=== PATIENT | male | born 1960 | race Caucasian/White ===

== ENCOUNTER → 2025-04-06 | Outpatient (CLI) | payer MEDICARE, MEDICAID, SELFPAY ==
--- OUTSIDE RECORDS SUMMARY | 2025-04-06 05:54 | XMS RPT_ITS | CCD ---
Author Organization [facility] Care Team Providers Care Process Safety Specialist Name Role Phone Unavailable Primary Care Provider UnavailKg Daniel Attending Unavailable MAST AUTOMATIC FOLDER SEAMER-SAS PROGRAMMER ANALYST, MILI Primary Care Physician ANNIE FERNANDEZ Attending Unavailable ANNIE FERNANDEZ Attending Unavailable Amber Gant Unavailable Unavailable MAST AUTOMATIC FOLDER SEAMER-SAS PROGRAMMER ANALYST, MILI Primary Care UnavailTAVON Robert MD Consulting Unavailable KAR BADILLO, GLORIA Attending Unavailable LYNN ALVAREZ MD Admitting Unavail able PA EATON Consulting Unavailable MINOR DELGADO MD Consulting Unavailable DIANE BADILLO, DR OMARI Singh Consulting Unavailable MAST AUTOMATIC FOLDER SEAMER-SAS PROGRAMMER ANALYST, MILI Primary Care Unavailabl e MAST AUTOMATIC FOLDER SEAMER-SAS PROGRAMMER ANALYST, MILI Attending Unavailabl e MAST AUTOMATIC FOLDER SEAMER-SAS PROGRAMMER ANALYST, MILI Primary Care Unavailabl e STACY AUTOMATIC FOLDER SEAMER-SAS PROGRAMMER ANALYST, GLENDA Parham Attending Unavail able MAST AUTOMATIC FOLDER SEAMER-SAS PROGRAMMER ANALYST, MILI Attending Unavailabl e MAST AUTOMATIC FOLDER SEAMER-SAS PROGRAMMER ANALYST, MILI Primary Care Unavailabl e MAST AUTOMATIC FOLDER SEAMER-SAS PROGRAMMER ANALYST, MILI Attending Unavailabl e MAST AUTOMATIC FOLDER SEAMER-SAS PROGRAMMER ANALYST, MILI Primary Care Unavailabl e MAST AUTOMATIC FOLDER SEAMER-SAS PROGRAMMER ANALYST, MILI Attending Unavailabl e MAST AUTOMATIC FOLDER SEAMER-SAS PROGRAMMER ANALYST, MILI Primary Care Unavailabl e MAST AUTOMATIC FOLDER SEAMER-SAS PROGRAMMER ANALYST, MILI Primary Care Unavailabl angi ALVAREZ MD, LYNN Parham Consulting Unavail able FRIDA CARDENAS DO Attending Unavailable MAST AUTOMATIC FOLDER SEAMER-SAS PROGRAMMER ANALYST, MILI Primary Care Unavailabl e FISH AUTOMATIC FOLDER SEAMER-SAS PROGRAMMER ANALYST, CALEB Attending Unavailab le MAST AUTOMATIC FOLDER SEAMER-SAS PROGRAMMER ANALYST, MILI Primary Care Unavailabl e FISH AUTOMATIC FOLDER SEAMER-SAS PROGRAMMER ANALYSTCALEB Attending Unavailab le MAST, MILI Primary Care Unavailable Fish PRODUCTION COOKCaleb Referring Unavailable Fish PRODUCTION COOKCaleb Attending Unavailable Allergies Allergy Classification Reported Allergen(s) Allergy Type Date of Onset Reaction(s) Facility (9 sources) Lisinopril; Translations: [lisinopril] Drug Allergy 4 Coughing - function (qualifier value) [facility] (1 source) atorvastatin; Translations: [ATORVASTATIN] Drug Allergy 3 [facility] Repository Medications Current Medications Medication Drug Class(es) Dates Sig (Normalized) Sig (Original) amoxicillin 875 mg / clavulanate 125 mg oral tablet (3 sources) Penicillin-class Antibacterial Start: 12-20-2024 End: 12-30-2024 take 1 tablet by mouth every twelve hours amoxicillin-clav ulanate 875 mg-125 mg oral tablet 1 tab(s), Oral, q12h, X 10 day(s), # 20 tab(s), 0 Refill(s), 12/30/24 2:12:00 PM EDT, Pharmacy: [facility] #[id number], 179, cm, 12/20/24 13:46:00 EDT, Height, 113.6, kg, 12/20/24 13:46:00 EDT, Dosing Weight Start Date: 12/20/24 Stop Date: 12/30/24 Status: Ordered Quantity: 20.0 Unit: tab(s) Repeat number: 1 apixaban 5 mg oral tablet (5 sources) Factor Xa Inhibitor Start: 02-25-2025 Eliquis 5 mg oral tablet Dose : 5 mg = 1 tab(s), Oral, BID, in lieu of pcp, # 60 tab(s), 5 Refill(s), Pharmacy: [facility]/pharmacy #[id number], 183, cm, 01/04/25 13:33:00 EDT, Height, 102.2, kg, 01/04/25 13:33:00 EDT, Dosing Weight Start Date: 02/25/25 Status: Ordered Quantity: 60.0 Unit: tab(s) Repeat number: 6 Start: 01-02-2025 Eliquis 5 mg o ral tablet Dose : 5 mg = 1 tab(s), Oral, BID, # 60 tab(s), 0 Refill(s), Pharmacy: [facility] #[id number], 182.9, cm, 12/28/24 22:06:00 EDT, Height, 111.4, kg, 12/28/24 22:06:00 EDT, Dosing Weight Start Date: 01/02/25 Status: Ordered Quantity: 60.0 Unit: tab(s) Repeat number: 1 bumetanide 1 mg oral tablet (5 sources) Loop Diuretic Start: 02-25-2025 bumetanide 1 m g oral tablet Dose : 1 mg = 1 tab(s), Oral, BID, in lieu of pcp, # 60 tab(s), 5 Refill(s), Pharmacy: [facility]/pharmacy #[id number], 183, cm, 01/04/25 13:33:00 EDT, Height, kg, 01/04/25 13:33:00 EDT, Dosing Weight Start Date: 02/25/25 Status: Ordered Quantity: 60.0 Unit: tab(s) Repeat number: 6 Start: 01-02-2025 bumetanide 1 m g oral tablet Dose : 1 mg = 1 tab(s), Oral, BID, # 60 tab(s), 0 Refill(s), Pharmacy: [facility] #[id number], 182.9, cm, 12/28/24 22:06:00 EDT, Height, kg, 12/28/24 22:06:00 EDT, Dosing Weight Start Date: 01/02/25 Status: Ordered Quantity: 60.0 Unit: tab(s) Repeat number: 1 cefdinir 300 mg oral capsule (1 source) Cephalosporin Antibacterial Start: 01-02-2025 End: 01-07-2025 cefdinir 300 mg oral capsule Dose : 300 mg = 1 cap(s), Oral, q12h, X 5 day(s), # 10 cap(s), 0 Refill(s), 01/07/25 12:26:00 PM EDT, Pharmacy: [facility] #[id number], 182.9, cm, 12/28/24 22:06:00 EDT, Height, 111.4, kg, 12/28/24 22:06:00 EDT, Dosing Weight Start Date: 01/02/25 Stop Date: 01/07/25 Status: Ordered Quantity: 10.0 Unit: cap(s) Repeat number: 1 doxycycline hyclate 100 mg oral capsule (1 source) Tetracycline-class Drug Start: 01-02-2025 End: 01-07-2025 doxycycline hyclate 100 mg oral capsule Dose : 100 mg = 1 cap(s), Oral, BID, X 5 day(s), # 10 cap(s), 0 Refill(s), 01/07/25 12:26:00 PM EDT, Pharmacy: [facility] #[id number], 182.9, cm, 12/28/24 22:06:00 EDT, Height, 111.4, kg, 12/28/24 22:06:00 EDT, Dosing Weight Start Date: 01/02/25 Stop Date: 01/07/25 Status: Ordered Quantity: 10.0 Unit: cap(s) Repeat number: 1 furosemide 20 mg oral tablet (3 sources) Loop Diuretic Start: 12-24-2024 End: 01-07-2025 Lasix 20 mg oral tablet Dose : 20 mg = 1 tab(s), Oral, qDay, # 14 tab(s), 0 Refill(s), Pharmacy: [facility] #[id number], 179, cm, 12/20/24 13:46:00 EDT, Height, kg, 12/20/24 13:46:00 EDT, Dosing Weight Start Date: 12/24/24 Stop Date: 01/07/25 Status: Ordered Quantity: 14.0 Unit: tab(s) Repeat number: 1 indapamide 1.25 mg oral tablet (4 sources) Thiazide-like Diuretic Start: 03-09-2025 take 1 mg by mouth once daily in the morning indapamide 1.25 mg oral tablet mg = tab(s), Oral, qAM, 0 Refill(s) Start Date: 03/09/25 Status: Ordered Repeat number: 1 3 ml insulin glargine 100 unt/ml pen injector (8 sources) Insulin Analog Start: 03-16-2025 End: 09-12-2025 inject 1 dose by subcutaneous injection once daily at bedtime Lantus Solostar Pen 100 units/mL 3 mL Pen Dose : 35 unit(s) =, Subcutaneous, qHS, with evening meal, # 2 EA, 5 Refill(s), Pharmacy: [facility]/pharmacy #[id number], 183, cm, 03/09/25 8:40:00 EDT, Height, kg, 03/09/25 8:40:00 EDT, Dosing Weight Start Date: 03/16/25 Stop Date: 09/12/25 Status: Ordered Quantity: 2.0 Unit: EA Repeat number: 6 Start: 12-21-2024 inject 1 dose by sub cutaneous injection once daily at bedtime Lantus 100 units/mL10 ml vial solution Dose : 20 unit(s) =, Subcutaneous, qHS, # 10 mL, 2 Refill(s), Pharmacy: [facility] #[id number], 179, cm, 12/20/24 13:46:00 EDT, Height, kg, 12/20/24 13:46:00 EDT, Dosing Weight Start Date: 12/21/24 Status: Ordered Quantity: 10.0 Unit: mL Repeat number: 3 3 ml insulin lispro 100 unt/ml pen injector (4 sources) Insulin Analog Start: 03-16-2025 HumaLOG KwikPe n 100 units/mL injectable PEN See Instructions, 15 minutes before or immediately after a meal, # 3 mL, 2 Refill(s), 3 mL PEN, Pharmacy: [facility]/pharmacy #[id number], 183, cm, 03/09/25 8:40:00 EDT, Height, kg, 03/09/25 8:40:00 EDT, Dosing Weight Start Date: 03/16/25 Status: Ordered Quantity: 3.0 Unit: mL Repeat number: 3 Insulin Syringes (orange cap) (8 sources) Start: 12-21-2024 Insulin Syring es (orange cap) See Instructions, qs for 1 month supply, # 1 EA, 11 Refill(s), Pharmacy: [facility] #[id number], 179, cm, 12/20/24 13:46:00 EDT, Height, 113.6, kg, 12/20/24 13:46:00 EDT, Dosing Weight Start Date: 12/21/24 Status: Ordered Quantity: 1.0 Unit: EA Repeat number: 12 losartan potassium 25 mg oral tablet (4 sources) Angiotensin 2 Receptor Judd Start: 03-09-2025 take 1 mg by mouth once daily losartan 25 mg oral tablet mg = tab(s), Oral, qDay, 0 Refill(s) Start Date: 03/09/25 Status: Ordered Repeat number: 1 metFORMIN hydrochloride 500 mg oral tablet (8 sources) Biguanide Start: 12-24-2024 End: 12-19-2025 MetFORMIN (Eqv-Glucophage XR) 500 mg oral tablet, EXTENDED RELEASE Dose : 500 mg = 1 tab(s), Oral, BID, in lieu of pcp, # 60 tab(s), 5 Refill(s), Pharmacy: [facility]/pharmacy #[id number], 183, cm, 01/04/25 13:33:00 EDT, Height, kg, 01/04/25 13:33:00 EDT, Dosing Weight Start Date: 02/25/25 Status: Ordered Quantity: 60.0 Unit: tab(s) Repeat number: 6 24 hr metoprolol succinate 25 mg extended release oral tablet (11 sources) beta-Adrenergic Judd Start: 02-25-2025 metoprolol succinate 25 mg oral TABLET extended release Dose : 25 mg = 1 tab(s), Oral, qDayM, in lieu of pcp, # 30 tab(s), 5 Refill(s), Pharmacy: [facility]/pharmacy #[id number], 183, cm, 01/04/25 13:33:00 EDT, Height, kg, 01/04/25 13:33:00 EDT, Dosing Weight Start Date: 02/25/25 Status: Ordered Quantity: 30.0 Unit: tab(s) Repeat number: 6 Start: 12-31-2024 End: 01-02-2025 metoprolol succinate 25 mg o ral TABLET extended release Dose : 25 mg = 1 tab(s), Oral, qDayM, 0 Refill(s) Start Date: 01/02/25 Status: Ordered Repeat number: 1 Start: 12-20-2024 End: 06-18-2025 metoprolol tartrate 25 mg or al tablet Dose : 25 mg = 1 tab(s), Oral, BID, # 60 tab(s), 5 Refill(s), [facility][id number], 179, cm, 12/20/24 13:46:00 EDT, Height, kg, 12/20/24 13:46:00 EDT, Dosing Weight Start Date: 12/20/24 Stop Date: 06/18/25 Status: Ordered Quantity: 60.0 Unit: tab(s) Repeat number: 6 Pen needles (4 sources) Start: 02-24-2025 Pen needles Se e Instructions, qs for 1 month supply. in lieu of pcp, # 1 EA, 0 Refill(s), Pharmacy: [facility]/pharmacy #[id number], 183, cm, 01/04/25 13:33:00 EDT, Height, 102.2, kg, 01/04/25 13:33:00 EDT, Dosing Weight Start Date: 02/24/25 Status: Ordered Quantity: 1.0 Unit: EA Repeat number: 1 rosuvastatin calcium 10 mg oral tablet (5 sources) HMG-CoA Reductase Inhibitor Start: 02-25-2025 rosuvastatin 10 mg o ral tablet Dose : 10 mg = 1 tab(s), Oral, qHS, in lieu of pcp, # 30 tab(s), 5 Refill(s), Pharmacy: [facility]/pharmacy #[id number], 183, cm, 01/04/25 13:33:00 EDT, Height, kg, 01/04/25 13:33:00 EDT, Dosing Weight Start Date: 02/25/25 Status: Ordered Quantity: 30.0 Unit: tab(s) Repeat number: 6 Start: 01-02-2025 rosuvastatin 1 0 mg oral tablet Dose : 10 mg = 1 tab(s), Oral, qHS, # 30 tab(s), 0 Refill(s), Pharmacy: [facility] #[id number], 182.9, cm, 12/28/24 22:06:00 EDT, Height, kg, 12/28/24 22:06:00 EDT, Dosing Weight Start Date: 01/02/25 Status: Ordered Quantity: 30.0 Unit: tab(s) Repeat number: 1 sulfamethoxazole 800 mg / trimethoprim 160 mg oral tablet (3 sources) Dihydrofolate Reductase Inhibitor Antibacterial, Sulfonamide Antimicrobial Start: 12-24-2024 End: 01-03-2025 take 1 tablet by mouth twice daily sulfamethoxazole-trimethoprim 800 mg-160 mg oral tablet Dose = 1 tab(s), Oral, BID, X 10 day(s), # 20 tab(s), 0 Refill(s), Pharmacy: [facility] #[id number], 179, cm, 12/20/24 13:46:00 EDT, Height, 113.6, kg, 12/20/24 13:46:00 EDT, Dosing Weight Start Date: 12/24/24 Stop Date: 01/03/25 Status: Ordered Quantity: 20.0 Unit: tab(s) Repeat number: 1 Problems Active Problems Problem Classification Problem Date Documented Date Episodic/Chronic Cardiac dysrhythmias (11 sources) Atrial fibrillation; Translations: [Persistent atrial fibrillation] Onset: 12-28-2024 12-20-2024 Chronic Chronic ulcer of skin (8 sources) Pressure ulcer 12-20-2024 Chronic Congestive heart failure; nonhypertensive (6 sources) Acute systolic heart failure; Translations: [Acute systolic (congestive) heart failure] Onset: 12-28-2024 Chronic Coronary atherosclerosis and other heart disease (2 sources) Coronary atherosclerosis; Translations: [Atherosclerotic heart disease of [place] coronary artery without angina pectoris] Onset: 12-28-2024 Chronic Coronary atherosclerosis and other heart disease (1 source) Presence of coronary angioplasty implant and graft; Translations: [Presence of coronary angioplasty implant and graft] Onset: 12-28-2024 Episodic Diabetes mellitus with complications (17 sources) Type 2 diabetes mellitus with ulcer; Translations: [Type 2 diabetes mellitus with diabetic polyneuropathy] Onset: 01-08-2024 12-20-2024 Chronic Inflammatory conditions of male genital organs (2 sources) Inflammation of scrotum; Translations: [Inflammatory disorders of scrotum] Onset: 12-28-2024 Episodic Nonspecific chest pain (1 source) Other chest pain; Translations: [Other chest pain] Onset: 04-04-2025 Episodic Open wounds of extremities (2 sources) Complete traumatic amputation of unspecified lower leg, level unspecified, initial encounter; Translations: [Complete traumatic amputation of unspecified lower leg, level unspecified, initial encounter] Onset: 12-20-2024 Chronic Other bone disease and musculoskeletal deformities (2 sources) Acquired absence of left leg below knee; Translations: [Hx of BKA, left (HCC)] Onset: 01-08-2024 Chronic Other bone disease and musculoskeletal deformities (1 source) Amputated left lower limb below knee; Translations: [Acquired absence of left leg below knee] Chronic Other endocrine disorders (8 sources) Hormone level - finding 12-21-2024 Episodic Other lower respiratory disease (1 source) Shortness of breath; Translations: [Shortness of breath] Onset: 04-04-2025 Episodic Other male genital disorders (8 sources) Edema of scrotum 12-20-2024 Episodic Other male genital disorders (2 sources) Disorder of male genital organ; Translations: [Other specified disorders of the male genital organs] Onset: 12-29-2024 Episodic Other nervous system disorders (8 sources) Peripheral nerve disease 12-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 Chronic Other nervous system disorders (2 sources) Polyneuropathy, unspecified; Translations: [Polyneuropathy, unspecified] Onset: 12-20-2024 Chronic Other nutritional; endocrine; and metabolic disorders (1 source) Disorder of protein metabolism; 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, not elsewhere classified] Chronic Other nutritional; endocrine; and metabolic disorders (1 source) Other disorders of plasma-protein metabolism, not elsewhere classified; 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, not elsewhere classified] Onset: 12-28-2024 Chronic Residual codes; unclassified (8 sources) Bilateral lower limb edema 12-20-2024 Episodic Skin and subcutaneous tissue infections (6 sources) Cellulitis of lower limb; Translations: [Cellulitis of right lower limb] Onset: 12-28-2024 Episodic Substance-related disorders (10 sources) Marijuana user; Translations: [Cannabis misuse] Onset: 12-28-2024 12-20-2024 Episodic Unclassified (8 sources) Amputated lower limb 12-20-2024 Unclassified (4 sources) First encounter by subject 12-20-2024 Unclassified (8 sources) Hypercoagulable state due to atrial fibrillation 12-20-2024 Unclassified (1 source) Wound Check Onset: 07-14-2024 Unclassified (1 source) Other persistent atrial fibrillation; Translations: [Other persistent atrial fibrillation] Onset: 12-28-2024 Unclassified (4 sources) Patient encounter status 01-04-2025 Past or Other Problems Problem Classification Problem Date Documented Da te Episodic/Chronic Mycoses (1 source) Tinea unguium; Translations: [Onychomycosis] Onset: 01-08-2024 Episodic Other male genital disorders (4 sources) Other specified disorders of the male genital organs; Translations: [Other specified disorders of the male genital organs] Onset: 12-20-2024 Episodic Other screening for suspected conditions (not mental disorders or infectious disease) (2 sources) Blood chemistry abnormal; Translations: [Other specified abnormal findings of blood chemistry] Onset: 05-05-2025 Episodic Residual codes; unclassified (2 sources) Localized edema; Translations: [Localized edema] Onset: 12-20-2024 Episodic Results Test Name Value Interpretation Reference Range Facility PSAFon 03-22-2025 % Free PSA 10.9 % Normal [facility] Comment on above: Result Comment: The table below lists the probability of prostate cancer for men with non-suspicious MARISOL results and total PSA between 4 and 10 ng/mL, by patient age (Roderick et al, COMFORT 1998, 279:1542). % Free PSA 50-64 yr 65-75 yr 0.00-10.00% 56% 55% 10.01-15.00% 24% 35% 15.01-20.00% 17% 23% 20.01-25.00% 10% 20% >25.00% 5% 9% Please note: Roderick et al did not make specific recommendations regarding the use of percent free PSA for any other population of men. Performed At: [facility] [id number] Dudley Mott PhD Ph:[phone] Performed By: #### M DW, ANEU, CMP, GFR, CBC, ADIFF, LAC #### [address] [address] PSA Free 2.31 ng/mL Normal N/A [facility] Comment on above: Result Comment: Iron MCCLURE methodology. Performed By: #### M DW, ANEU, CMP, GFR, CBC, ADIFF, LAC #### [address] [address] .Auto Diffon 03-21-2025 Basophil, Absolute 0.0 10 3/mcL Normal 0.0-0.3 [facility] Comment on above: Performed By: #### M DW, ANEU, CMP, GFR, CBC, ADIFF, LAC #### [address] [address] Basophils/100 WBC (Bld) 0.6 % Normal 0.0-2.5 [facility] Comment on above: Performed By: #### M DW, ANEU, CMP, GFR, CBC, ADIFF, LAC #### [address] [place] [address] Eosinophil, Absolute 0.1 10 3/mcL Normal 0.0-0.7 [facility] Comment on above: Performed By: #### M DW, ANEU, CMP, GFR, CBC, ADIFF, LAC #### [address] [address] Eosinophils/100 WBC (Bld) 2.4 % Normal 0.0-6.0 [facility] Comment on above: Performed By: #### M DW, ANEU, CMP, GFR, CBC, ADIFF, LAC #### [address] [address] Lymphocyte, Absolute 1.4 10 3/mcL Normal 0.9-4.3 [facility] Comment on above: Performed By: #### M DW, ANEU, CMP, GFR, CBC, ADIFF, LAC #### [address] [address] Lymphocytes/100 WBC (Bld) 24.7 % Normal 20.0-40.0 [facility] Comment on above: Performed By: #### M DW, ANEU, CMP, GFR, CBC, ADIFF, LAC #### [address] [address] Monocyte, Absolute 0.4 10 3/mcL Normal 0.1-1.4 [facility] Comment on above: Performed By: #### M DW, ANEU, CMP, GFR, CBC, ADIFF, LAC #### [address] [address] Monocytes/100 WBC (Bld) 6.5 % Normal 2.0-13.0 [facility] Comment on above: Performed By: #### M DW, ANEU, CMP, GFR, CBC, ADIFF, LAC #### [address] [address] Neutrophils/100 WBC (Bld) 65.8 % Normal 50.0-75.0 [facility] Comment on above: Performed By: #### M DW, ANEU, CMP, GFR, CBC, ADIFF, LAC #### [address] [address] .GFRon 03-21-2025 Estimated Glomerular Filtration Rate 61 ml/min/1.73sqm Normal [facility] Comment on above: Result Comment: Stages of Chronic Kidney Disease (CKD) Stage Description eGFR(ml/min/1.73 sq.m.) CKD 1 Normal kidney function or >=90 normal kindney function with possible kidney damage (ex. Proteinuria) CKD 2 Kidney damage with mild loss 60-89 of kidney function CKD 3a Mild to moderate loss of kidney 45-59 function CKD 3b Moderate to severe loss of 30-44 of kindey function CKD 4 Severe loss of kidney function 15-29 CKD 5 Kidney failure <15 Note: (go live 2024) the eGFR calculation was updated to the 2020 CKD-EPI creatinine equation without a race factor to calculate the eGFR results. Performed By: #### M DW, ANEU, CMP, GFR, CBC, ADIFF, LAC #### [address] [address] .NEUABSon 03-21-2025 Neutrophil, Absolute 3.6 10 3/mcL Normal 2.3-8.1 [facility] Comment on above: Performed By: #### M DW, ANEU, CMP, GFR, CBC, ADIFF, LAC #### [id number] [place], [place] [address] BMPon 03-21-2025 BUN/Creatinine Ratio 29 ratio High 7-27 [facility] Comment on above: Performed By: #### M DW, ANEU, CMP, GFR, CBC, ADIFF, LAC #### [id number] [place], [place] [address] Calcium [Mass/Vol] 9.5 mg/dL Normal 8.4-10.2 [facility] Comment on above: Performed By: #### M DW, ANEU, CMP, GFR, CBC, ADIFF, LAC #### [id number] [place], [place] [address] Chloride [Moles/Vol] 102 mmol/L Normal 98-107 [facility] Comment on above: Performed By: #### M DW, ANEU, CMP, GFR, CBC, ADIFF, LAC #### [address] [address] CO2 [Moles/Vol] 24 mmol/L Normal 23-31 [facility] Comment on above: Performed By: #### M DW, ANEU, CMP, GFR, CBC, ADIFF, LAC #### [address] [address] Creatinine [Mass/Vol] 1.32 mg/dL High 0.67-1.17 [facility] Comment on above: Performed By: #### M DW, ANEU, CMP, GFR, CBC, ADIFF, LAC #### [place] [id number] Electrolyte Balance 12.0 mEq/L Normal 4.0-15.0 [facility] Comment on above: Performed By: #### M DW, ANEU, CMP, GFR, CBC, ADIFF, LAC #### [address] [address] Glucose [Mass/Vol] 339 mg/dL High 80-115 [facility] Comment on above: Performed By: #### M DW, ANEU, CMP, GFR, CBC, ADIFF, LAC #### [address] [address] Potassium [Moles/Vol] 4.6 mmol/L Normal 3.5-5.1 [facility] Comment on above: Performed By: #### M DW, ANEU, CMP, GFR, CBC, ADIFF, LAC #### [address] [address] Sodium [Moles/Vol] 138 mmol/L Normal 136-145 [facility] Comment on above: Performed By: #### M DW, ANEU, CMP, GFR, CBC, ADIFF, LAC #### [address] [address] Urea nitrogen [Mass/Vol] 38 mg/dL High 7-18 [facility] Comment on above: Performed By: #### M DW, ANEU, CMP, GFR, CBC, ADIFF, LAC #### [address] [address] CBCon 03-21-2025 Erythrocyte distribution width (RBC) [Ratio] 13.4 % Normal 11.5-15.5 [facility] Comment on above: Performed By: #### M DW, ANEU, CMP, GFR, CBC, ADIFF, LAC #### [place] [address] Hematocrit (Bld) [Volume fraction] 37.1 % Low 40.0-52.0 [facility] Comment on above: Performed By: #### M DW, ANEU, CMP, GFR, CBC, ADIFF, LAC #### [place] [address] Hgb 12.5 G/dL Low 13.0-17.5 [facility] Comment on above: Performed By: #### M DW, ANEU, CMP, GFR, CBC, ADIFF, LAC #### [place] [address] MCH (RBC) [Entitic mass] 29.6 pg Normal 27.0-33.0 [facility] Comment on above: Performed By: #### M DW, ANEU, CMP, GFR, CBC, ADIFF, LAC #### [address] [address] MCHC 33.7 G/dL Normal 32.0-36.0 [facility] Comment on above: Performed By: #### M DW, ANEU, CMP, GFR, CBC, ADIFF, LAC #### [address] [address] MCV (RBC) [Entitic vol] 87.6 fL Normal 81.0-100.0 [facility] Comment on above: Performed By: #### M DW, ANEU, CMP, GFR, CBC, ADIFF, LAC #### [address] [address] Platelet 152 10 3/mcL Normal 150-450 [facility] Comment on above: Performed By: #### M DW, ANEU, CMP, GFR, CBC, ADIFF, LAC #### [id number] [place], [place] [address] Platelet mean volume (Bld) [Entitic vol] 9.3 fL Normal 6.4-10.5 [facility] Comment on above: Performed By: #### M DW, ANEU, CMP, GFR, CBC, ADIFF, LAC #### [id number] [place] [id number] RBC 4.23 10 6/mcL Low 4.50-6.00 [facility] Comment on above: Performed By: #### M DW, ANEU, CMP, GFR, CBC, ADIFF, LAC #### [id number] [place] [id number] WBC 5.5 10 3/mcL Normal 4.5-10.8 [facility] Comment on above: Performed By: #### M DW, ANEU, CMP, GFR, CBC, ADIFF, LAC #### [id number] [place] [address] LABORATORYOrdered By: SYSTEM SYSTEM on 03-21-2025 Basophils (Bld) [#/Vol] 0.0 103/mcL Normal 0.0 - 0.3 10^3/mcL AO Workflow SS Basophils/100 WBC (Bld) 0.6 % Normal 0.0 - 2.5 % AO Workflow SS Calcium [Mass/Vol] 9.5 mg/dL Normal 8.4 - 10. 2 mg/dL AO ADM SS Chloride [Moles/Vol] 102 mmol/L Normal 98 - 10 7 mmol/L AO ADM SS CO2 [Moles/Vol] 24 mmol/L Normal 23 - 31 mmol/L AO ADM SS Creatinine [Mass/Vol] 1.32 mg/dL High 0.67 - 1.17 mg/dL AO ADM SS Electrolyte Balance 12.0 mEq/L Normal 4.0 - 15 .0 mEq/L AO ADM SS Eosinophil, Absolute 0.1 103/mcL Normal 0.0 - 0 .7 10^3/mcL AO Workflow SS Eosinophils/100 WBC (Bld) 2.4 % Normal 0.0 - 6.0 % AO Workflow SS Erythrocyte distribution width (RBC) [Ratio] 13.4 % Normal 11.5 - 15.5 % AO Workflow SS Estimated Glomerular Filtration Rate 61 ml/min/1.73sqm Invalid Interpretation Code AO Chemistry S Comment on above: Interpretive Data: Stages of Chronic Kidney Disease (CKD) Stage Description eGFR(ml/min/1.73 sq.m.) CKD 1 Normal kidney function or >=90 normal kindney function with possible kidney damage (ex. Proteinuria) CKD 2 Kidney damage with mild loss 60-89 of kidney function CKD 3a Mild to moderate loss of kidney 45-59 function CKD 3b Moderate to severe loss of 30-44 of kindey function CKD 4 Severe loss of kidney function 15-29 CKD 5 Kidney failure <15 Note: (go live 2024) the eGFR calculation was updated to the 2020 CKD-EPI creatinine equation without a race factor to calculate the eGFR results. Glucose [Mass/Vol] 339 mg/dL High 80 - 115 mg/dL AO ADM SS Hematocrit (Bld) [Volume fraction] 37.1 % Low 40.0 - 52.0 % AO Workflow SS Hemoglobin (Bld) [Mass/Vol] 12.5 G/dL Low 13.0 - 17.5 G/dL AO Workflow SS Lymphocytes (Bld) [#/Vol] 1.4 103/mcL Normal 0.9 - 4.3 10^3/mcL AO Workflow SS Lymphocytes/100 WBC (Bld) 24.7 % Normal 20.0 - 40.0 % AO Workflow SS MCH (RBC) [Entitic mass] 29.6 pg Normal 27.0 - 33.0 pg AO Workflow SS MCHC 33.7 G/dL Normal 32.0 - 36.0 G/dL AO Workflow SS MCV (RBC) [Entitic vol] 87.6 fL Normal 81.0 - 100.0 fL AO Workflow SS Monocytes (Bld) [#/Vol] 0.4 103/mcL Normal 0.1 - 1.4 10^3/mcL AO Workflow SS Monocytes/100 WBC (Bld) 6.5 % Normal 2.0 - 13.0 % AO Workflow SS Neutrophils (Bld) [#/Vol] 3.6 103/mcL Normal 2.3 - 8.1 10^3/mcL AO Workflow SS Neutrophils/100 WBC (Bld) 65.8 % Normal 50.0 - 75.0 % AO Workflow SS Platelet mean volume (Bld) [Entitic vol] 9.3 fL Normal 6.4 - 10.5 fL AO Workflow SS Platelets (Bld) [#/Vol] 152 103/mcL Normal 150 - 450 10^3/mcL AO Workflow SS Potassium [Moles/Vol] 4.6 mmol/L Normal 3.5 - 5.1 mmol/L AO ADM SS RBC (Bld) [#/Vol] 4.23 106/mcL Low 4.50 - 6.0 0 10^6/mcL AO Workflow SS Sodium [Moles/Vol] 138 mmol/L Normal 136 - 145 mmol/L AO ADM SS Urea nitrogen [Mass/Vol] 38 mg/dL High 7 - 18 mg/dL AO ADM SS Urea nitrogen/Creatinine [Mass ratio] 29 ratio High 7 - 27 ratio AO ADM SS WBC (Bld) [#/Vol] 5.5 103/mcL Normal 4.5 - 10.8 10^3/mcL AO Workflow SS .GFRon 03-17-2025 Estimated Glomerular Filtration Rate 63 ml/min/1.73sqm Normal [facility] Comment on above: Result Comment: Stages of Chronic Kidney Disease (CKD) Stage Description eGFR(ml/min/1.73 sq.m.) CKD 1 Normal kidney function or >=90 normal kindney function with possible kidney damage (ex. Proteinuria) CKD 2 Kidney damage with mild loss 60-89 of kidney function CKD 3a Mild to moderate loss of kidney 45-59 function CKD 3b Moderate to severe loss of 30-44 of kindey function CKD 4 Severe loss of kidney function 15-29 CKD 5 Kidney failure <15 Note: (go live 2024) the eGFR calculation was updated to the 2020 CKD-EPI creatinine equation without a race factor to calculate the eGFR results. Performed By: #### B MP, GFR #### [id number] [place], [place] [address] BMPon 03-17-2025 BUN/Creatinine Ratio 29 ratio High 7-27 [facility] Comment on above: Performed By: #### B MP, GFR #### [address] [place], [place] [address] Calcium [Mass/Vol] 9.2 mg/dL Normal 8.4-10.2 [facility] Comment on above: Performed By: #### B MP, GFR #### [address] [address] Chloride [Moles/Vol] 97 mmol/L Low 98-107 [facility] Comment on above: Performed By: #### B MP, GFR #### [address] [address] CO2 [Moles/Vol] 28 mmol/L Normal 23-31 [facility] Comment on above: Performed By: #### B MP, GFR #### [address] [address] Creatinine [Mass/Vol] 1.29 mg/dL High 0.67-1.17 [facility] Comment on above: Performed By: #### B MP, GFR #### [address] [address] Electrolyte Balance 9.0 mEq/L Normal 4.0-15.0 [facility] Comment on above: Performed By: #### B MP, GFR #### [address] [address] Glucose [Mass/Vol] 335 mg/dL High 80-115 [facility] Comment on above: Performed By: #### B MP, GFR #### [address] [address] Potassium [Moles/Vol] 4.1 mmol/L Normal 3.5-5.1 [facility] Comment on above: Performed By: #### B MP, GFR #### [address] [address] Sodium [Moles/Vol] 134 mmol/L Low 136-145 [facility] Comment on above: Performed By: #### B MP, GFR #### [address] [address] Urea nitrogen [Mass/Vol] 38 mg/dL High 7-18 [facility] Comment on above: Performed By: #### B MP, GFR #### [address] [address] LABORATORYOrdered By: SYSTEM SYSTEM on 03-17-2025 Calcium [Mass/Vol] 9.2 mg/dL Normal 8.4 - 10. 2 mg/dL AO ADM SS Chloride [Moles/Vol] 97 mmol/L Low 98 - 10 7 mmol/L AO ADM SS CO2 [Moles/Vol] 28 mmol/L Normal 23 - 31 mmol/L AO ADM SS Creatinine [Mass/Vol] 1.29 mg/dL High 0.67 - 1.17 mg/dL AO ADM SS Electrolyte Balance 9.0 mEq/L Normal 4.0 - 15 .0 mEq/L AO ADM SS Estimated Glomerular Filtration Rate 63 ml/min/1.73sqm Invalid Interpretation Code AO Chemistry S Comment on above: Interpretive Data: Stages of Chronic Kidney Disease (CKD) Stage Description eGFR(ml/min/1.73 sq.m.) CKD 1 Normal kidney function or >=90 normal kindney function with possible kidney damage (ex. Proteinuria) CKD 2 Kidney damage with mild loss 60-89 of kidney function CKD 3a Mild to moderate loss of kidney 45-59 function CKD 3b Moderate to severe loss of 30-44 of kindey function CKD 4 Severe loss of kidney function 15-29 CKD 5 Kidney failure <15 Note: (go live 2024) the eGFR calculation was updated to the 2020 CKD-EPI creatinine equation without a race factor to calculate the eGFR results. Glucose [Mass/Vol] 335 mg/dL High 80 - 115 mg/dL AO ADM SS Potassium [Moles/Vol] 4.1 mmol/L Normal 3.5 - 5.1 mmol/L AO ADM SS Sodium [Moles/Vol] 134 mmol/L Low 136 - 145 mmol/L AO ADM SS Urea nitrogen [Mass/Vol] 38 mg/dL High 7 - 18 mg/dL AO ADM SS Urea nitrogen/Creatinine [Mass ratio] 29 ratio High 7 - 27 ratio AO ADM SS .GFRon 03-16-2025 Estimated Glomerular Filtration Rate 55 ml/min/1.73sqm Normal [facility] Comment on above: Result Comment: Stages of Chronic Kidney Disease (CKD) Stage Description eGFR(ml/min/1.73 sq.m.) CKD 1 Normal kidney function or >=90 normal kindney function with possible kidney damage (ex. Proteinuria) CKD 2 Kidney damage with mild loss 60-89 of kidney function CKD 3a Mild to moderate loss of kidney 45-59 function CKD 3b Moderate to severe loss of 30-44 of kindey function CKD 4 Severe loss of kidney function 15-29 CKD 5 Kidney failure <15 Note: (go live 2024) the eGFR calculation was updated to the 2020 CKD-EPI creatinine equation without a race factor to calculate the eGFR results. Performed By: #### M DW, ANEU, CMP, GFR, CBC, ADIFF, LAC #### [address] [address] BMPon 03-16-2025 BUN/Creatinine Ratio 34 ratio High 7-27 [facility] Comment on above: Performed By: #### M DW, ANEU, CMP, GFR, CBC, ADIFF, LAC #### [address] [address] Calcium [Mass/Vol] 9.2 mg/dL Normal 8.4-10.2 [facility] Comment on above: Performed By: #### M DW, ANEU, CMP, GFR, CBC, ADIFF, LAC #### [address] [address] Chloride [Moles/Vol] 95 mmol/L Low 98-107 [facility] Comment on above: Performed By: #### M DW, ANEU, CMP, GFR, CBC, ADIFF, LAC #### [address] [address] CO2 [Moles/Vol] 28 mmol/L Normal 23-31 [facility] Comment on above: Performed By: #### M DW, ANEU, CMP, GFR, CBC, ADIFF, LAC #### [address] [address] Creatinine [Mass/Vol] 1.43 mg/dL High 0.67-1.17 [facility] Comment on above: Performed By: #### M DW, ANEU, CMP, GFR, CBC, ADIFF, LAC #### [address] [address] Electrolyte Balance 8.0 mEq/L Normal 4.0-15.0 [facility] Comment on above: Performed By: #### M DW, ANEU, CMP, GFR, CBC, ADIFF, LAC #### [id number] [place], [place] [address] Glucose [Mass/Vol] 608 mg/dL Critically abnormal 80-115 [facility] Comment on above: Performed By: #### M DW, ANEU, CMP, GFR, CBC, ADIFF, LAC #### [address] [place], [place] [address] Potassium [Moles/Vol] 5.0 mmol/L Normal 3.5-5.1 [facility] Comment on above: Performed By: #### M DW, ANEU, CMP, GFR, CBC, ADIFF, LAC #### [address] [place], [place] [address] Sodium [Moles/Vol] 131 mmol/L Low 136-145 [facility] Comment on above: Performed By: #### M DW, ANEU, CMP, GFR, CBC, ADIFF, LAC #### [address] [place], [place] [address] Urea nitrogen [Mass/Vol] 48 mg/dL High 7-18 [facility] Comment on above: Performed By: #### M DW, ANEU, CMP, GFR, CBC, ADIFF, LAC #### [address] [place], [place] [address] LABORATORYOrdered By: SYSTEM SYSTEM on 03-16-2025 Calcium [Mass/Vol] 9.2 mg/dL Normal 8.4 - 10. 2 mg/dL AO ADM SS Chloride [Moles/Vol] 95 mmol/L Low 98 - 10 7 mmol/L AO ADM SS CO2 [Moles/Vol] 28 mmol/L Normal 23 - 31 mmol/L AO ADM SS Creatinine [Mass/Vol] 1.43 mg/dL High 0.67 - 1.17 mg/dL AO ADM SS Electrolyte Balance 8.0 mEq/L Normal 4.0 - 15 .0 mEq/L AO ADM SS Estimated Glomerular Filtration Rate 55 ml/min/1.73sqm Invalid Interpretation Code AO Chemistry S Comment on above: Interpretive Data: Stages of Chronic Kidney Disease (CKD) Stage Description eGFR(ml/min/1.73 sq.m.) CKD 1 Normal kidney function or >=90 normal kindney function with possible kidney damage (ex. Proteinuria) CKD 2 Kidney damage with mild loss 60-89 of kidney function CKD 3a Mild to moderate loss of kidney 45-59 function CKD 3b Moderate to severe loss of 30-44 of kindey function CKD 4 Severe loss of kidney function 15-29 CKD 5 Kidney failure <15 Note: (go live 2024) the eGFR calculation was updated to the 2020 CKD-EPI creatinine equation without a race factor to calculate the eGFR results. Glucose [Mass/Vol] 608 mg/dL Invalid Interpretation Code 80 - 115 mg/dL AO ADM SS Natriuretic peptide.B prohormone N-Terminal [Mass/Vol] 591 pg/mL High 0 - 125 pg/mL AO ADM SS Comment on above: Interpretive Data: N T-proBNP results of less than 300 pg/mL effectively rules out acute congestive heart failure with 99% negative predictive value. Potassium [Moles/Vol] 5.0 mmol/L Normal 3.5 - 5.1 mmol/L AO ADM SS Sodium [Moles/Vol] 131 mmol/L Low 136 - 145 mmol/L AO ADM SS Urea nitrogen [Mass/Vol] 48 mg/dL High 7 - 18 mg/dL AO ADM SS Urea nitrogen/Creatinine [Mass ratio] 34 ratio High 7 - 27 ratio AO ADM SS PBNPon 03-16-2025 Natriuretic peptide B (Bld) [Mass/Vol] 591 pg/mL High 0-125 [facility] Comment on above: Result Comment: NT-p roBNP results of less than 300 pg/mL effectively rules out acute congestive heart failure with 99% negative predictive value. Performed By: #### M DW, ANEU, CMP, GFR, CBC, ADIFF, LAC #### [facility] [address] [place], [place] [address] .Auto Diffon 01-02-2025 Basophil, Absolute 0.0 10 3/mcL Normal 0.0-0.3 [facility] Comment on above: Performed By: #### N GPCR1, CTPCR #### [facility] [address] [place] [address] Basophils/100 WBC (Bld) 0.7 % Normal 0.0-2.5 [facility] Comment on above: Performed By: #### N GPCR1, CTPCR #### [address] [address] Eosinophil, Absolute 0.2 10 3/mcL Normal 0.0-0.7 [facility] Comment on above: Performed By: #### N GPCR1, CTPCR #### [address] [address] Eosinophils/100 WBC (Bld) 3.7 % Normal 0.0-6.0 [facility] Comment on above: Performed By: #### N GPCR1, CTPCR #### [address] [address] Lymphocyte, Absolute 1.2 10 3/mcL Normal 0.9-4.3 [facility] Comment on above: Performed By: #### N GPCR1, CTPCR #### [address] [address] Lymphocytes/100 WBC (Bld) 21.3 % Normal 20.0-40.0 [facility] Comment on above: Performed By: #### N GPCR1, CTPCR #### [address] [address] Monocyte, Absolute 0.5 10 3/mcL Normal 0.1-1.4 [facility] Comment on above: Performed By: #### N GPCR1, CTPCR #### [address] [address] Monocytes/100 WBC (Bld) 9.2 % Normal 2.0-13.0 [facility] Comment on above: Performed By: #### N GPCR1, CTPCR #### [address] [address] Neutrophils/100 WBC (Bld) 65.1 % Normal 50.0-75.0 [facility] Comment on above: Performed By: #### N GPCR1, CTPCR #### [address] [address] .GFRon 01-02-2025 Estimated Glomerular Filtration Rate 54 ml/min/1.73sqm Normal [facility] Comment on above: Result Comment: Stages of Chronic Kidney Disease (CKD) Stage Description eGFR(ml/min/1.73 sq.m.) CKD 1 Normal kidney function or >=90 normal kindney function with possible kidney damage (ex. Proteinuria) CKD 2 Kidney damage with mild loss 60-89 of kidney function CKD 3a Mild to moderate loss of kidney 45-59 function CKD 3b Moderate to severe loss of 30-44 of kindey function CKD 4 Severe loss of kidney function 15-29 CKD 5 Kidney failure <15 Note: (go live 2024) the eGFR calculation was updated to the 2020 CKD-EPI creatinine equation without a race factor to calculate the eGFR results. Performed By: #### N GPCR1, CTPCR #### [address] [address] .NEUABSon 01-02-2025 Neutrophil, Absolute 3.7 10 3/mcL Normal 2.3-8.1 [facility] Comment on above: Performed By: #### N GPCR1, CTPCR #### [id number] BMPon 01-02-2025 BUN/Creatinine Ratio 16.4 ratio Normal 10.0-22.0 [facility] Comment on above: Performed By: #### N GPCR1, CTPCR #### [id number] Calcium [Mass/Vol] 9.3 mg/dL Normal 8.7-10.4 [facility] Comment on above: Performed By: #### N GPCR1, CTPCR #### [id number] Chloride [Moles/Vol] 101 mmol/L Normal 98-110 [facility] Comment on above: Performed By: #### N GPCR1, CTPCR #### [address] [address] CO2 [Moles/Vol] 32 mmol/L Normal 22-32 [facility] Comment on above: Performed By: #### N GPCR1, CTPCR #### [id number] Creatinine [Mass/Vol] 1.46 mg/dL High 0.60-1.40 [facility] Comment on above: Result Comment: Test ing performed on [employer] analyzer using enzymatic creatinine methodology. Performed By: #### N GPCR1, CTPCR #### [address] [address] Electrolyte Balance 5.0 mEq/L Normal 4.0-15.0 [facility] Comment on above: Performed By: #### N GPCR1, CTPCR #### [address] [address] Glucose [Mass/Vol] 110 mg/dL Normal 82-115 [facility] Comment on above: Performed By: #### N GPCR1, CTPCR #### [address] [address] Potassium [Moles/Vol] 4.4 mmol/L Normal 3.5-5.0 [facility] Comment on above: Performed By: #### N GPCR1, CTPCR #### [id number] Sodium [Moles/Vol] 138 mmol/L Normal 136-145 [facility] Comment on above: Performed By: #### N GPCR1, CTPCR #### [id number] Urea nitrogen [Mass/Vol] 24.0 mg/dL High 8.0-22.0 [facility] Comment on above: Performed By: #### N GPCR1, CTPCR #### [address] [address] CBCon 01-02-2025 Erythrocyte distribution width (RBC) [Ratio] 14.1 % Normal 11.5-15.5 [facility] Comment on above: Performed By: #### N GPCR1, CTPCR #### [address] [address] Hematocrit (Bld) [Volume fraction] 40.8 % Normal 40.0-52.0 [facility] Comment on above: Performed By: #### N GPCR1, CTPCR #### [address] [address] Hgb 13.6 G/dL Normal 13.0-17.5 [facility] Comment on above: Performed By: #### N GPCR1, CTPCR #### [address] [address] MCH (RBC) [Entitic mass] 29.1 pg Normal 27.0-33.0 [facility] Comment on above: Performed By: #### N GPCR1, CTPCR #### [address] [address] MCHC 33.3 G/dL Normal 32.0-36.0 [facility] Comment on above: Performed By: #### N GPCR1, CTPCR #### [address] [address] MCV (RBC) [Entitic vol] 87.5 fL Normal 81.0-100.0 [facility] Comment on above: Performed By: #### N GPCR1, CTPCR #### [address] [address] Platelet 184 10 3/mcL Normal 150-450 [facility] Comment on above: Performed By: #### N GPCR1, CTPCR #### [address] [address] Platelet mean volume (Bld) [Entitic vol] 8.9 fL Normal 6.4-10.5 [facility] Comment on above: Performed By: #### N GPCR1, CTPCR #### [address] [address] RBC 4.66 10 6/mcL Normal 4.50-6.00 [facility] Comment on above: Performed By: #### N GPCR1, CTPCR #### [address] [address] WBC 5.7 10 3/mcL Normal 4.5-10.8 [facility] Comment on above: Performed By: #### N GPCR1, CTPCR #### [address] [address] LABORATORYOrdered By: Christie Arambula on 01-02-2025 Blood Glucose Testing Reason Routine (01/02/25 12:03 PM) [facility] Glucose [Mass/Vol] 175 mg/dL High 82 - 115 mg/dL [facility] LABORATORYOrdered By: Marisabel Núñez on 01-02-2025 Blood Glucose Testing Reason Routine (01/02/25 8:14 AM) [facility] Glucose [Mass/Vol] 100 mg/dL Normal 82 - 115 mg/dL [facility] LABORATORYOrdered By: SYSTEM SYSTEM on 01-02-2025 Basophils (Bld) [#/Vol] 0.0 103/mcL Normal 0.0 - 0.3 10^3/mcL Workflow SS Basophils/100 WBC (Bld) 0.7 % Normal 0.0 - 2.5 % Workflow SS Calcium [Mass/Vol] 9.3 mg/dL Normal 8.7 - 10. 4 mg/dL ADM SS Chloride [Moles/Vol] 101 mmol/L Normal 98 - 11 0 mEq/L ADM SS CO2 [Moles/Vol] 32 mmol/L Normal 22 - 32 mEq/L ADM SS Creatinine [Mass/Vol] 1.46 mg/dL High 0.60 - 1.40 mg/dL ADM SS Comment on above: Interpretive Data: T esting performed on [employer] analyzer using enzymatic creatinine methodology. Electrolyte Balance 5.0 mEq/L Normal 4.0 - 15 .0 mEq/L ADM SS Eosinophils (Bld) [#/Vol] 0.2 103/mcL Normal 0.0 - 0.7 10^3/mcL Workflow SS Eosinophils/100 WBC (Bld) 3.7 % Normal 0.0 - 6.0 % Workflow SS Erythrocyte distribution width (RBC) [Ratio] 14.1 % Normal 11.5 - 15.5 % Workflow SS Estimated Glomerular Filtration Rate 54 ml/min/1.73sqm Invalid Interpretation Code Chemistry S Comment on above: Interpretive Data: Stages of Chronic Kidney Disease (CKD) Stage Description eGFR(ml/min/1.73 sq.m.) CKD 1 Normal kidney function or >=90 normal kindney function with possible kidney damage (ex. Proteinuria) CKD 2 Kidney damage with mild loss 60-89 of kidney function CKD 3a Mild to moderate loss of kidney 45-59 function CKD 3b Moderate to severe loss of 30-44 of kindey function CKD 4 Severe loss of kidney function 15-29 CKD 5 Kidney failure <15 Note: (go live 2024) the eGFR calculation was updated to the 2020 CKD-EPI creatinine equation without a race factor to calculate the eGFR results. Glucose [Mass/Vol] 110 mg/dL Normal 82 - 115 mg/dL ADM SS Hematocrit (Bld) [Volume fraction] 40.8 % Normal 40.0 - 52.0 % AH Workflow SS Hemoglobin (Bld) [Mass/Vol] 13.6 G/dL Normal 13.0 - 17.5 G/dL AH Workflow SS Lymphocytes (Bld) [#/Vol] 1.2 103/mcL Normal 0.9 - 4.3 10^3/mcL AH Workflow SS Lymphocytes/100 WBC (Bld) 21.3 % Normal 20.0 - 40.0 % AH Workflow SS Magnesium [Mass/Vol] 1.8 mg/dL Normal 1.6 - 2 .4 mg/dL ADM SS MCH (RBC) [Entitic mass] 29.1 pg Normal 27.0 - 33.0 pg AH Workflow SS MCHC 33.3 G/dL Normal 32.0 - 36.0 G/dL AH Workflow SS MCV (RBC) [Entitic vol] 87.5 fL Normal 81.0 - 100.0 fL AH Workflow SS Monocytes (Bld) [#/Vol] 0.5 103/mcL Normal 0.1 - 1.4 10^3/mcL AH Workflow SS Monocytes/100 WBC (Bld) 9.2 % Normal 2.0 - 13.0 % AH Workflow SS Neutrophils (Bld) [#/Vol] 3.7 103/mcL Normal 2.3 - 8.1 10^3/mcL AH Workflow SS Neutrophils/100 WBC (Bld) 65.1 % Normal 50.0 - 75.0 % AH Workflow SS Platelet mean volume (Bld) [Entitic vol] 8.9 fL Normal 6.4 - 10.5 fL AH Workflow SS Platelets (Bld) [#/Vol] 184 103/mcL Normal 150 - 450 10^3/mcL AH Workflow SS Potassium [Moles/Vol] 4.4 mmol/L Normal 3.5 - 5.0 mEq/L AH ADM SS RBC (Bld) [#/Vol] 4.66 106/mcL Normal 4.50 - 6.0 0 10^6/mcL AH Workflow SS Sodium [Moles/Vol] 138 mmol/L Normal 136 - 145 mEq/L AH ADM SS Urea nitrogen [Mass/Vol] 24.0 mg/dL High 8.0 - 22.0 mg/dL AH ADM SS Urea nitrogen/Creatinine [Mass ratio] 16.4 ratio Normal 10.0 - 22.0 ratio AH ADM SS WBC (Bld) [#/Vol] 5.7 103/mcL Normal 4.5 - 10.8 10^3/mcL AH Workflow SS MGon 01-02-2025 Magnesium [Mass/Vol] 1.8 mg/dL Normal 1.6-2.4 [facility] Comment on above: Performed By: #### N GPCR1, CTPCR #### [address] [address] .Auto Diffon 01-01-2025 Basophil, Absolute 0.0 10 3/mcL Normal 0.0-0.3 [facility] Comment on above: Performed By: #### B MP, GFR, CBC, ANEU, ADIFF, MG #### [address] [address] Basophils/100 WBC (Bld) 0.7 % Normal 0.0-2.5 [facility] Comment on above: Performed By: #### B MP, GFR, CBC, ANEU, ADIFF, MG #### [address] [address] Eosinophil, Absolute 0.2 10 3/mcL Normal 0.0-0.7 [facility] Comment on above: Performed By: #### B MP, GFR, CBC, ANEU, ADIFF, MG #### [address] [address] Eosinophils/100 WBC (Bld) 3.3 % Normal 0.0-6.0 [facility] Comment on above: Performed By: #### B MP, GFR, CBC, ANEU, ADIFF, MG #### [address] [address] Lymphocyte, Absolute 1.3 10 3/mcL Normal 0.9-4.3 [facility] Comment on above: Performed By: #### B MP, GFR, CBC, ANEU, ADIFF, MG #### [address] [address] Lymphocytes/100 WBC (Bld) 26.2 % Normal 20.0-40.0 [facility] Comment on above: Performed By: #### B MP, GFR, CBC, ANEU, ADIFF, MG #### [address] [address] Monocyte, Absolute 0.5 10 3/mcL Normal 0.1-1.4 [facility] Comment on above: Performed By: #### B MP, GFR, CBC, ANEU, ADIFF, MG #### [address] [address] Monocytes/100 WBC (Bld) 9.6 % Normal 2.0-13.0 [facility] Comment on above: Performed By: #### B MP, GFR, CBC, ANEU, ADIFF, MG #### [address] [address] Neutrophils/100 WBC (Bld) 60.2 % Normal 50.0-75.0 [facility] Comment on above: Performed By: #### B MP, GFR, CBC, ANEU, ADIFF, MG #### [address] [address] .GFRon 01-01-2025 Estimated Glomerular Filtration Rate 56 ml/min/1.73sqm Normal [facility] Comment on above: Result Comment: Stages of Chronic Kidney Disease (CKD) Stage Description eGFR(ml/min/1.73 sq.m.) CKD 1 Normal kidney function or >=90 normal kindney function with possible kidney damage (ex. Proteinuria) CKD 2 Kidney damage with mild loss 60-89 of kidney function CKD 3a Mild to moderate loss of kidney 45-59 function CKD 3b Moderate to severe loss of 30-44 of kindey function CKD 4 Severe loss of kidney function 15-29 CKD 5 Kidney failure <15 Note: (go live 2024) the eGFR calculation was updated to the 2020 CKD-EPI creatinine equation without a race factor to calculate the eGFR results. Performed By: #### B MP, GFR, CBC, ANEU, ADIFF, MG #### [address] [address] .NEUABSon 01-01-2025 Neutrophil, Absolute 3.1 10 3/mcL Normal 2.3-8.1 [facility] Comment on above: Performed By: #### B MP, GFR, CBC, ANEU, ADIFF, MG #### [address] [address] BMPon 01-01-2025 BUN/Creatinine Ratio 18.4 ratio Normal 10.0-22.0 [facility] Comment on above: Performed By: #### B MP, GFR, CBC, ANEU, ADIFF, MG #### [place] [address] Calcium [Mass/Vol] 9.0 mg/dL Normal 8.7-10.4 [facility] Comment on above: Performed By: #### B MP, GFR, CBC, ANEU, ADIFF, MG #### [place] [address] Chloride [Moles/Vol] 100 mmol/L Normal 98-110 [facility] Comment on above: Performed By: #### B MP, GFR, CBC, ANEU, ADIFF, MG #### [place] [address] CO2 [Moles/Vol] 30 mmol/L Normal 22-32 [facility] Comment on above: Performed By: #### B MP, GFR, CBC, ANEU, ADIFF, MG #### [place] [address] Creatinine [Mass/Vol] 1.41 mg/dL High 0.60-1.40 [facility] Comment on above: Result Comment: Test ing performed on [employer] analyzer using enzymatic creatinine methodology. Performed By: #### B MP, GFR, CBC, ANEU, ADIFF, MG #### [place] [address] Electrolyte Balance 7.0 mEq/L Normal 4.0-15.0 [facility] Comment on above: Performed By: #### B MP, GFR, CBC, ANEU, ADIFF, MG #### [place] [address] Glucose [Mass/Vol] 139 mg/dL High 82-115 [facility] Comment on above: Performed By: #### B MP, GFR, CBC, ANEU, ADIFF, MG #### [address] [address] Potassium [Moles/Vol] 4.0 mmol/L Normal 3.5-5.0 [facility] Comment on above: Performed By: #### B MP, GFR, CBC, ANEU, ADIFF, MG #### [address] [address] Sodium [Moles/Vol] 137 mmol/L Normal 136-145 [facility] Comment on above: Performed By: #### B MP, GFR, CBC, ANEU, ADIFF, MG #### [address] [address] Urea nitrogen [Mass/Vol] 26.0 mg/dL High 8.0-22.0 [facility] Comment on above: Performed By: #### B MP, GFR, CBC, ANEU, ADIFF, MG #### [address] [address] CBCon 01-01-2025 Erythrocyte distribution width (RBC) [Ratio] 14.1 % Normal 11.5-15.5 [facility] Comment on above: Performed By: #### B MP, GFR, CBC, ANEU, ADIFF, MG #### [place] [id number] Hematocrit (Bld) [Volume fraction] 38.4 % Low 40.0-52.0 [facility] Comment on above: Performed By: #### B MP, GFR, CBC, ANEU, ADIFF, MG #### [address] [address] Hgb 12.9 G/dL Low 13.0-17.5 [facility] Comment on above: Performed By: #### B MP, GFR, CBC, ANEU, ADIFF, MG #### [address] [address] MCH (RBC) [Entitic mass] 29.4 pg Normal 27.0-33.0 [facility] Comment on above: Performed By: #### B MP, GFR, CBC, ANEU, ADIFF, MG #### [place] [address] MCHC 33.5 G/dL Normal 32.0-36.0 [facility] Comment on above: Performed By: #### B MP, GFR, CBC, ANEU, ADIFF, MG #### [place] [address] MCV (RBC) [Entitic vol] 87.6 fL Normal 81.0-100.0 [facility] Comment on above: Performed By: #### B MP, GFR, CBC, ANEU, ADIFF, MG #### [place] [address] Platelet 182 10 3/mcL Normal 150-450 [facility] Comment on above: Performed By: #### B MP, GFR, CBC, ANEU, ADIFF, MG #### [place] [address] Platelet mean volume (Bld) [Entitic vol] 9.5 fL Normal 6.4-10.5 [facility] Comment on above: Performed By: #### B MP, GFR, CBC, ANEU, ADIFF, MG #### [place] [address] RBC 4.38 10 6/mcL Low 4.50-6.00 [facility] Comment on above: Performed By: #### B MP, GFR, CBC, ANEU, ADIFF, MG #### [place] [address] WBC 5.1 10 3/mcL Normal 4.5-10.8 [facility] Comment on above: Performed By: #### B MP, GFR, CBC, ANEU, ADIFF, MG #### [place] [address] LABORATORYOrdered By: Neto Pratt on 01-01-2025 Glucose [Mass/Vol] 193 mg/dL High 82 - 115 mg/dL [facility] LABORATORYOrdered By: Christie Arambula on 01-01-2025 Blood Glucose Testing Reason Routine (01/01/25 12:21 PM) [facility] LABORATORYOrdered By: SYSTEM SYSTEM on 01-01-2025 Basophils (Bld) [#/Vol] 0.0 103/mcL Normal 0.0 - 0.3 10^3/mcL Workflow SS Basophils/100 WBC (Bld) 0.7 % Normal 0.0 - 2.5 % Workflow SS Calcium [Mass/Vol] 9.0 mg/dL Normal 8.7 - 10. 4 mg/dL AH ADM SS Chloride [Moles/Vol] 100 mmol/L Normal 98 - 11 0 mEq/L AH ADM SS CO2 [Moles/Vol] 30 mmol/L Normal 22 - 32 mEq/L ADM SS Creatinine [Mass/Vol] 1.41 mg/dL High 0.60 - 1.40 mg/dL ADM SS Comment on above: Interpretive Data: T esting performed on [employer] analyzer using enzymatic creatinine methodology. Electrolyte Balance 7.0 mEq/L Normal 4.0 - 15 .0 mEq/L ADM SS Eosinophils (Bld) [#/Vol] 0.2 103/mcL Normal 0.0 - 0.7 10^3/mcL Workflow SS Eosinophils/100 WBC (Bld) 3.3 % Normal 0.0 - 6.0 % Workflow SS Erythrocyte distribution width (RBC) [Ratio] 14.1 % Normal 11.5 - 15.5 % AH Workflow SS Estimated Glomerular Filtration Rate 56 ml/min/1.73sqm Invalid Interpretation Code Chemistry S Comment on above: Interpretive Data: Stages of Chronic Kidney Disease (CKD) Stage Description eGFR(ml/min/1.73 sq.m.) CKD 1 Normal kidney function or >=90 normal kindney function with possible kidney damage (ex. Proteinuria) CKD 2 Kidney damage with mild loss 60-89 of kidney function CKD 3a Mild to moderate loss of kidney 45-59 function CKD 3b Moderate to severe loss of 30-44 of kindey function CKD 4 Severe loss of kidney function 15-29 CKD 5 Kidney failure <15 Note: (go live 2024) the eGFR calculation was updated to the 2020 CKD-EPI creatinine equation without a race factor to calculate the eGFR results. Glucose [Mass/Vol] 139 mg/dL High 82 - 115 mg/dL ADM SS Hematocrit (Bld) [Volume fraction] 38.4 % Low 40.0 - 52.0 % AH Workflow SS Hemoglobin (Bld) [Mass/Vol] 12.9 G/dL Low 13.0 - 17.5 G/dL AH Workflow SS Lymphocytes (Bld) [#/Vol] 1.3 103/mcL Normal 0.9 - 4.3 10^3/mcL AH Workflow SS Lymphocytes/100 WBC (Bld) 26.2 % Normal 20.0 - 40.0 % AH Workflow SS Magnesium [Mass/Vol] 1.8 mg/dL Normal 1.6 - 2 .4 mg/dL AH ADM SS MCH (RBC) [Entitic mass] 29.4 pg Normal 27.0 - 33.0 pg AH Workflow SS MCHC 33.5 G/dL Normal 32.0 - 36.0 G/dL Workflow SS MCV (RBC) [Entitic vol] 87.6 fL Normal 81.0 - 100.0 fL AH Workflow SS Monocytes (Bld) [#/Vol] 0.5 103/mcL Normal 0.1 - 1.4 10^3/mcL AH Workflow SS Monocytes/100 WBC (Bld) 9.6 % Normal 2.0 - 13.0 % AH Workflow SS Neutrophils (Bld) [#/Vol] 3.1 103/mcL Normal 2.3 - 8.1 10^3/mcL AH Workflow SS Neutrophils/100 WBC (Bld) 60.2 % Normal 50.0 - 75.0 % AH Workflow SS Platelet mean volume (Bld) [Entitic vol] 9.5 fL Normal 6.4 - 10.5 fL AH Workflow SS Platelets (Bld) [#/Vol] 182 103/mcL Normal 150 - 450 10^3/mcL AH Workflow SS Potassium [Moles/Vol] 4.0 mmol/L Normal 3.5 - 5.0 mEq/L AH ADM SS RBC (Bld) [#/Vol] 4.38 106/mcL Low 4.50 - 6.0 0 10^6/mcL AH Workflow SS Sodium [Moles/Vol] 137 mmol/L Normal 136 - 145 mEq/L ADM SS Urea nitrogen [Mass/Vol] 26.0 mg/dL High 8.0 - 22.0 mg/dL AH ADM SS Urea nitrogen/Creatinine [Mass ratio] 18.4 ratio Normal 10.0 - 22.0 ratio AH ADM SS WBC (Bld) [#/Vol] 5.1 103/mcL Normal 4.5 - 10.8 10^3/mcL AH Workflow SS MGon 01-01-2025 Magnesium [Mass/Vol] 1.8 mg/dL Normal 1.6-2.4 [facility] Comment on above: Performed By: #### B MP, GFR, CBC, ANEU, ADIFF, MG #### [address] [address] .Auto Diffon 12-31-2024 Basophil, Absolute 0.0 10 3/mcL Normal 0.0-0.3 [facility] Comment on above: Performed By: #### B MP, GFR, CBC, ANEU, ADIFF, MG #### [address] [address] Basophils/100 WBC (Bld) 0.6 % Normal 0.0-2.5 [facility] Comment on above: Performed By: #### B MP, GFR, CBC, ANEU, ADIFF, MG #### [address] [address] Eosinophil, Absolute 0.2 10 3/mcL Normal 0.0-0.7 [facility] Comment on above: Performed By: #### B MP, GFR, CBC, ANEU, ADIFF, MG #### [address] [address] Eosinophils/100 WBC (Bld) 3.3 % Normal 0.0-6.0 [facility] Comment on above: Performed By: #### B MP, GFR, CBC, ANEU, ADIFF, MG #### [address] [address] Lymphocyte, Absolute 1.5 10 3/mcL Normal 0.9-4.3 [facility] Comment on above: Performed By: #### B MP, GFR, CBC, ANEU, ADIFF, MG #### [address] [address] Lymphocytes/100 WBC (Bld) 29.5 % Normal 20.0-40.0 [facility] Comment on above: Performed By: #### B MP, GFR, CBC, ANEU, ADIFF, MG #### [address] [address] Monocyte, Absolute 0.5 10 3/mcL Normal 0.1-1.4 [facility] Comment on above: Performed By: #### B MP, GFR, CBC, ANEU, ADIFF, MG #### [address] [address] Monocytes/100 WBC (Bld) 9.0 % Normal 2.0-13.0 [facility] Comment on above: Performed By: #### B MP, GFR, CBC, ANEU, ADIFF, MG #### [address] [address] Neutrophils/100 WBC (Bld) 57.6 % Normal 50.0-75.0 [facility] Comment on above: Performed By: #### B MP, GFR, CBC, ANEU, ADIFF, MG #### [address] [address] .GFRon 12-31-2024 Estimated Glomerular Filtration Rate 52 ml/min/1.73sqm Normal [facility] Comment on above: Result Comment: Stages of Chronic Kidney Disease (CKD) Stage Description eGFR(ml/min/1.73 sq.m.) CKD 1 Normal kidney function or >=90 normal kindney function with possible kidney damage (ex. Proteinuria) CKD 2 Kidney damage with mild loss 60-89 of kidney function CKD 3a Mild to moderate loss of kidney 45-59 function CKD 3b Moderate to severe loss of 30-44 of kindey function CKD 4 Severe loss of kidney function 15-29 CKD 5 Kidney failure <15 Note: (go live 2024) the eGFR calculation was updated to the 2020 CKD-EPI creatinine equation without a race factor to calculate the eGFR results. Performed By: #### B MP, GFR, CBC, ANEU, ADIFF, MG #### [address] [address] .NEUABSon 12-31-2024 Neutrophil, Absolute 2.9 10 3/mcL Normal 2.3-8.1 [facility] Comment on above: Performed By: #### B MP, GFR, CBC, ANEU, ADIFF, MG #### [address] [address] BMPon 12-31-2024 BUN/Creatinine Ratio 15.2 ratio Normal 10.0-22.0 [facility] Comment on above: Performed By: #### B MP, GFR, CBC, ANEU, ADIFF, MG #### [address] [address] Calcium [Mass/Vol] 8.9 mg/dL Normal 8.7-10.4 [facility] Comment on above: Performed By: #### B MP, GFR, CBC, ANEU, ADIFF, MG #### [place] [id number] Chloride [Moles/Vol] 100 mmol/L Normal 98-110 [facility] Comment on above: Performed By: #### B MP, GFR, CBC, ANEU, ADIFF, MG #### [place] [id number] CO2 [Moles/Vol] 30 mmol/L Normal 22-32 [facility] Comment on above: Performed By: #### B MP, GFR, CBC, ANEU, ADIFF, MG #### [place] [id number] Creatinine [Mass/Vol] 1.51 mg/dL High 0.60-1.40 [facility] Comment on above: Result Comment: Test ing performed on [employer] analyzer using enzymatic creatinine methodology. Performed By: #### B MP, GFR, CBC, ANEU, ADIFF, MG #### [address] [address] Electrolyte Balance 4.0 mEq/L Normal 4.0-15.0 [facility] Comment on above: Performed By: #### B MP, GFR, CBC, ANEU, ADIFF, MG #### [place] [id number] Glucose [Mass/Vol] 145 mg/dL High 82-115 [facility] Comment on above: Performed By: #### B MP, GFR, CBC, ANEU, ADIFF, MG #### [address] [address] Potassium [Moles/Vol] 3.8 mmol/L Normal 3.5-5.0 [facility] Comment on above: Performed By: #### B MP, GFR, CBC, ANEU, ADIFF, MG #### [address] [address] Sodium [Moles/Vol] 134 mmol/L Low 136-145 [facility] Comment on above: Performed By: #### B MP, GFR, CBC, ANEU, ADIFF, MG #### [address] [address] Urea nitrogen [Mass/Vol] 23.0 mg/dL High 8.0-22.0 [facility] Comment on above: Performed By: #### B MP, GFR, CBC, ANEU, ADIFF, MG #### [address] [address] CBCon 12-31-2024 Erythrocyte distribution width (RBC) [Ratio] 14.3 % Normal 11.5-15.5 [facility] Comment on above: Performed By: #### N GPCR1, CTPCR #### [place] [address] Hematocrit (Bld) [Volume fraction] 39.0 % Low 40.0-52.0 [facility] Comment on above: Performed By: #### N GPCR1, CTPCR #### [place] [id number] Hgb 13.1 G/dL Normal 13.0-17.5 [facility] Comment on above: Performed By: #### N GPCR1, CTPCR #### [place] [address] MCH (RBC) [Entitic mass] 29.4 pg Normal 27.0-33.0 [facility] Comment on above: Performed By: #### N GPCR1, CTPCR #### [place] [address] MCHC 33.6 G/dL Normal 32.0-36.0 [facility] Comment on above: Performed By: #### N GPCR1, CTPCR #### [place] [address] MCV (RBC) [Entitic vol] 87.6 fL Normal 81.0-100.0 [facility] Comment on above: Performed By: #### N GPCR1, CTPCR #### [place] [address] Platelet 173 10 3/mcL Normal 150-450 [facility] Comment on above: Performed By: #### N GPCR1, CTPCR #### [place] [address] Platelet mean volume (Bld) [Entitic vol] 9.4 fL Normal 6.4-10.5 [facility] Comment on above: Performed By: #### N GPCR1, CTPCR #### [place] [address] RBC 4.45 10 6/mcL Low 4.50-6.00 [facility] Comment on above: Performed By: #### N GPCR1, CTPCR #### [place] [address] WBC 5.1 10 3/mcL Normal 4.5-10.8 [facility] Comment on above: Performed By: #### N GPCR1, CTPCR #### [place] [address] CTPCRon 12-31-2024 C. trachomatis Interp Normal See CT Interp N [facility] Comment on above: Result Comment: C. t rachomatis DNA not detected. Specimen is presumptive negative for C. trachomatis. A negative result does not preclude C. trachomatis infection because results depend on adequate specimen collection, absence of inhibitors, and sufficient DNA to be detected. See CT Interp N Performed By: #### N GPCR1, CTPCR #### [place] [address] C.trachomatis PCR Negative Normal Negative [facility] Comment on above: Result Comment: Mole cular (PCR) assay performed on the [employer] 4800 system. Performed By: #### N GPCR1, CTPCR #### [place] [address] Chlam Source Urine Normal [facility] Comment on above: Performed By: #### N GPCR1, CTPCR #### [facility] [address] [place] [address] LABORATORYOrdered By: SYSTEM SYSTEM on 12-31-2024 Basophils (Bld) [#/Vol] 0.0 103/mcL Normal 0.0 - 0.3 10^3/mcL Workflow SS Basophils/100 WBC (Bld) 0.6 % Normal 0.0 - 2.5 % Workflow SS Calcium [Mass/Vol] 8.9 mg/dL Normal 8.7 - 10. 4 mg/dL ADM SS Chloride [Moles/Vol] 100 mmol/L Normal 98 - 11 0 mEq/L ADM SS CO2 [Moles/Vol] 30 mmol/L Normal 22 - 32 mEq/L ADM SS Creatinine [Mass/Vol] 1.51 mg/dL High 0.60 - 1.40 mg/dL AH ADM SS Comment on above: Interpretive Data: T esting performed on [employer] analyzer using enzymatic creatinine methodology. Electrolyte Balance 4.0 mEq/L Normal 4.0 - 15 .0 mEq/L ADM SS Eosinophils (Bld) [#/Vol] 0.2 103/mcL Normal 0.0 - 0.7 10^3/mcL AH Workflow SS Eosinophils/100 WBC (Bld) 3.3 % Normal 0.0 - 6.0 % AH Workflow SS Erythrocyte distribution width (RBC) [Ratio] 14.3 % Normal 11.5 - 15.5 % AH Workflow SS Estimated Glomerular Filtration Rate 52 ml/min/1.73sqm Invalid Interpretation Code Chemistry S Comment on above: Interpretive Data: Stages of Chronic Kidney Disease (CKD) Stage Description eGFR(ml/min/1.73 sq.m.) CKD 1 Normal kidney function or >=90 normal kindney function with possible kidney damage (ex. Proteinuria) CKD 2 Kidney damage with mild loss 60-89 of kidney function CKD 3a Mild to moderate loss of kidney 45-59 function CKD 3b Moderate to severe loss of 30-44 of kindey function CKD 4 Severe loss of kidney function 15-29 CKD 5 Kidney failure <15 Note: (go live 2024) the eGFR calculation was updated to the 2020 CKD-EPI creatinine equation without a race factor to calculate the eGFR results. Glucose [Mass/Vol] 145 mg/dL High 82 - 115 mg/dL ADM SS Hematocrit (Bld) [Volume fraction] 39.0 % Low 40.0 - 52.0 % AH Workflow SS Hemoglobin (Bld) [Mass/Vol] 13.1 G/dL Normal 13.0 - 17.5 G/dL AH Workflow SS Lymphocytes (Bld) [#/Vol] 1.5 103/mcL Normal 0.9 - 4.3 10^3/mcL AH Workflow SS Lymphocytes/100 WBC (Bld) 29.5 % Normal 20.0 - 40.0 % AH Workflow SS Magnesium [Mass/Vol] 1.7 mg/dL Normal 1.6 - 2 .4 mg/dL ADM SS MCH (RBC) [Entitic mass] 29.4 pg Normal 27.0 - 33.0 pg Workflow SS MCHC 33.6 G/dL Normal 32.0 - 36.0 G/dL Workflow SS MCV (RBC) [Entitic vol] 87.6 fL Normal 81.0 - 100.0 fL Workflow SS Monocytes (Bld) [#/Vol] 0.5 103/mcL Normal 0.1 - 1.4 10^3/mcL Workflow SS Monocytes/100 WBC (Bld) 9.0 % Normal 2.0 - 13.0 % AH Workflow SS Neutrophils (Bld) [#/Vol] 2.9 103/mcL Normal 2.3 - 8.1 10^3/mcL AH Workflow SS Neutrophils/100 WBC (Bld) 57.6 % Normal 50.0 - 75.0 % Workflow SS Platelet mean volume (Bld) [Entitic vol] 9.4 fL Normal 6.4 - 10.5 fL Workflow SS Platelets (Bld) [#/Vol] 173 103/mcL Normal 150 - 450 10^3/mcL AH Workflow SS Potassium [Moles/Vol] 3.8 mmol/L Normal 3.5 - 5.0 mEq/L AH ADM SS RBC (Bld) [#/Vol] 4.45 106/mcL Low 4.50 - 6.0 0 10^6/mcL AH Workflow SS Sodium [Moles/Vol] 134 mmol/L Low 136 - 145 mEq/L ADM SS Urea nitrogen [Mass/Vol] 23.0 mg/dL High 8.0 - 22.0 mg/dL AH ADM SS Urea nitrogen/Creatinine [Mass ratio] 15.2 ratio Normal 10.0 - 22.0 ratio AH ADM SS WBC (Bld) [#/Vol] 5.1 103/mcL Normal 4.5 - 10.8 10^3/mcL AH Workflow SS MGon 12-31-2024 Magnesium [Mass/Vol] 1.7 mg/dL Normal 1.6-2.4 [facility] Comment on above: Performed By: #### B MP, GFR, CBC, ANEU, ADIFF, MG #### [address] [address] [id number] 12-31-2024 GC PCR Source Urine Normal [facility] Comment on above: Performed By: #### N GPCR1, CTPCR #### [place] [address] N. gonorrhoeae (PCR) Negative Normal Negative [facility] Comment on above: Result Comment: Mole cular (PCR) assay performed on the [employer] 4800 System. Performed By: #### N GPCR1, CTPCR #### [place] [address] N. gonorrhoeae Interp Normal See NG Interp N [facility] Comment on above: Result Comment: N. g onorrhoeae DNA not detected. Specimen is presumptive negative for N. gonorrhoeae. A negative result does not preclude Neisseria gonorrhoeae infection because results depend on adequate specimen collection, absence of inhibitors, and sufficient DNA to be detected. See NG Interp N Performed By: #### N GPCR1, CTPCR #### [place] [address] .Auto Diffon 12-30-2024 Basophil, Absolute 0.0 10 3/mcL Normal 0.0-0.3 [facility] Comment on above: Performed By: #### N GPCR1, CTPCR #### [place] [id number] Basophils/100 WBC (Bld) 0.7 % Normal 0.0-2.5 [facility] Comment on above: Performed By: #### N GPCR1, CTPCR #### [address] [address] Eosinophil, Absolute 0.2 10 3/mcL Normal 0.0-0.7 [facility] Comment on above: Performed By: #### N GPCR1, CTPCR #### [address] [address] Eosinophils/100 WBC (Bld) 3.6 % Normal 0.0-6.0 [facility] Comment on above: Performed By: #### N GPCR1, CTPCR #### [address] [address] Lymphocyte, Absolute 1.0 10 3/mcL Normal 0.9-4.3 [facility] Comment on above: Performed By: #### N GPCR1, CTPCR #### [address] [address] Lymphocytes/100 WBC (Bld) 24.4 % Normal 20.0-40.0 [facility] Comment on above: Performed By: #### N GPCR1, CTPCR #### [address] [address] Monocyte, Absolute 0.4 10 3/mcL Normal 0.1-1.4 [facility] Comment on above: Performed By: #### N GPCR1, CTPCR #### [address] [address] Monocytes/100 WBC (Bld) 10.3 % Normal 2.0-13.0 [facility] Comment on above: Performed By: #### N GPCR1, CTPCR #### [address] [address] Neutrophils/100 WBC (Bld) 61.0 % Normal 50.0-75.0 [facility] Comment on above: Performed By: #### N GPCR1, CTPCR #### [address] [address] .GFRon 12-30-2024 Estimated Glomerular Filtration Rate 54 ml/min/1.73sqm Normal [facility] Comment on above: Result Comment: Stages of Chronic Kidney Disease (CKD) Stage Description eGFR(ml/min/1.73 sq.m.) CKD 1 Normal kidney function or >=90 normal kindney function with possible kidney damage (ex. Proteinuria) CKD 2 Kidney damage with mild loss 60-89 of kidney function CKD 3a Mild to moderate loss of kidney 45-59 function CKD 3b Moderate to severe loss of 30-44 of kindey function CKD 4 Severe loss of kidney function 15-29 CKD 5 Kidney failure <15 Note: (go live 2024) the eGFR calculation was updated to the 2020 CKD-EPI creatinine equation without a race factor to calculate the eGFR results. Performed By: #### N GPCR1, CTPCR #### [address] [address] .NEUABSon 12-30-2024 Neutrophil, Absolute 2.6 10 3/mcL Normal 2.3-8.1 [facility] Comment on above: Performed By: #### N GPCR1, CTPCR #### [address] [address] BMPon 12-30-2024 BUN/Creatinine Ratio 12.9 ratio Normal 10.0-22.0 [facility] Comment on above: Performed By: #### N GPCR1, CTPCR #### [address] [address] Calcium [Mass/Vol] 8.6 mg/dL Low 8.7-10.4 [facility] Comment on above: Performed By: #### N GPCR1, CTPCR #### [address] [address] Chloride [Moles/Vol] 103 mmol/L Normal 98-110 [facility] Comment on above: Performed By: #### N GPCR1, CTPCR #### [address] [address] CO2 [Moles/Vol] 28 mmol/L Normal 22-32 [facility] Comment on above: Performed By: #### N GPCR1, CTPCR #### [address] [address] Creatinine [Mass/Vol] 1.47 mg/dL High 0.60-1.40 [facility] Comment on above: Result Comment: Test ing performed on [employer] analyzer using enzymatic creatinine methodology. Performed By: #### N GPCR1, CTPCR #### [address] [address] Electrolyte Balance 5.0 mEq/L Normal 4.0-15.0 [facility] Comment on above: Performed By: #### N GPCR1, CTPCR #### [address] [address] Glucose [Mass/Vol] 194 mg/dL High 82-115 [facility] Comment on above: Performed By: #### N GPCR1, CTPCR #### [address] [address] Potassium [Moles/Vol] 4.3 mmol/L Normal 3.5-5.0 [facility] Comment on above: Performed By: #### N GPCR1, CTPCR #### [address] [address] Sodium [Moles/Vol] 136 mmol/L Normal 136-145 [facility] Comment on above: Performed By: #### N GPCR1, CTPCR #### [address] [address] Urea nitrogen [Mass/Vol] 19.0 mg/dL Normal 8.0-22.0 [facility] Comment on above: Performed By: #### N GPCR1, CTPCR #### [address] [address] CBCon 12-30-2024 Erythrocyte distribution width (RBC) [Ratio] 14.2 % Normal 11.5-15.5 [facility] Comment on above: Performed By: #### N GPCR1, CTPCR #### [address] [address] Hematocrit (Bld) [Volume fraction] 36.0 % Low 40.0-52.0 [facility] Comment on above: Performed By: #### N GPCR1, CTPCR #### [address] [address] Hgb 12.1 G/dL Low 13.0-17.5 [facility] Comment on above: Performed By: #### N GPCR1, CTPCR #### [place] [address] MCH (RBC) [Entitic mass] 29.5 pg Normal 27.0-33.0 [facility] Comment on above: Performed By: #### N GPCR1, CTPCR #### [place] [address] MCHC 33.8 G/dL Normal 32.0-36.0 [facility] Comment on above: Performed By: #### N GPCR1, CTPCR #### [place] [address] MCV (RBC) [Entitic vol] 87.3 fL Normal 81.0-100.0 [facility] Comment on above: Performed By: #### N GPCR1, CTPCR #### [place] [address] Platelet 158 10 3/mcL Normal 150-450 [facility] Comment on above: Performed By: #### N GPCR1, CTPCR #### [place] [address] Platelet mean volume (Bld) [Entitic vol] 9.2 fL Normal 6.4-10.5 [facility] Comment on above: Performed By: #### N GPCR1, CTPCR #### [place] [address] RBC 4.12 10 6/mcL Low 4.50-6.00 [facility] Comment on above: Performed By: #### N GPCR1, CTPCR #### [place] [address] WBC 4.2 10 3/mcL Low 4.5-10.8 [facility] Comment on above: Performed By: #### N GPCR1, CTPCR #### [place] [address] LABORATORYOrdered By: Dulce Gleason on 12-30-2024 C. trachomatis DNA CAROLA+probe Ql (Unsp spec) Negative 13 (12/30/24 12:04 PM) Normal Negative AH Auto Viro/Sero SS Comment on above: Interpretive Data: Dione cameron (PCR) assay performed on the [employer] [id number] system. C. trachomatis DNA CAROLA+probe Ql (Unsp spec) C. trachomatis DNA not detected. Specimen is presumptive negative for C. trachomatis. A negative result does not preclude C. trachomatis infection because results depend on adequate specimen collection, absence of inhibitors, and sufficient DNA to be detected. Normal See CT Interp N Auto Viro/Sero SS N. gonorrhoeae DNA CAROLA+probe Ql (Unsp spec) Negative 12 (12/30/24 12:04 PM) Normal Negative Auto Viro/Sero SS Comment on above: Interpretive Data: M olecular (PCR) assay performed on the Victoria Benji 4800 System. N. gonorrhoeae DNA CAROLA+probe Ql (Unsp spec) N. gonorrhoeae DNA not detected. Specimen is presumptive negative for N. gonorrhoeae. A negative result does not preclude Neisseria gonorrhoeae infection because results depend on adequate specimen collection, absence of inhibitors, and sufficient DNA to be detected. Normal See NG Interp N Auto Viro/Sero SS Laboratory - Specimen inform ationOrdered By: Dulce Gleason on 12-30-2024 Specimen source Nom (Unsp spec) Urine (12/30/24 12:04 PM) Normal Auto Viro/Sero SS .Auto Diffon 12-29-2024 Basophil, Absolute 0.0 10 3/mcL Normal 0.0-0.3 [facility] Comment on above: Performed By: #### N GPCR1, CTPCR #### [address] [address] Basophils/100 WBC (Bld) 0.7 % Normal 0.0-2.5 [facility] Comment on above: Performed By: #### N GPCR1, CTPCR #### [address] [address] Eosinophil, Absolute 0.2 10 3/mcL Normal 0.0-0.7 [facility] Comment on above: Performed By: #### N GPCR1, CTPCR #### [address] [address] Eosinophils/100 WBC (Bld) 3.0 % Normal 0.0-6.0 [facility] Comment on above: Performed By: #### N GPCR1, CTPCR #### [facility] [address] [place] [address] Lymphocyte, Absolute 1.2 10 3/mcL Normal 0.9-4.3 [facility] Comment on above: Performed By: #### N GPCR1, CTPCR #### [facility] [address] [place] [address] Lymphocytes/100 WBC (Bld) 21.3 % Normal 20.0-40.0 [facility] Comment on above: Performed By: #### N GPCR1, CTPCR #### [facility] [address] [place] [address] Monocyte, Absolute 0.6 10 3/mcL Normal 0.1-1.4 [facility] Comment on above: Performed By: #### N GPCR1, CTPCR #### [facility] [address] [place] [address] Monocytes/100 WBC (Bld) 10.2 % Normal 2.0-13.0 [facility] Comment on above: Performed By: #### N GPCR1, CTPCR #### [facility] [address] [place] [address] Neutrophils/100 WBC (Bld) 64.8 % Normal 50.0-75.0 [facility] Comment on above: Performed By: #### N GPCR1, CTPCR #### [facility] [address] [place] [address] .GFRon 12-29-2024 Estimated Glomerular Filtration Rate 58 ml/min/1.73sqm Normal [facility] Comment on above: Result Comment: Stages of Chronic Kidney Disease (CKD) Stage Description eGFR(ml/min/1.73 sq.m.) CKD 1 Normal kidney function or >=90 normal kindney function with possible kidney damage (ex. Proteinuria) CKD 2 Kidney damage with mild loss 60-89 of kidney function CKD 3a Mild to moderate loss of kidney 45-59 function CKD 3b Moderate to severe loss of 30-44 of kindey function CKD 4 Severe loss of kidney function 15-29 CKD 5 Kidney failure <15 Note: (go live 2024) the eGFR calculation was updated to the 2020 CKD-EPI creatinine equation without a race factor to calculate the eGFR results. Performed By: #### N GPCR1, CTPCR #### [address] [address] .NEUABSon 12-29-2024 Neutrophil, Absolute 3.6 10 3/mcL Normal 2.3-8.1 [facility] Comment on above: Performed By: #### N GPCR1, CTPCR #### [address] [address] A1Con 12-29-2024 Glucose [Mass/Vol] 392 mg/dL Normal [facility] Comment on above: Order Comment: add o n lab Result Comment: Jany mated Average Glucose calculated by equation ((28.7xA1C)-46.7) Estimated average glucose (eAG) is a calculated value from Hemoglobin A1C and is communications representative of the average blood glucose level in the last 2-3 month period. Normal range: less than 114 mg/dL Performed By: #### N GPCR1, CTPCR #### [place] [id number] HbA1c (Bld) [Mass fraction] 15.3 % High 4.0-6.0 [facility] Comment on above: Order Comment: add o n lab Performed By: #### N GPCR1, CTPCR #### [address] [address] BMPon 12-29-2024 BUN/Creatinine Ratio 11.6 ratio Normal 10.0-22.0 [facility] Comment on above: Performed By: #### N GPCR1, CTPCR #### [address] [address] Calcium [Mass/Vol] 9.0 mg/dL Normal 8.7-10.4 [facility] Comment on above: Performed By: #### N GPCR1, CTPCR #### [address] [address] Chloride [Moles/Vol] 103 mmol/L Normal 98-110 [facility] Comment on above: Performed By: #### N GPCR1, CTPCR #### [address] [address] CO2 [Moles/Vol] 29 mmol/L Normal 22-32 [facility] Comment on above: Performed By: #### N GPCR1, CTPCR #### [place] [id number] Creatinine [Mass/Vol] 1.38 mg/dL Normal 0.60-1.40 [facility] Comment on above: Result Comment: Test ing performed on [employer] analyzer using enzymatic creatinine methodology. Performed By: #### N GPCR1, CTPCR #### [place] [id number] Electrolyte Balance 6.0 mEq/L Normal 4.0-15.0 [facility] Comment on above: Performed By: #### N GPCR1, CTPCR #### [place] [address] Glucose [Mass/Vol] 141 mg/dL High 82-115 [facility] Comment on above: Performed By: #### N GPCR1, CTPCR #### [place] [address] Potassium [Moles/Vol] 3.5 mmol/L Normal 3.5-5.0 [facility] Comment on above: Performed By: #### N GPCR1, CTPCR #### [place] [address] Sodium [Moles/Vol] 138 mmol/L Normal 136-145 [facility] Comment on above: Performed By: #### N GPCR1, CTPCR #### [place] [address] Urea nitrogen [Mass/Vol] 16.0 mg/dL Normal 8.0-22.0 [facility] Comment on above: Performed By: #### N GPCR1, CTPCR #### [place] [id number] CBCon 12-29-2024 Erythrocyte distribution width (RBC) [Ratio] 14.6 % Normal 11.5-15.5 [facility] Comment on above: Performed By: #### B MP, HFP, ADIFF, LIPID, CBC, GFR, ANEU, MG #### [place] [id number] Hematocrit (Bld) [Volume fraction] 37.7 % Low 40.0-52.0 [facility] Comment on above: Performed By: #### B MP, HFP, ADIFF, LIPID, CBC, GFR, ANEU, MG #### [place] [address] Hgb 12.7 G/dL Low 13.0-17.5 [facility] Comment on above: Performed By: #### B MP, HFP, ADIFF, LIPID, CBC, GFR, ANEU, MG #### [place] [address] MCH (RBC) [Entitic mass] 29.2 pg Normal 27.0-33.0 [facility] Comment on above: Performed By: #### B MP, HFP, ADIFF, LIPID, CBC, GFR, ANEU, MG #### [place] [address] MCHC 33.7 G/dL Normal 32.0-36.0 [facility] Comment on above: Performed By: #### B MP, HFP, ADIFF, LIPID, CBC, GFR, ANEU, MG #### [place] [address] MCV (RBC) [Entitic vol] 86.6 fL Normal 81.0-100.0 [facility] Comment on above: Performed By: #### B MP, HFP, ADIFF, LIPID, CBC, GFR, ANEU, MG #### [place] [address] Platelet 189 10 3/mcL Normal 150-450 [facility] Comment on above: Performed By: #### B MP, HFP, ADIFF, LIPID, CBC, GFR, ANEU, MG #### [place] [address] Platelet mean volume (Bld) [Entitic vol] 9.3 fL Normal 6.4-10.5 [facility] Comment on above: Performed By: #### B MP, HFP, ADIFF, LIPID, CBC, GFR, ANEU, MG #### [place] [address] RBC 4.36 10 6/mcL Low 4.50-6.00 [facility] Comment on above: Performed By: #### B MP, HFP, ADIFF, LIPID, CBC, GFR, ANEU, MG #### [facility] [address] [place] [address] WBC 5.6 10 3/mcL Normal 4.5-10.8 [facility] Comment on above: Performed By: #### B MP, HFP, ADIFF, LIPID, CBC, GFR, ANEU, MG #### [facility] [address] [place] [address] [address] PELVIS W/O CONTRASTon CT PELVIS W/O CONTRAST ORIGINAL EXAMINATION: CT OF THE PELVIS WITHOUT CONTRAST 12/29/2024 10:45 am TECHNIQUE: CT of the pelvis was performed without the administration of intravenous contrast. Multiplanar reformatted images are provided for review. Adjustment of mA and/or kV according to patient size was utilized. Automated exposure control, iterative reconstruction, and/or weight based adjustment of the mA/kV was utilized to reduce the radiation dose to as low as reasonably achievable. COMPARISON: None. 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 surgical hx; vasectomy , scrotal swelling FINDINGS: Minor degenerative changes are present at the lumbosacral junction, the hips and at the SI joints. Mild diffuse anasarca is visible. Very prominent scrotal edema is identified, and this extends to the perineum as well. Assessment is difficult without IV contrast, but there is no gross focal or peripherally enhancing collection to suggest a drainable abscess. I do not identify soft tissue air or gas on this exam. Multiple normal and borderline lymph nodes are identified within the inguinal regions, presumably reactive or hyperplastic. The largest of these is on the right, 11 mm in short axis. More inferiorly, there is a right inguinal lymph node measuring 1.6 cm. Additionally, there is right external iliac adenopathy measuring 1.8 cm. No definite focal urinary bladder abnormality is visible. The prostate is grossly normal. No GI tract abnormality is evident. No additional contributory finding. IMPRESSION: 1. Anasarca. 2. Prominent scrotal and perineal edema suggesting cellulitis. A definite drainable fluid collection is not evident within the constraints of a noncontrast exam. 3. Adenopathy in multiple areas. The findings are likely reactive or hyperplastic. Post treatment follow-up recommended to show resolution, helping to exclude other etiologies. Interpreted by: Kacy Ling MD Preliminary Report By: Kacy Ling MD Electronically signed By Kacy Ling MD Dictated Date: 12/29/2024 10:48:24 AM Prelim Date: 12/29/2024 10:53:37 AM Sign Date: 12/29/2024 10:53:37 AM Ordering Provider: IMELDA BEAVER Normal [facility] HFPon 12-29-2024 Bili Indirect 0.5 mg/dL Normal 0.1-10.0 [facility] Comment on above: Performed By: #### N GPCR1, CTPCR #### [place] [address] Albumin Level 2.1 G/dL Low 3.2-4.8 [facility] Comment on above: Performed By: #### N GPCR1, CTPCR #### [place] [address] Albumin/Globulin [Mass ratio] 0.6 {ratio} Low 0.9-1.6 [facility] Comment on above: Performed By: #### N GPCR1, CTPCR #### [address] [address] ALP [Catalytic activity/Vol] 171 U/L High 38-126 [facility] Comment on above: Performed By: #### N GPCR1, CTPCR #### [address] [address] ALT [Catalytic activity/Vol] 22 U/L Normal 12-55 [facility] Comment on above: Performed By: #### N GPCR1, CTPCR #### [address] [address] AST [Catalytic activity/Vol] 23 U/L Normal 8-34 [facility] Comment on above: Performed By: #### N GPCR1, CTPCR #### [place] [address] Bili Direct 0.3 mg/dL Normal 0.0-0.4 [facility] Comment on above: Result Comment: Use of this assay is not recommended for patients undergoing treatment with eltrombopag due to the potential for falsely elevated results. Performed By: #### N GPCR1, CTPCR #### [place] [address] Bili Total 0.80 mg/dL Normal 0.20-1.20 [facility] Comment on above: Result Comment: Use of this assay is not recommended for patients undergoing treatment with eltrombopag due to the potential for falsely elevated results. Performed By: #### N GPCR1, CTPCR #### [place] [address] Globulin 3.7 G/dL Normal 2.5-4.2 [facility] Comment on above: Performed By: #### N GPCR1, CTPCR #### [place] [address] Total Protein 5.8 G/dL Normal 5.7-8.2 [facility] Comment on above: Performed By: #### N GPCR1, CTPCR #### [place] [address] LABORATORYOrdered By: Delores Chisholm on 12-29-2024 Blood Glucose Interventions Administered agent to decrease blood sugar (12/29/24 6:01 PM) [facility] LABORATORYOrdered By: SYSTEM SYSTEM on 12-29-2024 Albumin BCP dye [Mass/Vol] 2.1 G/dL Low 3.2 - 4.8 G/dL ADM SS Albumin/Globulin [Mass ratio] 0.6 {ratio} Low 0.9 - 1.6 ratio ADM SS ALP [Catalytic activity/Vol] 171 U/L High 38 - 126 U/L ADM SS ALT No additional P-5'-P [Catalytic activity/Vol] 22 U/L Normal 12 - 55 U/L ADM SS AST [Catalytic activity/Vol] 23 U/L Normal 8 - 34 U/L ADM SS Bili Indirect 0.5 mg/dL Normal 0.1 - 10.0 mg/dL Chemistry S Bilirubin [Mass/Vol] 0.80 mg/dL Normal 0.20 - 1.20 mg/dL [facility] Comment on above: Interpretive Data: U se of this assay is not recommended for patients undergoing treatment with eltrombopag due to the potential for falsely elevated results. Bilirubin.conjugated [Mass/Vol] 0.3 mg/dL Normal 0.0 - 0.4 mg/dL [facility] Comment on above: Interpretive Data: U se of this assay is not recommended for patients undergoing treatment with eltrombopag due to the potential for falsely elevated results. Globulin 3.7 G/dL Normal 2.5 - 4.2 G/dL [facility] Glucose [Mass/Vol] 392 mg/dL Invalid Interpretation Code Auto Chem Comment on above: Interpretive Data: E stimated average glucose (eAG) is a calculated value from Hemoglobin A1C and is communications representative of the average blood glucose level in the last 2-3 month period. Normal range: less than 114 mg/dL HbA1c (Bld) [Mass fraction] 15.3 % High 4.0 - 6.0 % Auto Chem Protein [Mass/Vol] 5.8 G/dL Normal 5.7 - 8.2 G/dL [facility] LABORATORYOrdered By: Moni poole on 12-29-2024 Cholesterol [Mass/Vol] 182 mg/dL Normal 50 - 199 mg/dL [facility] Comment on above: Interpretive Data: C holesterol Reference Interval: Less than 200 Desirable 200-239 Borderline high risk 240 and above High risk Cholesterol in HDL [Mass/Vol] 48 mg/dL Normal 40 - 59 mg/dL [facility] Cholesterol in LDL [Mass/Vol] 116 mg/dL Normal 0 - 129 mg/dL [facility] Triglyceride [Mass/Vol] 89 mg/dL Normal 3 - 149 mg/dL [facility] LIPIDon 12-29-2024 Cholesterol [Mass/Vol] 182 mg/dL Normal 50-199 [facility] Comment on above: Result Comment: Chol esterol Reference Interval: Less than 200 Desirable 200-239 Borderline high risk 240 and above High risk Performed By: #### N GPCR1, CTPCR #### [facility] [address] [place] [address] Cholesterol in HDL [Mass/Vol] 48 mg/dL Normal 40-59 [facility] Comment on above: Performed By: #### N GPCR1, CTPCR #### [address] [address] Cholesterol in LDL [Mass/Vol] 116 mg/dL Normal 0-129 [facility] Comment on above: Performed By: #### N GPCR1, CTPCR #### [address] [address] Triglyceride [Mass/Vol] 89 mg/dL Normal 3-149 [facility] Comment on above: Performed By: #### N GPCR1, CTPCR #### [address] [address] MGon 12-29-2024 Magnesium [Mass/Vol] 1.6 mg/dL Normal 1.6-2.4 [facility] Comment on above: Performed By: #### N GPCR1, CTPCR #### [address] [address] .Auto Diffon 12-28-2024 Basophil, Absolute 0.0 10 3/mcL Normal 0.0-0.3 [facility] Comment on above: Performed By: #### M DW, ANEU, CMP, GFR, CBC, ADIFF, LAC #### [address] [address] Basophils/100 WBC (Bld) 0.4 % Normal 0.0-2.5 [facility] Comment on above: Performed By: #### M DW, ANEU, CMP, GFR, CBC, ADIFF, LAC #### [address] [address] Eosinophil, Absolute 0.1 10 3/mcL Normal 0.0-0.7 [facility] Comment on above: Performed By: #### M DW, ANEU, CMP, GFR, CBC, ADIFF, LAC #### [address] [address] Eosinophils/100 WBC (Bld) 1.6 % Normal 0.0-6.0 [facility] Comment on above: Performed By: #### M DW, ANEU, CMP, GFR, CBC, ADIFF, LAC #### [address] [address] Lymphocyte, Absolute 0.8 10 3/mcL Low 0.9-4.3 [facility] Comment on above: Performed By: #### M DW, ANEU, CMP, GFR, CBC, ADIFF, LAC #### [address] [address] Lymphocytes/100 WBC (Bld) 17.1 % Low 20.0-40.0 [facility] Comment on above: Performed By: #### M DW, ANEU, CMP, GFR, CBC, ADIFF, LAC #### [address] [address] Monocyte, Absolute 0.3 10 3/mcL Normal 0.1-1.4 [facility] Comment on above: Performed By: #### M DW, ANEU, CMP, GFR, CBC, ADIFF, LAC #### [address] [address] Monocytes/100 WBC (Bld) 7.6 % Normal 2.0-13.0 [facility] Comment on above: Performed By: #### M DW, ANEU, CMP, GFR, CBC, ADIFF, LAC #### [address] [address] Neutrophils/100 WBC (Bld) 73.3 % Normal 50.0-75.0 [facility] Comment on above: Performed By: #### M DW, ANEU, CMP, GFR, CBC, ADIFF, LAC #### [address] [address] .GFRon 12-28-2024 Estimated Glomerular Filtration Rate 59 ml/min/1.73sqm Normal [facility] Comment on above: Result Comment: Stages of Chronic Kidney Disease (CKD) Stage Description eGFR(ml/min/1.73 sq.m.) CKD 1 Normal kidney function or >=90 normal kindney function with possible kidney damage (ex. Proteinuria) CKD 2 Kidney damage with mild loss 60-89 of kidney function CKD 3a Mild to moderate loss of kidney 45-59 function CKD 3b Moderate to severe loss of 30-44 of kindey function CKD 4 Severe loss of kidney function 15-29 CKD 5 Kidney failure <15 Note: (go live 2024) the eGFR calculation was updated to the 2020 CKD-EPI creatinine equation without a race factor to calculate the eGFR results. Performed By: #### M DW, ANEU, CMP, GFR, CBC, ADIFF, LAC #### [place] [id number] .MDWon 12-28-2024 Monocyte Distribution Width 18.33 Normal 0.00-20.00 [facility] Comment on above: Result Comment: For ED adult patients suspected of sepsis, MDW<=20.0 does not rule out sepsis or risk of sepsis Performed By: #### M DW, ANEU, CMP, GFR, CBC, ADIFF, LAC #### [place] [address] .NEUABSon 12-28-2024 Neutrophil, Absolute 3.4 10 3/mcL Normal 2.3-8.1 [facility] Comment on above: Performed By: #### M DW, ANEU, CMP, GFR, CBC, ADIFF, LAC #### [place] [address] CBCon 12-28-2024 Erythrocyte distribution width (RBC) [Ratio] 14.8 % Normal 11.5-15.5 [facility] Comment on above: Performed By: #### M DW, ANEU, CMP, GFR, CBC, ADIFF, LAC #### [place] [address] Hematocrit (Bld) [Volume fraction] 38.4 % Low 40.0-52.0 [facility] Comment on above: Performed By: #### M DW, ANEU, CMP, GFR, CBC, ADIFF, LAC #### [place] [address] Hgb 12.7 G/dL Low 13.0-17.5 [facility] Comment on above: Performed By: #### M DW, ANEU, CMP, GFR, CBC, ADIFF, LAC #### [place] [address] MCH (RBC) [Entitic mass] 28.8 pg Normal 27.0-33.0 [facility] Comment on above: Performed By: #### M DW, ANEU, CMP, GFR, CBC, ADIFF, LAC #### [address] [address] MCHC 33.1 G/dL Normal 32.0-36.0 [facility] Comment on above: Performed By: #### M DW, ANEU, CMP, GFR, CBC, ADIFF, LAC #### [address] [address] MCV (RBC) [Entitic vol] 87.1 fL Normal 81.0-100.0 [facility] Comment on above: Performed By: #### M DW, ANEU, CMP, GFR, CBC, ADIFF, LAC #### [address] [address] Platelet 176 10 3/mcL Normal 150-450 [facility] Comment on above: Performed By: #### M DW, ANEU, CMP, GFR, CBC, ADIFF, LAC #### [address] [address] Platelet mean volume (Bld) [Entitic vol] 8.9 fL Normal 6.4-10.5 [facility] Comment on above: Performed By: #### M DW, ANEU, CMP, GFR, CBC, ADIFF, LAC #### [address] [address] RBC 4.41 10 6/mcL Low 4.50-6.00 [facility] Comment on above: Performed By: #### M DW, ANEU, CMP, GFR, CBC, ADIFF, LAC #### [address] [address] WBC 4.6 10 3/mcL Normal 4.5-10.8 [facility] Comment on above: Performed By: #### M DW, ANEU, CMP, GFR, CBC, ADIFF, LAC #### [address] [address] CMPon 12-28-2024 Albumin Level 1.9 G/dL Low 3.4-4.8 [facility] Comment on above: Performed By: #### M DW, ANEU, CMP, GFR, CBC, ADIFF, LAC #### [address] [address] Albumin/Globulin [Mass ratio] 0.5 {ratio} Low 1.1-2.5 [facility] Comment on above: Performed By: #### M DW, ANEU, CMP, GFR, CBC, ADIFF, LAC #### [place] [id number] ALP [Catalytic activity/Vol] 190 U/L High 40-135 [facility] Comment on above: Performed By: #### M DW, ANEU, CMP, GFR, CBC, ADIFF, LAC #### [place] [address] ALT [Catalytic activity/Vol] 24 U/L Normal 16-63 [facility] Comment on above: Performed By: #### M DW, ANEU, CMP, GFR, CBC, ADIFF, LAC #### [place] [address] AST [Catalytic activity/Vol] 25 U/L Normal 10-40 [facility] Comment on above: Performed By: #### M DW, ANEU, CMP, GFR, CBC, ADIFF, LAC #### [address] [address] Bili Total 0.7 mg/dL Normal 0.2-1.0 [facility] Comment on above: Result Comment: Use of this assay is not recommended for patients undergoing treatment with eltrombopag due to the potential for falsely elevated results. Performed By: #### M DW, ANEU, CMP, GFR, CBC, ADIFF, LAC #### [place] [id number] BUN/Creatinine Ratio 14 ratio Normal 7-27 [facility] Comment on above: Performed By: #### M DW, ANEU, CMP, GFR, CBC, ADIFF, LAC #### [place] [id number] Calcium [Mass/Vol] 8.9 mg/dL Normal 8.4-10.2 [facility] Comment on above: Performed By: #### M DW, ANEU, CMP, GFR, CBC, ADIFF, LAC #### [address] [address] Chloride [Moles/Vol] 100 mmol/L Normal 98-107 [facility] Comment on above: Performed By: #### M DW, ANEU, CMP, GFR, CBC, ADIFF, LAC #### [place] [address] CO2 [Moles/Vol] 24 mmol/L Normal 23-31 [facility] Comment on above: Performed By: #### M DW, ANEU, CMP, GFR, CBC, ADIFF, LAC #### [address] [address] Creatinine [Mass/Vol] 1.36 mg/dL High 0.67-1.17 [facility] Comment on above: Performed By: #### M DW, ANEU, CMP, GFR, CBC, ADIFF, LAC #### [address] [address] Electrolyte Balance 8.0 mEq/L Normal 4.0-15.0 [facility] Comment on above: Performed By: #### M DW, ANEU, CMP, GFR, CBC, ADIFF, LAC #### [address] [address] Globulin 4.2 G/dL Normal 2.7-4.4 [facility] Comment on above: Performed By: #### M DW, ANEU, CMP, GFR, CBC, ADIFF, LAC #### [address] [address] Glucose [Mass/Vol] 355 mg/dL High 80-115 [facility] Comment on above: Performed By: #### M DW, ANEU, CMP, GFR, CBC, ADIFF, LAC #### [place] [address] Potassium [Moles/Vol] 4.3 mmol/L Normal 3.5-5.1 [facility] Comment on above: Performed By: #### M DW, ANEU, CMP, GFR, CBC, ADIFF, LAC #### [place] [id number] [place], [place] [address] Sodium [Moles/Vol] 132 mmol/L Low 136-145 [facility] Comment on above: Performed By: #### M DW, ANEU, CMP, GFR, CBC, ADIFF, LAC #### [place] [phone] [place], [place] [address] Total Protein 6.1 G/dL Low 6.4-8.2 [facility] Comment on above: Performed By: #### M DW, ANEU, CMP, GFR, CBC, ADIFF, LAC #### [place] [phone] [place], [place] [address] Urea nitrogen [Mass/Vol] 19 mg/dL High 7-18 [facility] Comment on above: Performed By: #### M DW, ANEU, CMP, GFR, CBC, ADIFF, LAC #### [address] [address] LABORATORYOrdered By: SYSTEM SYSTEM on 12-28-2024 Lactate [Moles/Vol] 1.5 mmol/L Normal 0.4 - 2. 0 mmol/L AO [facility] Troponin I.cardiac DL <= 0.01 ng/mL [Mass/Vol] 17 ng/L Normal 0 - 76 ng/L AO [facility] Comment on above: Interpretive Data: H igh Sensitive Troponin I Reference Ranges: Female: 0-51 ng/L Male: 0-76 ng/L Testing performed on G-mode using a homogeneous sandwich chemiluminescent immunoassay based on [employer] technology. Natriuretic peptide.B prohormone N-Terminal [Mass/Vol] 996 pg/mL High 0 - 125 pg/mL AO ADM Comment on above: Interpretive Data: N T-proBNP results of less than 300 pg/mL effectively rules out acute congestive heart failure with 99% negative predictive value. Albumin BCP dye [Mass/Vol] 1.9 G/dL Low 3.4 - 4.8 G/dL AO ADM SS Albumin/Globulin [Mass ratio] 0.5 {ratio} Low 1.1 - 2.5 ratio AO ADM SS ALP [Catalytic activity/Vol] 190 U/L High 40 - 135 U/L AO ADM SS ALT With P-5'-P [Catalytic activity/Vol] 24 U/L Normal 16 - 63 U/L AO ADM SS AST With P-5'-P [Catalytic activity/Vol] 25 U/L Normal 10 - 40 U/L AO ADM SS Basophils (Bld) [#/Vol] 0.0 103/mcL Normal 0.0 - 0.3 10^3/mcL AO Workflow SS Basophils/100 WBC (Bld) 0.4 % Normal 0.0 - 2.5 % AO Workflow SS Bilirubin [Mass/Vol] 0.7 mg/dL Normal 0.2 - 1 .0 mg/dL AO ADM SS Comment on above: Interpretive Data: U se of this assay is not recommended for patients undergoing treatment with eltrombopag due to the potential for falsely elevated results. Calcium [Mass/Vol] 8.9 mg/dL Normal 8.4 - 10. 2 mg/dL AO ADM SS Chloride [Moles/Vol] 100 mmol/L Normal 98 - 10 7 mmol/L AO ADM SS CO2 [Moles/Vol] 24 mmol/L Normal 23 - 31 mmol/L AO ADM SS Creatinine [Mass/Vol] 1.36 mg/dL High 0.67 - 1.17 mg/dL AO ADM SS Electrolyte Balance 8.0 mEq/L Normal 4.0 - 15 .0 mEq/L AO ADM SS Eosinophil, Absolute 0.1 103/mcL Normal 0.0 - 0 .7 10^3/mcL AO Workflow SS Eosinophils/100 WBC (Bld) 1.6 % Normal 0.0 - 6.0 % AO Workflow SS Erythrocyte distribution width (RBC) [Ratio] 14.8 % Normal 11.5 - 15.5 % AO Workflow SS Estimated Glomerular Filtration Rate 59 ml/min/1.73sqm Invalid Interpretation Code AO Chemistry S Comment on above: Interpretive Data: Stages of Chronic Kidney Disease (CKD) Stage Description eGFR(ml/min/1.73 sq.m.) CKD 1 Normal kidney function or >=90 normal kindney function with possible kidney damage (ex. Proteinuria) CKD 2 Kidney damage with mild loss 60-89 of kidney function CKD 3a Mild to moderate loss of kidney 45-59 function CKD 3b Moderate to severe loss of 30-44 of kindey function CKD 4 Severe loss of kidney function 15-29 CKD 5 Kidney failure <15 Note: (go live 2024) the eGFR calculation was updated to the 2020 CKD-EPI creatinine equation without a race factor to calculate the eGFR results. Globulin 4.2 G/dL Normal 2.7 - 4.4 G/dL AO ADM SS Glucose [Mass/Vol] 355 mg/dL High 80 - 115 mg/dL AO ADM SS Hematocrit (Bld) [Volume fraction] 38.4 % Low 40.0 - 52.0 % AO Workflow SS Hemoglobin (Bld) [Mass/Vol] 12.7 G/dL Low 13.0 - 17.5 G/dL AO Workflow SS Lactate [Moles/Vol] 2.0 mmol/L Normal 0.4 - 2. 0 mmol/L AO ADM SS Lymphocytes (Bld) [#/Vol] 0.8 103/mcL Low 0.9 - 4.3 10^3/mcL AO Workflow SS Lymphocytes/100 WBC (Bld) 17.1 % Low 20.0 - 40.0 % AO Workflow SS MCH (RBC) [Entitic mass] 28.8 pg Normal 27.0 - 33.0 pg AO Workflow SS MCHC 33.1 G/dL Normal 32.0 - 36.0 G/dL AO Workflow SS MCV (RBC) [Entitic vol] 87.1 fL Normal 81.0 - 100.0 fL AO Workflow SS Monocyte distribution width Auto (Bld) [Entitic vol] 18.33 1 Normal 0.00 - 20.00 AO Workflow SS Comment on above: Result Comment: For ED adult patients suspected of sepsis, MDW<=20.0 does not rule out sepsis or risk of sepsis Monocytes (Bld) [#/Vol] 0.3 103/mcL Normal 0.1 - 1.4 10^3/mcL AO Workflow SS Monocytes/100 WBC (Bld) 7.6 % Normal 2.0 - 13.0 % AO Workflow SS Neutrophils (Bld) [#/Vol] 3.4 103/mcL Normal 2.3 - 8.1 10^3/mcL AO Workflow SS Neutrophils/100 WBC (Bld) 73.3 % Normal 50.0 - 75.0 % AO Workflow SS Platelet mean volume (Bld) [Entitic vol] 8.9 fL Normal 6.4 - 10.5 fL AO Workflow SS Platelets (Bld) [#/Vol] 176 103/mcL Normal 150 - 450 10^3/mcL AO Workflow SS Potassium [Moles/Vol] 4.3 mmol/L Normal 3.5 - 5.1 mmol/L AO ADM SS Protein [Mass/Vol] 6.1 G/dL Low 6.4 - 8.2 G/dL AO ADM SS RBC (Bld) [#/Vol] 4.41 106/mcL Low 4.50 - 6.0 0 10^6/mcL AO Workflow SS Sodium [Moles/Vol] 132 mmol/L Low 136 - 145 mmol/L AO ADM SS Urea nitrogen [Mass/Vol] 19 mg/dL High 7 - 18 mg/dL AO ADM SS Urea nitrogen/Creatinine [Mass ratio] 14 ratio Normal 7 - 27 ratio AO ADM SS WBC (Bld) [#/Vol] 4.6 103/mcL Normal 4.5 - 10.8 10^3/mcL AO Workflow SS LABORATORYOrdered By: Bc Laird on 12-28-2024 Appearance (U) Clear (12/28/24 2:58 PM) Normal Clear AO Auto Urine SS Bilirubin Ql (U) Negative (12/28/24 2:58 PM) Normal Negative AO Auto Urine SS Color (U) Yellow (12/28/24 2:58 PM) Normal AO Auto Urine SS Glucose Test strip (U) [Mass/Vol] >=1000 mg/dL Invalid Interpretation Code Negative AO Auto Urine SS Hemoglobin Auto test strip (U) [Mass/Vol] Small *ABN* (12/28/24 2:58 PM) Invalid Interpretation Code Negative AO Auto Urine SS Ketones Ql (U) Negative Normal Negative AO Auto Ur ine SS UA Leuk Est Negative (12/28/24 2:58 PM) Normal Negative AO Auto Urine SS UA Nitrite Negative (12/28/24 2:58 PM) Normal Negative AO Auto Urine SS UA pH 6.5 (12/28/24 2:58 PM) Normal 5.0 - 8.0 AO Auto Urine SS UA Protein >=300 mg/dL Invalid Interpretation Code Negative AO Auto Urine SS UA Spec Grav 1.020 (12/28/24 2:58 PM) Normal 1.015-1.025 AO Auto Urine SS UA Specimen Type Clean Catch (12/28/24 2:58 PM) Normal AO Auto Urine SS UA Urobilinogen 0.2 E.U./dL Normal 0.2-1.0 AO Auto Urine SS LABORATORYOrdered By: Marielos Isaac on 12-28-2024 UA RBC 5-10 /HPF Invalid Interpretation Code 0-2 AO Auto Urine SS UA Squam Epithelial 0-2 /HPF Normal 0-20 AO Au to Urine SS WBC LM.HPF (Urine sed) [#/Area] 3-5 /HPF Normal 0-5 AO Auto Urine SS LACon 12-28-2024 Lactic Acid Lvl 1.5 mmol/L Normal 0.4-2.0 [facility] Comment on above: Performed By: #### M DW, ANEU, CMP, GFR, CBC, ADIFF, LAC #### [id number] [place], [place] [address] Lactic Acid Lvl 2.0 mmol/L Normal 0.4-2.0 [facility] Comment on above: Performed By: #### M DW, ANEU, CMP, GFR, CBC, ADIFF, LAC #### [id number] [place], [place] [address] No Panel Informationon 12-28 Microscopic examination of blood, culture Culture has been received in lab and is no growth to date. Routine cultures are held for 5 days. [facility] Microscopic examination of blood, culture Culture has been received in lab and is no growth to date. Routine cultures are held for 5 days. [facility] PBNPon 12-28-2024 Natriuretic peptide B (Bld) [Mass/Vol] 996 pg/mL High 0-125 [facility] Comment on above: Result Comment: NT-p roBNP results of less than 300 pg/mL effectively rules out acute congestive heart failure with 99% negative predictive value. Performed By: #### M DW, ANEU, CMP, GFR, CBC, ADIFF, LAC #### [id number] [place], [place] [address] TROPHSon 12-28-2024 High Sensitivity Troponin I 17 ng/L Normal 0-76 [facility] Comment on above: Result Comment: High Sensitive Troponin I Reference Ranges: Female: 0-51 ng/L Male: 0-76 ng/L Testing performed on G-mode using a homogeneous sandwich chemiluminescent immunoassay based on [employer] technology. Performed By: #### M DW, ANEU, CMP, GFR, CBC, ADIFF, LAC #### [address] [address] UAon 12-28-2024 Color (U) Yellow Normal [facility] Comment on above: Performed By: #### M DW, ANEU, CMP, GFR, CBC, ADIFF, LAC #### [address] [address] Glucose (U) [Mass/Vol] mg/dL Abnormal Negative [facility] Comment on above: Performed By: #### M DW, ANEU, CMP, GFR, CBC, ADIFF, LAC #### [address] [address] Ketones Ql (U) Negative Normal Negative [facility] Comment on above: Performed By: #### M DW, ANEU, CMP, GFR, CBC, ADIFF, LAC #### [address] [place] [address] UA Appear Clear Normal Clear [facility] Comment on above: Performed By: #### M DW, ANEU, CMP, GFR, CBC, ADIFF, LAC #### [address] [address] UA Blood Small Abnormal Negative [facility] Comment on above: Performed By: #### M DW, ANEU, CMP, GFR, CBC, ADIFF, LAC #### [address] [address] UA Leuk Est Negative Normal Negative [facility] Comment on above: Performed By: #### M DW, ANEU, CMP, GFR, CBC, ADIFF, LAC #### [address] [address] UA Nitrite Negative Normal Negative [facility] Comment on above: Performed By: #### M DW, ANEU, CMP, GFR, CBC, ADIFF, LAC #### [address] [address] UA pH 6.5 Normal 5.0 - 8.0 [facility] Comment on above: Performed By: #### M DW, ANEU, CMP, GFR, CBC, ADIFF, LAC #### [address] [address] UA Protein >=300 Abnormal Negative [facility] Comment on above: Performed By: #### M DW, ANEU, CMP, GFR, CBC, ADIFF, LAC #### [address] [address] UA Spec Grav 1.020 Normal 1.015-1.025 [facility] Comment on above: Performed By: #### M DW, ANEU, CMP, GFR, CBC, ADIFF, LAC #### [address] [address] UA Specimen Type Clean Catch Normal [facility] Comment on above: Performed By: #### M DW, ANEU, CMP, GFR, CBC, ADIFF, LAC #### [address] [address] UA Urobilinogen 0.2 E.U./dL Normal 0.2-1.0 [facility] Comment on above: Performed By: #### M DW, ANEU, CMP, GFR, CBC, ADIFF, LAC #### [address] [place] [address] Urobilinogen (U) [Mass/Vol] Negative Normal Negative [facility] Comment on above: Performed By: #### M DW, ANEU, CMP, GFR, CBC, ADIFF, LAC #### [address] [address] UAMICon 12-28-2024 UA RBC 5-10 Abnormal 0-2 [facility] Comment on above: Performed By: #### M DW, ANEU, CMP, GFR, CBC, ADIFF, LAC #### [address] UA Squam Epithelial 0-2 Normal 0-20 [facility] Comment on above: Performed By: #### M DW, ANEU, CMP, GFR, CBC, ADIFF, LAC #### [address] [place], [place] [address] UA WBC 3-5 Normal 0-5 [facility] Comment on above: Performed By: #### M DW, ANEU, CMP, GFR, CBC, ADIFF, LAC #### [id number] [place], [place] [address] US SCROTUM CONTENTSon 2024 US SCROTUM CONTENTS ORIGINAL EXAMINATION: ULTRASOUND OF THE SCROTUM/TESTICLES WITH COLOR DOPPLER FLOW EVALUATION12/28/2024 12:56 pm Scrotal Ultrasound with Duplex Doppler evaluation TECHNIQUE: Duplex ultrasound using B-mode/weaver scaled imaging, Doppler spectral analysis and color flow Doppler was obtained of the testicles. Grayscale, color Doppler and spectral waveform evaluation This report is based on interpretation of permanently recorded ultrasound images. COMPARISON: None HISTORY: ORDERING SYSTEM PROVIDED HISTORY: Reason for Exam: testicular pain, swelling or torsion, FINDINGS: Right testicle: 4.2 x 3.7 x 2.9 cm. There is scrotal wall thickening surrounding the right testicle measuring up to 1.8 cm. The right epididymis measures 4.2 x 2.5 x 4.3 cm. There may be a small fluid collection inferior to the right testicle measuring 2.2 x 2.5 x 4.0 cm. Left testicle: 4.0 x 2.8 x 2.9 cm. There is scrotal wall thickening surrounding the left testicle measuring up to 1.9 cm. The left epididymis measures 2.5 x 1.8 x 3.4 cm. A tiny fluid collection is seen surrounding left testicle. No suspicious focal nor diffuse abnormalities are seen. Color Doppler flow is seen in both testicles in a symmetric fashion. Spectral waveform analysis of the testicles shows arterial and venous waveforms in both testicles. IMPRESSION: Bilateral scrotal wall thickening, measuring up to 1.9 cm on the left. Possible small fluid collection also seen inferior to the right testicle. No evidence for testicular mass or torsion. I have personally reviewed the images of this examination and agree with the resident's findings and interpretation. Interpreted by: Duc Sahni DO Preliminary Report By: Nu Perez Electronically signed By Duc Sahni DO Dictated Date: 12/28/2024 1:14:11 PM Prelim Date: 12/28/2024 1:34:39 PM Sign Date: 12/28/2024 1:34:39 PM Ordering Provider: MARNI MELCHOR [facility] XR CHEST 1 VIEWon 12-28-2024 XR CHEST 1 VIEW ORIGINAL EXAMINATION: ONE XRAY VIEW OF THE CHEST 12/28/2024 1:36 pm COMPARISON: None. HISTORY: ORDERING SYSTEM PROVIDED HISTORY: Reason for Exam: CHF FINDINGS: Cardiomediastinal silhouette is within normal limits. Mild interstitial pattern reflecting mild edema. No pleural effusion or pneumothorax. No focal consolidation. Left AC joint degenerative change. IMPRESSION: Mild pulmonary edema. Interpreted by: Faviola Chaudhari Preliminary Report By: Faviola Chaudhari Electronically signed By Faviola Chaudhari Dictated Date: 12/28/2024 1:39:20 PM Prelim Date: 12/28/2024 1:40:05 PM Sign Date: 12/28/2024 1:40:05 PM Ordering Provider: FRIDA CARDENAS [facility] .GFRon 12-27-2024 Estimated Glomerular Filtration Rate 55 ml/min/1.73sqm [facility] Comment on above: Result Comment: Stages of Chronic Kidney Disease (CKD) Stage Description eGFR(ml/min/1.73 sq.m.) CKD 1 Normal kidney function or >=90 normal kindney function with possible kidney damage (ex. Proteinuria) CKD 2 Kidney damage with mild loss 60-89 of kidney function CKD 3a Mild to moderate loss of kidney 45-59 function CKD 3b Moderate to severe loss of 30-44 of kindey function CKD 4 Severe loss of kidney function 15-29 CKD 5 Kidney failure <15 Note: (go live 2024) the eGFR calculation was updated to the 2020 CKD-EPI creatinine equation without a race factor to calculate the eGFR results. Performed By: #### M DW, ANEU, CMP, GFR, CBC, ADIFF, LAC #### [facility] [address] [place], [place] [address] BMPon 12-27-2024 BUN/Creatinine Ratio 13 ratio Normal 7-27 [facility] Comment on above: Performed By: #### G FR, BMP #### [address] [address] Calcium [Mass/Vol] 9.2 mg/dL Normal 8.4-10.2 [facility] Comment on above: Performed By: #### G FR, BMP #### [address] [address] Chloride [Moles/Vol] 102 mmol/L Normal 98-107 [facility] Comment on above: Performed By: #### G , BMP #### [address] [address] CO2 [Moles/Vol] 26 mmol/L Normal 23-31 [facility] Comment on above: Performed By: #### G , BMP #### [address] [address] Creatinine [Mass/Vol] 1.43 mg/dL High 0.67-1.17 [facility] Comment on above: Performed By: #### Connor HE, BMP #### [address] [address] Electrolyte Balance 9.0 mEq/L Normal 4.0-15.0 [facility] Comment on above: Performed By: #### Connor HE, BMP #### [address] [address] Glucose [Mass/Vol] 127 mg/dL High 80-115 [facility] Comment on above: Performed By: #### G , BMP #### [address] [address] Potassium [Moles/Vol] 4.1 mmol/L Normal 3.5-5.1 [facility] Comment on above: Performed By: #### G FR, BMP #### [address] [address] Sodium [Moles/Vol] 137 mmol/L Normal 136-145 [facility] Comment on above: Performed By: #### G FR, BMP #### [address] [address] Urea nitrogen [Mass/Vol] 19 mg/dL High 7-18 [facility] Comment on above: Performed By: #### G KHLOE HE #### [address] [address] LABORATORYOrdered By: SYSTEM SYSTEM on 12-27-2024 Calcium [Mass/Vol] 9.2 mg/dL Normal 8.4 - 10. 2 mg/dL AO ADM SS Chloride [Moles/Vol] 102 mmol/L Normal 98 - 10 7 mmol/L AO ADM SS CO2 [Moles/Vol] 26 mmol/L Normal 23 - 31 mmol/L AO ADM SS Creatinine [Mass/Vol] 1.43 mg/dL High 0.67 - 1.17 mg/dL AO ADM SS Electrolyte Balance 9.0 mEq/L Normal 4.0 - 15 .0 mEq/L AO ADM SS Estimated Glomerular Filtration Rate 55 ml/min/1.73sqm Invalid Interpretation Code AO Chemistry S Comment on above: Interpretive Data: Stages of Chronic Kidney Disease (CKD) Stage Description eGFR(ml/min/1.73 sq.m.) CKD 1 Normal kidney function or >=90 normal kindney function with possible kidney damage (ex. Proteinuria) CKD 2 Kidney damage with mild loss 60-89 of kidney function CKD 3a Mild to moderate loss of kidney 45-59 function CKD 3b Moderate to severe loss of 30-44 of kindey function CKD 4 Severe loss of kidney function 15-29 CKD 5 Kidney failure <15 Note: (go live 2024) the eGFR calculation was updated to the 2020 CKD-EPI creatinine equation without a race factor to calculate the eGFR results. Glucose [Mass/Vol] 127 mg/dL High 80 - 115 mg/dL AO ADM SS Potassium [Moles/Vol] 4.1 mmol/L Normal 3.5 - 5.1 mmol/L AO ADM SS Sodium [Moles/Vol] 137 mmol/L Normal 136 - 145 mmol/L AO ADM SS Urea nitrogen [Mass/Vol] 19 mg/dL High 7 - 18 mg/dL AO ADM SS Urea nitrogen/Creatinine [Mass ratio] 13 ratio Normal 7 - 27 ratio AO ADM SS CNPNon 12-24-2024 CNPN Telephone (URCANT) Estrada PLUNKETT ([id number]) 1960 M Date Time Provider Department 12/24/24 UROLOGY (HISTORY) [facility] During your visit today, we recorded the following information about you: Imelda Trinh 12/24/2024 11:28 AM Signed Called pt to schedule a new pt appointment from [facility]. Pt was refusing to come to any facility that was not [facility] or [facility]. Gave the number for [facility], pt is going to call them for scheduling. Allergies As of Date: 12/24/2024 Noted Allergy Reaction LISINOPRIL 09/02/2023 3 - Cough ATORVASTATIN 09/05/2022 3 - Cough Date Reviewed: 07/14/2024 Reviewed by: Desean Contreras, RN - Fully Assessed Reason for Visit: FYI-No Action Needed [265] Prescriptions as of 12/24/2024 - furosemide (LASIX) 40 mg tablet Take 1 tablet by mouth once daily for 3 days. - DULCOLAX, BISACODYL, ORAL Take 1 tablet by mouth once daily. prn - apixaban (ELIQUIS) 5 mg tab(s) Take 5 mg by mouth two times a day. - cholecalciferol (VITAMIN D-3) 5,000 unit tab Take 5,000 Units by mouth once daily. - furosemide (LASIX) 20 mg tablet Take 20 mg by mouth once daily. - insulin glargine,hum.rec.anlog (LANTUS U-100 INSULIN SUBCUTANEOUS) Inject subcutaneously. - mag hydrox/aluminum hyd/simeth (MAALOX ORAL) Take by mouth. - Melatonin 5 mg cap Take by mouth. - oxyCODONE-acetaminophe n 5-325 mg (PERCOCET) 1 tablet two times a day. Prn - ZINC ACETATE ORAL Take by mouth. - acetaminophen (TYLENOL) 325 mg cap Take 2 capsules by mouth every 4 hours. prn - ammonium lactate (LAC-HYDRIN) 12 % cream Apply to affected area as needed. - aspirin 81 mg chewable tablet Take 1 tablet by mouth once daily. - losartan (COZAAR) 25 mg tablet Take by mouth once daily. - indapamide (LOZOL) 1.25 mg tablet Take 1.25 mg by mouth once daily. - insulin detemir U-100 (LEVEMIR FLEXPEN) 100 unit/mL (3 mL) injection pen Inject 51 Units subcutaneously daily at bedtime. Problem List As Of Date 12/24/2024 Noted Resolved Osteomyelitis (HCC) [M86.9] 09/11/2023 Gas gangrene (HCC) [A48.0] 09/11/2023 Nicotine use disorder, F17.2 [F17.200] 09/12/2023 Obesity, Class I, BMI 30-34.9 [E66.811] 09/12/2023 Obesity, Class II, BMI 35-39.9 [E66.812] 09/19/2023 Encounter Status:Closed by IMELDA TRINH on 12/24/24 [facility] 12-21-2024 U Creatinine 245.7 mg/dL Normal 40.0-278.0 [facility] Comment on above: Performed By: #### M DW, ANEU, CMP, GFR, CBC, ADIFF, LAC #### [address] [place], [place] [address] U Microalb 68.6 mg/L Normal [facility] Comment on above: Performed By: #### M DW, ANEU, CMP, GFR, CBC, ADIFF, LAC #### [address] [place], [place] [address] U Ratio Alb/Cre 28 mg/G Normal 0-30 [facility] Comment on above: Performed By: #### M DW, ANEU, CMP, GFR, CBC, ADIFF, LAC #### [address] [place], [place] [address] .Auto Diffon 12-20-2024 Basophil, Absolute 0.0 10 3/mcL Normal 0.0-0.3 [facility] Comment on above: Performed By: #### M DW, ANEU, CMP, GFR, CBC, ADIFF, LAC #### [address] [address] Basophils/100 WBC (Bld) 0.5 % Normal 0.0-2.5 [facility] Comment on above: Performed By: #### M DW, ANEU, CMP, GFR, CBC, ADIFF, LAC #### [address] [address] Eosinophil, Absolute 0.1 10 3/mcL Normal 0.0-0.7 [facility] Comment on above: Performed By: #### M DW, ANEU, CMP, GFR, CBC, ADIFF, LAC #### [address] [address] Eosinophils/100 WBC (Bld) 1.6 % Normal 0.0-6.0 [facility] Comment on above: Performed By: #### M DW, ANEU, CMP, GFR, CBC, ADIFF, LAC #### [address] [address] Lymphocyte, Absolute 1.1 10 3/mcL Normal 0.9-4.3 [facility] Comment on above: Performed By: #### M DW, ANEU, CMP, GFR, CBC, ADIFF, LAC #### [address] [address] Lymphocytes/100 WBC (Bld) 19.0 % Low 20.0-40.0 [facility] Comment on above: Performed By: #### M DW, ANEU, CMP, GFR, CBC, ADIFF, LAC #### [address] [address] Monocyte, Absolute 0.5 10 3/mcL Normal 0.1-1.4 [facility] Comment on above: Performed By: #### M DW, ANEU, CMP, GFR, CBC, ADIFF, LAC #### [address] [address] Monocytes/100 WBC (Bld) 8.4 % Normal 2.0-13.0 [facility] Comment on above: Performed By: #### M DW, ANEU, CMP, GFR, CBC, ADIFF, LAC #### [address] [place], [place] [address] Neutrophils/100 WBC (Bld) 70.5 % Normal 50.0-75.0 [facility] Comment on above: Performed By: #### M DW, ANEU, CMP, GFR, CBC, ADIFF, LAC #### [address] [place], [place] [address] .GFRon 12-20-2024 Estimated Glomerular Filtration Rate 60 ml/min/1.73sqm Normal [facility] Comment on above: Result Comment: Stages of Chronic Kidney Disease (CKD) Stage Description eGFR(ml/min/1.73 sq.m.) CKD 1 Normal kidney function or >=90 normal kindney function with possible kidney damage (ex. Proteinuria) CKD 2 Kidney damage with mild loss 60-89 of kidney function CKD 3a Mild to moderate loss of kidney 45-59 function CKD 3b Moderate to severe loss of 30-44 of kindey function CKD 4 Severe loss of kidney function 15-29 CKD 5 Kidney failure <15 Note: (go live 2024) the eGFR calculation was updated to the 2020 CKD-EPI creatinine equation without a race factor to calculate the eGFR results. Performed By: #### M DW, ANEU, CMP, GFR, CBC, ADIFF, LAC #### [address] [place], [place] [address] .NEUABSon 12-20-2024 Neutrophil, Absolute 4.2 10 3/mcL Normal 2.3-8.1 [facility] Comment on above: Performed By: #### M DW, ANEU, CMP, GFR, CBC, ADIFF, LAC #### [address] [place], [place] [address] A1Con 12-20-2024 Glucose [Mass/Vol] 346 mg/dL Normal [facility] Comment on above: Result Comment: Jany mated Average Glucose calculated by equation ((28.7xA1C)-46.7) Estimated average glucose (eAG) is a calculated value from Hemoglobin A1C and is communications representative of the average blood glucose level in the last 2-3 month period. Normal range: less than 114 mg/dL Performed By: #### M DW, ANEU, CMP, GFR, CBC, ADIFF, LAC #### [place] [address] HbA1c (Bld) [Mass fraction] 13.7 % High 4.3-6.4 [facility] Comment on above: Performed By: #### M DW, ANEU, CMP, GFR, CBC, ADIFF, LAC #### [place] [address] CBCon 12-20-2024 Erythrocyte distribution width (RBC) [Ratio] 14.7 % Normal 11.5-15.5 [facility] Comment on above: Performed By: #### M DW, ANEU, CMP, GFR, CBC, ADIFF, LAC #### [place] [address] Hematocrit (Bld) [Volume fraction] 39.6 % Low 40.0-52.0 [facility] Comment on above: Performed By: #### M DW, ANEU, CMP, GFR, CBC, ADIFF, LAC #### [place] [address] Hgb 13.2 G/dL Normal 13.0-17.5 [facility] Comment on above: Performed By: #### M DW, ANEU, CMP, GFR, CBC, ADIFF, LAC #### [place] [address] MCH (RBC) [Entitic mass] 29.1 pg Normal 27.0-33.0 [facility] Comment on above: Performed By: #### M DW, ANEU, CMP, GFR, CBC, ADIFF, LAC #### [place] [address] MCHC 33.3 G/dL Normal 32.0-36.0 [facility] Comment on above: Performed By: #### M DW, ANEU, CMP, GFR, CBC, ADIFF, LAC #### [place] [address] MCV (RBC) [Entitic vol] 87.2 fL Normal 81.0-100.0 [facility] Comment on above: Performed By: #### M DW, ANEU, CMP, GFR, CBC, ADIFF, LAC #### [address] [address] Platelet 183 10 3/mcL Normal 150-450 [facility] Comment on above: Performed By: #### M DW, ANEU, CMP, GFR, CBC, ADIFF, LAC #### [address] [address] Platelet mean volume (Bld) [Entitic vol] 9.3 fL Normal 6.4-10.5 [facility] Comment on above: Performed By: #### M DW, ANEU, CMP, GFR, CBC, ADIFF, LAC #### [address] [address] RBC 4.55 10 6/mcL Normal 4.50-6.00 [facility] Comment on above: Performed By: #### M DW, ANEU, CMP, GFR, CBC, ADIFF, LAC #### [address] [address] WBC 6.0 10 3/mcL Normal 4.5-10.8 [facility] Comment on above: Performed By: #### M DW, ANEU, CMP, GFR, CBC, ADIFF, LAC #### [address] [address] CMPon 12-20-2024 Albumin Level 1.9 G/dL Low 3.4-4.8 [facility] Comment on above: Performed By: #### M DW, ANEU, CMP, GFR, CBC, ADIFF, LAC #### [address] [address] Albumin/Globulin [Mass ratio] 0.5 {ratio} Low 1.1-2.5 [facility] Comment on above: Performed By: #### M DW, ANEU, CMP, GFR, CBC, ADIFF, LAC #### [address] [address] ALP [Catalytic activity/Vol] 189 U/L High 40-135 [facility] Comment on above: Performed By: #### M DW, ANEU, CMP, GFR, CBC, ADIFF, LAC #### [place] [address] ALT [Catalytic activity/Vol] 20 U/L Normal 16-63 [facility] Comment on above: Performed By: #### M DW, ANEU, CMP, GFR, CBC, ADIFF, LAC #### [place] [id number] AST [Catalytic activity/Vol] 29 U/L Normal 10-40 [facility] Comment on above: Performed By: #### M DW, ANEU, CMP, GFR, CBC, ADIFF, LAC #### [place] [address]97 Bili Total 0.7 mg/dL Normal 0.2-1.0 [facility] Comment on above: Result Comment: Use of this assay is not recommended for patients undergoing treatment with eltrombopag due to the potential for falsely elevated results. Performed By: #### M DW, ANEU, CMP, GFR, CBC, ADIFF, LAC #### [place] [address] BUN/Creatinine Ratio 10 ratio Normal 7-27 [facility] Comment on above: Performed By: #### M DW, ANEU, CMP, GFR, CBC, ADIFF, LAC #### [address] [address] Calcium [Mass/Vol] 9.3 mg/dL Normal 8.4-10.2 [facility] Comment on above: Performed By: #### M DW, ANEU, CMP, GFR, CBC, ADIFF, LAC #### [address] [address] Chloride [Moles/Vol] 105 mmol/L Normal 98-107 [facility] Comment on above: Performed By: #### M DW, ANEU, CMP, GFR, CBC, ADIFF, LAC #### [place] [id number] CO2 [Moles/Vol] 31 mmol/L Normal 23-31 [facility] Comment on above: Performed By: #### M DW, ANEU, CMP, GFR, CBC, ADIFF, LAC #### [address] [address] Creatinine [Mass/Vol] 1.34 mg/dL High 0.67-1.17 [facility] Comment on above: Performed By: #### M DW, ANEU, CMP, GFR, CBC, ADIFF, LAC #### [address] [address] Electrolyte Balance 4.0 mEq/L Normal 4.0-15.0 [facility] Comment on above: Performed By: #### M DW, ANEU, CMP, GFR, CBC, ADIFF, LAC #### [address] [address] Globulin 4.0 G/dL Normal 2.7-4.4 [facility] Comment on above: Performed By: #### M DW, ANEU, CMP, GFR, CBC, ADIFF, LAC #### [address] [address] Glucose [Mass/Vol] 212 mg/dL High 80-115 [facility] Comment on above: Performed By: #### M DW, ANEU, CMP, GFR, CBC, ADIFF, LAC #### [address] [address] Potassium [Moles/Vol] 5.7 mmol/L High 3.5-5.1 [facility] Comment on above: Performed By: #### M DW, ANEU, CMP, GFR, CBC, ADIFF, LAC #### [address] [address] Sodium [Moles/Vol] 140 mmol/L Normal 136-145 [facility] Comment on above: Performed By: #### M DW, ANEU, CMP, GFR, CBC, ADIFF, LAC #### [address] [address] Total Protein 5.9 G/dL Low 6.4-8.2 [facility] Comment on above: Performed By: #### M DW, ANEU, CMP, GFR, CBC, ADIFF, LAC #### [place] [phone] [place], [place] [address] Urea nitrogen [Mass/Vol] 13 mg/dL Normal 7-18 [facility] Comment on above: Performed By: #### M DW, ANEU, CMP, GFR, CBC, ADIFF, LAC #### [place] [address] [place], [place] [address] CPEPon 12-20-2024 C-Peptide 1.62 ng/mL Normal 0.81-3.85 [facility] Comment on above: Performed By: #### M DW, ANEU, CMP, GFR, CBC, ADIFF, LAC #### [place] [phone] [place], [place] [address] LABORATORYOrdered By: Azael Fowler on 12-20-2024 Albumin DL <= 20 mg/L (U) [Mass/Vol] 68.6 mg/L Invalid Interpretation Code AO ADM SS Albumin/Creatinine DL <= 20 mg/L (U) [Mass ratio] 28 mg/G Normal 0 - 30 mg/G AO Chemistry S Creatinine (U) [Mass/Vol] 245.7 mg/dL Normal 40.0 - 278.0 mg/dL AO ADM SS LABORATORYOrdered By: [facility] [employer] [facility] on 12-20-2024 Natriuretic peptide.B prohormone N-Terminal [Mass/Vol] 1108 pg/mL High 0 - 125 pg/mL AO ADM SS Comment on above: Interpretive Data: N T-proBNP results of less than 300 pg/mL effectively rules out acute congestive heart failure with 99% negative predictive value. Albumin BCP dye [Mass/Vol] 1.9 G/dL Low 3.4 - 4.8 G/dL AO ADM SS Albumin/Globulin [Mass ratio] 0.5 {ratio} Low 1.1 - 2.5 ratio AO ADM SS ALP [Catalytic activity/Vol] 189 U/L High 40 - 135 U/L AO ADM SS ALT With P-5'-P [Catalytic activity/Vol] 20 U/L Normal 16 - 63 U/L AO ADM SS AST With P-5'-P [Catalytic activity/Vol] 29 U/L Normal 10 - 40 U/L AO ADM SS Basophils (Bld) [#/Vol] 0.0 103/mcL Normal 0.0 - 0.3 10^3/mcL AO Workflow SS Basophils/100 WBC (Bld) 0.5 % Normal 0.0 - 2.5 % AO Workflow SS Bilirubin [Mass/Vol] 0.7 mg/dL Normal 0.2 - 1 .0 mg/dL AO ADM SS Comment on above: Interpretive Data: U se of this assay is not recommended for patients undergoing treatment with eltrombopag due to the potential for falsely elevated results. C peptide [Mass/Vol] 1.62 ng/mL Normal 0.81 - 3.85 ng/mL AH ADM SS Calcium [Mass/Vol] 9.3 mg/dL Normal 8.4 - 10. 2 mg/dL AO ADM SS Chloride [Moles/Vol] 105 mmol/L Normal 98 - 10 7 mmol/L AO ADM SS CO2 [Moles/Vol] 31 mmol/L Normal 23 - 31 mmol/L AO ADM SS Creatinine [Mass/Vol] 1.34 mg/dL High 0.67 - 1.17 mg/dL AO ADM SS Electrolyte Balance 4.0 mEq/L Normal 4.0 - 15 .0 mEq/L AO ADM SS Eosinophil, Absolute 0.1 103/mcL Normal 0.0 - 0 .7 10^3/mcL AO Workflow SS Eosinophils/100 WBC (Bld) 1.6 % Normal 0.0 - 6.0 % AO Workflow SS Erythrocyte distribution width (RBC) [Ratio] 14.7 % Normal 11.5 - 15.5 % AO Workflow SS Estimated Glomerular Filtration Rate 60 ml/min/1.73sqm Invalid Interpretation Code AO Chemistry S Comment on above: Interpretive Data: Stages of Chronic Kidney Disease (CKD) Stage Description eGFR(ml/min/1.73 sq.m.) CKD 1 Normal kidney function or >=90 normal kindney function with possible kidney damage (ex. Proteinuria) CKD 2 Kidney damage with mild loss 60-89 of kidney function CKD 3a Mild to moderate loss of kidney 45-59 function CKD 3b Moderate to severe loss of 30-44 of kindey function CKD 4 Severe loss of kidney function 15-29 CKD 5 Kidney failure <15 Note: (go live 2024) the eGFR calculation was updated to the 2020 CKD-EPI creatinine equation without a race factor to calculate the eGFR results. Globulin 4.0 G/dL Normal 2.7 - 4.4 G/dL AO ADM SS Glucose [Mass/Vol] 212 mg/dL High 80 - 115 mg/dL AO ADM SS Glucose [Mass/Vol] 346 mg/dL Invalid Interpretation Code AO Chemistry S Comment on above: Interpretive Data: E stimated average glucose (eAG) is a calculated value from Hemoglobin A1C and is communications representative of the average blood glucose level in the last 2-3 month period. Normal range: less than 114 mg/dL HbA1c (Bld) [Mass fraction] 13.7 % High 4.3 - 6.4 % AO ADM SS Hematocrit (Bld) [Volume fraction] 39.6 % Low 40.0 - 52.0 % AO Workflow SS Hemoglobin (Bld) [Mass/Vol] 13.2 G/dL Normal 13.0 - 17.5 G/dL AO Workflow SS Lymphocytes (Bld) [#/Vol] 1.1 103/mcL Normal 0.9 - 4.3 10^3/mcL AO Workflow SS Lymphocytes/100 WBC (Bld) 19.0 % Low 20.0 - 40.0 % AO Workflow SS MCH (RBC) [Entitic mass] 29.1 pg Normal 27.0 - 33.0 pg AO Workflow SS MCHC 33.3 G/dL Normal 32.0 - 36.0 G/dL AO Workflow SS MCV (RBC) [Entitic vol] 87.2 fL Normal 81.0 - 100.0 fL AO Workflow SS Monocytes (Bld) [#/Vol] 0.5 103/mcL Normal 0.1 - 1.4 10^3/mcL AO Workflow SS Monocytes/100 WBC (Bld) 8.4 % Normal 2.0 - 13.0 % AO Workflow SS Neutrophils (Bld) [#/Vol] 4.2 103/mcL Normal 2.3 - 8.1 10^3/mcL AO Workflow SS Neutrophils/100 WBC (Bld) 70.5 % Normal 50.0 - 75.0 % AO Workflow SS Platelet mean volume (Bld) [Entitic vol] 9.3 fL Normal 6.4 - 10.5 fL AO Workflow SS Platelets (Bld) [#/Vol] 183 103/mcL Normal 150 - 450 10^3/mcL AO Workflow SS Potassium [Moles/Vol] 5.7 mmol/L High 3.5 - 5.1 mmol/L AO ADM SS Prostate specific Ag [Mass/Vol] 30.06 ng/mL High 0.00 - 4.00 ng/mL AO ADM SS Protein [Mass/Vol] 5.9 G/dL Low 6.4 - 8.2 G/dL AO ADM SS RBC (Bld) [#/Vol] 4.55 106/mcL Normal 4.50 - 6.0 0 10^6/mcL AO Workflow SS Sodium [Moles/Vol] 140 mmol/L Normal 136 - 145 mmol/L AO ADM SS Urea nitrogen [Mass/Vol] 13 mg/dL Normal 7 - 18 mg/dL AO ADM SS Urea nitrogen/Creatinine [Mass ratio] 10 ratio Normal 7 - 27 ratio AO ADM SS WBC (Bld) [#/Vol] 6.0 103/mcL Normal 4.5 - 10.8 10^3/mcL AO Workflow SS PBNPon 12-20-2024 Natriuretic peptide B (Bld) [Mass/Vol] 1108 pg/mL High 0-125 [facility] Comment on above: Result Comment: NT-p roBNP results of less than 300 pg/mL effectively rules out acute congestive heart failure with 99% negative predictive value. Performed By: #### M DW, ANEU, CMP, GFR, CBC, ADIFF, LAC #### [place] [address] [place], [place] [address] PSAon 12-20-2024 Prostate Specific Antigen 30.06 ng/mL High 0.00-4.00 [facility] Comment on above: Performed By: #### M DW, ANEU, CMP, GFR, CBC, ADIFF, LAC #### [place] [address] [place], [place] [address] ALLIED HEALTHon 07-14-2024 ALLIED [facility]ALTH HNO ID: [id number] Author: ROM GABRIEL RN Service: Wound/Ostomy Author Type: Registered Nurse Type: Allied Health Filed: 07/14/2024 11:47 Note Text: Summary: Wound Care Consult Wound Care Was Requested To See Patient Due To Leg Wounds. Patient stated that he just returned home from a correction facility a couple weeks ago. Patient stated that he still has all the ABDS and dressings from the facility. Patient has noted edema to bilateral legs. Patient stated that he is wearing his prosthetic only when transferring. Patient has venous wounds to both legs. Large amount clear drainage noted from left leg. Moderate amount clear drainage noted from right leg. Left Leg Right Leg Recommend: Cleanse With Foam Cleanser, Pat Dry. Apply Silver Alginate Over Wound Bed Cover With Bordered Foam OR Cover With ABD, Wrap With Kerlix, Secure With Tape Recommended To Elevate Legs And To Follow-Up At A Wound Care Center. Patient Stated That They Were Moving To [facility] And That They Would Look For Wound Center Up There. Extra Supplies Left At Bedside - Updated RN Normal [facility] Basic metabolic 2000 panelon 07-14-2024 Anion gap [Moles/Vol] 8 mmol/L Normal 5-16 [facility] Comment on above: Order Comment: Britney villegas Type: BLOOD SPECIMEN Ordering Facility: [facility] Address: [address] [place] [address] Performed By: #### 2 4321-2 #### [facility] CLIA [id number] [address] [place] [address] [place] Calcium [Mass/Vol] 9.8 mg/dL Normal 8.5-10.5 [facility] Comment on above: Order Comment: Britney villegas Type: BLOOD SPECIMEN Ordering Facility: [facility] Address: [address] [place] [address] Performed By: #### 2 4321-2 #### [facility] CLIA [id number] [address] [place] [address] [place] Chloride [Moles/Vol] 105 mmol/L Normal 98-107 [facility] Comment on above: Order Comment: Speci men Type: BLOOD SPECIMEN Ordering Facility: [facility] Address: [address] [place] [address] Performed By: #### 2 4321-2 #### [facility] CLIA [id number] [address] [place] [address] [place] CO2 [Moles/Vol] 24 mmol/L Normal 21-32 [facility] Comment on above: Order Comment: Speci men Type: BLOOD SPECIMEN Ordering Facility: [facility] Address: [address] [place] [address] Performed By: #### 2 4321-2 #### [facility] CLIA [id number] [address] [place] [address] [place] Creatinine [Mass/Vol] 1.18 mg/dL Normal 0.50-1.40 [facility] Comment on above: Order Comment: Speci men Type: BLOOD SPECIMEN Ordering Facility: [facility] Address: [address] [place] [address] Result Comment: Alyx ents receiving either N-Acetylcysteine (NAC) or Metamizole prior to venipuncture, may have falsely depressed results. Performed By: #### 2 4321-2 #### [facility] CLIA [id number] [address] [place] [address] [place] Creatinine and Glomerular filtration rate.predicted panel (S/P/Bld) 70 mL/min/1.73m??? Normal >=60 [facility] Comment on above: Order Comment: Speci men Type: BLOOD SPECIMEN Ordering Facility: [facility] Address: [address] [place] [address] Result Comment: Jany mated Glomerular Filtration Rate (eGFR) is calculated using the 2020 CKD-EPI creatinine equation. This equation utilizes serum creatinine, sex, and age as parameters. The creatinine assay has traceable calibration to isotope dilution-mass spectrometry. Refer to KDIGO guidelines for clinical interpretation. In patients with unstable renal function, e.g. those with acute kidney injury, the eGFR may not accurately reflect actual GFR. Performed By: #### 2 4321-2 #### [facility] CLIA [id number] [address] [place], [place] [id number] [place] Glucose [Mass/Vol] 219 mg/dL High 70-100 [facility] Comment on above: Order Comment: Britney villegas Type: BLOOD SPECIMEN Ordering Facility: [facility] Address: [address] [place] [id number] Result Comment: The [place] [employer] (ADA) provides guidance for cutoff values for fasting glucose and random glucose. The ADA defines fasting as no caloric intake for at least 8 hours. Fasting plasma glucose results between 100 to 125 mg/dL indicate increased risk for diabetes (prediabetes). Fasting plasma glucose results greater than or equal to 126 mg/dL meet the criteria for diagnosis of diabetes. In the absence of unequivocal hyperglycemia, results should be confirmed by repeat testing. In a patient with classic symptoms of hyperglycemia or hyperglycemic crisis, random plasma glucose results greater than or equal to 200 mg/dL meet the criteria for diagnosis of diabetes. Reference: Standards of Medical Care in Diabetes 2016, [place] [employer]. Diabetes Care. 2016.39(Suppl 1). Results may be falsely elevated after the administration of Sulfapyridine. Results may be falsely depressed after the administration of Sulfasalazine. Performed By: #### 2 4321-2 #### [facility] CLIA [id number] [address] [place] [address] [place] Potassium [Moles/Vol] 4.4 mmol/L Normal 3.5-5.1 [facility] Comment on above: Order Comment: Britney villegas Type: BLOOD SPECIMEN Ordering Facility: [facility] Address: [address] [place] [address] Performed By: #### 2 4321-2 #### [facility] CLIA [id number] [address] [place], [place] [id number] [place] Sodium [Moles/Vol] 137 mmol/L Normal 136-145 [facility] Comment on above: Order Comment: Britney villegas Type: BLOOD SPECIMEN Ordering Facility: [facility] Address: [address] [place] [address] Performed By: #### 2 4321-2 #### [facility] CLIA [id number] [address] [place] [address] [place] Urea nitrogen [Mass/Vol] 26 mg/dL Normal - [facility] Comment on above: Order Comment: Speci men Type: BLOOD SPECIMEN Ordering Facility: [facility] Address: [address] [place] [address] Performed By: #### 2 4321-2 #### [facility] CLIA [id number] [address] [place] [address] [place] CBC W Auto Differential pane l (Bld)on 07-14-2024 Basophils (Bld) [#/Vol] 0.03 10*3/uL Normal <0.11 [facility] Comment on above: Order Comment: Speci men Type: BLOOD SPECIMEN Ordering Facility: [facility] Address: [address] [place] [address] Performed By: #### 5 7021-8 #### [facility] CLIA [id number] [address] [place] [address] [place] Basophils/100 WBC (Bld) 0.5 % Normal [facility] Comment on above: Order Comment: Speci men Type: BLOOD SPECIMEN Ordering Facility: [facility] Address: [address] [place] [address] Performed By: #### 5 7021-8 #### [facility] CLIA [id number] [address] [place] [address] [place] Differential cell count method Nom (Bld) Auto Normal [facility] Comment on above: Order Comment: Speci men Type: BLOOD SPECIMEN Ordering Facility: [facility] Address: [address] [place] [address] Performed By: #### 5 7021-8 #### [facility] CLIA [id number] [address] [place] [address] [place] Eosinophils (Bld) [#/Vol] 0.24 10*3/uL Normal <0.46 [facility] Comment on above: Order Comment: Speci men Type: BLOOD SPECIMEN Ordering Facility: [facility] Address: [address] [place] [address] Performed By: #### 5 7021-8 #### [facility] CLIA [id number] [address] [place] [address] [place] Eosinophils/100 WBC (Bld) 3.9 % Normal [facility] Comment on above: Order Comment: Speci men Type: BLOOD SPECIMEN Ordering Facility: [facility] Address: [address] [place] [address] Performed By: #### 5 7021-8 #### [facility] CLIA [id number] [address] [place] [address] [place] Erythrocyte distribution width (RBC) [Ratio] 13.2 % Normal 11.5-15.0 [facility] Comment on above: Order Comment: Speci men Type: BLOOD SPECIMEN Ordering Facility: [facility] Address: [address] [place] [address] Performed By: #### 5 7021-8 #### [facility] CLIA [id number] [address] [place] [address] [place] Hematocrit (Bld) [Volume fraction] 38.0 % Low 39.0-51.0 [facility] Comment on above: Order Comment: Speci men Type: BLOOD SPECIMEN Ordering Facility: [facility] Address: [address] [place] [address] Performed By: #### 5 7021-8 #### [facility] CLIA [id number] [address] [place] [address] [place] Hemoglobin (Bld) [Mass/Vol] 12.2 g/dL Low 13.0-17.0 [facility] Comment on above: Order Comment: Speci men Type: BLOOD SPECIMEN Ordering Facility: [facility] Address: [address] [place] [address] Performed By: #### 5 7021-8 #### [facility] CLIA [id number] [address] [place] [address] [place] Immature granulocytes (Bld) [#/Vol] 10*3/uL Normal <0.10 [facility] Comment on above: Order Comment: Speci men Type: BLOOD SPECIMEN Ordering Facility: [facility] Address: [address] [place] [address] Performed By: #### 5 7021-8 #### [facility] CLIA [id number] [address] [place] [address] [place] Immature granulocytes/100 WBC (Bld) 0.3 % Normal [facility] Comment on above: Order Comment: Speci men Type: BLOOD SPECIMEN Ordering Facility: [facility] Address: [address] [place] [address] Performed By: #### 5 7021-8 #### [facility] CLIA [id number] [address] [place] [address] [place] Lymphocytes (Bld) [#/Vol] 0.78 10*3/uL Low 1.00-4.00 [facility] Comment on above: Order Comment: Speci men Type: BLOOD SPECIMEN Ordering Facility: [facility] Address: [address] [place] [address] Performed By: #### 5 7021-8 #### [facility] CLIA [id number] [address] [place] [address] [place] Lymphocytes/100 WBC (Bld) 12.7 % Normal [facility] Comment on above: Order Comment: Speci men Type: BLOOD SPECIMEN Ordering Facility: [facility] Address: [address] [place] [address] Performed By: #### 5 7021-8 #### [facility] CLIA [id number] [address] [place] [address] [place] MCH (RBC) [Entitic mass] 27.6 pg Normal 26.0-34.0 [facility] Comment on above: Order Comment: Speci men Type: BLOOD SPECIMEN Ordering Facility: [facility] Address: [address] [place] [address] Performed By: #### 5 7021-8 #### [facility] CLIA [id number] [address] [place] [address] [place] MCHC (RBC) [Mass/Vol] 32.1 g/dL Normal 30.5-36.0 [facility] Comment on above: Order Comment: Speci men Type: BLOOD SPECIMEN Ordering Facility: [facility] Address: [address] [place] [address] Performed By: #### 5 7021-8 #### [facility] CLIA [id number] [address] [place] [address] [place] MCV (RBC) [Entitic vol] 86.0 fL Normal 80.0-100.0 [facility] Comment on above: Order Comment: Speci men Type: BLOOD SPECIMEN Ordering Facility: [facility] Address: [address] [place] [address] Performed By: #### 5 7021-8 #### [facility] CLIA [id number] [address] [place] [address] [place] Monocytes (Bld) [#/Vol] 0.52 10*3/uL Normal <0.87 [facility] Comment on above: Order Comment: Speci men Type: BLOOD SPECIMEN Ordering Facility: [facility] Address: [address] [place] [address] Performed By: #### 5 7021-8 #### [facility] CLIA [id number] [address] [place] [address] [place] Monocytes/100 WBC (Bld) 8.5 % Normal [facility] Comment on above: Order Comment: Speci men Type: BLOOD SPECIMEN Ordering Facility: [facility] Address: [address] [place] [address] Performed By: #### 5 7021-8 #### [facility] CLIA [id number] [address] [place] [address] [place] Neutrophils (Bld) [#/Vol] 4.53 10*3/uL Normal 1.45-7.50 [facility] Comment on above: Order Comment: Speci men Type: BLOOD SPECIMEN Ordering Facility: [facility] Address: [address] [place] [address] Performed By: #### 5 7021-8 #### [facility] CLIA [id number] [address] [place], [place] [id number] [place] Neutrophils/100 WBC (Bld) 74.1 % Normal [facility] Comment on above: Order Comment: Speci men Type: BLOOD SPECIMEN Ordering Facility: [facility] Address: [address] [place] [address] Performed By: #### 5 7021-8 #### [facility] CLIA [id number] [address] [place] [address] [place] Nucleated RBC (Bld) [#/Vol] 10*3/uL Normal <0.01 [facility] Comment on above: Order Comment: Speci men Type: BLOOD SPECIMEN Ordering Facility: [facility] Address: [address] [place] [address] Performed By: #### 5 7021-8 #### [facility] CLIA [id number] [address] [place] [address] [place] Nucleated RBC/100 WBC (Bld) [Ratio] 0.0 /100 WBC Normal [facility] Comment on above: Order Comment: Speci men Type: BLOOD SPECIMEN Ordering Facility: [facility] Address: [address] [place] [address] Performed By: #### 5 7021-8 #### [facility] CLIA [id number] [address] [place] [address] [place] Platelet mean volume (Bld) [Entitic vol] 10.5 fL Normal 9.0-12.7 [facility] Comment on above: Order Comment: Speci men Type: BLOOD SPECIMEN Ordering Facility: [facility] Address: [address] [place] [address] Performed By: #### 5 7021-8 #### [facility] CLIA [id number] [address] [place] [address] [place] Platelets (Bld) [#/Vol] 202 10*3/uL Normal 150-400 [facility] Comment on above: Order Comment: Speci men Type: BLOOD SPECIMEN Ordering Facility: [facility] Address: [address] [place], [place] [address] Performed By: #### 5 7021-8 #### [facility] CLIA [id number] [address] [place], [place] [id number] [facility] [place] RBC (Bld) [#/Vol] 4.42 10*6/uL Normal 4.20-6.00 [facility] Comment on above: Order Comment: Speci men Type: BLOOD SPECIMEN Ordering Facility: [facility] Address: [address] [place], [place] [address] Performed By: #### 5 7021-8 #### [facility] CLIA [id number] [address] [place], [place] [id number] [facility] WBC (Bld) [#/Vol] 6.12 10*3/uL Normal 3.70-11.00 [facility] Comment on above: Order Comment: Speci men Type: BLOOD SPECIMEN Ordering Facility: [facility] Address: [address] [place], [place] [address] Performed By: #### 5 7021-8 #### [facility] CLIA [id number] [address] [place], [place] [address] [facility] ED PROV NOTEon 07-14-2024 ED PROV NOTE HNO ID: [id number] Author: VINAY FLANAGAN MD Service: ? Author Type: Physician Type: ED Provider Notes Filed: 07/14/2024 13:37 Note Text: ED Provider Note Patient Name: Estrada Plunkett : 1960 SERVICE DATE: 07/14/24 History Patient presents with: Wound Check: States blister on stump after new prosthetic placement. Redness around stump. Also has open wounds on R lower leg, seeping fluid Pain (Shoulder Pain): L shoulder pain, states feels that he popped his shoulder out of socket 2 weeks ago. L arm swollen. 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 The patient reports a blister on his left stump from a new prosthetic that he received 2 days ago. He states the prosthetic is not fitting properly. He says his legs are swollen and he has been forcing his leg into the prosthesis. He was discharged from a correction facility recently. He was on Lasix while in the facility. He has not been on Lasix since then. He denies any difficulty breathing. He has no chest pain. No abdominal pain. No vomiting or diarrhea. The patient is also complaining of left shoulder pain. He states he injured it a couple weeks ago. He is having difficulty raising his arm due to pain. He has no other complaints at this time. ROS Review of Systems All other systems reviewed and are negative. No pertinent positive findings other than noted in HPI, MDM or ED course. PAST MEDICAL HISTORY Diagnosis Date Amputation below knee (HCC) 2023 Angina pectoris (HCC) Atherosclerotic heart disease Atrial fibrillation (HCC) Bacteremia Diabetes mellitus (HCC) Essential hypertension Generalized edema Iron deficiency anemia [facility] (current) use of anticoagulants Mixed hyperlipidemia Osteomyelitis (HCC) Paroxysmal atrial fibrillation (HCC) Peripheral vascular disease (HCC) Vitamin D deficiency PAST SURGICAL HISTORY Procedure Laterality Date AMPUTATION TOE,MT-P JT Left 2023 LEFT HEART CATH,PERCUTANEOUS N/A PAST SURGICAL HISTORY OF N/A cardiac stent placement VASECTOMY N/A FAMILY HISTORY Problem Relation Age of Onset No Known Problems Mother Diabetes Father Heart Attack Father Cancer Sister Diabetes Brother Social History Tobacco Use Smoking status: Former Current packs/day: 0.00 Average packs/day: 1 pack/day for 31.0 years (31.0 ttl pk-yrs) Types: Cigarettes Start date: 1977 Quit date: 2008 Years since quittin.9 Smokeless tobacco: Former Types: Chew Quit date: 2008 Substance and Sexual Activity Alcohol use: Not Currently Drug use: Yes Types: Marijuana Comment: edibles, occassional smokes Sexual activity: Not on file ALLERGIES Allergen Reactions Lisinopril Cough Atorvastatin Cough Records on file/review of medical records: Nursing/triage notes and assessments as well as vitals were reviewed and incorporated Physical Exam Vitals [07/14/24 1018] BP Pulse Temp Temp src Resp SpO2 Weight Height 147/76 (!) 102 36.9 ?C (98.4 ?F) Oral 18 97 % 104.8 kg (231 lb) 1.829 m (6') Physical Exam Vitals and nursing note reviewed. Constitutional: Appearance: Normal appearance. HENT: Head: Normocephalic and atraumatic. Right Ear: External ear normal. Left Ear: External ear normal. Nose: Nose normal. Mouth/Throat: Mouth: Mucous membranes are moist. Pharynx: Oropharynx is clear. Eyes: Extraocular Movements: Extraocular movements intact. Conjunctiva/sclera: Conjunctivae normal. Pupils: Pupils are equal, round, and reactive to light. Cardiovascular: Rate and Rhythm: Normal rate and regular rhythm. Pulses: Normal pulses. Heart sounds: Normal heart sounds. Pulmonary: Effort: Pulmonary effort is normal. Breath sounds: Normal breath sounds. Abdominal: General: Abdomen is flat. Bowel sounds are normal. Palpations: Abdomen is soft. Musculoskeletal: General: Normal range of motion. Cervical back: Normal range of motion and neck supple. Comments: The patient has left below the knee amputation. There is edema to both lower extremities. The stump is erythematous with a blister that has broken open. There is some serous drainage. No purulent drainage noted. He has 3+ edema to the right lower extremity from the foot to proximal calf. There is an open wound on the medial calf on the right with serous drainage. No deformity noted at the left shoulder. The patient has full range of motion at the left elbow. Radial pulse is 2+. He is able to move all fingers. He has decreased range of motion at the left shoulder secondary to pain. Skin: General: Skin is warm and dry. Capillary Refill: Capillary refill takes less than 2 seconds. Neurological: General: No focal deficit (more content not included)... Normal [facility] ED Triage Noteon 07-14-2024 ED Triage Note HNO ID: [id number] Author: DAVID JONAS PA-C Service: Emergency Medicine Author Type: Physician Ice Hockey Coach Type: ED Triage Notes Filed: 07/14/2024 10:23 Note Text: ED TRIAGE PROVIDER NOTE Patient Name: Estrada Plunkett Service Date: 07/14/24 BRIEF HPI: This is a 64 year old male who presents to the ED with: Blister on his left stump from a below the knee amputation he got a new prosthetic 2 days ago noticed a large blister as it is not fitting appropriately he states when he got it fitted his stump was swollen he does admit to right leg swelling with some blistering due to increased salt intake no fevers BRIEF EXAM: Some edema blisters in the right lower extremity with swelling mild discomfort no obvious cellulitis the left stump is erythematous slightly warm he has a large blister on the bottom of it from a poorly fitted prosthetic INITIAL WORKUP AND DECISION MAKING: Orders Placed This Encounter XR KNEE 4V AP/LAT/OBLS LT - INJURY BMP CBC W/ DIFF SIGNATURE: David Jonas PA-C [facility] XR KNEE 4V AP/LAT/OBLS LTon 07-14-2024 XR KNEE 4V AP/LAT/OBLS LT * * *Final Report* * * DATE OF EXAM: Jul 14 2024 10:40AM [id number] [id number] - XR KNEE 4V AP/LAT/OBLS LT / PROCEDURE REASON: Trauma * * * * Physician Interpretation * * * * EXAMINATION: XR KNEE 4V AP/LAT/OBLS LT CLINICAL HISTORY: Pain, blister along the amputation stump. Technique: XR KNEE 4V AP/LAT/OBLS LT -- LEFT Comparison: None. RESULT/ IMPRESSION: Postsurgical changes associated with below-knee amputation. No acute fracture or dislocation. Medial, lateral and patellofemoral joint spaces are maintained. No knee joint effusion. Intact cortical margins without evidence of erosion or lysis. No lytic or blastic osseous lesions. Atherosclerosis. Mild soft tissue edema suggested involving the amputation stump. No evidence of subcutaneous gas or foreign bodies. Airfreight Loading Supervisor: PSCB Transcribe Date/Time: Jul 14 2024 10:40A Dictated by : DEWAYNE HAYWARD MD This examination was interpreted and the report reviewed and electronically signed by: DEWAYNE HAYWARD MD on Jul 14 2024 10:44AM EST [id number] [facility] XR SHLDR >/=3V AP/SERG AP/OTH R LTon 07-14-2024 XR SHLDR >/=3V AP/SERG AP/OTHR LT * * *Final Report* * * DATE OF EXAM: Jul 14 2024 12:17PM [id number] [id number] - XR SHLDR >/=3V AP/SERG AP/OTHR LT / PROCEDURE REASON: Trauma * * * * Physician Interpretation * * * * XR SHLDR >/=3V AP/SERG AP/OTHR LT Ordering Physician: VINAY FLANAGAN 07/14/2024 12:17 PM LEFT SHOULDER Clinical Statement: Left shoulder trauma FINDINGS: 4 images of the left shoulder were obtained. There were no prior studies available for comparison. The humeral head is in good position. There are no acute fractures. There are degenerative changes. IMPRESSION: Degenerative change. No acute fractures. Airfreight Loading Supervisor: PSCB Transcribe Date/Time: Jul 14 2024 12:20P Dictated by : CHARLES ISAAC MD This examination was interpreted and the report reviewed and electronically signed by: CHARLES ISAAC MD on Jul 14 2024 12:21PM EST [id number] [facility] CNOVon 04-08-20[facility] Estrada PLUNKETT ([id number]) 1960 M Date Time Provider Department 04/08/24 10:15 AM ANNIE FERNANDEZ [facility] During your visit today, we recorded the following information about you: Pulse Weight Height 88/minute 95.7 kg 1.829 m Lg Sharp MA 04/08/2024 10:18 AM Signed 63 year old male is here today for DFC for his left foot. Annie Fernandez DPM 04/08/2024 10:32 AM Signed PODIATRY OFFICE NOTE Chief Complaint: Diabetic foot evaluation HPI: This is a 63 year old male with PMH indicated below who presents for diabetic foot evaluation. He never followed up after his last appointment. 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 States his blood sugars have been more normal. States it can still get up into the 200s, but usually under 150. He did get his diabetic shoe. No other pedal complaints. 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 prn apixaban (ELIQUIS) 5 mg tab(s) Take 5 mg by mouth two times a day. cholecalciferol (VITAMIN D-3) 5,000 unit tab Take 5,000 Units by mouth once daily. furosemide (LASIX) 20 mg tablet Take 20 mg by mouth once daily. insulin glargine,hum.rec.anlog (LANTUS U-100 INSULIN SUBCUTANEOUS) Inject subcutaneously. mag hydrox/aluminum hyd/simeth (MAALOX ORAL) Take by mouth. Melatonin 5 mg cap Take by mouth. oxyCODONE-acetaminophe n 5-325 mg (PERCOCET) 1 tablet two times a day. Prn ZINC ACETATE ORAL Take by mouth. acetaminophen (TYLENOL) 325 mg cap Take 2 capsules by mouth every 4 hours. prn ammonium lactate (LAC-HYDRIN) 12 % cream Apply to affected area as needed. aspirin 81 mg chewable tablet Take 1 tablet by mouth once daily. losartan (COZAAR) 25 mg tablet Take by mouth once daily. indapamide (LOZOL) 1.25 mg tablet Take 1.25 mg by mouth once daily. insulin detemir U-100 (LEVEMIR FLEXPEN) 100 unit/mL (3 mL) injection pen Inject 51 Units subcutaneously daily at bedtime. No current facility-administered medications for this visit. : ALLERGIES Allergen Reactions Lisinopril Cough Atorvastatin Cough : PAST SURGICAL HISTORY 2023: AMPUTATION TOE,MT-P JT; Left No date: LEFT HEART CATH,PERCUTANEOUS; N/A No date: PAST SURGICAL HISTORY OF; N/A Comment: cardiac stent placement No date: VASECTOMY; N/A FAMILY HISTORY Problem Relation Age of Onset No Known Problems Mother Diabetes Father Heart Attack Father Cancer Sister Diabetes Brother : Social History Tobacco Use Smoking status: Former Current packs/day: 0.00 Average packs/day: 1 pack/day for 31.0 years (31.0 ttl pk-yrs) Types: Cigarettes Start date: 1977 Quit date: 2008 Years since quittin.6 Smokeless tobacco: Former Types: Chew Quit date: 2008 Substance Use Topics Alcohol use: Not Currently Drug use: Yes Types: Marijuana Comment: edibles, occassional smokes Physical Exam: On General Observation: Patient is a pleasant, cooperative, well developed 63 year old adult male. The patient is alert and oriented to time, place and person. Patient has normal affect and mood. Right Focused Exam Vascular: DP and PT pulses are non palpable. CFT less than 3 seconds to all digits. Skin temperature is warm to warm from proximal to distal bilateral. Hair growth is absent. Mild pitting edema noted. Neuro: Light touch intact. Protective sensation diminished to the level of the midfoot at all pedal sites via [place] Sergio 5.07 monofilament. Dermatological: Skin thin and shiny. Toenails 2,4,5 are discolored, elongated, thickened with subungual debris. Absent nails to the hallux and third toe. No open wounds noted. Musculoskeletal/Orthop aedic: Left BKA +5/5 muscle strength Dorsiflexion, Plantarflexion, Inversion, Eversion 1st MTPJ ROM is limited without pain or crepitus. Subtalar joint ROM is limited without pain or crepitus. Ankle joint ROM is limited without pain or crepitus. ASSESSMENT: This 63 year old male diabetic patient presents with onychomycosis. He has neuropathy and prior left BKA. Plan: A history and physical examination were preformed. The patient was educated on clinical findings, diagnosis and treatment plans. Patient state that he understands all that has been explained and all questio (more content not included)... [facility] CNOVon 01-08-2024 [facility] Estrada PLUNKETT ([id number]) 1960 M Date Time Provider Department 01/08/24 8:45 AM [facility] During your visit today, we recorded the following information about you: Pulse 83/minute Annie Fernandez DPM 01/12/2024 4:38 PM Signed PODIATRY OFFICE NOTE Chief Complaint: Diabetic foot evaluation HPI: This is a 63 year old male with PMH indicated below who presents for diabetic foot evaluation. He never followed up after his last appointment. 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 He never obtained PVRs nor x-rays ordered last visit. No other pedal complaints. 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 prn apixaban (ELIQUIS) 5 mg tab(s) Take 5 mg by mouth two times a day. cholecalciferol (VITAMIN D-3) 5,000 unit tab Take 5,000 Units by mouth once daily. furosemide (LASIX) 20 mg tablet Take 20 mg by mouth once daily. cephALEXin (KEFLEX) 250 mg capsule Take 500 mg by mouth four times daily. insulin glargine,hum.rec.anlog (LANTUS U-100 INSULIN SUBCUTANEOUS) Inject subcutaneously. mag hydrox/aluminum hyd/simeth (MAALOX ORAL) Take by mouth. Melatonin 5 mg cap Take by mouth. oxyCODONE-acetaminophe n 5-325 mg (PERCOCET) 1 tablet two times a day. Prn ZINC ACETATE ORAL Take by mouth. acetaminophen (TYLENOL) 325 mg cap Take 2 capsules by mouth every 4 hours. prn ammonium lactate (LAC-HYDRIN) 12 % cream Apply to affected area as needed. aspirin 81 mg chewable tablet Take 1 tablet by mouth once daily. gabapentin (NEURONTIN) 300 mg capsule Take 1 capsule by mouth every 12 hours for 7 days. losartan (COZAAR) 25 mg tablet Take by mouth once daily. indapamide (LOZOL) 1.25 mg tablet Take 1.25 mg by mouth once daily. insulin detemir U-100 (LEVEMIR FLEXPEN) 100 unit/mL (3 mL) injection pen Inject 51 Units subcutaneously daily at bedtime. No current facility-administered medications for this visit. : ALLERGIES Allergen Reactions Lisinopril Cough : PAST SURGICAL HISTORY Procedure Laterality Date AMPUTATION TOE,MT-P JT Left 2023 LEFT HEART CATH,PERCUTANEOUS N/A PAST SURGICAL HISTORY OF N/A cardiac stent placement VASECTOMY N/A FAMILY HISTORY Problem Relation Age of Onset No Known Problems Mother Diabetes Father Heart Attack Father Cancer Sister Diabetes Brother : Social History Tobacco Use Smoking status: Former Packs/day: 1 Types: Cigarettes Start date: 1977 Quit date: 2008 Years since quittin.4 Smokeless tobacco: Former Types: Chew Quit date: 2008 Substance Use Topics Alcohol use: Not Currently Drug use: Yes Types: Marijuana Comment: edibles, occassional smokes Physical Exam: On General Observation: Patient is a pleasant, cooperative, well developed 63 year old adult male. The patient is alert and oriented to time, place and person. Patient has normal affect and mood. Right Focused Exam Vascular: DP and PT pulses are non palpable. CFT less than 3 seconds to all digits. Skin temperature is warm to warm from proximal to distal bilateral. Hair growth is absent. Mild pitting edema noted. Neuro: Light touch intact. Protective sensation diminished to the level of the midfoot at all pedal sites via [place] Sergio 5.07 monofilament. Dermatological: Skin appears well diffusely xerotic in nature. Toenails 1,2,3,4,5 are discolored, elongated, thickened with subungual debris. No open wounds noted. Musculoskeletal/Orthop aedic: Left BKA +5/5 muscle strength Dorsiflexion, Plantarflexion, Inversion, Eversion 1st MTPJ ROM is limited without pain or crepitus. Subtalar joint ROM is limited without pain or crepitus. Ankle joint ROM is limited without pain or crepitus. ASSESSMENT: This 63 year old male diabetic patient presents with onychomycosis. He has neuropathy and prior left BKA. Plan: A history and physical examination were preformed. The patient was educated on clinical findings, diagnosis and treatment plans. Patient state that he understands all that has been explained and all questions were answered to his apparent satisfaction. - Patient was educated on the complications related to diabetes particularly ocular, renal and neurological and the effects of neuropathy on pedal health - Discussed guidelines for home preventative foot care and signs and symptoms to ally (more content not included)... [facility] ALLIED HEALTHon 12-04-2023 ALLIED HEALTH HNO ID: [id number] Author: HAYDE GOMEZ RN Service: Wound/Ostomy Author Type: Registered Nurse Type: Allied Health Filed: 12/04/2023 10:42 Note Text: Summary: Wound Care Nurse Consult Floor staff called Wound Center requesting assistance/trouble shooting for a wound vac on left leg. Nursing staff states the wound vac was changed last night due to beeping and an alarm of low pressure. Floor staff states same issue arose again his morning. At this time, this nurse removed the track pad and cut a larger opening on the black foam to allow for all sensors to be in contact with black foam. New track pad placed at this time. Wound vac running as ordered. Please re-consult Wound Care with further concerns. [facility] Basic metabolic 2000 panelon 12-04-2023 Anion gap [Moles/Vol] 8 mmol/L Normal 5-16 [facility] Comment on above: Order Comment: Speci men Type: BLOOD SPECIMENOrdering Facility: [facility] Address: [address] [place] [address] Performed By: #### 2 4321-2, 4091-5 ####[facility] [id number] [place] [address] [place] Calcium [Mass/Vol] 9.3 mg/dL Normal 8.5-10.5 [facility] Comment on above: Order Comment: Speci men Type: BLOOD SPECIMENOrdering Facility: [facility] Address: [address] [place] [address] Performed By: #### 2 4321-2, 4091-5 ####[facility] [id number] [place] [id number] [place] Chloride [Moles/Vol] 104 mmol/L Normal 98-107 [facility] Comment on above: Order Comment: Speci men Type: BLOOD SPECIMENOrdering Facility: [facility] Address: [address] [place] [address] Performed By: #### 2 4321-2, 4091-5 ####[facility]ORY[facility]IA [id number] [place] [id number] [place] CO2 [Moles/Vol] 26 mmol/L Normal 21-32 [facility] Comment on above: Order Comment: Speci men Type: BLOOD SPECIMENOrdering Facility: [facility] Address: [address] [place] [address] Performed By: #### 2 4321-2, 4091-5 ####[facility]ORY[facility] [id number] [place] [id number] [place] Creatinine [Mass/Vol] 1.08 mg/dL Normal 0.50-1.40 [facility] Comment on above: Order Comment: Speci men Type: BLOOD SPECIMENOrdering Facility: [facility] Address: [address] [place] [address] Result Comment: Alyx ents receiving either N-Acetylcysteine (NAC) or Metamizole prior to venipuncture, may have falsely depressed results. Performed By: #### 2 4321-2, 1-5 ####[facility]ORYCLIA [id number] [place] [address] [place] Creatinine and Glomerular filtration rate.predicted panel (S/P/Bld) 78 mL/min/1.73m??? Normal >=60 [facility] Comment on above: Order Comment: Britney villegas Type: BLOOD SPECIMENOrdering Facility: [facility] Address: [address] [place] [address] Result Comment: Jany mated Glomerular Filtration Rate (eGFR) is calculated using the 2020 CKD-EPI creatinine equation. This equation utilizes serum creatinine, sex, and age as parameters. The creatinine assay has traceable calibration to isotope dilution-mass spectrometry. Refer to KDIGO guidelines for clinical interpretation. In patients with unstable renal function, e.g. those with acute kidney injury, the eGFR may not accurately reflect actual GFR. Performed By: #### 2 4321-2, 1-5 ####[facility]ORYCLIA [id number] [place] [address] [place] Glucose [Mass/Vol] 81 mg/dL Normal 70-100 [facility] Comment on above: Order Comment: Britney villegas Type: BLOOD SPECIMENOrdering Facility: [facility] Address: [address] [place] [address] Result Comment: The [place] Diabetes [employer] (ADA) provides guidance for cutoff values for fasting glucose and random glucose. The ADA defines fasting as no caloric intake for at least 8 hours. Fasting plasma glucose results between 100 to 125 mg/dL indicate increased risk for diabetes (prediabetes). Fasting plasma glucose results greater than or equal to 126 mg/dL meet the criteria for diagnosis of diabetes. In the absence of unequivocal hyperglycemia, results should be confirmed by repeat testing. In a patient with classic symptoms of hyperglycemia or hyperglycemic crisis, random plasma glucose results greater than or equal to 200 mg/dL meet the criteria for diagnosis of diabetes. Reference: Standards of Medical Care in Diabetes 2016, [place] [employer]. Diabetes Care. 2016.39(Suppl 1). Results may be falsely elevated after the administration of Sulfapyridine. Results may be falsely depressed after the administration of Sulfasalazine. Performed By: #### 2 4321-2, 4091-5 ####[facility] LABORATORYCLIA [id number] [place] [id number] [place] Potassium [Moles/Vol] 3.8 mmol/L Normal 3.5-5.1 [facility] Comment on above: Order Comment: Speci men Type: BLOOD SPECIMENOrdering Facility: [facility] Address: [address] [place] [address] Performed By: #### 2 4321-2, 4091-5 ####[facility] LABORATORYCLIA [id number] [place] [id number] [place] Sodium [Moles/Vol] 138 mmol/L Normal 136-145 [facility] Comment on above: Order Comment: Speci men Type: BLOOD SPECIMENOrdering Facility: [facility] Address: [address] [place] [address] Performed By: #### 2 4321-2, 409-5 ####[facility] LABORATORYCLIA [id number] [place] [address] [place] Urea nitrogen [Mass/Vol] 37 mg/dL High 7-26 [facility] Comment on above: Order Comment: Speci men Type: BLOOD SPECIMENOrdering Facility: [facility] Address: [address] [place] [address] Performed By: #### 2 4321-2, 409-5 ####[facility] LABORATORYCLIA [id number] [place] [id number] [facility] OF [place] CBC panel Auto (Bld)on 12-03 Erythrocyte distribution width (RBC) [Ratio] 14.0 % Normal 11.5-15.0 [facility] Comment on above: Order Comment: Speci men Type: BLOOD SPECIMENOrdering Facility: [facility] Address: [address] [place] [address] Performed By: #### 5 8410-2 ####[facility] LABORATORYCLIA [id number] [address] OF [place] Hematocrit (Bld) [Volume fraction] 30.3 % Low 39.0-51.0 [facility] Comment on above: Order Comment: Speci men Type: BLOOD SPECIMENOrdering Facility: [facility] Address: [address] [place] [address] Performed By: #### 5 8410-2 ####[facility] LABORATORYCLIA [id number] [place] [address] [place] Hemoglobin (Bld) [Mass/Vol] 10.2 g/dL Low 13.0-17.0 [facility] Comment on above: Order Comment: Speci men Type: BLOOD SPECIMENOrdering Facility: [facility] Address: [address] [place] [address] Performed By: #### 5 8410-2 ####[facility] LABORATORYCLIA [id number] [address] [place] MCH (RBC) [Entitic mass] 27.9 pg Normal 26.0-34.0 [facility] Comment on above: Order Comment: Speci men Type: BLOOD SPECIMENOrdering Facility: [facility] Address: [address] [place] [address] Performed By: #### 5 8410-2 ####[facility] LABORATORYCLIA [id number] [address] [place] MCHC (RBC) [Mass/Vol] 33.7 g/dL Normal 30.5-36.0 [facility] Comment on above: Order Comment: Speci men Type: BLOOD SPECIMENOrdering Facility: [facility] Address: [address] [place] [address] Performed By: #### 5 8410-2 ####[facility] LABORATORYCLIA [id number] [address] OF [place] MCV (RBC) [Entitic vol] 82.8 fL Normal 80.0-100.0 [facility] Comment on above: Order Comment: Speci men Type: BLOOD SPECIMENOrdering Facility: [facility] Address: [address] [place] [address] Performed By: #### 5 8410-2 ####[facility] LABORATORYCLIA [id number] [place] [id number] [place] Nucleated RBC (Bld) [#/Vol] 10*3/uL Normal <0.01 [facility] Comment on above: Order Comment: Speci men Type: BLOOD SPECIMENOrdering Facility: [facility] Address: [address] [place] [address] Performed By: #### 5 8410-2 ####[facility] LABORATORYCLIA [id number] [place] [address] [place] Platelet mean volume (Bld) [Entitic vol] 10.1 fL Normal 9.0-12.7 [facility] Comment on above: Order Comment: Speci men Type: BLOOD SPECIMENOrdering Facility: [facility] Address: [address] [place] [address] Performed By: #### 5 8410-2 ####[facility] LABORATORYCLIA [id number] [place] [address] [place] Platelets (Bld) [#/Vol] 214 10*3/uL Normal 150-400 [facility] Comment on above: Order Comment: Speci men Type: BLOOD SPECIMENOrdering Facility: [facility] Address: [address] [place] [address] Performed By: #### 5 8410-2 ####[facility] LABORATORYCLIA [id number] [place] [address] [place] RBC (Bld) [#/Vol] 3.66 10*6/uL Low 4.20-6.00 [facility] Comment on above: Order Comment: Speci men Type: BLOOD SPECIMENOrdering Facility: [facility] Address: [address] [place] [address] Performed By: #### 5 8410-2 ####[facility] LABORATORYCLIA [id number] [place] [id number] [place] WBC (Bld) [#/Vol] 6.78 10*3/uL Normal 3.70-11.00 [facility] Comment on above: Order Comment: Speci men Type: BLOOD SPECIMENOrdering Facility: [facility] Address: [address] [place] [place] [id number] Performed By: #### 5 8410-2 ####[facility] LABORATORYCLIA [id number] [address] OF [facility] CNDSon 12-04-2023 CNDS HNO ID: [id number] Author: SUGAR WILHELM MD Service: Orthopaedic Surgery Author Type: Physician Type: Discharge Summary Filed: 12/16/2023 14:47 Note Text: DISCHARGE SUMMARY PATIENT NAME: Ismael Plunkett ADMISSION DATE: 12/01/2023 DISCHARGE DATE: 12/04/2023 ATTENDING PHYSICIAN: Sugar Wilhelm MD Code Status: Not on file Highest Readmission Risk Score: 20 The 30 day readmissions risk score is derived from an internally validated risk model which evaluates patient level characteristics, utilization history, medication orders and lab results up until the day of discharge. Patients with a score of 40 or above are considered highest risk for readmission. Specific patient level drivers will be listed at the bottom of the summary. CONSULTING TEAMS DURING HOSPITALIZATION: Internal medicine, internal medicine Treatment Team: Attending Provider: Sugar Wilhelm MD Consulting: Karel Hess APRN.SAS PROGRAMMER ANALYST Consulting: David Weinstein DO Consulting: Delfin Ng MD Consulting: MR SANDI CONNER REASON FOR HOSPITALIZATION: Wound breakdown left below-knee amputation OPERATIONS DURING HOSPITALIZATION: Irrigation debridement of left below-knee amputation stump with wound VAC placement HOSPITAL COURSE: Patient underwent the above surgery under general anesthesia without complication. He is followed by the medical service for surgery. Infectious disease was also consulted. He was placed on appropriate antibiotics upon discharge and while in the hospital. Wound VAC was changed every 48 hours. PATIENT CONDITION AT DISCHARGE: Stable DISCHARGE DISPOSITION: Jail Facility INFORMATION PROVIDED TO PATIENT: Wound VAC to be changed every Friday DIET: Resume pre-hospital diet ACTIVITY: Resume pre-hospital activity Nonweightbearing left lower extremity ALLERGIES Allergen Reactions Lisinopril Unknown DISCHARGE MEDICATION: Medication List START taking these medications amoxicillin-clavulanat e potassium 875-125 mg per tablet Commonly known as: AUGMENTIN Take 1 tablet by mouth every 12 hours for 36 doses. CONTINUE taking these medications aspirin 81 mg chewable tablet COZAAR 25 mg tablet Generic drug: losartan DEBROX 6.5 % otic solution Generic drug: carbamide peroxide ELIQUIS 5 mg tab(s) Generic drug: apixaban ergocalciferol (vitamin D2) 50,000 unit capsule Commonly known as: DRISDOL furosemide 20 mg tablet Commonly known as: LASIX indapamide 1.25 mg tablet Commonly known as: LOZOL LANTUS SOLOSTAR U-100 INSULIN 100 unit/mL (3 mL) Generic drug: insulin glargine PROBIOTIC 10 billion cell Cap Generic drug: Lactobacillus acidophilus TylenoL 325 mg Cap Generic drug: acetaminophen vitamin B complex with C-FA-CU-ZN renal vitamins 5-1.5-25 mg Tab Commonly known as: DIATX ZN STOP taking these medications doxycycline hyclate 100 mg capsule Commonly known as: VIBRAMYCIN DULCOLAX (BISACODYL) ORAL ASK your doctor about these medications oxyCODONE IR 5 mg immediate release tablet Commonly known as: ROXICODONE Take 1 tablet by mouth every 4 hours as needed for up to 7 days. Ask about: Should I take this medication? Where to Get Your Medications These medications were sent to [facility] [address] [place] [address] Hours: Friday-Friday 7am-7pm, Friday 9am-1pm amoxicillin-clavulanat e potassium 875-125 mg per tablet You can get these medications from any pharmacy Bring a paper prescription for each of these medications oxyCODONE IR 5 mg immediate release tablet FUTURE APPOINTMENTS: Dr. Wilhelm 2 weeks Discharge Information Row Name Admission (Discharged) from 12/01/2023 in [facility] Agency Peter aden Fabricio The patient's risk for 30-day readmission is determined using the following contributing factors: Pt variables contributing to increased readmission risk: 37 Most Recent BUN Result 10 First Resulted Calcium During Admission 1 Insurance - Medicare 1 Active Anticoagulant I have performed the exik-cb-trra and relevant services for a total of < 30 minutes. SIGNATURE: Sugar Wilhelm MD DATE: December 16, 2023 TIME: 2:45 PM [facility] CONSULT PROGon 12-04-2023 CONSULT PROG HNO ID: [id number] Author: ROSANGELA RIVERA RPh Service: Pharmacy Author Type: Pharmacist Type: Consult Progress Note Filed: 12/04/2023 11:33 Note Text: PHARMACY VANCOMYCIN DOSING NOTE Patient Name: Ismael Plunkett Admission Date: 12/01/2023 Date of Consult: 12/04/2023 Time of Consult: 11:32 AM RECOMMENDATIONS/PLAN: Pharmacy consulted for vancomycin dosing for Ismael Plunkett, a 63 year old male. 1. Vancomycin therapy has been discontinued. Vancomycin level(s) have been discontinued: Yes. Pharmacy vancomycin dosing service will sign off. Thank you for allowing us to participate in this patient's care. Please contact pharmacy if there are questions. Rosangela Rivera, Flavio [facility] CONSULT PROG HNO ID: [id number] Author: DELFIN NG MD Service: Infectious Disease Author Type: Physician Type: Consult Progress Note Filed: 12/04/2023 09:54 Note Text: Infectious Disease SERVICE CONSULT PROGRESS NOTE SERVICE DATE: 12/04/2023 SERVICE TIME: 9:19 AM Subjective INTERVAL HPI: Wound vac changed this morning. Pt has some mild soreness of the L leg stump. No f/c. Current Facility-Administered Medications Medication Dose Route Frequency NaCl 0.9% iv flush bag 20 mL INTRAVENOUS PRN lactated ringers iv infusion 75 mL/hr INTRAVENOUS CONTINUOUS traMADol 50 mg tab(s) (ULTRAM) 50 mg ORAL q 6 H PRN oxyCODONE IR 5-10 mg tab(s) (ROXICODONE) 5-10 mg ORAL q 4 H PRN morphine 2 mg injection 2 mg INTRAVENOUS q 2 H PRN ondansetron 4 mg tab(s) (ZOFRAN) 4 mg ORAL q 6 H PRN Or ondansetron (PF) 4 mg injection (ZOFRAN) 4 mg INTRAVENOUS q 6 H PRN dextrose 40 % 15 g 15 g ORAL PRN Or glucagon 1 mg injection 1 mg INTRAMUSCULAR PRN Or dextrose 10% iv bolus 12.5 g INTRAVENOUS PRN aspirin 81 mg chewable tab(s) 81 mg ORAL DAILY furosemide 20 mg tab(s) (LASIX) 20 mg ORAL DAILY indapamide 1.25 mg tab(s) (LOZOL) 1.25 mg ORAL DAILY insulin glargine 50 Units pen (long acting) 50 Units SUBCUTANEOUS DAILY (8 AM) losartan 25 mg tab(s) (COZAAR) 25 mg ORAL DAILY apixaban 5 mg tab(s) (ELIQUIS) 5 mg ORAL BID vancomycin dosing and monitoring per pharmacy OTHER As Directed vancomycin 1.5 g in NaCl 0.9% 250 mL (VANCOCIN) 1.5 g INTRAVENOUS q 12 HR insulin lispro injection (rapid acting) (ADMElog) SUBCUTANEOUS w MEALS insulin lispro injection (rapid acting) (ADMElog) SUBCUTANEOUS AT BEDTIME melatonin 9 mg tab(s) 9 mg ORAL DAILY (8 PM) Objective PHYSICAL EXAM: Physical Exam Performed: BP 97/58 Pulse 91 Temp (Src) 98.6 (Oral) Resp 16 Ht 6' 0 (1.83m) Wt 211 lb (95.7kg) SpO2 96% BMI 28.61 kg/(m2). O2 Therapy: Room Air Alert, oriented, no acute distress. Regular rate and rhythm. Breathing nonlabored. No wheezes. Abdomen soft, nontender. Left leg stump with no erythema. Wound VAC in place. DATA: Diagnostic tests reviewed for today's visit: CBC: Recent Labs 12/04/23 0439 WBC 6.78 RBC 3.66* HB 10.2* HCT 30.3* PLT 214 MCV 82.8 MCH 27.9 MPV 10.1 CMP: Recent Labs 12/04/23 0439 NA 138 K 3.8 CHLOR 104 CO2 26 BUN 37* CREAT 1.08 GLUC 81 CA 9.3 ANION 8 Impression/Recommendat ions Active Problems: Left lower extremity stump wound infection s/p IANDD with wound vac application. S/p LLE BKA 09/19/23. Diabetes PVD CKD Operative wound cultures from the LLE stump are growing many E.faecealis and few skin ellen. Anaerobe cultures pending. Based on culture results, will change to Augmentin 875 mg po BID to cover E.faecalis and for empiric anaerobic coverage. Few skin ellen probably not clinically significant at this point. Pt was on doxycycline as outpatient prior to surgery. Low suspicion of osteomyelitis at this time. Infection appears to be limited to skin and soft tissue. Per operative note, bone appeared to be of good quality. Recommend treatment with Augmentin through 12/21/23. OK to discharge from ID standpoint. SIGNATURE: Delfin Ng MD PATIENT NAME: Ismael Plunkett DATE: December 04, 2023 TIME: 9:19 AM [facility] THERAPY NTon 12-04-2023 THERAPY NT HNO ID: [id number] Author: SHELBIE KRAFT PT, DPT Service: Physical Therapy Author Type: Investment Fund Manager Type: Therapy (PT/OT/Speech/Resp) Filed: 12/04/2023 17:16 Note Text: Attestation signed by Shelbie Kraft PT, DPT at 12/04/2023 5:16 PM I reviewed and agree with the documentation corresponding to this therapy visit. SIGNATURE: Shelbie Kraft PT, DPT DATE: December 04, 2023 TIME: 5:16 PM Physical Therapy Treatment Summary SERVICE DATE: 12/04/2023 SERVICE TIME: 1309 to 1333 ROOM: [id number] PT 6 Clicks Score: 17 DISCHARGE RECOMMENDATIONS Acute Rehab Recommended Discharge Disposition Due to: Patient requires an active, intensive rehabilitation therapy program due to:, decline in functional status requiring daily skilled care, ongoing intervention of multiple therapy disciplines, poor trunk control ASSESSMENT Response to Therapy Interventions: Good Participation in Activities Tolerated well. pt w/ excellent rehab potential and motivation. PRECAUTIONS Fall Risk, Weight Bearing Restrictions L BKA, wound vac Left Lower Extremity Weight Bearing Status: NWB CURRENT HOSPITAL COURSE s/p IANDD of skin subcutaneous tissue and muscle left lower extremity Application wound VAC left leg by Dr. 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 Used a wheelchair for mobilty and was independent with transfers to/from. Denies hx of falls. SUBJECTIVE Pt eager to get moving. To SNF later htis date THERAPY DIAGNOSIS Unsteadiness on feet, Abnormalities of gait and mobility-other TREATMENT INTERVENTIONS Therapeutic Exercise (61541), Gait Training (35196) Timed Code Treatment (minutes): 24 Skilled Treatment Time (minutes): 24 TRAINING AND EDUCATION PROVIDED Anatomy and Impact on Deficits, Benefits of In-Hospital Mobility, Discharge Planning, Positioning, Role of Physical Therapy, Standing Balance, Transfers, Gait Pattern, Reduction of Deviations THERAPEUTIC SKILLS USED Cues for Sequencing/Proper Technique for Activity, Cuing Verbal, Movement Facilitation, Physical Assist FUNCTIONAL STATUS Bed Mobility Scooting: Stand By Assistance Transfers Sit To Stand: Minimal Assistance (gait belt on) Stand To Sit: Minimal Assistance (Min A for turning and backing to sit) Bed to Chair Gait Minimal Assistance Gait Device: Wheeled Walker General Deviations/Observation s: Lateral sway increased (vc for (L) LE positioning) Gait Distance (feet): 80' Stairs GOALS Patient will demonstrate understanding of importance of mobility during hospital stay and resolve all functional needs identified. Transfer Supine to/from Sit with: Supervision Transfer Sit to/from Stand with: Supervision Ambulate with: Supervision Distance: 80 Device: Wheeled Walker Ambulate Up and Down Steps with: Supervision Number of Steps: 5 Device: Rail Rehab Potential: Good Progress Toward Goals: Progressing as expected PLAN PT Frequency: 5 Times Per Week Treatment Interventions: Education, Functional Mobility Training, Balance Training, Neuromuscular Re-education Plan for Next Visit: Bed Mobility, Standing Tolerance, Standing Balance, Sit to Stand Transfers, Pre-gait Activities, Gait Training SIGNATURE: Sharona Salazar PTA PATIENT NAME: Ismael Plunkett DATE: December 04, 2023 TIME: 4:31 PM [facility] THERAPY NT HNO ID: [id number] Author: MARILU VÁSQUEZ COTA/L Service: ? Author Type: Geophysical Data Technician Type: Therapy (PT/OT/Speech/Resp) Filed: 12/04/2023 10:06 Note Text: Attestation signed by Lora Aaron OTR/L at 12/04/2023 4:07 PM I reviewed and agree with the documentation corresponding to this therapy visit. SIGNATURE: ROBER rTacey DATE: December 04, 2023 TIME: 4:07 PM Occupational Therapy Treatment Summary SERVICE DATE: 12/04/2023 SERVICE TIME: 817 to 844 ROOM: [id number] OT 6 Clicks Score: 18 DISCHARGE RECOMMENDATIONS Acute Rehab Recommended Discharge Disposition Comments: Pt would benefit from ADL retraining to optimize performance in daily life activities. Recommended Discharge Disposition Due to: Patient requires daily, facility-based rehabilitation from at least one discipline due to:, Patient requires an active, intensive rehabilitation therapy program due to:, ADL impairment resulting in caregiver dependence, decline in functional status requiring daily skilled care, high level balance deficits Anticipated Discharge Needs: Physical Assist at Home, Supervision at Home Physical Assist at Home for: Transfers, Ambulation, Safety, Self Care, Stairs Supervision at Home due to: Decreased safety awareness Recommended Discharge Equipment: Wheeled Walker, To Be Determined ASSESSMENT Response to Therapy Interventions: Good Participation in Activities, Needs Frequent Redirection or Reinstruction, Pain, Requires Additional Time to Complete Activities Fair response to session. Patient w/ decreased endurance, strength, and impaired balance w/ OOB activity. Se[place]our for all functional transfers and mobility as a result. Continued Mod-MaxA for LB ADLs and toileting. Consistent cues for safety as patient remains slightly impulsive w/ movement. PRECAUTIONS Fall Risk, Weight Bearing Restrictions L BKA, wound vac Left Lower Extremity Weight Bearing Status: NWB CURRENT HOSPITAL COURSE s/p IANDD of skin subcutaneous tissue and muscle left lower extremity Application wound VAC left leg by Dr. 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 Used a wheelchair for mobilty and was independent with transfers to/from. Denies hx of falls. Baseline Cognition: Oriented to self, Oriented to place, Oriented to time, Oriented to situation SUBJECTIVE Pleasant and agreeable to tx. COGNITION Responsiveness: Alert, Awake Follows Commands: 3-step Commands Executive Function Deficits: Judgement, Safety Awareness THERAPY DIAGNOSIS Reduced mobility-other, Decreased activities of daily living (ADL), Unsteadiness on feet TREATMENT INTERVENTIONS Self Shelter Management (83710) Timed Code Treatment (minutes): 27 Skilled Treatment Time (minutes): 27 TRAINING AND EDUCATION PROVIDED Activity Adaptation/Principal Quality Engineer y Strategies, Adaptive Equipment/DME, Bed Mobility, Energy Conservation, Functional Mobility Involving ADLs, Pain Management, Positioning, Precautions/Restrictio ns, Safety/Judgment, Standing Balance to Improve [place] with ADLs/Self-Care, Toileting , Transfer - Sit to Stand, Transfer - Toilet/Commode, Upper Extremity Dressing THERAPEUTIC SKILLS USED Activity Dosing, Bilateral UE Integration, Cuing Tactile, Cuing Verbal, Management of Critical Lines, Tubes and/or Drains, Physical Assist, Therapeutic Use of Self FUNCTIONAL STATUS Activities of Daily Living Assist Level Additional Information Feeding Independent Grooming Set Up Bathing Upper Body Set Up Bathing Lower Body Maximal Assistance Dressing Upper Body Set Up Dressing Lower Body Moderate Assistance, Additional Information Toileting Moderate Assistance, Additional Information Hygiene; clothing management Mobility Assist Level Additional Information Bed Mobility Supine To Sit: Minimal Assistance, Additional Information Impulsive. LLE management Sit to Stand Minimal Assistance, Additional Information x3 attempts at Seymour for initial rise. Cues for safety Stand to Sit Minimal Assistance, Additional Information Controlled descent w/ cues for safe body mechanics. Bed to Chair Moderate Assistance Bed To Chair Transfer Ty (more content not included)... Normal [facility] Vancomycin [place] SerPl-mCncon 12-04-2023 Vancomycin random [Mass/Vol] 29.3 ug/mL High 10.0-25.0 [facility] Comment on above: Order Comment: Speci men Type: BLOOD SPECIMENOrdering Facility: [facility] Address: [address] [place] [address] Result Comment: Refe rence ranges and high/low indicator flags are provided as general guidelines only. The treating physician must determine appropriate target levels/dosing based on the specific clinical situation. Performed By: #### 2 4321-2, 4091-5 ####[facility] LABORATORYCLIA [id number] [place] [id number] [place] Basic metabolic 2000 panelon 12-03-2023 Anion gap [Moles/Vol] 4 mmol/L Low 5-16 [facility] Comment on above: Order Comment: Speci men Type: BLOOD SPECIMENOrdering Facility: [facility] Address: [address] [place] [id number] Performed By: #### 2 4321-2 ####[facility] LABORATORYCLIA [id number] [place] [address] [place] Calcium [Mass/Vol] 9.7 mg/dL Normal 8.5-10.5 [facility] Comment on above: Order Comment: Speci men Type: BLOOD SPECIMENOrdering Facility: [facility] Address: [address] [place] [address] Performed By: #### 2 4321-2 ####[facility] LABORATORYCLIA [id number] [place] [id number] [place] Chloride [Moles/Vol] 106 mmol/L Normal 98-107 [facility] Comment on above: Order Comment: Speci men Type: BLOOD SPECIMENOrdering Facility: [facility] Address: [address] [place] [address] Performed By: #### 2 4321-2 ####[facility] LABORATORYCLIA [id number] [place] [id number] [place] JOHN CO2 [Moles/Vol] 29 mmol/L Normal 21-32 [facility] Comment on above: Order Comment: Speci men Type: BLOOD SPECIMENOrdering Facility: [facility] Address: [address] [place] [address] Performed By: #### 2 4321-2 ####[facility] LABORATORYCLIA [id number] [place] [id number] [place] Creatinine [Mass/Vol] 1.09 mg/dL Normal 0.50-1.40 [facility] Comment on above: Order Comment: Speci men Type: BLOOD SPECIMENOrdering Facility: [facility] Address: [address] [place] [address] Result Comment: Alyx ents receiving either N-Acetylcysteine (NAC) or Metamizole prior to venipuncture, may have falsely depressed results. Performed By: #### 2 4321-2 ####[facility] LABORATORYCLIA [id number] [place] [address] [place] Creatinine and Glomerular filtration rate.predicted panel (S/P/Bld) 77 mL/min/1.73m??? Normal >=60 [facility] Comment on above: Order Comment: Speci men Type: BLOOD SPECIMENOrdering Facility: [facility] Address: [address] [place] [address] Result Comment: Jany mated Glomerular Filtration Rate (eGFR) is calculated using the 2020 CKD-EPI creatinine equation. This equation utilizes serum creatinine, sex, and age as parameters. The creatinine assay has traceable calibration to isotope dilution-mass spectrometry. Refer to KDIGO guidelines for clinical interpretation. In patients with unstable renal function, e.g. those with acute kidney injury, the eGFR may not accurately reflect actual GFR. Performed By: #### 2 4321-2 ####[facility] LABORATORYCLIA [id number] [place] [id number] [place] Glucose [Mass/Vol] 73 mg/dL Normal 70-100 [facility] Comment on above: Order Comment: Britney villegas Type: BLOOD SPECIMENOrdering Facility: [facility] Address: [address] [place] [address] Result Comment: The [place] Diabetes Association (ADA) provides guidance for cutoff values for fasting glucose and random glucose. The ADA defines fasting as no caloric intake for at least 8 hours. Fasting plasma glucose results between 100 to 125 mg/dL indicate increased risk for diabetes (prediabetes). Fasting plasma glucose results greater than or equal to 126 mg/dL meet the criteria for diagnosis of diabetes. In the absence of unequivocal hyperglycemia, results should be confirmed by repeat testing. In a patient with classic symptoms of hyperglycemia or hyperglycemic crisis, random plasma glucose results greater than or equal to 200 mg/dL meet the criteria for diagnosis of diabetes. Reference: Standards of Medical Care in Diabetes 2016, [place] Diabetes Association. Diabetes Care. 2016.39(Suppl 1). Results may be falsely elevated after the administration of Sulfapyridine. Results may be falsely depressed after the administration of Sulfasalazine. Performed By: #### 2 4321-2 ####[facility] LABORATORYCLIA [id number] [place] [id number] [place] Potassium [Moles/Vol] 4.3 mmol/L Normal 3.5-5.1 [facility] Comment on above: Order Comment: Britney villegas Type: BLOOD SPECIMENOrdering Facility: [facility] Address: [address] [place] [address] Performed By: #### 2 4321-2 ####[facility] LABORATORYCLIA [id number] [place] [id number] [place] Sodium [Moles/Vol] 139 mmol/L Normal 136-145 [facility] Comment on above: Order Comment: Speci men Type: BLOOD SPECIMENOrdering Facility: [facility] Address: [address] [place] [address] Performed By: #### 2 4321-2 ####[facility] LABORATORYCLIA [id number] [place] [id number] [place] Urea nitrogen [Mass/Vol] 43 mg/dL High 7-26 [facility] Comment on above: Order Comment: Speci men Type: BLOOD SPECIMENOrdering Facility: [facility] Address: [address] [place] [address] Performed By: #### 2 4321-2 ####[facility] LABORATORYCLIA [id number] [place] [id number] [facility] OF [place] CBC panel Auto (Bld)on 12-02 Erythrocyte distribution width (RBC) [Ratio] 14.2 % Normal 11.5-15.0 [facility] Comment on above: Order Comment: Speci men Type: BLOOD SPECIMENOrdering Facility: [facility] Address: [address] [place] [address] Performed By: #### 5 8410-2 ####[facility] LABORATORYCLIA [id number] [place] [id number] [place] Hematocrit (Bld) [Volume fraction] 31.1 % Low 39.0-51.0 [facility] Comment on above: Order Comment: Speci men Type: BLOOD SPECIMENOrdering Facility: [facility] Address: [address] [place] [address] Performed By: #### 5 8410-2 ####[facility] LABORATORYCLIA [id number] [place] [id number] [place] Hemoglobin (Bld) [Mass/Vol] 10.2 g/dL Low 13.0-17.0 [facility] Comment on above: Order Comment: Speci men Type: BLOOD SPECIMENOrdering Facility: [facility] Address: [address] [place] [address] Performed By: #### 5 8410-2 ####[facility] LABORATORYCLIA [id number] [address] MCH (RBC) [Entitic mass] 27.5 pg Normal 26.0-34.0 [facility] Comment on above: Order Comment: Speci men Type: BLOOD SPECIMENOrdering Facility: [facility] Address: [address] [place] [address] Performed By: #### 5 8410-2 ####[facility] LABORATORYCLIA [id number] [address] OF [place] MCHC (RBC) [Mass/Vol] 32.8 g/dL Normal 30.5-36.0 [facility] Comment on above: Order Comment: Speci men Type: BLOOD SPECIMENOrdering Facility: [facility] Address: [address] [place] [address] Performed By: #### 5 8410-2 ####[facility] LABORATORYCLIA [id number] [address] MCV (RBC) [Entitic vol] 83.8 fL Normal 80.0-100.0 [facility] Comment on above: Order Comment: Speci men Type: BLOOD SPECIMENOrdering Facility: [facility] Address: [address] [place] [address] Performed By: #### 5 8410-2 ####[facility] LABORATORYCLIA [id number] [address] [place] Nucleated RBC (Bld) [#/Vol] 10*3/uL Normal <0.01 [facility] Comment on above: Order Comment: Speci men Type: BLOOD SPECIMENOrdering Facility: [facility] Address: [address] [place] [address] Performed By: #### 5 8410-2 ####[facility] LABORATORYCLIA [id number] [address] OF [place] Platelet mean volume (Bld) [Entitic vol] 10.0 fL Normal 9.0-12.7 [facility] Comment on above: Order Comment: Speci men Type: BLOOD SPECIMENOrdering Facility: [facility] Address: [address] [place] [address] Performed By: #### 5 8410-2 ####[facility] LABORATORYCLIA [id number] [place] [id number] [facility] OF [place] Platelets (Bld) [#/Vol] 203 10*3/uL Normal 150-400 [facility] Comment on above: Order Comment: Speci men Type: BLOOD SPECIMENOrdering Facility: [facility] Address: [address] [place] [address] Performed By: #### 5 8410-2 ####[facility] LABORATORYCLIA [id number] [place] [id number] [place] RBC (Bld) [#/Vol] 3.71 10*6/uL Low 4.20-6.00 [facility] Comment on above: Order Comment: Speci men Type: BLOOD SPECIMENOrdering Facility: [facility] Address: [address] [place] [address] Performed By: #### 5 8410-2 ####[facility] LABORATORYCLIA [id number] [place] [id number] [facility] OF [place] WBC (Bld) [#/Vol] 6.12 10*3/uL Normal 3.70-11.00 [facility] Comment on above: Order Comment: Speci men Type: BLOOD SPECIMENOrdering Facility: [facility] Address: [address] [place] [address] Performed By: #### 5 8410-2 ####[facility] LABORATORYCLIA [id number] [place] [id number] [facility] OF [place] HbA1c (Bld)on 12-03-2023 Average glucose Estimated from glycated hemoglobin (Bld) [Mass/Vol] 220 mg/dL Normal [facility] Comment on above: Order Comment: Speci men Type: BLOOD SPECIMENOrdering Facility: [facility] Address: [address] [place] [address] Result Comment: eAG: (Estimated average glucose) is a calculated value from HgbA1c and is communications representative of the average blood glucose level in the last 2-3 month period. Performed By: #### 5 5454-3 ####[facility] LABIA [id number] [address] [place] HbA1c (Bld) [Mass fraction] 9.3 % High 4.3-5.6 [facility] Comment on above: Order Comment: Speci men Type: BLOOD SPECIMENOrdering Facility: [facility] Address: [address] [place] [address] Result Comment: [place] Diabetes Association guidelines indicate that patients with HgbA1c in the range 5.7-6.4% are at increased risk for development of diabetes, and intervention by lifestyle modification may be beneficial. HgbA1c greater or equal to 6.5% is considered diagnostic of diabetes. Performed By: #### 5 5454-3 ####[facility] LABIA [id number] [place] [id number] [facility] THERAPY NTon 12-03-2023 THERAPY NT HNO ID: [id number] Author: MACEY CANTU PT, DPT Service: Physical Therapy Author Type: Investment Fund Manager Type: Therapy (PT/OT/Speech/Resp) Filed: 12/03/2023 15:13 Note Text: Attestation signed by Macey Cantu PT, DPT at 12/03/2023 3:13 PM I reviewed and agree with the documentation corresponding to this therapy visit. SIGNATURE: Macey Cantu PT, DPT DATE: December 03, 2023 TIME: 3:13 PM Physical Therapy Treatment Summary SERVICE DATE: 12/03/2023 SERVICE TIME: 1114 to 1155 ROOM: [id number] PT 6 Clicks Score: 17 DISCHARGE RECOMMENDATIONS Acute Rehab Recommended Discharge Disposition Due to: Patient requires an active, intensive rehabilitation therapy program due to:, decline in functional status requiring daily skilled care, ongoing intervention of multiple therapy disciplines, poor trunk control ASSESSMENT Response to Therapy Interventions: Good Participation in Activities, Improved Tolerance for Activity, Requires Additional Time to Complete Activities Good, pt highly motivated, requires hands on assist for mobility. Recommending return to rehab at discharge for continued therapies. PRECAUTIONS Fall Risk, Weight Bearing Restrictions L BKA, wound vac Left Lower Extremity Weight Bearing Status: NWB CURRENT HOSPITAL COURSE s/p IANDD of skin subcutaneous tissue and muscle left lower extremity Application wound VAC left leg by Dr. 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 Used a wheelchair for mobilty and was independent with transfers to/from. Denies hx of falls. SUBJECTIVE Pt agreeable, motivated. THERAPY DIAGNOSIS Unsteadiness on feet, Abnormalities of gait and mobility-other TREATMENT INTERVENTIONS Therapeutic Exercise (95053), Therapeutic Activity (00076), Gait Training (93785) Timed Code Treatment (minutes): 40 Skilled Treatment Time (minutes): 40 TRAINING AND EDUCATION PROVIDED Advanced Balance Activities, Anatomy and Impact on Deficits, Assistive Device Use, Benefits of In-Hospital Mobility, Discharge Planning, Energy Conservation, Equipment, Exercise Program, Expected Functional Level, Falls Prevention, Gait Pattern, Reduction of Deviations, Handout Issued, Patient Exercise/Therapy Program Support Needs, Positioning, Precautions/Restrictio ns, Role of Physical Therapy, Standing Balance, Transfers THERAPEUTIC SKILLS USED Activity Dosing, Assessment of Tolerance Including Vitals Response to Activity, Cues for Sequencing/Proper Technique for Activity, Cuing Tactile, Cuing Verbal, Cuing Visual, Management of Critical Lines, Tubes and/or Drains, Physical Assist FUNCTIONAL STATUS Bed Mobility Scooting: Stand By Assistance Transfers Sit To Stand: Minimal Assistance Stand To Sit: Minimal Assistance Bed to Chair Gait Minimal Assistance Gait Device: Wheeled Walker General Deviations/Observation s: Lateral sway increased, Step length decreased Gait Distance (feet): 100 feet Stairs Exercise Exercise: Reviewed seated BLE HEP, given printout. Standing LLE hip extesion w/ quad isometrics. Standing balance at WW, Min A x1, single UE support, 1-3 sec unsupported balance, very unsteady. Vital Signs Pulse: 87 SpO2: 97 % O2 Therapy: Room Air GOALS Patient will demonstrate understanding of importance of mobility during hospital stay and resolve all functional needs identified. Transfer Supine to/from Sit with: Supervision Transfer Sit to/from Stand with: Supervision Ambulate with: Supervision Distance: 80 Device: Wheeled Walker Ambulate Up and Down Steps with: Supervision Number of Steps: 5 Device: Rail Rehab Potential: Good Progress Toward Goals: Progressing as expected PLAN PT Frequency: 5 Times Per Week Treatment Interventions: Education, Functional Mobility Training, Balance Training, Neuromuscular Re-education Plan for Next Visit: Bed Mobility, Standing Tolerance, Standing Balance, Sit to Stand Transfers, Pre-gait Activities, Gait Training SIGNATURE: Junior Barber PTA PATIENT NAME: Ismael Plunkett DATE: December 03, 2023 TIME: 12:51 PM [facility] THERAPY NT HNO ID: [id number] Author: MARILU VÁSQUEZ COTA/L Service: Occupational Therapy Author Type: Geophysical Data Technician Type: Therapy (PT/OT/Speech/Resp) Filed: 12/03/2023 10:00 Note Text: Attestation signed by Macie Fleming OTR/Solo at 12/03/2023 2:45 PM I reviewed and agree with the documentation corresponding to this therapy visit. SIGNATURE: ROBER Hooks DATE: December 03, 2023 TIME: 2:45 PM Occupational Therapy Treatment Summary SERVICE DATE: 12/03/2023 SERVICE TIME: 804 to 827 ROOM: [place] [address] OT 6 Clicks Score: 17 DISCHARGE RECOMMENDATIONS Acute Rehab Recommended Discharge Disposition Comments: Pt would benefit from ADL retraining to optimize performance in daily life activities. Recommended Discharge Disposition Due to: Patient requires daily, facility-based rehabilitation from at least one discipline due to:, Patient requires an active, intensive rehabilitation therapy program due to:, ADL impairment resulting in caregiver dependence, decline in functional status requiring daily skilled care, high level balance deficits Anticipated Discharge Needs: Physical Assist at Home, Supervision at Home Physical Assist at Home for: Transfers, Ambulation, Safety, Self Care, Stairs Supervision at Home due to: Decreased safety awareness Recommended Discharge Equipment: Wheeled Walker, To Be Determined ASSESSMENT Response to Therapy Interventions: Needs Frequent Redirection or Reinstruction, Good Participation in Activities, Requires Additional Time to Complete Activities Fair response to session. Fair demonstration of safety awareness, however, requires occasional cueing for hand transfers and body alignment w/ surfaces. Presents decreased strength resulting in impaired balance. Requires Seymour for stability w/ OOB activity. Currently ModA for LB ADLs. PRECAUTIONS Fall Risk, Weight Bearing Restrictions L BKA, wound vac Left Lower Extremity Weight Bearing Status: NWB CURRENT HOSPITAL COURSE s/p IANDD of skin subcutaneous tissue and muscle left lower extremity Application wound VAC left leg by Dr. 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 Used a wheelchair for mobilty and was independent with transfers to/from. Denies hx of falls. Baseline Cognition: Oriented to self, Oriented to place, Oriented to time, Oriented to situation SUBJECTIVE Pleasant and agreeable to tx. COGNITION Responsiveness: Alert, Awake Follows Commands: 3-step Commands Executive Function Deficits: Judgement, Safety Awareness THERAPY DIAGNOSIS Reduced mobility-other, Decreased activities of daily living (ADL), Unsteadiness on feet TREATMENT INTERVENTIONS Therapeutic Activity (03413) Timed Code Treatment (minutes): 23 Skilled Treatment Time (minutes): 23 TRAINING AND EDUCATION PROVIDED Activity Adaptation/Principal Quality Engineer y Strategies, Adaptive Equipment/DME, Assistive Device Use, Discharge Planning, Exercise Program, Lower Extremity Dressing, Patient Exercise/Therapy Program Support Needs, Precautions/Restrictio ns, Positioning, Role of Occupational Therapy, Safety/Judgment, Standing Balance to Improve [place] with ADLs/Self-Care, Transfer - Sit to Stand, Upper Extremity Dressing THERAPEUTIC SKILLS USED Bilateral UE Integration, Activity Dosing, Cues for Sequencing/Proper Technique for Activity, Cuing Tactile, Cuing Verbal, Management of Critical Lines, Tubes and/or Drains, Physical Assist, Therapeutic Use of Self FUNCTIONAL STATUS Activities of Daily Living Assist Level Additional Information Feeding Independent Grooming Set Up Bathing Upper Body Set Up Bathing Lower Body Maximal Assistance Dressing Upper Body Set Up Dressing Lower Body Moderate Assistance, Additional Information Intro to sock aid to don. Toileting Total Assistance Mobility Assist Level Additional Information Bed Mobility Supine To Sit: Minimal Assistance, Additional Information Sit to Stand Minimal Assistance, Additional Information x3 attempts at Seymour for initial rise Stand to Sit Minimal Assistance, Additional Information Cues for safe hand transfers from FWW. Bed to Chair Moderate Assistance Bed To Chair Transfer Type: Stand (more content not included)... [facility] Basic metabolic 2000 panelon 12-02-2023 Anion gap [Moles/Vol] 5 mmol/L Normal 5-16 [facility] Comment on above: Order Comment: Speci men Type: BLOOD SPECIMENOrdering Facility: [facility] Address: [address] [place] [address] Performed By: #### 2 4321-2 ####[facility] LABORATORYCLIA [id number] [place] [id number] [place] Calcium [Mass/Vol] 9.6 mg/dL Normal 8.5-10.5 [facility] Comment on above: Order Comment: Speci men Type: BLOOD SPECIMENOrdering Facility: [facility] Address: [address] [place] [address] Performed By: #### 2 4321-2 ####[facility] LABORATORYCLIA [id number] [place] [address] [place] Chloride [Moles/Vol] 104 mmol/L Normal 98-107 [facility] Comment on above: Order Comment: Speci men Type: BLOOD SPECIMENOrdering Facility: [facility] Address: [address] [place] [address] Performed By: #### 2 4321-2 ####[facility] LABORATORYCLIA [id number] [place] [id number] [place] CO2 [Moles/Vol] 26 mmol/L Normal 21-32 [facility] Comment on above: Order Comment: Speci men Type: BLOOD SPECIMENOrdering Facility: [facility] Address: [address] [place] [address] Performed By: #### 2 4321-2 ####[facility] LABORATORYCLIA [id number] [place] [id number] [place] Creatinine [Mass/Vol] 1.39 mg/dL Normal 0.50-1.40 [facility] Comment on above: Order Comment: Speci men Type: BLOOD SPECIMENOrdering Facility: [facility] Address: [address] [place] [address] Result Comment: Alyx ents receiving either N-Acetylcysteine (NAC) or Metamizole prior to venipuncture, may have falsely depressed results. Performed By: #### 2 4321-2 ####[facility] LABORATORYCLIA [id number] [place] [id number] [place] Creatinine and Glomerular filtration rate.predicted panel (S/P/Bld) 58 mL/min/1.73m??? Low >=60 [facility] Comment on above: Order Comment: Britney villegas Type: BLOOD SPECIMENOrdering Facility: [facility] Address: [address] [place] [address] Result Comment: Jany mated Glomerular Filtration Rate (eGFR) is calculated using the 2020 CKD-EPI creatinine equation. This equation utilizes serum creatinine, sex, and age as parameters. The creatinine assay has traceable calibration to isotope dilution-mass spectrometry. Refer to KDIGO guidelines for clinical interpretation. In patients with unstable renal function, e.g. those with acute kidney injury, the eGFR may not accurately reflect actual GFR. Performed By: #### 2 4321-2 ####[facility] LABORATORYCLIA [id number] [place] [address] [place] Glucose [Mass/Vol] 181 mg/dL High 70-100 [facility] Comment on above: Order Comment: Britney villegas Type: BLOOD SPECIMENOrdering Facility: [facility] Address: [address] [place] [address] Result Comment: The [place] Diabetes Association (ADA) provides guidance for cutoff values for fasting glucose and random glucose. The ADA defines fasting as no caloric intake for at least 8 hours. Fasting plasma glucose results between 100 to 125 mg/dL indicate increased risk for diabetes (prediabetes). Fasting plasma glucose results greater than or equal to 126 mg/dL meet the criteria for diagnosis of diabetes. In the absence of unequivocal hyperglycemia, results should be confirmed by repeat testing. In a patient with classic symptoms of hyperglycemia or hyperglycemic crisis, random plasma glucose results greater than or equal to 200 mg/dL meet the criteria for diagnosis of diabetes. Reference: Standards of Medical Care in Diabetes 2016, [place] Diabetes Association. Diabetes Care. 2016.39(Suppl 1). Results may be falsely elevated after the administration of Sulfapyridine. Results may be falsely depressed after the administration of Sulfasalazine. Performed By: #### 2 4321-2 ####[facility] LABORATORYCLIA [id number] [place] [id number] [place] Potassium [Moles/Vol] 4.4 mmol/L Normal 3.5-5.1 [facility] Comment on above: Order Comment: Speci men Type: BLOOD SPECIMENOrdering Facility: [facility] Address: [address] [place] [address] Performed By: #### 2 4321-2 ####[facility] LABORATORYCLIA [id number] [place] [id number] [place] Sodium [Moles/Vol] 135 mmol/L Low 136-145 [facility] Comment on above: Order Comment: Speci men Type: BLOOD SPECIMENOrdering Facility: [facility] Address: [address] [place] [address] Performed By: #### 2 4321-2 ####[facility] LABORATORYCLIA [id number] [address] [place] Urea nitrogen [Mass/Vol] 50 mg/dL High 7-26 [facility] Comment on above: Order Comment: Speci men Type: BLOOD SPECIMENOrdering Facility: [facility] Address: [address] [place] [address] Performed By: #### 2 4321-2 ####[facility] LABORATORYCLIA [id number] [address] [place] CBC panel Auto (Bld)on 12-01 Erythrocyte distribution width (RBC) [Ratio] 14.1 % Normal 11.5-15.0 [facility] Comment on above: Order Comment: Speci men Type: BLOOD SPECIMENOrdering Facility: [facility] Address: [address] [place] [address] Performed By: #### 5 8410-2 ####[facility] LABORATORYCLIA [id number] [place] [id number] [place] Hematocrit (Bld) [Volume fraction] 31.3 % Low 39.0-51.0 [facility] Comment on above: Order Comment: Speci men Type: BLOOD SPECIMENOrdering Facility: [facility] Address: [address] [place] [address] Performed By: #### 5 8410-2 ####[facility] LABORATORYCLIA [id number] [place] [address] [place] Hemoglobin (Bld) [Mass/Vol] 10.6 g/dL Low 13.0-17.0 [facility] Comment on above: Order Comment: Speci men Type: BLOOD SPECIMENOrdering Facility: [facility] Address: [address] [place] [address] Performed By: #### 5 8410-2 ####[facility] LABORATORYCLIA [id number] [place] [address] [place] MCH (RBC) [Entitic mass] 28.0 pg Normal 26.0-34.0 [facility] Comment on above: Order Comment: Speci men Type: BLOOD SPECIMENOrdering Facility: [facility] Address: [address] [place] [address] Performed By: #### 5 8410-2 ####[facility] LABORATORYCLIA [id number] [address] [place] MCHC (RBC) [Mass/Vol] 33.9 g/dL Normal 30.5-36.0 [facility] Comment on above: Order Comment: Speci men Type: BLOOD SPECIMENOrdering Facility: [facility] Address: [address] [place] [address] Performed By: #### 5 8410-2 ####[facility] LABORATORYCLIA [id number] [place] [address] [place] MCV (RBC) [Entitic vol] 82.6 fL Normal 80.0-100.0 [facility] Comment on above: Order Comment: Speci men Type: BLOOD SPECIMENOrdering Facility: [facility] Address: [address] [place] [address] Performed By: #### 5 8410-2 ####[facility] LABORATORYCLIA [id number] [place] [address] [place] Nucleated RBC (Bld) [#/Vol] 10*3/uL Normal <0.01 [facility] Comment on above: Order Comment: Speci men Type: BLOOD SPECIMENOrdering Facility: [facility] Address: [address] [place] [address] Performed By: #### 5 8410-2 ####[facility] LABORATORYCLIA [id number] [place] [id number] [place] Platelet mean volume (Bld) [Entitic vol] 10.1 fL Normal 9.0-12.7 [facility] Comment on above: Order Comment: Speci men Type: BLOOD SPECIMENOrdering Facility: [facility] Address: [address] [place] [address] Performed By: #### 5 8410-2 ####[facility] LABORATORYCLIA [id number] [place] [id number] [place] Platelets (Bld) [#/Vol] 229 10*3/uL Normal 150-400 [facility] Comment on above: Order Comment: Speci men Type: BLOOD SPECIMENOrdering Facility: [facility] Address: [address] [place] [address] Performed By: #### 5 8410-2 ####[facility] LABORATORYCLIA [id number] [place] [id number] [place] RBC (Bld) [#/Vol] 3.79 10*6/uL Low 4.20-6.00 [facility] Comment on above: Order Comment: Speci men Type: BLOOD SPECIMENOrdering Facility: [facility] Address: [address] [place] [address] Performed By: #### 5 8410-2 ####[facility] LABORATORYCLIA [id number] [place] [id number] [place] WBC (Bld) [#/Vol] 8.46 10*3/uL Normal 3.70-11.00 [facility] Comment on above: Order Comment: Speci men Type: BLOOD SPECIMENOrdering Facility: [facility] Address: [address] [place] [id number] Performed By: #### 5 8410-2 ####[facility] LABORATORYCLIA [id number] [place] [address] [place] CONSULTon 12-02-2023 CONSULT HNO ID: [id number] Author: DELFIN NG MD Service: Infectious Disease Author Type: Physician Type: Consults Filed: 12/02/2023 10:12 Note Text: Infectious Disease INITIAL CONSULT NOTE SERVICE DATE: 12/02/2023 SERVICE TIME: 10:02 AM REASON FOR CONSULT: left stump infection REQUESTING PHYSICIAN: Sugar Wilhelm MD PRIMARY CARE PHYSICIAN: No primary care provider on file. Subjective Mr. 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 Pt says he had a left hip cyst that was lanced last . He saw orthopedic surgery on 11/24 and was noted to have a foul smelling wound of the lateral LLE stump. Arrangements were made for surgical debridement and wound vac placement which was undertaken yesterday (12/01/23). Pt denies having f/c. No N/V/D. He is not feeling systemically ill. Does not complain of pain in the stump. Per ortho notes, pt had exposed fascia within the stump wound. Operative cultures are pending with gram stain showing moderate GPCs and few GP rods. PAST MEDICAL HISTORY Diagnosis Date Abcess of LEFT HIP ADMIT TO [facility] ON 11/27/23 FOR DRAINAGE OF LEFT HIP ABCESS, RETURNED TO [facility] WITH ATB ORDER AFTER DRAINAGE, CALL OUT TO [facility] WILL CALL ME BACK AFTER SHE TALKS WITH DR WILHELM 11/27/23 Atrial fibrillation (HCC) Consent PT IS ALERT AND ORIENTED AND SIGNS HIS OWN CONSENTS PER CAROLINE NURSE AT [facility] Coronary artery disease Diabetes (HCC) Gangrene (HCC) LEFT BKA DR WILHELM FOLLOWING Hx of BKA, left ([facility]) Hypercholesterolemia Hypertension Non-healing wound of amputation stump ([facility]) LBKA DR WILHELM shelter resident [facility] Osteomyelitis ([facility]) LLE Peripheral vascular disease (HCC) Vitamin D deficiency PRIMARY AT [facility] IS DR COSMO GERMAIN PAST SURGICAL HISTORY Procedure Laterality Date PAST SURGICAL HISTORY OF 09/19/[address] WILHELM History reviewed. No pertinent family history. Social History Tobacco Use Smoking status: Unknown Substance Use Topics Alcohol use: Not Currently Drug use: Not Currently aspirin 81 mg chewable tablet, Take 81 mg by mouth every morning. OKAY TO CONT PER DR WILHELM, Disp: , Rfl: , 11/30/2023 doxycycline hyclate (VIBRAMYCIN) 100 mg capsule, Take 100 mg by mouth two times a day. TO START AM OF 11/28/23 FOR LEFT HIP ABSCESS, ER ON 11/27/23 DRAINED, CALL OUT TO [facility]/DR WILHELM TO UPDATE, WAITING ON [facility] TO CALL BACK, Disp: , Rfl: , 11/30/2023 carbamide peroxide (DEBROX) 6.5 % otic solution, Use 5 Drops in both ears as needed., Disp: , Rfl: DULCOLAX, BISACODYL, ORAL, Take 1,200 mg by mouth as needed. 1200MG/15 ML NEEDED, Disp: , Rfl: apixaban (ELIQUIS) 5 mg tab(s), Take 5 mg by mouth two times a day. LAST DOSE PM ON 11/28/[address] WILHELM, Disp: , Rfl: , 11/27/2023 ergocalciferol 50,000 unit capsule (VITAMIN D2, DRISDOL), Take 50,000 Units by mouth every Friday., Disp: , Rfl: furosemide (LASIX) 20 mg tablet, Take 20 mg by mouth every morning., Disp: , Rfl: indapamide (LOZOL) 1.25 mg tablet, Take 1.25 mg by mouth every morning., Disp: , Rfl: insulin glargine (LANTUS SOLOSTAR U-100 INSULIN) 100 unit/mL (3 mL), Inject [address] Units subcutaneously every morning. DR COSMO GERMAIN AT [facility], Disp: , Rfl: losartan (COZAAR) 25 mg tablet, Take 25 mg by mouth every morning., Disp: , Rfl: acetaminophen (TYLENOL) 325 mg cap, Take 650 mg by mouth every 4 hours as needed., Disp: , Rfl: vitamin B complex with C-FA-CU-ZN renal vitamins (DIATX ZN) 5-1.5-25 mg tab, Take 1 tablet by mouth every morning., Disp: , Rfl: Lactobacillus acidophilus (PROBIOTIC) 10 billion cell cap, Take 1 capsule by mouth daily at bedtime., Disp: , Rfl: Current Facility-Administered Medications Medication Dose Route Frequency NaCl 0.9% iv flush bag 20 mL INTRAVENOUS PRN lactated ringers iv infusion 75 mL/hr INTRAVENOUS CONTINUOUS traMADol 50 mg tab(s) (ULTRAM) 50 mg ORAL q 6 H PRN oxyCODONE IR 5-10 mg tab(s) (ROXICODONE) 5-10 mg ORAL q 4 H PRN morphine 2 mg injection 2 mg INTRAVENOUS q 2 H PRN ondansetron 4 mg tab(s) (ZOFRAN) 4 mg ORAL q 6 H PRN Or ondansetron (PF) 4 mg injection (ZOFRAN) 4 mg INTRAVENOUS q 6 H PRN dextrose 40 % 15 g 15 g ORAL PRN Or glucagon 1 mg injection 1 mg INTRAMUSCULAR PRN Or dextrose 10% iv bolus 12.5 g INTRAVENOUS PRN insulin lispro injection (rapid acting) (ADMElog) SUBCUTANEOUS w MEALS insulin lispro injection (rapid acting) (ADMElog) SUBCUTANEOUS AT BEDTIME aspirin 81 mg chewable tab(s) 81 mg ORAL DAILY furosemide 20 mg tab(s) (LASIX) 20 mg ORAL DAILY indapamide 1.25 mg tab(s) (LOZOL) 1.25 mg ORAL DAILY insulin glargine 50 Units pen (long acting) 50 Units SUBCUTANEOUS DAILY (8 AM) losartan 25 mg tab(s) (COZAAR) 25 mg ORAL DAILY apixaban 5 mg tab(s) (ELIQUIS) 5 mg ORAL BID Allergies As of Date: 11/25/2023 (Not on File) COMPLETE REVIEW OF SYSTEMS: General: No fevers or (more content not included)... [facility] CONSULT HNO ID: [id number] Author: DELORES GARNER MD Service: Hospital Medicine Author Type: Physician Type: Consults Filed: 12/01/2023 22:12 Note Text: CONSULT NOTE PATIENT NAME: Ismael Plunkett Service Time AND Date: 12/01/2023 10:06 PM Primary Care Physican: No primary care provider on file. Admitting Provider: Sugar Wilhelm MD Reason for Consult: Medical management Hospital Day # 0 Procedures: DEBRIDEMENT MUSCLE/FASCIA FIRST 20 SQ CM OR LESS LOWER EXTREMITY (Left: Knee) APPLICATION WOUND VAC EXTREMITY LOWER TOTAL WOUND SURFACE LESS THAN 50 SQ CENTIMETERS (Left) HPI: The patient is a 63 year old male status postdebridement of left BKA. Sound physicians have been consulted to manage his medical problems while he is admitted to the hospital. PAST MEDICAL HISTORY Diagnosis Date Abcess of LEFT HIP ADMIT TO [facility] ER ON 11/27/23 FOR DRAINAGE OF LEFT HIP ABCESS, RETURNED TO [facility] WITH ATB ORDER AFTER DRAINAGE, CALL OUT TO DR WILHELM, [facility] WILL CALL ME BACK AFTER SHE TALKS WITH DR WILHELM 11/27/23 Atrial fibrillation (HCC) Consent PT IS ALERT AND ORIENTED AND SIGNS HIS OWN CONSENTS PER CAROLINE NURSE AT [facility] Coronary artery disease Diabetes (HCC) Gangrene (HCC) LEFT BKA DR WILHELM FOLLOWING Hx of BKA, left (HCC) Hypercholesterolemia Hypertension Non-healing wound of amputation stump ([facility]) LBKA DR WILHELM shelter resident [facility] Osteomyelitis (HCC) LLE Peripheral vascular disease ([facility]) Vitamin D deficiency PRIMARY AT [facility] IS DR COSMO GERMAIN PAST SURGICAL HISTORY Procedure Laterality Date PAST SURGICAL HISTORY OF 09/19/[address] WILHELM History reviewed. No pertinent family history. Social History Tobacco Use Smoking status: Unknown Substance Use Topics Alcohol use: Not Currently Drug use: Not Currently Home Medications: aspirin 81 mg chewable tablet, Take 81 mg by mouth every morning. OKAY TO CONT PER DR WILHELM, Disp: , Rfl: , 11/30/2023 doxycycline hyclate (VIBRAMYCIN) 100 mg capsule, Take 100 mg by mouth two times a day. TO START AM OF 11/28/23 FOR LEFT HIP ABSCESS, ER ON 11/27/23 DRAINED, CALL OUT TO [facility]/DR WILHELM TO UPDATE, WAITING ON [facility] TO CALL BACK, Disp: , Rfl: , 11/30/2023 carbamide peroxide (DEBROX) 6.5 % otic solution, Use 5 Drops in both ears as needed., Disp: , Rfl: DULCOLAX, BISACODYL, ORAL, Take 1,200 mg by mouth as needed. 1200MG/15 ML NEEDED, Disp: , Rfl: apixaban (ELIQUIS) 5 mg tab(s), Take 5 mg by mouth two times a day. LAST DOSE PM ON 11/28/[address] WILHELM, Disp: , Rfl: , 11/27/2023 ergocalciferol 50,000 unit capsule (VITAMIN D2, DRISDOL), Take 50,000 Units by mouth every Friday., Disp: , Rfl: furosemide (LASIX) 20 mg tablet, Take 20 mg by mouth every morning., Disp: , Rfl: indapamide (LOZOL) 1.25 mg tablet, Take 1.25 mg by mouth every morning., Disp: , Rfl: insulin glargine (LANTUS SOLOSTAR U-100 INSULIN) 100 unit/mL (3 mL), Inject [address] Units sub[address] every morning. DR COSMO GERMAIN AT [facility], Disp: , Rfl: losartan (COZAAR) 25 mg tablet, Take 25 mg by mouth every morning., Disp: , Rfl: acetaminophen (TYLENOL) 325 mg cap, Take 650 mg by mouth every 4 hours as needed., Disp: , Rfl: vitamin B complex with C-FA-CU-ZN renal vitamins (DIATX ZN) 5-1.5-25 mg tab, Take 1 tablet by mouth every morning., Disp: , Rfl: Lactobacillus acidophilus (PROBIOTIC) 10 billion cell cap, Take 1 capsule by mouth daily at bedtime., Disp: , Rfl: Current Facility-Administered Medications Medication Dose Route Frequency NaCl 0.9% iv flush bag 20 mL INTRAVENOUS PRN lactated ringers iv infusion 75 mL/hr INTRAVENOUS CONTINUOUS ceFAZolin iv piggyback 2 g in D5W (iso-osmotic) 100 mL (ANCEF) 2 g INTRAVENOUS q 8 HR traMADol 50 mg tab(s) (ULTRAM) 50 mg ORAL q 6 H PRN oxyCODONE IR 5-10 mg tab(s) (ROXICODONE) 5-10 mg ORAL q 4 H PRN morphine 2 mg injection 2 mg INTRAVENOUS q 2 H PRN ondansetron 4 mg tab(s) (ZOFRAN) 4 mg ORAL q 6 H PRN Or ondansetron (PF) 4 mg injection (ZOFRAN) 4 mg INTRAVENOUS q 6 H PRN dextrose 40 % 15 g 15 g ORAL PRN Or glucagon 1 mg injection 1 mg INTRAMUSCULAR PRN Or dextrose 10% iv bolus 12.5 g INTRAVENOUS PRN insulin lispro injection (rapid acting) (ADMElog) SUBCUTANEOUS w MEALS insulin lispro injection (rapid acting) (ADMElog) SUBCUTANEOUS AT BEDTIME [START ON 12/02/2023] aspirin 81 mg chewable tab(s) 81 mg ORAL DAILY apixaban 5 mg tab(s) (ELIQUIS) 5 mg ORAL BID [START ON 12/02/2023] furosemide 20 mg tab(s) (LASIX) 20 mg ORAL DAILY [START ON 12/02/2023] indapamide 1.25 mg tab(s) (LOZOL) 1.25 mg ORAL DAILY [START ON 12/02/2023] insulin glargine 50 Units pen (long acting) 50 Units SUBCUTANEOUS DAILY (8 AM) [START ON 12/02/2023] losartan 25 mg tab(s) (COZAAR) 25 mg ORAL DAILY Allergies As of Date: 11/25/2023 (Not on File) Review of Systems Constitutional: Negative for appetite change, chills, diaphoresis, fever and unexpec (more content not included)... [facility] CONSULT PROGon 12-02-2023 CONSULT PROG HNO ID: [id number] Author: UMU RAYMUNDO RPh Service: Pharmacy Author Type: Pharmacist Type: Consult Progress Note Filed: 12/02/2023 11:09 Note Text: PHARMACY VANCOMYCIN DOSING NOTE Patient Name: Ismael Plunkett Admission Date: 12/01/2023 Date of Consult: 12/02/2023 Time of Consult: 10:40 AM Indication: Skin/Soft tissue infection Goal Range: 10-20 mcg/mL RECOMMENDATIONS/PLAN: Pharmacy consulted for vancomycin dosing for Ismael Plunkett, a 63 year old male. 1. Patient is currently ordered Vancomycin 1.5 g IV q12h. Today is day 1 of therapy. 2. No vancomycin level has been drawn for this dosing regimen. 3. The present dose of vancomycin is the recommended dosage for this patient at this time. Continue therapy as prescribed. 4. The next vancomycin level has been ordered for 12/03@1000 (Completed) Trough with 5th dose due to severity of infection We will follow patient renal function, vancomycin levels and doses with you during the course of therapy. Additional recommendations will appear in follow up notes. If you have any questions, please contact pharmacy at [phone]. Age: [age] year old Allergies: ALLERGIES Allergen Reactions Lisinopril Unknown Last 3 Encounter Wt Readings: Date: Wt: 11/25/2023 95.7 kg (211 lb) Last 1 Encounter Ht Readings: Date: Ht: 11/25/2023 182.9 cm (6') CrCl: 66.9 mL/min Temp (24hrs), Av.8 ?C (98.2 ?F), Min:36.4 ?C (97.6 ?F), Max:37.2 ?C (98.9 ?F) - Current Temp: 36.8 ?C (98.2 ?F) Labs BUN (mg/dL) Date Value 12/02/2023 50 (H) 12/01/2023 68 (H) Creatinine (mg/dL) Date Value 12/02/2023 1.39 12/01/2023 1.39 WBC (k/uL) Date Value 12/02/2023 8.46 Vancomycin Levels: No results found for: WHITLEY Raymundo [facility] CONSULT PROG HNO ID: [id number] Author: KAREL HESS APRN.SAS PROGRAMMER ANALYST Service: Hospital Medicine Author Type: Nurse Practitioner Type: Consult Progress Note Filed: 12/02/2023 12:56 Note Text: [facility] MEDICINE CONSULT PROGRESS NOTE SERVICE DATE: 12/02/2023 SERVICE TIME: 7:15 AM Hospital Medicine/Primary Attending: Karel Hess APRN.SAS PROGRAMMER ANALYST Subjective INTERVAL HPI: Patient was seen and examined at the bedside. POD #1 s/p LLE BKA debridement of infected wound by Dr. Wilhelm. Wound VAC in place. Continue PT and OT evaluation and treatment. No acute events overnight. MEDICATIONS: Reviewed Objective PHYSICAL EXAM: BP 126/77 Pulse 80 Temp (Src) 98.2 (Oral) Resp 18 Ht 6' 0 (1.83m) Wt 211 lb (95.7kg) SpO2 97% BMI 28.61 kg/(m2). O2 Therapy: Room Air Physical Exam Performed General - AANDOx3, NAD CV - HS I +II, regular, no murmurs RESP -clinically clear to auscultation ABD - soft, +BS, nontender, no palpable organs EXT -no bilateral leg edema, LLE BKA with wound vac NEURO - CN II-XII grossly intact, no focal deficits DATA: Diagnostic tests reviewed for today's visit: Most recent labs and imaging results. CBC, Coags, BMP, Mg, Phos Recent Labs 12/02/23 0448 12/01/23 0807 WBC 8.46 -- HB 10.6* 11.1* HCT 31.3* 34.5* PLT 229 -- NA 135* 136 K 4.4 4.9 CHLOR 104 103 CO2 26 28 BUN 50* 68* CREAT 1.39 1.39 GLUC 181* 109* CA 9.6 10.0 Liver Function, Amylase, AND Lipase Cardiac Enzymes Assessment/Plan 63-year-old male with past medical history of CAD, type II DM insulin-dependent, atrial fibrillation, CHF, CKD, who is s/p debridement of left BKA, sound consulted for management of his medical problems while admitted at the hospital #) Coronary artery disease #) Hypertension - BP 94/56 - 126/77 - Continue home meds aspirin 81 mg p.o. daily, losartan 25 mg p.o. daily, Lozol 1.25 mg p.o. daily - Lipid panel in a.m. #) Type II DM insulin-dependent #) Hyperglycemia - Hemoglobin A1C to be check - Continue Accu-Cheks before meals and at bedtime - Continue carb controlled diet and cardiac diet - Blood sugar 155 - 359 - Continue Lantus 50 units with breakfast, and increase sliding scale to high dose before meals and increase sliding scale insulin at bedtime to medium dose. - Closely monitor for episodes of hypoglycemia #) Atrial fibrillation - Continue apixaban 5 mg p.o. days daily #) CHF - Continue home dose of Lasix 20 mg p.o. daily #) CKD - Continue to monitor renal function and urine output, avoid nephrotoxic agents - Scr 1.39 #) Left lower leg wound - S/p debridement of left BKA - Per orthopedic surgeon - Continue PT and OT evaluation and treatment DVT prophylaxis: Apixaban CODE STATUS: Full code Resolved Problems: * No resolved hospital problems. * Medication and Non-Pharmacologic VTE Prophylaxis/Anticoagul ants Anticoagulant AND Antiplatelet Medications (From admission, onward) Start Dose Route Frequency Last Action Ordered Stop 12/02/23 0900 aspirin 81 mg chewable tab(s) 81 mg ORAL DAILY Ordered 12/01/23 1142 -- 12/02/23 0900 apixaban 5 mg tab(s) (ELIQUIS) 5 mg ORAL 2 TIMES DAILY Ordered 12/01/23 2208 -- 12/01/23 1145 vte current anticoag therapy ([place], [place]) 12/01/23 1145 pneumatic compression stockings ([place]) VTE Prophylaxis: VTE prophylaxis appropriate Disposition: Plan is to discharge back to [facility] once medically stable Plan of care discussed with: Provider, RN, Patient SIGNATURE: Karel Hess APRN.CNP PATIENT NAME: Ismael Plunkett DATE: December 02, 2023 TIME: 7:15 AM PAGER/CONTACT #: [email or web address] Please Note: This office note has been created using [employer], a speech recognition software program, and may contain errors including punctuation, grammar, spelling, gender, and inappropriate words or phrases that pertain to the system. [facility] THERAPY NTon 12-02-2023 THERAPY NT HNO ID: [id number] Author: COSMO FORMAN, PT Service: Physical Therapy Author Type: Physical Therapist Type: Therapy (PT/OT/Speech/Resp) Filed: 12/02/2023 15:30 Note Text: Physical Therapy Evaluation Summary SERVICE DATE: 12/02/2023 SERVICE TIME: 1413 to 1437 ROOM: [id number] PT 6 Clicks Score: 17 DISCHARGE RECOMMENDATIONS Acute Rehab Recommended Discharge Disposition Due to: Patient requires an active, intensive rehabilitation therapy program due to:, decline in functional status requiring daily skilled care, ongoing intervention of multiple therapy disciplines, poor trunk control ASSESSMENT Response to Therapy Interventions: Good Participation in Activities Pt tolerated PT eval fairly. he was limited by quick fatigue and mild instability. he would benefit from continued therapy PRECAUTIONS Fall Risk, Weight Bearing Restrictions L BKA, wound vac Left Lower Extremity Weight Bearing Status: NWB CURRENT HOSPITAL COURSE s/p IANDD of skin subcutaneous tissue and muscle left lower extremity Application wound VAC left leg by Dr. 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 Used a wheelchair for mobilty and was independent with transfers to/from. Denies hx of falls. SUBJECTIVE THERAPY DIAGNOSIS Unsteadiness on feet, Abnormalities of gait and mobility-other TREATMENT INTERVENTIONS Evaluation, Therapeutic Activity (32290) Timed Code Treatment (minutes): 9 Skilled Treatment Time (minutes): 24 TRAINING AND EDUCATION PROVIDED Assistive Device Use, Anatomy and Impact on Deficits, Bed Mobility, Benefits of In-Hospital Mobility, Discharge Planning, Disease Specific Education, Expected Functional Level, Falls Prevention, Gait Pattern, Reduction of Deviations, Positioning, Precautions/Restrictio ns, Role of Physical Therapy, Transfers THERAPEUTIC SKILLS USED Cues for Sequencing/Proper Technique for Activity, Cuing Verbal, Movement Facilitation FUNCTIONAL STATUS Bed Mobility Transfers Sit To Stand: Minimal Assistance Stand To Sit: Minimal Assistance Bed to Chair Gait Minimal Assistance Gait Device: Wheeled Walker General Deviations/Observation s: Lateral sway increased, Step length decreased Gait Distance (feet): 120 Stairs GOALS Patient will demonstrate understanding of importance of mobility during hospital stay and resolve all functional needs identified. Transfer Supine to/from Sit with: Supervision Transfer Sit to/from Stand with: Supervision Ambulate with: Supervision Distance: 80 Device: Wheeled Walker Ambulate Up and Down Steps with: Supervision Number of Steps: 5 Device: Rail Rehab Potential: Good PLAN PT Frequency: 5 Times Per Week Treatment Interventions: Education, Functional Mobility Training, Balance Training, Neuromuscular Re-education Plan for Next Visit: Bed Mobility, Fall Prevention, Gait Training, Sit to Stand Transfers, Sitting Balance, Stair Training, Standing Balance, Standing Tolerance SIGNATURE: Cosmo Forman PT PATIENT NAME: Ismael Plunkett DATE: December 02, 2023 TIME: 3:30 PM [facility] THERAPY NT HNO ID: [id number] Author: HEMA NOLAND OTR/L Service: ? Author Type: Occupational Therapist Type: Therapy (PT/OT/Speech/Resp) Filed: 12/02/2023 09:24 Note Text: Occupational Therapy Evaluation Summary SERVICE DATE: 12/02/2023 SERVICE TIME: 830 ROOM: [id number] OT 6 Clicks Score: 17 DISCHARGE RECOMMENDATIONS Acute Rehab Recommended Discharge Disposition Comments: Pt would benefit from ADL retraining to optimize performance in daily life activities. Recommended Discharge Disposition Due to: Patient requires daily, facility-based rehabilitation from at least one discipline due to:, Patient requires an active, intensive rehabilitation therapy program due to:, ADL impairment resulting in caregiver dependence, decline in functional status requiring daily skilled care, high level balance deficits Anticipated Discharge Needs: Physical Assist at Home, Supervision at Home Physical Assist at Home for: Laundry, Cleaning, Meals, Safety, Self Care, Shopping, Transportation Supervision at Home due to: Decreased safety awareness Recommended Discharge Equipment: Wheeled Walker, To Be Determined ASSESSMENT Response to Therapy Interventions: Good Participation in Activities, Needs Frequent Redirection or Reinstruction, Requires Additional Time to Complete Activities Pt requires assist for LB ADL tasks and functional transfers. Provided education on maintaining NWB restriction and using AE to assist with self-care. Benefited from AD/DME use. Slightly impulsive with activity, requiring cues for safety. Pt motivated to return home. Overall, tolerated session well. PRECAUTIONS Fall Risk, Weight Bearing Restrictions L BKA, wound vac Left Lower Extremity Weight Bearing Status: NWB CURRENT HOSPITAL COURSE s/p IANDD of skin subcutaneous tissue and muscle left lower extremity Application wound VAC left leg by Dr. 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 Used a wheelchair for mobilty and was independent with transfers to/from. Denies hx of falls. Baseline Cognition: Oriented to self, Oriented to place, Oriented to time, Oriented to situation SUBJECTIVE Pt pleasant and agreeable to session. COGNITION Responsiveness: Alert, Awake Follows Commands: 3-step Commands Executive Function Deficits: Judgement, Safety Awareness THERAPY DIAGNOSIS Reduced mobility-other, Decreased activities of daily living (ADL), Unsteadiness on feet TREATMENT INTERVENTIONS Evaluation, Self Shelter Management (35143) Timed Code Treatment (minutes): 24 Skilled Treatment Time (minutes): 38 TRAINING AND EDUCATION PROVIDED Activity Adaptation/Principal Quality Engineer y Strategies, Assistive Device Use, Adaptive Equipment/DME, Bed Mobility, Benefits of In-Hospital Mobility, Discharge Planning, Functional Mobility Involving ADLs, Home Set-up/Modifications, Lower Extremity Dressing, Positioning, Precautions/Restrictio ns, Role of Occupational Therapy, Sitting Balance to Improve [place] with ADLs/Self-Care, Standing Balance to Improve [place] with ADLs/Self-Care, Transfer - Bed to Chair, Transfer - Sit to Stand, Transfer - Toilet/Commode THERAPEUTIC SKILLS USED Activity Dosing, Assessment of Tolerance Including Vitals Response to Activity, Bilateral UE Integration, Cues for Sequencing/Proper Technique for Activity, Cuing Verbal, Facilitation of Joint Range of Motion, Management of Critical Lines, Tubes and/or Drains, Physical Assist, Therapeutic Use of Self FUNCTIONAL STATUS Activities of Daily Living Assist Level Additional Information Feeding Independent Grooming Set Up Bathing Upper Body Set Up Bathing Lower Body Maximal Assistance Dressing Upper Body Set Up Dressing Lower Body Maximal Assistance, Additional Information pt demonstrated ability to doff sock, required assist with donning on right foot Toileting Total Assistance Mobility Assist Level Additional Information Bed Mobility Supine To Sit: Minimal Assistance, Additional Information supported trunk into seated position Sit to Stand Minimal Assistance, Additional Information v/c for hand placement Stand to Sit Minimal Assistance Bed to Chair Moderate Assistance Bed To Chair Transfer Type: Stand Pivot Bed To Chair Transfer Equipment: Gait Belt Toilet/Commode Moderate Assistance, Additional Information utilized [facility] place (more content not included)... 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 Post Anesthesia Patient Status Patient Evaluation: PACU. PACU/ICU Patient Condition: stable. Anticipated Disposition: inpatient floor planned admission. Neurological Status: aware and responsive. Pulmonary Status: breathing comfortably on room air Airway Control: returned to baseline unsupported. Cardiovascular Status: stable. Pain Management: clinically adequate Postoperative Hydration: acceptable. Intraoperative Events: no significant anesthesia events Post Operative Nausea/Vomiting Status: no significant post operative nausea or vomiting Recommendation: continue current plan of care and further care per PACU/ICU/floor team. Anesthesia Observations No Documentation SIGNATURE: Duc Flores DO PATIENT NAME: Ismael Plunkett DATE: December 01, 2023 TIME: 10:40 AM CSN: [id number] [facility] ANES PRE-OPon 12-01-2023 ANES PRE-OP HNO ID: [id number] Author: DUC FLORES DO Service: Anesthesiology Author Type: Anesthesiologist Type: Anesthesia Preprocedure Evaluation Filed: 12/01/2023 08:51 Note Text: ANESTHESIOLOGY DAY OF SURGERY NOTE : 1960 Procedure Information Date/Time: 12/01/23 0915 Procedures: DEBRIDEMENT MUSCLE/FASCIA FIRST 20 SQ CM OR LESS LOWER EXTREMITY (Left: Knee) APPLICATION WOUND VAC EXTREMITY LOWER TOTAL WOUND SURFACE LESS THAN 50 SQ CENTIMETERS (Left) Location: MR OR 14 / MR OR Surgeons: Sugar Wilhelm MD Estimated body mass index is 28.62 kg/m? as calculated from the following: Height as of this encounter: 182.9 cm (6'). Weight as of this encounter: 95.7 kg (211 lb). Most recent hematocrit and potassium results: Hematocrit 34.5 12/01/2023 Relevant Problems No relevant active problems 63yo male, Resides in a NH. 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 PMH: HTN, HLD, AF on eliquis, CAD, PVD, IDDM, vit D def. LD eliquis 11/28/23 per surgeon. Ok to continue ASA per surgeon. On 2 diuretics, no antiarrhythmics/rate control drugs. Was in the ED on 11/26 for L hip abscess IANDD- Choco aware and ok to proceed with surgery- patient currently on doxy. There is no Care Everywhere to further investigate hx of CAD- no endorsement of previous cardiac interventions. I - PHYSICAL EVALUATION AIRWAY Patient intubated: No. Tracheostomy tube not present Mallampati: I. TM distance: >3 FB. Neck ROM: full ROM without neurological symptoms. Mouth opening: adequate. Short neck: no. Thick neck: no DENTAL Dental findings: edentulous. Additional exam findings: yes. CARDIOVASCULAR Rhythm: irregular Rate: normal PULMONARY Normal pulmonary observations. II - ANESTHESIA PLAN ASA Score: 3 Anesthetic Plan: general Airway type: LMA NPO Status: adequate Beta Judd Monitoring Plan Monitoring plan: standard ASA. Post Procedure Analgesic Plan Postoperative analgesic plan: parenteral or oral opioids and per surgical service. Informed Consent Anesthetic risks, benefits, alternatives, personnel and consent discussed: yes. Patient / Responsible Alliance Party agrees to proceed: yes Patient / Surrogate agrees to blood products: Yes Significant changes in the patient condition since the History and Physical, not otherwise documented in primary service progress note: no. Potential Anesthesia issues that may suggest increased risk of complications or contraindication to planned procedure: none. No vitals data found for the desired time range. Facility-Administered Medications as of 12/01/2023 Medication Dose Route Frequency - ceFAZolin iv piggyback 2 g in D5W (iso-osmotic) 100 mL (ANCEF) 2 g INTRAVENOUS ONCE - [COMPLETED] lidocaine (PF) 10 mg/mL (1 %) 2 mg injection (XYLOCAINE) 0.2 mL INTRADERMAL PRN - lactated ringers iv infusion 30 mL/hr INTRAVENOUS CONTINUOUS - NaCl 0.9% iv flush bag 20 mL INTRAVENOUS PRN - ceFAZolin iv piggyback 2 g in D5W (iso-osmotic) 100 mL (ANCEF) 2 g INTRAVENOUS ONCE Outpatient Medications as of 12/01/2023 Medication Sig - aspirin 81 mg chewable tablet Take 81 mg by mouth every morning. OKAY TO CONT PER DR WILHELM - doxycycline hyclate (VIBRAMYCIN) 100 mg capsule Take 100 mg by mouth two times a day. TO START AM OF 11/28/23 FOR LEFT HIP ABSCESS, ER ON 11/27/23 DRAINED, CALL OUT TO CARIDAD/DR WILHELM TO UPDATE, WAITING ON CARIDAD TO CALL BACK - carbamide peroxide (DEBROX) 6.5 % otic solution Use 5 Drops in both ears as needed. - DULCOLAX, BISACODYL, ORAL Take 1,200 mg by mouth as needed. 1200MG/15 ML NEEDED - apixaban (ELIQUIS) 5 mg tab(s) Take 5 mg by mouth two times a day. LAST DOSE PM ON 11/28/[address] WILHELM - ergocalciferol 50,000 unit capsule (VITAMIN D2, DRISDOL) Take 50,000 Units by mouth every Friday. - furosemide (LASIX) 20 mg tablet Take 20 mg by mouth every morning. - indapamide (LOZOL) 1.25 mg tablet Take 1.25 mg by mouth every morning. - insulin glargine (LANTUS SOLOSTAR U-100 INSULIN) 100 unit/mL (3 mL) Inject 50 Units subcutaneously every morning. [facility] - losartan (COZAAR) 25 mg tablet Take 25 mg by mouth every morning. - acetaminophen (TYLENOL) 325 mg cap Take 650 mg by mouth every 4 hours as needed. - vitamin B complex with C-FA-CU-ZN renal vitamins (DIATX ZN) 5-1.5-25 mg tab Take 1 tablet by mouth every morning. - Lactobacillus acidophilus (PROBIOTIC) 10 billion cell cap Take 1 capsule by mouth daily at bedtime. I have interviewed and examined the patient. I have reviewed the medical record and/or the pre-anesthesia evaluation, pertinent labs, and test results. This contains updated information obtained within 48 hours of Surgery/Procedure. SIGNATURE: Duc Flores DO PATIENT NAME: Ismael Plunkett DATE: December 01, 2023 TIME: 8:49 AM CSN: [id number] Normal [facility] Bacteria Spec Anaerobe Culto n 12-01-2023 Bacteria identified Anaer cx Nom (Unsp spec) Negative Abnormal [facility] Comment on above: Performed By: #### 6 462-6, 635-3 ####[facility]ORY[facility]IA [id number] [place] [address] [place] Bacteria Wnd Culton 12-01-19 24 Bacteria identified Cx Nom (Wound) ORGANISM ID: 1 Many Enterococcus faecalis Cephalosporins, clindamycin, and TMP-SMX are not effective for the treatment of enterococcal infections. ORGANISM ID: 2 Few skin ellen GRAM STAIN: Few Polymorphonuclear leukocytes Moderate Gram positive cocci Few Gram positive bacilli ORGANISM ID: 1 (ENTEROCOCCUS FAECALIS) -- ANTIBIOTIC INTERPRETATION IVA STATUS REFERENCE RANGE -- Ampicillin S 1 F Susceptible <=8 , Resistant >8 The results of ampicillin predict the susceptibility to amoxicillin, amoxicillin-clavulanat e, ampicillin-sulbactam and piperacillin-tazobacta m. Vancomycin S 2 F Susceptible <=4 , Intermediate >4 , Resistant >16 Abnormal [facility] Comment on above: Performed By: #### 6 462-6, 635-3 ####[facility]ORYCLIA [id number] [place] [address] [place] Basic metabolic 2000 panelon 12-01-2023 Anion gap [Moles/Vol] 5 mmol/L Normal 5-16 [facility] Comment on above: Order Comment: Speci men Type: BLOOD SPECIMEN Ordering Facility: [facility] Address: [address] [place] [address] Performed By: #### 2 4321-2 #### [facility] CLIA [id number] [address] [place] [address] [place] Calcium [Mass/Vol] 10.0 mg/dL Normal 8.5-10.5 [facility] Comment on above: Order Comment: Speci men Type: BLOOD SPECIMEN Ordering Facility: [facility] Address: [address] [place] [address] Performed By: #### 2 4321-2 #### [facility] CLIA [id number] [address] [place] [address] [place] Chloride [Moles/Vol] 103 mmol/L Normal 98-107 [facility] Comment on above: Order Comment: Speci men Type: BLOOD SPECIMEN Ordering Facility: [facility] Address: [address] [place] [address] Performed By: #### 2 4321-2 #### [facility] CLIA [id number] [address] [place] [address] [place] CO2 [Moles/Vol] 28 mmol/L Normal 21-32 [facility] Comment on above: Order Comment: Speci men Type: BLOOD SPECIMEN Ordering Facility: [facility] Address: [address] [place] [address] Performed By: #### 2 4321-2 #### [facility] CLIA [id number] [address] [place] [address] [place] Creatinine [Mass/Vol] 1.39 mg/dL Normal 0.50-1.40 [facility] Comment on above: Order Comment: Britney villegas Type: BLOOD SPECIMEN Ordering Facility: [facility] Address: [address] [place] [address] Result Comment: Alyx ents receiving either N-Acetylcysteine (NAC) or Metamizole prior to venipuncture, may have falsely depressed results. Performed By: #### 2 4321-2 #### [facility] CLIA [id number] [address] [place] [address] [facility] [place] Creatinine and Glomerular filtration rate.predicted panel (S/P/Bld) 58 mL/min/1.73m??? Low >=60 [facility] Comment on above: Order Comment: Britney villegas Type: BLOOD SPECIMEN Ordering Facility: [facility] Address: [address] [place] [address] Result Comment: Jany mated Glomerular Filtration Rate (eGFR) is calculated using the 2020 CKD-EPI creatinine equation. This equation utilizes serum creatinine, sex, and age as parameters. The creatinine assay has traceable calibration to isotope dilution-mass spectrometry. Refer to KDIGO guidelines for clinical interpretation. In patients with unstable renal function, e.g. those with acute kidney injury, the eGFR may not accurately reflect actual GFR. Performed By: #### 2 4321-2 #### [facility] CLIA [id number] [address] [place] [address] [place] Glucose [Mass/Vol] 109 mg/dL High 70-100 [facility] Comment on above: Order Comment: Britney villegas Type: BLOOD SPECIMEN Ordering Facility: [facility] Address: [address] [place] [address] Result Comment: The [place] Diabetes Association (ADA) provides guidance for cutoff values for fasting glucose and random glucose. The ADA defines fasting as no caloric intake for at least 8 hours. Fasting plasma glucose results between 100 to 125 mg/dL indicate increased risk for diabetes (prediabetes). Fasting plasma glucose results greater than or equal to 126 mg/dL meet the criteria for diagnosis of diabetes. In the absence of unequivocal hyperglycemia, results should be confirmed by repeat testing. In a patient with classic symptoms of hyperglycemia or hyperglycemic crisis, random plasma glucose results greater than or equal to 200 mg/dL meet the criteria for diagnosis of diabetes. Reference: Standards of Medical Care in Diabetes 2016, [place] [employer] Association. Diabetes Care. 2016.39(Suppl 1). Results may be falsely elevated after the administration of Sulfapyridine. Results may be falsely depressed after the administration of Sulfasalazine. Performed By: #### 2 4321-2 #### [facility] CLIA [id number] [address] [place] [address] [place] Potassium [Moles/Vol] 4.9 mmol/L Normal 3.5-5.1 [facility] Comment on above: Order Comment: Britney villegas Type: BLOOD SPECIMEN Ordering Facility: [facility] Address: [address] [place] [address] Performed By: #### 2 4321-2 #### [facility] CLIA [id number] [address] [place] [address] [place] Sodium [Moles/Vol] 136 mmol/L Normal 136-145 [facility] Comment on above: Order Comment: Britney villegas Type: BLOOD SPECIMEN Ordering Facility: [facility] Address: [address] [place] [address] Performed By: #### 2 4321-2 #### [facility] CLIA [id number] [address] [place] [address] [place] Urea nitrogen [Mass/Vol] 68 mg/dL High 7-26 [facility] Comment on above: Order Comment: Britney villegas Type: BLOOD SPECIMEN Ordering Facility: [facility] Address: [address] [place] [address] Performed By: #### 2 4321-2 #### [facility] CLIA [id number] [address] [place] [address] [place] ECG COMPLETEon 12-01-2023 ECG COMPLETE Ventricular Rate : 8 0 BPM Atrial Rate : 75 BPM QRS Duration : 106 ms Q-T Interval : 384 ms QTC Calculation(Bazett) : 442 ms Calculated R [place] : 1 degrees Calculated T [place] : 76 degrees Atrial fibrillation Leftward axis Incomplete right bundle branch block Abnormal ECG No previous ECGs available Confirmed by KACY SKELTON MD ([id number]) on 12/02/2023 9:01:44 AM NAME : ISMAEL PLUNKETT PID : [id number] : 1960 Gender : Male Race : ORD : [id number] Procedure Date : Dec 01 2023 07:51:50 Edit Date : Dec 02 2023 09:01:50 Diagnosis: Atrial fibrillation Leftward axis Incomplete right bundle branch block Abnormal ECG No previous ECGs available Confirmed by KACY SKELTON MD ([id number]) on 12/02/2023 9:01:44 AM Test Reason : VJ Location : 23 : SURG MRORP Overread By : KACY SKELTON MD Edited By : KACY SKELTON MD Referred By : , Acquired by : BEREKET VACA [facility] Hematocrit Auto (Bld) [Volum e fraction]on 12-01-2023 Hematocrit (Bld) [Volume fraction] 34.5 % Low 39.0-51.0 [facility] Comment on above: Order Comment: Speci nelly Type: BLOOD SPECIMEN Ordering Facility: [facility] Address: [address] [place] [address] Performed By: #### 4 544-3, 718-7 #### [facility] CLIA [id number] [address] [place] [address] Hgb Bld-mCncon 12-01-2023 Hemoglobin (Bld) [Mass/Vol] 11.1 g/dL Low 13.0-17.0 [facility] Comment on above: Order Comment: Britney villegas Type: BLOOD SPECIMEN Ordering Facility: [facility] Address: [address] [place] [address] Performed By: #### 4 544-3, 718-7 #### [facility] CLIA [id number] [address] [place] [address] OPERATIVE NOon 12-01-2023 OPERATIVE NO HNO ID: [id number] Author: SUGAR WILHELM MD Service: Orthopaedic Surgery Author Type: Physician Type: Operative Report Filed: 12/02/2023 16:09 Note Text: OPERATIVE/PROCEDURE REPORT LOG ID: [id number] SURGERY/PROCEDURE DATE: 12/01/2023 INCISION/PROCEDURE START TIME: 9:36 AM INCISION CLOSE/PROCEDURE END TIME: 9:50 AM SURGEON(S)/PROCEDURALI ST(S) AND EROSION CONTROL SPECIALIST(S): Surgeon(s) and Role: * Sugar Wilhelm MD - Primary Monogram Technician: Junior Turcios SA SURGERY/PROCEDURE(S): Irrigation debridement of skin subcutaneous tissue and muscle left lower extremity, 2 cm in length by 2 cm in width by 6 cm in depth Application wound VAC left leg ANESTHESIA: General PRE-OP/PRE-PROCEDURE DIAGNOSIS: Skin and wound breakdown left below-knee amputation stump POST-OP/POST-PROCEDURE DIAGNOSIS: Same as Preop SURGERY/PROCEDURE DETAILS: Patient is 63-year-old male with multiple medical problems including diabetes and on Eliquis who underwent a left below-knee amputation approximately 2 months ago. Patient had a little bit of wound breakdown initially with bleeding. He has gone on to heal the stump well other than the most lateral aspect. Patient presented to the office with draining wound and exposed fascia. The risks and benefits of surgery were explained extensively to the patient and/or family prior to the procedure. Patient and/or family understood the risks of infection, DVT, PE, nonunion, hardware failure, need for further surgery in the future, neurovascular injury with ongoing sequelae, blood loss with possible transfusion, respiratory, cardiac, urinary, GI complications, chronic ongoing pain, and all other risks of surgery and anesthesia up and to including . Informed consent was obtained. The left lower extremity was marked in the preoperative area as the proper operative site. The patient was brought the operating room and placed supine on the operating table. Head and neck were positioned by anesthesia staff and monitored by anesthesia throughout the procedure. General anesthesia was induced without complication. The left lower extremity was then prepped and draped normal sterile orthopedic fashion. Time was performed left leg was identifies proper operative leg. 2 g of Ancef was given prior to skin incision. Exposed fascia was sharply debrided with a scalpel. Curette and rongeur were used to debride the subcutaneous tissue and muscle. Skin was also debrided sharply with a knife. There was some purulence and necrotic tissue noted. Cultures were taken aerobic and anaerobic. Bone appeared good with no softening. And is happy with the cleanliness of the wound the wound was thoroughly irrigated with Irrisept as well as normal saline. Wound VAC was applied hooked up to suction and found to have a good seal. ESTIMATED BLOOD LOSS: 10 mls ANTIBIOTIC PROPHYLAXIS: 2g Ancef given preoperatively SPECIMENS: None IMPLANTABLE DEVICES: None DRAINS: None COMPLICATIONS: None CLOSURE TECHNIQUE: Primary PARTICIPATION IN SURGERY/PROCEDURE: I/primary surgeon/proceduralist performed the procedure with assistance. SIGNATURE: Sugar Wilhelm MD PATIENT NAME: Ismael Plunkett DATE: December 01, 2023 TIME: 11:03 AM [facility] ANES PREOPon 11-28-2023 ANES PREOP HNO ID: [id number] Author: BRANDON WATT APRN.NATHANIEL Service: Anesthesiology Author Type: Nurse Practitioner Type: Anesthesia PreOp Filed: 11/28/2023 11:05 Note Text: 63yo male, Resides in a [place]. 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 PMH: HTN, HLD, AF on eliquis, CAD, PVD, IDDM, vit D def. LD eliquis 11/28/23 per surgeon. Ok to continue ASA per surgeon. On 2 diuretics, no antiarrhythmics/rate control drugs. Was in the ED on 11/26 for L hip abscess IANDD- Choco aware and ok to proceed with surgery- patient currently on doxy. There is no Care Everywhere to further investigate hx of CAD- no endorsement of previous cardiac interventions. [facility] NURSING PROGon 11-28-2023 NURSING PROG HNO ID: [id number] Author: SABINE JAMES RN Service: ? Author Type: Registered Nurse Type: Nursing Progress Note Filed: 11/28/2023 10:27 Note Text: CARIDAD FROM DR WILHELM'S OFFICE CALLED BACK AND STATED THAT DR WILHELM IS OKAY TO CONT WITH THE PROCEDURE ON FRIDAY. SHE IS AWARE THAT HE CAME IN TO THE ER AT [facility] LAST NIGHT FOR A LEFT HIP ABSCESS AND DRAINAGE, AND IS ON ATB FROM ER. SHE STILL WANTS TO CONT WITH SURGERY ON FRIDAY. I ALSO CALLED SELMA AND UPDATED NURSE CAROLINE. [facility] C Reactive Proteinon 024 CRP [Mass/Vol] 179.00 mg/L High < 3.00 [facility] Comment on above: Result Comment: CRP is useful for the detection and evaluation of infection, tissue injury and inflammatory disorders. For cardiac risk assessment order HsCRP. Performed By: #### C RP #### [facility] [address] [address] CNPNon 09-05-2023 CNPN Telephone (UNPHARM) Estrada PLUNKETT ([id number]) 1960 M Date Time Provider Department 09/05/23 MINERVA CASTILLO UNPHONEYM During your visit today, we recorded the following information about you: Minerva Castillo RPh 09/05/2023 2:27 PM Signed PHARMACY EMERGENCY DEPARTMENT CULTURE CALLBACK Patient Name: Estrada Plunkett Date of Callback: 09/05/2023 Pharmacist contacted this patient per emergency department culture callback guidelines. Patient was confirmed with 2 ID's Patient reviewed with Dr. Mota ALLERGIES Allergen Reactions Lisinopril Cough Type of Culture(s): Wound Culture Results: Positive: Many Staphylcoccus aureus and rare Enterobacter cloacae Change in treatment needed:Yes: Change treatment medication Action Taken: Counseled patient one of the antibiotics provided at discharge will not cover the infection and the augmentin will be changed to ciprofloxacin. Continue the doxycycline. Counseled patient to complete entire course and follow-up with your outpatient provider. Lab Results: n/a Home Medication List: Prior to Admission medications as of Medication Sig Last Dose Taking ciprofloxacin HCl (CIPRO) 500 mg tablet Take 1 tablet by mouth two times a day for 10 days. amoxicillin-clavulanat e potassium (AUGMENTIN) 875-125 mg per tablet Take 1 tablet by mouth two times a day for 10 days. doxycycline monohydrate 100 mg tablet Take 1 tablet by mouth two times a day. Patient's [facility]: [facility] [address] [place] [address] [phone] Please page/call with any issues or questions. Electronic signature: Minerva Castillo cathy September 05, 2023 2:23 PM Pager/Extension: [phone] Allergies As of Date: 09/05/2023 Noted Allergy Reaction LISINOPRIL 09/02/2023 3 - Cough Date Reviewed: 09/02/2023 Reviewed by: Pennie Rich RN - Fully Assessed Reason for Visit: Results [95] Order(s):Order #: [id number] Prescriptions as of 09/05/2023 - ciprofloxacin HCl (CIPRO) 500 mg tablet Take 1 tablet by mouth two times a day for 10 days. - amoxicillin-clavulanat e potassium (AUGMENTIN) 875-125 mg per tablet Take 1 tablet by mouth two times a day for 10 days. - doxycycline monohydrate 100 mg tablet Take 1 tablet by mouth two times a day. Problem List As Of Date: 09/05/2023 (None) Prescriptions ordered this encounter Disp Refills Start End CIPROFLOXACIN 500 MG TABLET 20 t* 0 09/05/2023 09/15/2023 Route: ORAL Sig: Take 1 tablet by mouth two times a day for 10 days. Encounter Status:Closed by MINERVA CASTILLO on 09/05/23 [facility] Bacteria Bld Culton 09-02-19 24 Bacteria identified Cx Nom (Bld) CULTURE, BLOOD: No growth 5 days [facility] Comment on above: Performed By: #### 6 00-7 #### [facility] IA [id number] [address] [place], [place] [address] [place] [facility] Bacteria Wnd Culton 09-02-19 24 Bacteria identified Cx Nom (Wound) ORGANISM ID: 1 Many Staphylococcus aureus ORGANISM ID: 2 Rare Enterobacter cloacae complex ORGANISM ID: 3 Few skin ellen GRAM STAIN: Few Gram positive cocci Rare Gram negative bacilli No Polymorphonuclear Leukocytes ORGANISM ID: 1 (STAPHYLOCOCCUS AUREUS) -- ANTIBIOTIC INTERPRETATION IVA STATUS REFERENCE RANGE -- Oxacillin S <=0.25 F Susceptible <=2 , Resistant >2 Oxacillin-susceptible staphylococci are susceptible to other penicilllinase-stable penicillins, beta-lactam/beta-lacta sirena inhibitor combinations, anti-staphylococcal cephems, and carbapenems. Gentamicin S <=0.5 F Susceptible <=4 , Intermediate >4 , Resistant >8 Erythromycin S <=0.25 F Susceptible <=0.5 , Intermediate >.5 , Resistant >4 Clindamycin S 0.25 F Susceptible <=0.5 , Intermediate >.5 , Resistant >2 Trimeth sulfameth S <=10 F Susceptible <=40 , Resistant >40 Vancomycin S 1 F Susceptible <=2 , Intermediate >2 , Resistant >8 Rifampin S <=0.5 F Susceptible <=1 , Intermediate >1 , Resistant >2 Rifampin should not be used alone for antimicrobial therapy. Tetracycline S <=1 F Susceptible <=4 , Intermediate >4 , Resistant >8 Doxycycline S <=0.5 F Susceptible <=4 , Intermediate >4 , Resistant >8 ORGANISM ID: 2 (ENTEROBACTER CLOACAE COMPLEX) -- ANTIBIOTIC INTERPRETATION IVA STATUS REFERENCE RANGE -- Ampicillin R F Cefepime S <=1 F Susceptible <=2 , Susceptible-Dose Dependent >2 , Resistant >=16 Ertapenem S <=0.5 F Susceptible <=0.5 , Intermediate >.5 , Resistant >1 Meropenem S <=0.25 F Susceptible <=1 , Intermediate >1 , Resistant >2 Ampicillin/Sulbact R F Piperacillin/Tazobac S <=4 F Susceptible <=16 , Intermediate >16 , Resistant >64 Gentamicin S <=1 F Susceptible <=4 , Intermediate >4 , Resistant >8 Tobramycin S <=1 F Susceptible <=4 , Intermediate >4 , Resistant >8 Trimeth sulfameth S <=20 F Susceptible <=40 , Resistant >40 Ciprofloxacin S <=0.25 F Susceptible <0.5 , Intermediate >=.5 , Resistant >=1 Abnormal [facility] Comment on above: Performed By: #### 6 462-6 #### [facility] CLIA [id number] [facility] [id number] [place] [address] [place] CBC W Auto Differential pane l (Bld)on 09-02-2023 Basophils (Bld) [#/Vol] 0.04 10*3/uL Normal <0.11 [facility] Comment on above: Order Comment: Speci men Type: BLOOD SPECIMENOrdering Facility: [facility] Address: [address] [place] [address] Performed By: #### 5 7021-8 ####[facility] [id number] [address] [place] Basophils/100 WBC (Bld) 0.4 % Normal [facility] Comment on above: Order Comment: Speci men Type: BLOOD SPECIMENOrdering Facility: [facility] Address: [address] [place] [address] Performed By: #### 5 7021-8 ####[facility] [id number] [address] [place] Differential cell count method Nom (Bld) Auto Normal [facility] Comment on above: Order Comment: Speci men Type: BLOOD SPECIMENOrdering Facility: [facility] Address: [address] [place] [address] Performed By: #### 5 7021-8 ####[facility] [id number] [place] [address] [place] Eosinophils (Bld) [#/Vol] 0.06 10*3/uL Normal <0.46 [facility] Comment on above: Order Comment: Speci men Type: BLOOD SPECIMENOrdering Facility: [facility] Address: [address] [place] [address] Performed By: #### 5 7021-8 ####[facility] [id number] [place] [address] [place] Eosinophils/100 WBC (Bld) 0.5 % Normal [facility] Comment on above: Order Comment: Speci men Type: BLOOD SPECIMENOrdering Facility: [facility] Address: [address] [place] [address] Performed By: #### 5 7021-8 ####[facility] [id number] [place] [address] [place] Erythrocyte distribution width (RBC) [Ratio] 12.1 % Normal 11.5-15.0 [facility] Comment on above: Order Comment: Speci men Type: BLOOD SPECIMENOrdering Facility: [facility] Address: [address] [place] [address] Performed By: #### 5 7021-8 ####[facility] [id number] [place] [address] [place] Hematocrit (Bld) [Volume fraction] 40.8 % Normal 39.0-51.0 [facility] Comment on above: Order Comment: Speci men Type: BLOOD SPECIMENOrdering Facility: [facility] Address: [address] [place] [address] Performed By: #### 5 7021-8 ####[facility] [id number] [place] [address] [place] Hemoglobin (Bld) [Mass/Vol] 13.8 g/dL Normal 13.0-17.0 [facility] Comment on above: Order Comment: Speci men Type: BLOOD SPECIMENOrdering Facility: [facility] Address: [address] [place] [address] Performed By: #### 5 7021-8 ####[facility] [id number] [place] [address] [place] Immature granulocytes (Bld) [#/Vol] 0.03 10*3/uL Normal <0.10 [facility] Comment on above: Order Comment: Speci men Type: BLOOD SPECIMENOrdering Facility: [facility] Address: [address] [place] [address] Performed By: #### 5 7021-8 ####[facility] [id number] [place] [address] [place] Immature granulocytes/100 WBC (Bld) 0.3 % Normal [facility] Comment on above: Order Comment: Speci men Type: BLOOD SPECIMENOrdering Facility: [facility] Address: [address] [place] [address] Performed By: #### 5 7021-8 ####[facility] [id number] [place] [address] [place] Lymphocytes (Bld) [#/Vol] 1.22 10*3/uL Normal 1.00-4.00 [facility] Comment on above: Order Comment: Speci men Type: BLOOD SPECIMENOrdering Facility: [facility] Address: [address] [place] [address] Performed By: #### 5 7021-8 ####[facility] [id number] [place] [address] [place] Lymphocytes/100 WBC (Bld) 11.1 % Normal [facility] Comment on above: Order Comment: Speci men Type: BLOOD SPECIMENOrdering Facility: [facility] Address: [address] [place] [address] Performed By: #### 5 7021-8 ####[facility] [id number] [address] MCH (RBC) [Entitic mass] 28.7 pg Normal 26.0-34.0 [facility] Comment on above: Order Comment: Speci men Type: BLOOD SPECIMENOrdering Facility: [facility] Address: [address] [place] [address] Performed By: #### 5 7021-8 ####[facility] [id number] [address] MCHC (RBC) [Mass/Vol] 33.8 g/dL Normal 30.5-36.0 [facility] Comment on above: Order Comment: Speci men Type: BLOOD SPECIMENOrdering Facility: [facility] Address: [address] [place] [address] Performed By: #### 5 7021-8 ####[facility] [id number] [address] [place] [facility] MCV (RBC) [Entitic vol] 84.8 fL Normal 80.0-100.0 [facility] Comment on above: Order Comment: Speci men Type: BLOOD SPECIMENOrdering Facility: [facility] Address: [address] [place] [address] Performed By: #### 5 7021-8 ####[facility] [id number] [address] OF [place] Monocytes (Bld) [#/Vol] 0.94 10*3/uL High <0.87 [facility] Comment on above: Order Comment: Speci men Type: BLOOD SPECIMENOrdering Facility: [facility] Address: [address] [place] [address] Performed By: #### 5 7021-8 ####[facility] [id number] [address] Monocytes/100 WBC (Bld) 8.5 % Normal [facility] Comment on above: Order Comment: Speci men Type: BLOOD SPECIMENOrdering Facility: [facility] Address: [address] [place] [address] Performed By: #### 5 7021-8 ####[facility] [id number] [place] [address] [place] Neutrophils (Bld) [#/Vol] 8.73 10*3/uL High 1.45-7.50 [facility] Comment on above: Order Comment: Speci men Type: BLOOD SPECIMENOrdering Facility: [facility] Address: [address] [place] [address] Performed By: #### 5 7021-8 ####[facility] [id number] [place] [address] [place] Neutrophils/100 WBC (Bld) 79.2 % Normal [facility] Comment on above: Order Comment: Speci men Type: BLOOD SPECIMENOrdering Facility: [facility] Address: [address] [place] [address] Performed By: #### 5 7021-8 ####[facility] [id number] [place] [address] [place] Nucleated RBC (Bld) [#/Vol] 10*3/uL Normal <0.01 [facility] Comment on above: Order Comment: Speci men Type: BLOOD SPECIMENOrdering Facility: [facility] Address: [address] [place] [address] Performed By: #### 5 7021-8 ####[facility] [id number] [place] [address] [place] Nucleated RBC/100 WBC (Bld) [Ratio] 0.0 /100 WBC Normal [facility] Comment on above: Order Comment: Speci men Type: BLOOD SPECIMENOrdering Facility: [facility] Address: [address] [place] [address] Performed By: #### 5 7021-8 ####[facility] [id number] [address] [place] Platelet mean volume (Bld) [Entitic vol] 10.6 fL Normal 9.0-12.7 [facility] Comment on above: Order Comment: Speci men Type: BLOOD SPECIMENOrdering Facility: [facility] Address: [address] [place] [address] Performed By: #### 5 7021-8 ####[facility] [id number] [place] [address] [place] [facility] Platelets (Bld) [#/Vol] 199 10*3/uL Normal 150-400 [facility] Comment on above: Order Comment: Speci men Type: BLOOD SPECIMENOrdering Facility: [facility] Address: [address] [place] [address] Performed By: #### 5 7021-8 ####[facility] [id number] [place] [address] [place] RBC (Bld) [#/Vol] 4.81 10*6/uL Normal 4.20-6.00 [facility] Comment on above: Order Comment: Speci men Type: BLOOD SPECIMENOrdering Facility: [facility] Address: [address] [place] [address] Performed By: #### 5 7021-8 ####[facility] [id number] [place] [address] [place] [facility] OF [place] WBC (Bld) [#/Vol] 11.02 10*3/uL High 3.70-11.00 [facility] Comment on above: Order Comment: Speci men Type: BLOOD SPECIMENOrdering Facility: [facility] Address: [address] [place] [address] Performed By: #### 5 7021-8 ####[facility] [id number] [place] [address] [facility] OF [place] CRP SerPl-mCncon 09-02-2023 CRP [Mass/Vol] 5.6 mg/dL High <0.9 [facility] Comment on above: Order Comment: Speci men Type: BLOOD SPECIMENOrdering Facility: [facility] Address: [address] [place] [address] Performed By: #### 1 988-5, 99432-0 ####[facility] [id number] [address] [facility] OF [place] Comprehensive metabolic 2000 panelon 09-02-2023 Albumin [Mass/Vol] 3.5 g/dL Low 3.9-4.9 [facility] Comment on above: Order Comment: Speci men Type: BLOOD SPECIMEN [facility] Address: [address] [place] [address] Performed By: #### 1 988-5, 30431-1 #### [facility] CLIA [id number] [address] [place] [address] [place] ALP [Catalytic activity/Vol] 162 U/L High 38-113 [facility] Comment on above: Order Comment: Speci men Type: BLOOD SPECIMEN [facility] Address: [address] [place] [address] Performed By: #### 1 988-5, 82221-0 #### [facility] CLIA [id number] [address] [place] [address] [place] ALT [Catalytic activity/Vol] 13 U/L Normal 10-54 [facility] Comment on above: Order Comment: Speci men Type: BLOOD SPECIMEN [facility] Address: [address] [place] [address] Performed By: #### 1 988-5, #### [facility] CLIA [id number] [address] [place] [address] Anion gap [Moles/Vol] 13 mmol/L Normal 9-18 [facility] Comment on above: Order Comment: Speci men Type: BLOOD SPECIMEN [facility] Address: [address] [place] [address] Performed By: #### 1 988-5, 58190-7 #### [facility] CLIA [id number] [address] [place] [address] [place] AST [Catalytic activity/Vol] 16 U/L Normal 14-40 [facility] Comment on above: Order Comment: Speci men Type: BLOOD SPECIMEN [facility] Address: [address] [place] [address] Performed By: #### 1 988-5, #### [facility] CLIA [id number] [address] [place] [address] [place] Bilirubin [Mass/Vol] 0.9 mg/dL Normal 0.2-1.3 [facility] Comment on above: Order Comment: Speci men Type: BLOOD SPECIMEN [facility] Address: [address] [place] [address] Performed By: #### 1 988-5, #### [facility] CLIA [id number] [address] [place] [address] [place] Calcium [Mass/Vol] 9.2 mg/dL Normal 8.5-10.2 [facility] Comment on above: Order Comment: Speci men Type: BLOOD SPECIMEN [facility] Address: [address] [place] [address] Performed By: #### 1 988-5, #### [facility] CLIA [id number] [address] [place] [address] [place] Chloride [Moles/Vol] 94 mmol/L Low 97-105 [facility] Comment on above: Order Comment: Speci men Type: BLOOD SPECIMEN [facility] Address: [address] [place] [address] Performed By: #### 1 988-5, #### [facility] CLIA [id number] [address] [place] [address] [place] CO2 [Moles/Vol] 23 mmol/L Normal 22-30 [facility] Comment on above: Order Comment: Speci men Type: BLOOD SPECIMEN [facility] Address: [address] [place] [address] Performed By: #### 1 988-5, #### [facility] CLIA [id number] [address] [place] [address] [place] Creatinine [Mass/Vol] 1.10 mg/dL Normal 0.73-1.22 [facility] Comment on above: Order Comment: Speci men Type: BLOOD SPECIMEN [facility] Address: [address] [place] [address] Performed By: #### 1 988-5, 04740-3 #### [facility] CLIA [id number] [address] [place], [place] [address] [place] Creatinine and Glomerular filtration rate.predicted panel (S/P/Bld) 76 mL/min/1.73m??? Normal >=60 [facility] Comment on above: Order Comment: Britney villegas Type: BLOOD SPECIMEN [facility] Address: [address] [place] [address] Result Comment: Jany mated Glomerular Filtration Rate (eGFR) is calculated using the 2020 CKD-EPI creatinine equation. This equation utilizes serum creatinine, sex, and age as parameters. The creatinine assay has traceable calibration to isotope dilution-mass spectrometry. Refer to KDIGO guidelines for clinical interpretation. In patients with unstable renal function, e.g. those with acute kidney injury, the eGFR may not accurately reflect actual GFR. Performed By: #### 1 988-5, 14872-1 #### [facility] CLIA [id number] [address] [place] [address] [place] Glucose [Mass/Vol] 273 mg/dL High 74-99 [facility] Comment on above: Order Comment: Britney nelly Type: BLOOD SPECIMEN [facility] Address: [address] [place] [address] Result Comment: The [place] Diabetes Association (ADA) provides guidance for cutoff values for fasting glucose and random glucose. The ADA defines fasting as no caloric intake for at least 8 hours. Fasting plasma glucose results between 100 to 125 mg/dL indicate increased risk for diabetes (prediabetes). Fasting plasma glucose results greater than or equal to 126 mg/dL meet the criteria for diagnosis of diabetes. In the absence of unequivocal hyperglycemia, results should be confirmed by repeat testing. In a patient with classic symptoms of hyperglycemia or hyperglycemic crisis, random plasma glucose results greater than or equal to 200 mg/dL meet the criteria for diagnosis of diabetes. Reference: Standards of Medical Care in Diabetes 2016, [place] [employer] Association. Diabetes Care. 2016.39(Suppl 1). Performed By: #### 1 988-5, #### [facility] CLIA [id number] [address] [place] [address] [place] Potassium [Moles/Vol] 4.3 mmol/L Normal 3.7-5.1 [facility] Comment on above: Order Comment: Speci men Type: BLOOD SPECIMEN [facility] Address: [address] [place] [address] Performed By: #### 1 988-5, #### [facility] CLIA [id number] [address] [place] [address] [place] Protein [Mass/Vol] 7.3 g/dL Normal 6.3-8.0 [facility] Comment on above: Order Comment: Speci men Type: BLOOD SPECIMEN [facility] Address: [address] [place] [address] Performed By: #### 1 988-5, #### [facility] CLIA [id number] [address] [place] [address] [place] Sodium [Moles/Vol] 130 mmol/L Low 136-144 [facility] Comment on above: Order Comment: Speci men Type: BLOOD SPECIMEN [facility] Address: [address] [place] [address] Performed By: #### 1 988-5, #### [facility] CLIA [id number] [address] [place] [address] [place] Urea nitrogen [Mass/Vol] 18 mg/dL Normal 9-24 [facility] Comment on above: Order Comment: Speci men Type: BLOOD SPECIMEN [facility] Address: [address] [place] [address] Performed By: #### 1 988-5, #### [facility] CLIA [id number] [address] [place] [address] [place] ECG COMPLETEon 09-02-2023 ECG COMPLETE Ventricular Rate : 1 13 BPM QRS Duration : 100 ms Q-T Interval : 288 ms QTC Calculation(Bazett) : 395 ms Calculated R [place] : 15 degrees Calculated T [place] : 100 degrees Atrial fibrillation with rapid ventricular response Incomplete right bundle branch block Nonspecific ST and T wave abnormality Abnormal ECG No previous ECGs available Confirmed by PHILIP STONE MD ([id number]) on 09/09/2023 9:34:50 AM NAME : Estrada PLUNKETT PID : [id number] : 1960 Gender : Male Race : ORD : [id number] Procedure Date : Sep 02 2023 18:55:05 Edit Date : Sep 09 2023 09:34:50 Diagnosis: Atrial fibrillation with rapid ventricular response Incomplete right bundle branch block Nonspecific ST and T wave abnormality Abnormal ECG No previous ECGs available Confirmed by PHILIP STONE MD ([id number]) on 09/09/2023 9:34:50 AM Test Reason : HCS Location : 3 : ED ED Overread By : PHILIP STONE MD Edited By : PHILIP STONE MD Referred By : , Acquired by : , [facility] ED NOTEon 09-02-2023 ED NOTE HNO ID: [id number] Author: PENNIE RICH, ANGIE Service: Emergency Medicine Author Type: Registered Nurse Type: ED Notes Filed: 09/02/2023 20:34 Note Text: Patient provided discharge instructions along with education information. Patient verbalized understanding. Patient is to F/U with contact provided, medications as directed. [facility] ED NOTE HNO ID: [id number] Author: KIKE BUTTS, ANGIE Service: ? Author Type: Registered Nurse Type: ED Notes Filed: 09/02/2023 20:28 Note Text: Wound culture obtained and sent to lab. Dressing placed to left foot. Pt up in room getting dressed. [facility] ED NOTE HNO ID: [id number] Author: GLENDA CHOWDHURY CT Service: ? Author Type: Clinical Basket Operator Type: ED Notes Filed: 09/02/2023 20:04 Note Text: Called Dr.A [place] to speak with . answered and I transferred the call to . Glenda Chowdhury, [facility] ED NOTE HNO ID: [id number] Author: STEVEN MORRIS, ANGIE Service: ? Author Type: Registered Nurse Type: ED Notes Filed: 09/02/2023 17:07 Note Text: Pt to ED this afternoon, states Left plantar surface below Left pinky diabetic foot ulcer, I haven't been to the doctor for my diabetes since 2021. States he should be taking metformin, I haven't had that for about 6 months, I am taking my levemir though. States his foot has been bothering him for about 2 weeks. Drainage on sock, malodorous. Pt also states I took my right sock off today and one of my toenails fell off. Pt states his BGL have been over 350 since the beginning of the year. States he knows he should be taking better care of himself but has no excuse. [facility] ED PROV NOTEon 09-02-2023 ED PROV NOTE HNO ID: [id number] Author: KAPIL JENSEN DO Service: ? Author Type: Physician Type: ED Provider Notes Filed: 09/02/2023 20:12 Note Text: ED Provider Note Patient Name: Estrada Plunkett : 1960 SERVICE DATE: 09/02/23 History Patient presents with: Wound Check: Left plantar surface Patient is a 63-year-old male presents emergency pungently of wound on his left foot. Patient states that the start about 3 weeks ago. He states that is not getting better. He states a little painful. He is a diabetic. He states he has a history of A-fib and takes metoprolol and Eliquis also. She has not had any fevers but has had some chills. He denies any vomiting. He is noncompliant with some of his diabetic medications but still takes his insulin. Patient states that he has no other associated symptoms at this time. commercial loan underwriter used: No No past medical history on file. No past surgical history on file. No family history on file. Social History Tobacco Use - Smoking status: Not on file - Smokeless tobacco: Not on file Substance and Sexual Activity - Alcohol use: Not on file - Drug use: Not on file - Sexual activity: Not on file ALLERGIES Allergen Reactions - Lisinopril Cough Review of Systems All other systems reviewed and are negative. Physical Exam Vitals [09/02/23 1707] BP Pulse Temp Temp src Resp SpO2 Weight Height 150/81 (!) 120 37.2 ?C (98.9 ?F) Oral 20 97 % 115 kg (253 lb 8.5 oz) 1.88 m (6' 2) Physical Exam Vitals and nursing note reviewed. Constitutional: General: He is not in acute distress. Appearance: Normal appearance. He is not ill-appearing, toxic-appearing or diaphoretic. HENT: Head: Normocephalic and atraumatic. Mouth/Throat: Mouth: Mucous membranes are moist. Pharynx: Oropharynx is clear. Eyes: General: No scleral icterus. Conjunctiva/sclera: Conjunctivae normal. Cardiovascular: Rate and Rhythm: Tachycardia present. Rhythm irregular. Pulses: Normal pulses. Heart sounds: No murmur heard. No friction rub. No gallop. Pulmonary: Effort: Pulmonary effort is normal. Breath sounds: Normal breath sounds. No stridor. No wheezing or rhonchi. Abdominal: General: Abdomen is flat. There is no distension. Palpations: Abdomen is soft. Tenderness: There is no abdominal tenderness. There is no guarding or rebound. Musculoskeletal: General: No swelling. Cervical back: No rigidity. Right lower leg: No edema. Left lower leg: No edema. Comments: Patient has what appears to be poor care of his feet. He does have a left foot callused area with a centralized necrotic ulcer. Necrotic areas probably 1.5 cm in diameter. I was unable to express any purulent drainage. Patient is neurovascular intact. Patient appears to have poor care of his toenails also. Some slight swelling to the foot no significant erythema or increased warmth. No tunneling of the ulcer. This is on the left little lateral bottom of the foot just proximal to the fifth metatarsal phalangeal joint. Skin: General: Skin is warm and dry. Capillary Refill: Capillary refill takes less than 2 seconds. Findings: No rash. Neurological: General: No focal deficit present. Mental Status: He is alert. Mental status is at baseline. Psychiatric: Mood and Affect: Mood normal. Behavior: Behavior normal. Diagnostic Testing ED Labs Ordered and Reviewed COMP METABOLIC PANEL - Abnormal; Notable for the following components: Result Value Ref Range Albumin 3.5 (*) 3.9 - 4.9 g/dL Alkaline Phosphatase 162 (*) 38 - 113 U/L Glucose 273 (*) 74 - 99 mg/dL Sodium 130 (*) 136 - 144 mmol/L Chloride 94 (*) 97 - 105 mmol/L All other components within normal limits CBC + DIFF - Abnormal; Notable for the following components: WBC 11.02 (*) 3.70 - 11.00 k/uL Abs Neut 8.73 (*) 1.45 - 7.50 k/uL Abs [place] 0.94 (*) <0.87 k/uL All other components within normal limits SED RATE WESTERGREN - Abnormal; Notable for the following components: Sed Rate, Westergren 71 (*) 0 - 15 mm/hr All other components within normal limits C-REACTIVE PROTEIN (CRP) - Abnormal; Notable for the following components: CRP 5.6 (*) <0.9 mg/dL All other components within normal limits SEPSIS LACTATE - Normal BLOOD CULTURE BLOOD CULTURE Procedures ED Course / Clinical Impression Clinical Impressions as of 09/02/232000 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 His initial heart rate was 120. I did get an EKG which is showing A-fib with RVR. In the room his heart rate was anywhere between 101 and 120. It was mostly in the low 100s. Patient does have a history of A-fib and he states he is compliant with metoprolol as well as Eliquis. Here I did give him 1 dose of IV (more content not included)... Normal [facility] ESR Westergren method (Bld) [Velocity]on 09-02-2023 ESR (Bld) [Velocity] 71 mm/h High 0-15 [facility] Comment on above: Order Comment: Britney villegas Type: BLOOD SPECIMENOrdering Facility: [facility] Address: [address] [place] [address] Performed By: #### [id number] ####[facility] [id number] [place] [address] [facility] SEPSIS LACTATEon 09-02-2023 Lactate [Moles/Vol] 1.6 mmol/L Normal 0.5-2.0 [facility] Comment on above: Order Comment: Britney villegas Type: BLOOD SPECIMEN [facility]ing Facility[facility] Address: [address] [place] [address] Performed By: #### S LACT #### [facility] CLIA [id number] [address] [place], [place] [address] [place] XR FOOT 3V AP/LAT/OBL LTon 0 09-02-2023 XR FOOT 3V AP/LAT/OBL LT * * *Final Report* * * DATE OF EXAM: Sep 02 2023 6:58PM UDX [id number] - XR FOOT 3V AP/LAT/OBL LT / PROCEDURE REASON: Foot swelling, diabetic, osteomyelitis suspected * * * * Physician Interpretation * * * * EXAMINATION: THREE XRAY VIEWS OF THE LEFT FOOT09/02/2023 4:58 pm FOOT 3 VIEWS LEFT COMPARISON: None available. HISTORY: ORDERING SYSTEM PROVIDED HISTORY: TECHNOLOGIST PROVIDED HISTORY: STATED HISTORY: pt states ulcer on plantar surface of left foot, near base of 5th phalanx. Reason for Exam: Foot swelling, diabetic, osteomyelitis suspected FINDINGS: Mineralization and bony alignment are normal. There is no fracture or dislocation. No periosteal reaction. Mild degenerative changes of the 1st MTP and 1st digit interphalangeal joint. There is no joint effusion. Soft tissue defect near the 5th digit metatarsophalangeal joint. IMPRESSION: Lateral soft tissue defect without gross osseous erosion Electronically signed By Jeanette Hough MD 09/02/2023 7:05:31 PM EST Workstation ID : [id number] [employer] Supervisor: UDRAC Transcribe Date/Time: Sep 02 2023 7:05P Dictated by : JEANETTE HOUGH MD This examination was interpreted and the report reviewed and electronically signed by: JEANETTE HOUGH MD on Sep 02 2023 7:05PM EST [id number] Normal [facility] Basic metabolic 2000 panelon 09-05-2022 Anion gap [Moles/Vol] 15.3 mmol/L 15 - 2 2 mmol/L [facility] Calcium [Mass/Vol] 10.4 mg/dL High 8.8 - 10. 2 mg/dL [facility] Chloride [Moles/Vol] 98 mmol/L 98 - 10 7 mmol/L [facility] CO2 [Moles/Vol] 24 mmol/L 22 - 29 mmol/L [facility] Creatinine [Mass/Vol] 0.90 mg/dL 0.70 - 1.20 mg/dL [facility] eGFR-All Other Races > 60 ml/Min/1.73m2 [facility] GFR/1.73 sq M.predicted among blacks MDRD (S/P/Bld) [Vol rate/Area] mL/min/{1.73_m2} [facility] Glucose [Mass/Vol] 230 mg/dL High 82 - 115 mg/dL [facility] Potassium [Moles/Vol] 4.3 mmol/L 3.5 - 5.0 mmol/L [facility] Sodium [Moles/Vol] 133 mmol/L Low 135 - 145 mmol/L [facility] Urea nitrogen [Mass/Vol] 30 mg/dL High 8 - 23 mg/dL [facility] CBC W Auto Differential pane l (Bld)on 09-05-2022 BASO ABS 0.00 x10(3) 0.00 - 0.10 x10(3) [facility] Basophils/100 WBC (Bld) 0.5 % 0.0 - 1.0 % [facility] EOS ABS 0.10 x10(3) 0.00 - 0.54 x10(3) [facility] Eosinophils/100 WBC (Bld) 2.0 % 0.5 - 4.9 % [facility] Erythrocyte distribution width (RBC) [Ratio] 13.8 % 12.7 - 15.3 % [facility] Hematocrit (Bld) [Volume fraction] 45.5 % 42.0 - 51.0 % [facility] Hemoglobin (Bld) [Mass/Vol] 15.1 g/dL 14.0 - 17.2 g/dL [facility] LYMPH ABS 1.00 x10(3) 1.00 - 3.50 x10(3) [facility] Lymphocytes/100 WBC (Bld) 13.9 % Low 16.0 - 48.0 % [facility] MCH (RBC) [Entitic mass] 29.2 pg 28.8 - 32.2 pg [facility] MCHC (RBC) [Mass/Vol] 33.2 g/dL 33.0 - 36.0 g/dL [facility] MCV (RBC) [Entitic vol] 88.0 fL 80.0 - 94.0 fl [facility] MONO ABS 0.50 x10(3) 0.30 - 0.80 x10(3) [facility] Monocytes/100 WBC (Bld) 7.1 % 4.3 - 11.2 % [facility] Neutrophil Ab 5.30 x10(3) 1.40 - 6.50 x10(3) [facility] Neutrophils/100 WBC (Bld) 76.5 % High 45.0 - 73.0 % [facility] Platelet Count 139 X10(3) Low 150 - 450 X10(3) [facility] Platelet mean volume (Bld) [Entitic vol] 8.9 fL 7.4 - 9.2 fl [facility] RBC 5.17 x10(6) 4.80 - 5.50 x10(6) [facility] WBC 6.9 x10(3) 4.5 - 10.0 x10(3) [facility] CT ABD/PEL WO IVCONon 2022 [facility] Urinalysis complete panel (U )on 09-05-2022 Appearance (U) CLEAR CLEAR [facility] Bacteria, Urine 1+ NEGATIVE [facility] Bilirubin, Urine Negative NEGATIVE [facility] Blood, Urine MODERATE NEGATIVE [facility] Color (U) YELLOW YELLOW [facility] Glucose Ql (U) 250 MG/DL NEGATIVE MG/DL [facility] Hyaline casts LM Ql (Urine sed) 0-1 NEGATIVE [facility] Ketones Ql (U) Negative NEGATIVE MG/DL [facility] Leukocytes Negative NEGATIVE [facility] Nitrites Urine Negative NEGATIVE [facility] pH (U) 6.0 [pH] 5.0 - 8.0 [facility] Protein.monoclonal (U) [Mass/Vol] >=300 NEGATIVE MG/DL [facility] RBC, Urine 10-20 0 - 2 [facility] Specific [place], Ur 1.025 1.001 - 1.035 [facility] Urobilinogen, Urine 1.0 EU/DL 0.2 - 1. 0 EU/DL [facility] WBC, Urine 1-3 0 - 5 [facility] Yeast Urine RARE NEGATIVE [facility] BMP (POC)on 10-23-2021 Perf Loc - POCT Tested at AM Normal [facility] ([place]) Comment on above: Result Comment: [facility] [address], [place] [address] BUN/Creatinine Ratio (POC) 15.5 ratio Normal 10.0-22.0 [facility] ([place]) Calcium Level Ionized (POC) 1.18 mmol/L Normal 1.12-1.32 [facility] ([place]) Chloride [Moles/Vol] 102 mmol/L Normal 98-110 [facility] ([place]) CO2 [Moles/Vol] 25 mmol/L Normal 22-32 [facility] ([place]) Creatinine [Mass/Vol] 1.00 mg/dL Normal 0.60-1.40 [facility] ([place]) Electrolyte Balance (POC) 10.0 mEq/L Normal 4.0-15.0 [facility] ([place] Est GFR (POC) >60 Normal [facility] ([place] Comment on above: Result Comment: Chronic Kidney Disease: Less than 60 mL/min/1.73 square meters End Stage Renal Disease: Less than 15 mL/min/1.73 square meters Est GFR Non- (POC) >60 Normal [facility] ([place] Comment on above: Result Comment: Chronic Kidney Disease: Less than 60 mL/min/1.73 square meters End Stage Renal Disease: Less than 15 mL/min/1.73 square meters Glucose [Mass/Vol] 381 mg/dL High 70-110 [facility] ([place]) Performing Instrument - POCT EPOC 2 Normal [facility] ([place] Potassium [Moles/Vol] 4.9 mmol/L Normal 3.5-5.0 [facility] ([place] Sodium [Moles/Vol] 136 mmol/L Normal 136-145 [facility] ([place]) Urea nitrogen [Mass/Vol] 16.0 mg/dL Normal 8.0-22.0 [facility], [facility]–1983) Perf Loc - POCT Tested at AM Normal [facility] ([place] Comment on above: Result Comment: [facility] [address], [place] [address] BUN/Creatinine Ratio (POC) 14.6 ratio Normal 10.0-22.0 [facility] ([place] Calcium Level Ionized (POC) 1.22 mmol/L Normal 1.12-1.32 [facility] ([place] Chloride [Moles/Vol] 101 mmol/L Normal 98-110 [facility] ([place] CO2 [Moles/Vol] 26 mmol/L Normal 22-32 [facility] ([place] Creatinine [Mass/Vol] 1.14 mg/dL Normal 0.60-1.40 [facility] ([place] Electrolyte Balance (POC) 8.0 mEq/L Normal 4.0-15.0 [facility] ([place] Est GFR (POC) >60 Normal [facility] ([place] Comment on above: Result Comment: Chronic Kidney Disease: Less than 60 mL/min/1.73 square meters End Stage Renal Disease: Less than 15 mL/min/1.73 square meters Est GFR Non- (POC) >60 Normal [facility] ([place] Comment on above: Result Comment: Chronic Kidney Disease: Less than 60 mL/min/1.73 square meters End Stage Renal Disease: Less than 15 mL/min/1.73 square meters Glucose [Mass/Vol] 461 mg/dL Critically abnormal 70-110 [facility]) Performing Instrument - POCT EPOC1 Normal [facility]) Potassium [Moles/Vol] 5.2 mmol/L High 3.5-5.0 [facility] ([place] Sodium [Moles/Vol] 134 mmol/L Low 136-145 [facility] ([place] Urea nitrogen [Mass/Vol] 17.0 mg/dL Normal 8.0-22.0 [facility]) CBC (POC)on 10-23-2021 Perf Loc - POCT Tested at AM Normal [facility]) Comment on above: Result Comment: [facility] [address], [place] [address] Basophil, Absolute (POC) 0.02 10 3/mcL Normal 0.00-0.27 [facility] ([place] Basophils/100 WBC (Bld) 0.4 % Normal 0.0-2.5 [facility] ([place] Eosinophil, Absolute (POC) 0.13 10 3/mcL Normal 0.00-0.65 [facility] ([place] Eosinophils/100 WBC (Bld) 2.7 % Normal 0.0-6.0 [facility] ([place] Erythrocyte distribution width (RBC) [Ratio] 11.7 % Normal 11.5-15.5 [facility]) Hematocrit (Bld) [Volume fraction] 43.0 % Normal 40.0-52.0 [facility]) Hemoglobin (POC) 14.4 G/dL Normal 13.0-17.5 [facility]) Imm Granulocyte, Absolute (POC) 0.01 10 3/mcL Normal [facility]) Immature granulocytes/100 WBC (Bld) 0.2 % Normal [facility]) Lymphocyte, Absolute (POC) 0.84 10 3/mcL Low 0.90-4.32 [facility]) Lymphocytes/100 WBC (Bld) 17.5 % Low 20.0-40.0 [facility]) MCH (RBC) [Entitic mass] 29.8 pg Normal 27.0-33.0 [facility]) MCHC (POC) 33.5 G/dL Normal 32.0-36.0 [facility]) MCV (RBC) [Entitic vol] 88.8 fL Normal 81.0-100.0 [facility]) Monocyte, Absolute (POC) 0.37 10 3/mcL Normal 0.09-1.40 [facility]) Monocytes/100 WBC (Bld) 7.7 % Normal 2.0-13.0 [facility]) Neutrophil, Absolute (POC) 3.44 10 3/mcL Normal 2.25-8.10 [facility]) Neutrophils/100 WBC (Bld) 71.5 % Normal 50.0-75.0 [facility]) Performing Instrument - POCT SYSMEX Normal [facility]) Platelet (POC) 159 10 3/mcL Normal 150-450 [facility]) Platelet mean volume (Bld) [Entitic vol] 10.7 fL High 6.4-10.5 [facility]) RBC (POC) 4.84 10 6/mcL Normal 4.50-6.00 [facility]) WBC (POC) 4.81 10 3/mcL Normal 4.50-10.80 [facility] ([place]) XR FOOT MINIMUM 3 VIEWS RIGH Ton 10-23-2021 XR FOOT MINIMUM 3 VIEWS RIGHT ORIGINAL EXAMINATION: THREE XRAY VIEWS OF THE RIGHT FOOT 10/23/2021 12:05 pm COMPARISON: None. HISTORY: ORDERING SYSTEM PROVIDED HISTORY: Reason for Exam: pain Provided additional history of wound of the big toe for 1 year. FINDINGS: A soft tissue defect is seen in the plantar soft tissues of the 1st toe in the region of the 1st interphalangeal joint. No evidence of fracture, or dislocation. Small os peroneum is present. Plantar and Achilles calcaneal enthesophytes present. Vascular calcifications noted. Mild degenerative change of the mid fluid in mild degenerative change of the 1st metatarsophalangeal joint. Degenerative change of the interphalangeal joints is present, mild. No definite erosive change of the 1st toe proximal or distal phalanx. There is some osseous remodeling in the region of the proximal aspect of the distal 1st phalanx. IMPRESSION: Soft tissue defect at the 1st toe without definite underlying destructive osseous change. Some osseous remodeling of the proximal aspect distal 1st phalanx may represent a component of chronic osteomyelitis however this could also represent degenerative change. Consider further evaluation with MRI there is persistent clinical concern for osteomyelitis. Interpreted by: David Sanders Preliminary Report By: David Sanders Electronically signed By David Sanders Dictated Date: 10/23/2021 12:08:58 PM Prelim Date: 10/23/2021 12:12:12 PM Sign Date: 10/23/2021 12:12:12 PM Ordering Provider: ASH Lopez [facility] ([place]) Vital Signs Date Time Vital Sign Value Performing Clinician Bety junior 01-02-2025 11:15-0400 Blood Pressure Cuff Size LYNN ALVAREZ MD [facility] 01-02-2025 11:15-0400 Blood Pressure Location LYNN ALVAREZ MD [facility] 01-02-2025 11:15-0400 Blood Pressure Method LYNN ALVAREZ MD [facility] 01-02-2025 11:15-0400 Body temperature 97.7 [degF] LYNN ALVAREZ MD [address] [place] [id number] 01-02-2025 11:15-0400 Diastolic Blood Pressure Non-Invasive 67 mm[Hg] LYNN ALVAREZ MD [address] [place] [address] 01-02-2025 11:15-0400 Heart rate 74 /min LYNN ALVAREZ MD [address] [place] [id number] 01-02-2025 11:15-0400 Reason For Taking VItal Signs LYNN ALVAREZ MD [address] [place] [id number] 01-02-2025 11:15-0400 Respiratory rate 18 /min LYNN ALVAREZ MD [address] [place] [id number] 01-02-2025 11:15-0400 Systolic Blood Pressure Non-Invasive 112 mm[Hg] LYNN ALVAREZ MD [address] [place] [id number] 01-02-2025 08:43-0400 Heart rate 72 /min LYNN ALVAREZ MD [address] [place] [id number] 01-02-2025 07:00-0400 Diastolic Blood Pressure Non-Invasive 62 mm[Hg] LYNN ALVAREZ MD [address] [place] [id number] 01-02-2025 07:00-0400 Respiratory rate 17 /min LYNN ALVAREZ MD [address] [place] [id number] 01-02-2025 07:00-0400 Systolic Blood Pressure Non-Invasive 120 mm[Hg] LYNN ALVAREZ MD [address] [place] [id number] 01-02-2025 05:15-0400 Blood Pressure Cuff Size LYNN ALVAREZ MD [address] [place] [address] 01-02-2025 05:15-0400 Blood Pressure Location LYNN ALVAREZ MD [address] [place] [address] 01-02-2025 05:15-0400 Blood Pressure Method LYNN ALVAREZ MD [address] [place] [address] 01-02-2025 05:15-0400 Body temperature 97.88 [degF] LYNN ALVAREZ MD [address] [place] [address] 01-02-2025 05:15-0400 Diastolic Blood Pressure Non-Invasive 80 mm[Hg] LYNN ALVAREZ MD [address] [place] [id number] 01-02-2025 05:15-0400 Heart rate 78 /min LYNN ALVAREZ MD [address] 01-02-2025 05:15-0400 Reason For Taking VItal Signs LYNN ALVAREZ MD [address] [place] [id number] 01-02-2025 05:15-0400 Respiratory rate 18 /min LYNN ALVAREZ MD [address] [place] [id number] 01-02-2025 05:15-0400 Systolic Blood Pressure Non-Invasive 125 mm[Hg] LYNN ALVAREZ MD [address] [place] [address] 01-01-2025 23:42-0400 Heart rate 69 /min LYNN ALVAREZ MD [address] [place] [id number] 01-01-2025 09:21-0400 Heart rate 64 /min LYNN ALVAREZ MD [address] [place] [id number] 12-31-2024 08:25-0400 Heart rate 85 /min LYNN ALVAREZ MD [address] [place] [id number] 12-31-2024 08:17-0400 Heart rate 79 /min LYNN ALVAREZ MD [address] [place] [id number] 12-30-2024 20:25-0400 Heart rate 64 /min LYNN ALVAREZ MD [address] [place] [address] 12-29-2024 20:35-0400 Body temperature 97.7 [degF] LYNN ALVAREZ MD [facility] 12-28-2024 22:06-0400 Body height 182.9 cm LYNN ALVAREZ MD [facility] 12-28-2024 22:06-0400 Body weight 111.4 kg LYNN ALVAREZ MD [facility] 12-28-2024 22:06-0400 Body weight 33.3 kg/m2 LYNN ALVAREZ MD [facility] 12-28-2024 20:49-0400 Diastolic Blood Pressure Non-Invasive 93 mm[Hg] MARNI MELCHOR DO [facility] 12-28-2024 20:49-0400 Heart rate 86 /min MARNI MELCHOR DO [facility] 12-28-2024 20:49-0400 Respiratory rate 19 /min MARNI MELCHOR DO [facility] 12-28-2024 20:49-0400 Systolic Blood Pressure Non-Invasive 138 mm[Hg] MARNI MELCHOR DO [facility] 12-28-2024 19:24-0400 Diastolic Blood Pressure Non-Invasive 83 mm[Hg] MARNI MELCHOR DO [facility] 12-28-2024 19:24-0400 Heart rate 94 /min MARNI MELCHOR DO [facility] 12-28-2024 19:24-0400 Respiratory rate 19 /min MARNI MELCHOR DO [facility] 12-28-2024 19:24-0400 Systolic Blood Pressure Non-Invasive 135 mm[Hg] MARNI MELCHOR DO [facility] 12-28-2024 18:15-0400 Diastolic Blood Pressure Non-Invasive 80 mm[Hg] MARNI MELCHOR DO [facility] 12-28-2024 18:15-0400 Heart rate 87 /min MARNI MELCHOR DO [facility] 12-28-2024 18:15-0400 Respiratory rate 16 /min MARNI MELCHOR DO [facility] 12-28-2024 18:15-0400 Systolic Blood Pressure Non-Invasive 159 mm[Hg] MARNI MELCHOR DO [facility] 12-28-2024 15:00-0400 Heart rate 88 /min MARNI MELCHOR DO [facility] 12-28-2024 14:16-0400 Heart rate 78 /min MARNI MELCHOR DO [facility] 12-28-2024 13:07-0400 Heart rate 89 /min MRANI MELCHOR DO [facility] 12-28-2024 12:12-0400 Blood Pressure Location MARNI MELCHOR DO [facility] 12-28-2024 12:12-0400 Body temperature 98.42 [degF] MARNI MELCHOR DO [facility] 12-28-2024 12:12-0400 Body weight 116.5 kg MARNI MELCHOR DO [facility] Encounters Encounter Date Encounter Type Care Provider Facility Start: 04-06-2025 ambulatory MILI MAST Facility:[facility] Start: 03-21-2025 End: 03-21-2025 ambulatory MILI MAST AUTOMATIC FOLDER SEAMER-SAS PROGRAMMER ANALYST [facility] Start: 03-21-2025 End: 03-21-2025 Patient encounter procedure GLENDA KUMAR AUTOMATIC FOLDER SEAMER-SAS PROGRAMMER ANALYST [facility] Start: 03-17-2025 End: 03-17-2025 ambulatory MILI MAST AUTOMATIC FOLDER SEAMER-SAS PROGRAMMER ANALYST Facility:[facility] Start: 03-17-2025 End: 03-17-2025 Patient encounter procedure CALEB PLASENCIA AUTOMATIC FOLDER SEAMER-SAS PROGRAMMER ANALYST [facility] Start: 03-16-2025 End: 03-16-2025 ambulatory MILI MAST AUTOMATIC FOLDER SEAMER-SAS PROGRAMMER ANALYST Facility:[facility] Start: 03-16-2025 End: 03-16-2025 Patient encounter procedure CALEB PLASENCIA AUTOMATIC FOLDER SEAMER-SAS PROGRAMMER ANALYST [facility] Start: 12-30-2024 ambulatory MILI MAST AUTOMATIC FOLDER SEAMER-SAS PROGRAMMER ANALYST Fa cility:[facility] Start: 12-28-2024 End: 01-02-2025 Evaluation and management of inpatient LYNN ALVAREZ MD [facility] Start: 12-28-2024 End: 12-28-2024 Emergency department patient visit MARNICATHY WALTONDANAE JUARES [facility] Start: 12-27-2024 End: 12-27-2024 ambulatory MILI MAST AUTOMATIC FOLDER SEAMER-SAS PROGRAMMER ANALYST Facility:[facility] Start: 12-27-2024 End: 12-27-2024 Patient encounter procedure MILI MAST AUTOMATIC FOLDER SEAMER-SAS PROGRAMMER ANALYST [facility] Start: 12-20-2024 End: 12-24-2024 ambulatory MILI MAST AUTOMATIC FOLDER SEAMER-SAS PROGRAMMER ANALYST Facility:[facility] Start: 12-20-2024 End: 12-24-2024 Outreach Lab MILI MAST AUTOMATIC FOLDER SEAMER-SAS PROGRAMMER ANALYST [facility] Start: 07-14-2024 Emergency department patient visit ANNIE FERNANDEZ Facility:[id number] Start: 04-08-2024 End: 04-08-2024 ambulatory ANNIE FERNANDEZ Facility:[id number] Start: 01-08-2024 End: 01-08-2024 ambulatory ANNIE FERNANDEZ Facility:[id number] Start: 09-11-2023 ambulatory Kg Barraza ity:[facility] Start: 09-05-2022 End: 09-05-2022 Subsequent hospital visit by physician Provider [facility] Comment on above: FLANK SIDE Procedures Date Procedure Procedure Detail Performing Clinician Start: 03-22-2025 PSA screening MILI VENTURA AUTOMATIC FOLDER SEAMER-SAS PROGRAMMER ANALYST Comment on above: Result Comment: Iron sanchez ECLIA methodology. According to the [place] [employer], Serum PSA should decrease and remain at undetectable levels after radical prostatectomy. The AUA defines biochemical recurrence as an initial PSA value 0.2 ng/mL or greater followed by a subsequent confirmatory PSA value 0.2 ng/mL or greater. Values obtained with different assay methods or kits cannot be used interchangeably. Results cannot be interpreted as absolute evidence of the presence or absence of malignant disease. Performed By: #### M DW, ANEU, CMP, GFR, CBC, ADIFF, LAC #### [place] [id number] Start: 09-05-2022 BASIC METABOLIC PNL Mohsen in [place] Work Phone: Start: 09-05-2022 CBC + DIFF Yazan [place] Work Phone: Start: 09-05-2022 URINALYSIS WITH MICROSCOPIC, REFLEX CULTURE Yazan [place] Work Phone: Start: 09-05-2022 URINALYSIS, WITH MICROSCOPIC Yazan [place] Work Phone: Start: 09-05-2022 Ct abdomen & pelvis w/o contrast material Yazan [place] Work Phone: Start: 08-18-2022 Left leg prosthesis, device (physical object) MILI CERVANTES AUTOMATIC FOLDER SEAMER-SAS PROGRAMMER ANALYST History of percutane ous transluminal coronary angioplasty LYNN ALVAREZ MD History of placement of stent for coronary artery disease S/P coronary artery stent placement 1 MILI CERVANTES AUTOMATIC FOLDER SEAMER-SAS PROGRAMMER ANALYST Comment on above: 2013 Payers Date Payer Category Payer Self-pay 2024 Medicare [id number] 2024 Medicaid [id number] 2024 Private Health Insurance [id number] [id number] 2024 Private Health Insurance [id number] 2023 Medicaid [id number] 2023 Medicare [id number] 2022 Medicare [id number] 1962 Unknown [id number] 2.16.8 [id number] 1962 Unknown [id number] 2.16. [id number] 1962 Unknown [id number] 2.16. [id number] 1962 Unknown [id number] 2.16. [id number] 1962 Unknown [id number] 2.16. [id number] 1962 Unknown [id number] 2.16.8 [id number] 1962 Unknown [id number] 2.16.8 [id number] 1962 Unknown [id number] 2.16.8 [id number] 1962 Unknown [id number] 2.16.8 [id number] Unknown [id number] 2.16.8 [id number] Social History Date Type Detail Facility Tobacco smoking stat [facility] Tobacco smoking consumption unknown [facility] Start: 1960 Sex Assigned At Not on file C [facility] Start: 10-23-2021 End: 03-09-2025 Tobacco smoking status Ex-smoker (finding) [facility] Sexual Orientation [facility] Start: 10-14-2009 Sex Male (finding) [facility] Functional Status Date Assessment Result Facility 01-02-2025 Functional Status Positioning Repositions self [facility] 01-02-2025 Functional Status Done [facility] 01-02-2025 Functional Status Room check performed [facility] 01-02-2025 Functional Status [facility] 01-02-2025 Functional Status [facility] 01-01-2025 Functional Status Mobility Maria Eugenia tance Level One assist [facility] 01-01-2025 Functional Status [facility] 01-01-2025 Functional Status [facility] 12-31-2024 Functional Status [facility] 12-31-2024 Functional Status [facility] 12-30-2024 Functional Status 100 [facility] 12-30-2024 Functional Status bilateral knee high removed/off [facility] 12-30-2024 Functional Status 100 [facility] 12-30-2024 Functional Status [facility] 12-30-2024 Functional Status [facility] 12-29-2024 Functional Status [facility] 12-29-2024 Functional Status Single level home [facility] 12-29-2024 Functional Status Up with assist ance, Encouraged/reinforced importance of ambulation [facility] 12-29-2024 Functional Status [facility] 12-28-2024 Functional Status Sensory Deficits None A [facility] [place] 12-28-2024 Functional Status Foam dressing [facility] Mental Status Date Assessment Result Facility 01-01-2025 Mental Status Oriented x 4 [facility] 12-31-2024 Mental Status [facility] 12-28-2024 Mental Status Orientation Oriented x 4 [facility] Clinical Notes 09-02-2023 to 01-02-2025 Note Date & Type Note Facility 01-02-2025 Hospital Discharge instructions Patient Education 01/02/2025 15:02:03 Edema, Utxz-um-Ceub Edema Edema is when you have too much fluid in your body or under your skin. Edema may make your legs, feet, and ankles swell up. Swelling is also common in looser tissues, like around your eyes. This is a common condition. It gets more common as you get older. There are many possible causes of edema. Eating too much salt (sodium) and being on your feet or sitting for a long time can cause edema in your legs, feet, and ankles. Hot weather may make edema worse. Edema is usually painless. Your skin may look swollen or shiny. Follow these instructions at home: Keep the swollen body part raised (elevated) above the level of your heart when you are sitting or lying down. Do not sit still or stand for a long time. Do not wear tight clothes. Do not wear garters on your upper legs. Exercise your legs. This can help the swelling go down. Wear elastic bandages or support stockings as told by your doctor. Eat a low-salt (low-sodium) diet to reduce fluid as told by your doctor. Depending on the cause of your swelling, you may need to limit how much fluid you drink (fluid restriction). Take omip-vck-lpvwvir and prescription medicines only as told by your doctor. Contact a doctor if: Treatment is not working. You have heart, liver, or kidney disease and have symptoms of edema. You have sudden and unexplained weight gain. Get help right away if: You have shortness of breath or chest pain. You cannot breathe when you lie down. You have pain, redness, or warmth in the swollen areas. You have heart, liver, or kidney disease and get edema all of a sudden. You have a fever and your symptoms get worse all of a sudden. Summary Edema is when you have too much fluid in your body or under your skin. Edema may make your legs, feet, and ankles swell up. Swelling is also common in looser tissues, like around your eyes. Raise (elevate) the swollen body part above the level of your heart when you are sitting or lying down. Follow your doctor's instructions about diet and how much fluid you can drink (fluid restriction). This information is not intended to replace advice given to you by your health care provider. Make sure you discuss any questions you have with your health care provider. Document Released: 01/20/2009 Document Revised: 08/07/2018 Document Reviewed: 08/22/2017 [employer] Patient Education 2020 [employer] Follow Up Care 12/28/2024 15:16:30 With:IMELDA BEAVER, [facility], Urology Service Address: [address] [facility] [address] [place] [address] [phone] When:Within 2 Week(s) With:TAVON ARAMBULA MD Address: [address] [place] [address] [address] [place] [address]- [phone] When:Within 2 Week(s) With:MILI CERVANTES Address: [address] [place] [address] Physicians [place], [place] [address]- [phone] When:1-2 days Comments:Please call the office to schedule a hospital follow up appointment. [facility] 01-02-2025 Note Discharge Instructions Thank you for allowing [facility] to assist you with your healthcare needs. The following is important discharge information regarding your hospital visit. Your Care Team MILI CERVANTES Your Diagnosis Scrotal edema What to do next Scheduled Follow-Up Appointments Appointment Type When Where Contact Information StatusEcho - Echocardiogram Adult 01/17/2025 11:00 AM EDT [facility] [phone] Confirmed Follow Up Appointments Follow Up with IMELDA BEAVER, [facility], Urology Service When:In 2 weeks Where:[address] [facility] [address] [place] [address]- [phone] Follow Up with TAVON ARAMBULA MD When:In 2 weeks Where:[address] [place] [address] [address] [place] [address]- [phone] Follow Up with MILI CERVANTES When:Within 1-2 days Where:[address] [place] [address]- [phone] Additional Information: Please call the office to schedule a hospital follow up appointment. The Following Activity and Diet Have Been Ordered for You Discharge Activity - Ordered -- NO activity restrictions, 01/02/25 12:27:00 EDT Discharge Diet - Ordered -- No changes were made to your diet during your hospital stay. Please resume your pre hospitalization diet on discharge., 01/02/25 12:27:00 EDT The Following Equipment Has Been Ordered for You No qualifying data available. The Following Treatments Have Been Ordered for You Discharge Labs No qualifying data available. Discharge Radiology No qualifying data available. Other Therapies No qualifying data available. Post Acute Orders No qualifying data available. Someone Will Contact You Regarding These Home Health Referrals No home referrals have been ordered for you. No one will call you. Allergies lisinopril Coughing Medications Please ask your primary doctor or pharmacist before taking any other medication not listed, including over the counter drugs, herbal medications, vitamins and or supplements as they may interact with your home medications. What How Much When Instructions Last Dose New apixaban (Eliquis 5 mg oral tablet) 1 tab(s) by mouth Two (2) times a day Pickup at [facility] #47863 New bumetanide (bumetanide 1 mg oral tablet) 1 tab(s) by mouth Two (2) times a day Pickup at [facility] #76107 New cefdinir (cefdinir 300 mg oral capsule) 1 cap by mouth Every 12 hours Duration: 5 Days Pickup at [facility] #[id number] New doxycycline (doxycycline hyclate 100 mg oral capsule) 1 cap by mouth Two (2) times a day Duration: 5 Days Pickup at [facility] #[id number] New rosuvastatin (rosuvastatin 10 mg oral tablet) 1 tab(s) by mouth Daily at bedtime Pickup at [facility] #52209 Changed metoprolol (metoprolol succinate 25 mg oral TABLET extended release) 1 tab(s) by mouth Once a day with a meal Unchanged DME (Insulin Syringes (orange cap)) See instructions qs for 1 month supply Unchanged insulin glargine (Lantus 100 units/ mL10 ml vial solution) 20 unit(s) Subcutaneous Daily at bedtime Unchanged metFORMIN (MetFORMIN (Eqv-Glucophage XR) 500 mg oral tablet, EXTENDED RELEASE) 1 tab(s) by mouth Two (2) times a day Duration: 30 Days Pharmacy Information [facility][id number]: [address] [place], [place] [id number] [phone] What How Much When Comments Stop Taking furosemide (Lasix 20 mg oral tablet) 1 tab(s) by mouth Once a day Duration: 14 Days Stop Taking sulfamethoxazole-trimethoprim (sulfamethoxazole-trimethoprim 800 mg-160 mg oral tablet) 1 tab(s) by mouth Two (2) times a day Duration: 10 Days Please take this list to your next doctor s visit. Bring all medications you take, including over the counter medications, herbals and other supplements with you to your doctor s visit. Patients and families are reminded to discard old lists and to update any records with all medication providers or retail pharmacies. Education Materials Edema Edema is when you have too much fluid in your body or under your skin. Edema may make your legs, feet, and ankles swell up. Swelling is also common in looser tissues, like around your eyes. This is a common condition. It gets more common as you get older. There are many possible causes of edema. Eating too much salt (sodium) and being on your feet or sitting for a long time can cause edema in your legs, feet, and ankles. Hot weather may make edema worse. Edema is usually painless. Your skin may look swollen or shiny. Follow these instructions at home: Keep the swollen body part raised (elevated) above the level of your heart when you are sitting or lying down. Do not sit still or stand for a long time. Do not wear tight clothes. Do not wear garters on your upper legs. Exercise your legs. This can help the swelling go down. Wear elastic bandages or support stockings as told by your doctor. Eat a low-salt (low-sodium) diet to reduce fluid as told by your doctor. Depending on the cause of your swelling, you may need to limit how much fluid you drink (fluid restriction). Take uowx-vun-pgjaqsf and prescription medicines only as told by your doctor. Contact a doctor if: Treatment is not working. You have heart, liver, or kidney disease and have symptoms of edema. You have sudden and unexplained weight gain. Get help right away if: You have shortness of breath or chest pain. You cannot breathe when you lie down. You have pain, redness, or warmth in the swollen areas. You have heart, liver, or kidney disease and get edema all of a sudden. You have a fever and your symptoms get worse all of a sudden. Summary Edema is when you have too much fluid in your body or under your skin. Edema may make your legs, feet, and ankles swell up. Swelling is also common in looser tissues, like around your eyes. Raise (elevate) the swollen body part above the level of your heart when you are sitting or lying down. Follow your doctor's instructions about diet and how much fluid you can drink (fluid restriction). This information is not intended to replace advice given to you by your health care provider. Make sure you discuss any questions you have with your health care provider. Document Released: 01/20/2009 Document Revised: 08/07/2018 Document Reviewed: 08/22/2017 [employer] Patient Education 2020 [employer] Additional Information VACCINATE! IT SAVES LIVES! Members of the community who have not yet received the COVID-19 vaccine and would like to receive it can visit one of [facility] vaccine clinics. There are many vaccine clinic locations within the [facility]. For locations and available times, please visit https://gettheshot.coronavirus.me io.gov/. It is important to note that some COVID mobile vaccine clinics are held outdoors and may be canceled in rainy or stormy conditions. To learn more about pediatric vaccinations (ages 5-11), we invite you to visit the [facility] webpage. [email or web address] [email or web address] To learn more about the COVID-19 vaccine, we invite you to visit the CDC website for a list of frequently asked questions.https://www.cdc.gov/cor onavirus/2019-ncov/vaccines/faq.h tml [facility] Patient Portal Access Instructions: Stay connected with your healthcare team and access your personal medical information anytime with the [facility] Patient Portal. Please follow the directions below to create your [facility] [employer] account: 1.Access the email account you provided upon registration to the hospital/physician office.2.Look for an invitation email from [facility].3.Open the email and access the invitation link: Accept Invitation to [facility].4.Fill in the required lara to create your account. To access your account, visit [email or web address]. Click the blue button labeled Access Patient Portal and then log in with the username and password that you created in the steps above. You will be able to view your test results, lab results, a summary of your visits, upcoming appointments and more. There is also a convenient messaging option where you can send secure messages to your provider. In addition, you will have the ability to download any documents or summaries to your computer and/or send the information securely to a physician. Remember that your healthcare information is confidential, so carefully consider who you will allow to register on the [facility] Patient Portal for access to your information. You can also access the [facility] Patient Portal on the [facility] [employer] ayad. Simply click on Patient Portal and then log into your account. If you would like to receive a full copy of your medical records, please contact the [facility] Medical Records Department by calling [phone], Friday through Friday between 8 a.m. and 4:30 p.m. HOW TO SAFELY DISPOSE OF PRESCRIPTION MEDICATIONS Please use one of the following methods to safely dispose of your unused medications. 1.Use a drug disposal kit: the drug disposal pouch allows you to safely discard your old and unused drugs. Ask your nurse to give you one when you are discharged.2.Visit a local take-back location: Many local pharmacies and police departments have programs that collect old and unwanted prescription drugs. Call your local pharmacy or go to http://bit.ly/3O8Is4b to find one close to you.3.Make use of household items: Use cat litter or old coffee grounds to dispose medications if other options are not available. Mix your drugs with these household products, seal them in an airtight container and throw it into the garbage. Call [facility]: [phone] to be sure your drugs can be disposed of in this way. Some medicines may require a different approach.4.Never flush your medications down the toilet. IF YOU HAVE BEEN PRESCRIBED AN OPIOID FOR PAIN If you have been prescribed an opioid (such as hydrocodone, oxycodone or morphine), it is critical to understand the possible side effects and risks of opioid pain medications. Even when taken as directed, opioids can have several side effects including: Tolerance, meaning you might need to take more of a medication for the same pain relief. Nausea, vomiting and/or constipation. Sleepiness, dizziness, dry mouth, confusion, depression or itching. Physical dependence, meaning you have withdrawal symptoms when a medication is stopped, can develop within a few days. KNOW YOUR RESPONSIBILITIES It is important to know exactly how much and how often to take the opioid pain medications you are prescribed. Never take opioids in higher amounts or more often than prescribed. Do not combine opioids with alcohol or other drugs that cause drowsiness, such as benzodiazepines, also known as benzos, including diazepam and alprazolam, muscle relaxants or sleep aids. Never sell or share prescription opioids. This is illegal. Store opioids in a secure place and out of reach of others (including children, family, friends and visitors). The last page of this document has been signed and retained as a CHART COPY. Signatures Patient Education Materials Edema, Izzx-jv-Zmvd Medication Leaflets My discharge plan and instructions have been reviewed and explained to me and IKIARRA J B understand my current condition and have read and understand these discharge instructions. I have received a written copy of the plan/instructions. If I have questions, I am aware that I should contact my doctor. 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 MICRO - Microbiology PROCEDURE: Blood Culture (bacterial) [*1] SOURCE: Blood BODY SITE: COLLECTED DATE/TIME: 12/28/2024 12:35 EDT RECEIVED DATE/TIME: 12/28/2024 14:40 EDT START DATE/TIME: 12/28/2024 14:40 EDT FREE TEXT SOURCE: FINAL REPORTS Final Report [] Verified Date/Time/Personnel: 01/02/2025 14:59 EDT Blood Culture: No Growth at 5 days. PRELIMINARY REPORTS Preliminary Report [] Verified Date/Time/Personnel: 12/28/2024 15:59 EDT Culture has been received in lab and is no growth to date. Routine cultures are held for 5 days. Performing Locations *1: This test was performed at: [address], [facility] , [facility] 01-02-2025 Note . MICRO - Microbiology PROCEDURE: Blood Culture (bacterial) [*1] SOURCE: Blood BODY SITE: COLLECTED DATE/TIME: 12/28/2024 12:41 EDT RECEIVED DATE/TIME: 12/28/2024 14:40 EDT START DATE/TIME: 12/28/2024 14:40 EDT FREE TEXT SOURCE: FINAL REPORTS Final Report [] Verified Date/Time/Personnel: 01/02/2025 14:59 EDT Blood Culture: No Growth at 5 days. PRELIMINARY REPORTS Preliminary Report [] Verified Date/Time/Personnel: 12/28/2024 15:59 EDT Culture has been received in lab and is no growth to date. Routine cultures are held for 5 days. 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 Of note patient was living out of [place], returned to the [facility] about 3 years ago and since then member reestablish care until about a week ago so was missing anticoagulation, cardiac meds etc. In the emergency department he was noted to have mild pulmonary edema, elevated BNP at 996, high-sensitivity troponin is 17. He was initially started on vancomycin and Zosyn by the emergency department physician. He was noted to have significant scrotal edema, bilateral scrotal wall thickening and a possible small fluid collection in the inferior to right testicle. Admitted for further management. Was seen by cardiology and Urology. CT pelvis with no evidence of abscess. Urology recommended outpatient follow up, pt continued on doxycycline and Rocephin during admission. Diuresed with IV Lasix. Echo done. Improvement in overall fluid status near euvolemic and improvement in cellulitis. Transitioned to oral Bumex and cleared for discharge with cardiology follow up. Pt to complete 5 more days of doxycycline and cefdinir to complete full 10 day course of antibiotics. Pt stable and agreeable with discharge. Discussed with collaborative physician Dr. Otero. Allergies lisinopril Coughing Consults Consult to Physician (Physician Consult) - Ordered -- 12/29/24 0:43:00 EDT, MINOR DELGADO MD, Routine, scrotal infection Consult to Physician (Physician Consult) - Ordered -- 12/29/24 2:37:00 EDT, OMARI CONTRERAS MD, Routine, hf and a fib, GDMT Imaging Results and Diagnostics CT Pelvis w/o Contrast Result Date: December 29, 2024 Verified By: KACY LING MD CLINICAL STATEMENT: IMPRESSION: 1. Anasarca.2. Prominent scrotal and perineal edema suggesting cellulitis. A definitedrainable fluid collection is not evident within the constraints of anoncontrast exam.3. Adenopathy in multiple areas. The findings are likely reactive orhyperplastic. Post treatment follow-up recommended to show resolution,helping to exclude other etiologies. Objective Vitals and Measurements T: 36.5 C (Oral) TMIN: 36.4 C (Oral) TMAX: 37 C (Oral) HR: 74 (Monitored) RR: 18 BP: 112/67 SpO2: 96% Weight Dosing Weight: 111.4 kg (12/28/24) .spe Code Status Code Status - Ordered -- 12/28/24 22:16:00 EDT, Full Code, Constant Order Admission Date 12/28/2024 Discharge Date 01/02/2025 Medications New Prescription apixaban (Eliquis 5 mg oral tablet)1 tab(s) by mouth two (2) times a day. Refills: 0. bumetanide (bumetanide 1 mg oral tablet)1 tab(s) by mouth two (2) times a day. Refills: 0. cefdinir (cefdinir 300 mg oral capsule)1 cap by mouth every 12 hours for 5 Days. Refills: 0. doxycycline (doxycycline hyclate 100 mg oral capsule)1 cap by mouth two (2) times a day for 5 Days. Refills: 0. rosuvastatin (rosuvastatin 10 mg oral tablet)1 tab(s) by mouth daily at bedtime. Refills: 0. Changed metoprolol (metoprolol succinate 25 mg oral TABLET extended release)1 tab(s) by mouth once a day with a meal. Unchanged DME (Insulin Syringes (orange cap))qs for 1 month supply. Refills: 11. insulin glargine (Lantus 100 units/mL10 ml vial solution)20 unit(s) Subcutaneous daily at bedtime. Refills: 2. metFORMIN (MetFORMIN (Eqv-Glucophage XR) 500 mg oral tablet, EXTENDED RELEASE)1 tab(s) by mouth two (2) times a day for 30 Days. Refills: 11. Discontinued furosemide (Lasix 20 mg oral tablet)1 tab(s) by mouth once a day for 14 Days. Refills: 0. sulfamethoxazole-trimethoprim (sulfamethoxazole-trimethoprim 800 mg-160 mg oral tablet)1 tab(s) by mouth two (2) times a day for 10 Days. Refills: 0. Follow Up Follow Up with TAVON ARAMBULA MD When:In 2 weeks Where:[address] [facility] [place] [address]- [phone] Follow Up with MILI CERVANTES APRN-NATHANIEL When:Within 1-2 days Where:[address] [facility] [place] [address]- [phone] Additional Information: Please call the office to schedule a hospital follow up appointment. Follow Up Appointments No qualifying data available. Follow Up Labs/Studies Discharge Labs No Follow-up Labs Discharge Studies No Follow-up Studies Discharge Diet Discharge Diet - Ordered -- No changes were made to your diet during your hospital stay. Please resume your pre hospitalization diet on discharge., 01/02/25 12:27:00 EDT Discharge Activity Discharge Activity - Ordered -- NO activity restrictions, 01/02/25 12:27:00 EDT Condition on Discharge Stable Readmission Risk/Palliative Score No qualifying data available. Discharge Disposition Home Time Spent > 30 minutes [1] Progress Note; STEVEN SNYDER 01/01/2025 14:32 EDT Digitally Signed by STEVEN SNYDER on 01/02/2025 02:46 PM [facility] 01-02-2025 Cardiology Progress note Date of Service January 02, 2025 Chief Complaint Congestive heart failure Congestive heart failure ESTELA is a 64-year-old male with a past medical history of CAD status post stent placed in unknown artery of his heart in [place] unknown years ago, atrial fibrillation status post cardioversion in 2011 with recurrence and noncompliance, diabetes mellitus type 2 status 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 He presented to the emergency room yesterday with a chief complaint of scrotal edema. Subjective Feeling better. Edema is lesser. No dyspnea. Objective Vitals and Measurements T: 36.6 C (Oral) TMIN: 36.4 C (Oral) TMAX: 37 C (Oral) HR: 72 (Apical) RR: 17 BP: 120/62 SpO2: 96% Intake and Output 7AM Yesterday to 7AM Today Intake and Output (Last 24 hours) Intake Oral Intake 120.00 Output Urine Voided 2100.00 Total Summary Total Intake 120.00 Total Output 2100.00 Fluid Balance - Physical Exam No jugular venous distention. Lungs clear to auscultation. Heart is normal S1-S2. Abdomen soft nontender. No edema in the right leg which is wrapped in Reginald wrap. Scrotal edema is much less. Weight Dosing Weight: 111.4 kg (12/28/24) Medications Medications (19) Active Scheduled: (10) ammonium lactate Lotion 12% 1 ayad, Topical, qDay apixaban 5 mg tablet 5 mg 1 tab(s), Oral, BID bumetanide 1 mg tablet 1 mg 1 tab(s), Oral, BID cefTRIAXone IVP syringe 2 gram(s) 20 mL, IV Push (INT), qDay doxycycline 100 mg 10 mL, IV Piggyback, BID insulin glargine 20 unit(s) 0.2 mL, Subcutaneous (INT), qHS insulin lispro 100 units/mL Soln (3 mL) Give 0-5 units/dose, Subcutaneous, TIDAC menthol-zinc oxide topical ointment 4oz 1 ayad, Topical, amhs metoprolol succinate 25 mg ER tablet 25 mg 1 tab(s), Oral, qDayM rosuvastatin 10 mg tablet 10 mg 1 tab(s), Oral, qHS Continuous: (0) PRN: (9) acetaminophen 325 mg Tablet 650 mg 2 tab(s), Oral, q4h acetaminophen-OXYcodone 325 mg-5 mg Tablet 1 tab(s), Oral, q4h acetaminophen-OXYcodone 325 mg-5 mg Tablet 2 tab(s), Oral, q4h albuterol - ipratropium 2.5 mg-0.5 mg/3 mL Inhal Kristen UD 3 mL, Inhalation, q4hRT dextrose 50% Solution Disp syringe 50 mL 25 gram(s) 50 mL, IV Push, AsDirected melatonin 3 mg tablet 3 mg 1 tab(s), Oral, qHS melatonin 3 mg tablet 3 mg 1 tab(s), Oral, qHS menthol-zinc oxide topical ointment 4oz 1 ayad, Topical, AsDirected polyethylene glycol 3350 - UD packet 17 gram(s) 15 mL, Oral, qDay Lab Results 01/02 06:16 WBC: 5.7 Hgb: 13.6 Hct: 40.8 Platelet: 184 Neutrophil %: 65.1 Glucose Level: 110 Sodium Level: 138 Potassium Level: 4.4 BUN: 24.0 H Creatinine Lvl (s): 1.46 H 01/01 05:33 WBC: 5.1 Hgb: 12.9 L Hct: 38.4 L Platelet: 182 Neutrophil %: 60.2 Glucose Level: 139 H Sodium Level: 137 Potassium Level: 4.0 BUN: 26.0 H Creatinine Lvl (s): 1.41 H Imaging Results and Diagnostics Summary: 1. Left ventricle: The cavity size is at the upper limits of normal. Wall thickness is mildly increased. Systolic function is mildly to moderately reduced. The estimated ejection fraction is 45 +/- 5 %. Grade I diastolic dysfunction. 2. Mitral valve: Leaflet separation is mildly reduced. Transvalvular velocity is minimally increased. The findings are consistent with trivial stenosis. 3. Right ventricle: The cavity size is mildly increased. Wall thickness is normal. 4. Right atrium: The atrium is moderately dilated. The estimated right atrial pressure is 8 mm Hg. EKG No qualifying data available. Assessment/Plan Orders: bumetanide, 1 mg= 1 tab(s), Oral, BID Acute congestive heart failure with midrange left ventricle ejection fraction Coronary artery disease History of coronary stent, details unknown Persistent atrial fibrillation. History of cardioversion in 2011 Fluid status is much better. I think he is nearly euvolemic. I will transition him to p.o. Bumex. Will monitor renal chemistries. Because of persistently elevated creatinine, I will not introduce a RAAS medicine yet. This can be done as outpatient. He can be discharged from cardiac standpoint. He is persisting in atrial fibrillation. Heart rate is okay. Eliquis will be continued for stroke risk reduction. 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 Of note patient was living out of state, returned to the [facility] [place] about 3 years ago and since then member reestablish care until about a week ago so was missing anticoagulation, cardiac meds etc. In the emergency department he was noted to have mild pulmonary edema, elevated BNP at 996, high-sensitivity troponin is 17. He was initially started on vancomycin and Zosyn by the emergency department physician. He was noted to have significant scrotal edema, bilateral scrotal wall thickening and a possible small fluid collection in the inferior to right testicle. Admitted for further management. Has been seen by cardiology and Urology. Cardiology Started on IV diuresis. CT pelvis with no evidence of abscess. or drainable fluid. [1] Objective Vitals and Measurements T: 36.4 C (Oral) TMIN: 36.3 C (Oral) TMAX: 36.8 C (Oral) HR: 74 RR: 18 BP: 139/81 SpO2: 96% Intake and Output 7AM Yesterday to 7AM Today Intake and Output (Last 24 hours) Intake Oral Intake 580.00 Output Urine Voided 4150.00 Stool Count 0.00 Total Summary Total Intake 580.00 Total Output 4150.00 Fluid Balance -3570.00 Physical Exam General: Alert and oriented x 3, NAD Head: Normocephalic, mmm, sclera nonicteric Cardiovascular: irregular, no murmur, scrotal edema Respiratory: Lungs clear to auscultation bilaterally, easy Abdomen: soft and non-distended, bowel sounds active all 4 quadrants Neurological: Moving all 4 extremities, speech clear Psychological: normal affect, cooperative, good eye contact Weight Dosing Weight: 111.4 kg (12/28/24) Medications Medications (19) Active Scheduled: (10) ammonium lactate Lotion 12% 1 ayad, Topical, qDay apixaban 5 mg tablet 5 mg 1 tab(s), Oral, BID cefTRIAXone IVP syringe 2 gram(s) 20 mL, IV Push (INT), qDay doxycycline 100 mg 10 mL, IV Piggyback, BID furosemide 40 mg/4 mL vial 40 mg 4 mL, IV Push, BID insulin glargine 20 unit(s) 0.2 mL, Subcutaneous (INT), qHS insulin lispro 100 units/mL Soln (3 mL) Give 0-5 units/dose, Subcutaneous, TIDAC menthol-zinc oxide topical ointment 4oz 1 ayad, Topical, amhs metoprolol succinate 25 mg ER tablet 25 mg 1 tab(s), Oral, qDayM rosuvastatin 10 mg tablet 10 mg 1 tab(s), Oral, qHS Continuous: (0) PRN: (9) acetaminophen 325 mg Tablet 650 mg 2 tab(s), Oral, q4h acetaminophen-OXYcodone 325 mg-5 mg Tablet 1 tab(s), Oral, q4h acetaminophen-OXYcodone 325 mg-5 mg Tablet 2 tab(s), Oral, q4h albuterol - ipratropium 2.5 mg-0.5 mg/3 mL Inhal Kristen UD 3 mL, Inhalation, q4hRT dextrose 50% Solution Disp syringe 50 mL 25 gram(s) 50 mL, IV Push, AsDirected melatonin 3 mg tablet 3 mg 1 tab(s), Oral, qHS melatonin 3 mg tablet 3 mg 1 tab(s), Oral, qHS menthol-zinc oxide topical ointment 4oz 1 ayad, Topical, AsDirected polyethylene glycol 3350 - UD packet 17 gram(s) 15 mL, Oral, qDay Lab Results 01/01 05:33 WBC: 5.1 Hgb: 12.9 L Hct: 38.4 L Platelet: 182 Neutrophil %: 60.2 Glucose Level: 139 H Sodium Level: 137 Potassium Level: 4.0 BUN: 26.0 H Creatinine Lvl (s): 1.41 H 12/31 03:17 WBC: 5.1 Hgb: 13.1 Hct: 39.0 L Platelet: 173 Neutrophil %: 57.6 Glucose Level: 145 H Sodium Level: 134 L Potassium Level: 3.8 BUN: 23.0 H Creatinine Lvl (s): 1.51 H EKG No qualifying data available. Assessment/Plan acute exacerbation of chronic heart failure Atrial fibrillation Shortness of breath Coronary artery disease Scrotal cellulitis and edema Cellulitis of right lower extremity Diabetes mellitus Hypoalbuminemia History of left BKA Nonadherence to medical regimen CT pelvis with no drainable fluid collection noted. Urology was consulted and has since signed off, recommend continuing antibiotics and follow up outpatient. No noted urinary retention on bladder scan. Continue doxycycline and ceftriaxone day 4. A fib-Currently rate controlled, Continue metoprolol and eliquis. Cardiology following CHF-remains overloaded but continues to improve. Continu IV diuresis as creatinine remains stable. Cardiology following, appreciate input. Avoid nephrotoxins. Potassium and magnesium stable, continue to monitor Blood glucose stable-hgb A1c 15.3 intially , continue current regimen. Discussed with collaborative physician Dr. Otero. Level of Care Indication SD monitor (CHF exacerbation) DVT Prophylaxis Full anticoagulation Maintenance IVF Indication NA / No maintenance IVF Indwelling Urinary Catheter Indication NA No indwelling catheter Anticipated Timeline of Discharge Possible discharge Friday Anticipated DC Disposition Home without services Time Spent Total time spent reviewing labs, diagnostics, evaluating the patient, and medical decision makin minutes [1] Progress Note; STEVEN SNYDER 12/31/2024 13:12 EDT Digitally Signed by STEVEN SNYDER on 01/01/2025 02:35 PM [facility] 01-01-2025 Note Date of Service 01/01/2025 Chief Complaint scrotal edema Subjective Patient is 64-year-old male with history of atrial fibrillation, diabetes, 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 Of note patient was living out of state, returned to the [facility] about 3 years ago and since then member reestablish care until about a week ago so was missing anticoagulation, cardiac meds etc. In the emergency department he was noted to have mild pulmonary edema, elevated BNP at 996, high-sensitivity troponin is 17. He was initially started on vancomycin and Zosyn by the emergency department physician. He was noted to have significant scrotal edema, bilateral scrotal wall thickening and a possible small fluid collection in the inferior to right testicle. Admitted for further management. Has been seen by cardiology and Urology. Cardiology Started on IV diuresis. CT pelvis with no evidence of abscess. or drainable fluid. [1] Objective Vitals and Measurements T: 36.4 C (Oral) TMIN: 36.3 C (Oral) TMAX: 36.8 C (Oral) HR: 74 RR: 18 BP: 139/81 SpO2: 96% Intake and Output 7AM Yesterday to 7AM Today Intake and Output (Last 24 hours) Intake Oral Intake 580.00 Output Urine Voided 4150.00 Stool Count 0.00 Total Summary Total Intake 580.00 Total Output 4150.00 Fluid Balance -3570.00 Physical Exam General: Alert and oriented x 3, NAD Head: Normocephalic, mmm, sclera nonicteric Cardiovascular: irregular, no murmur, scrotal edema Respiratory: Lungs clear to auscultation bilaterally, easy Abdomen: soft and non-distended, bowel sounds active all 4 quadrants Neurological: Moving all 4 extremities, speech clear Psychological: normal affect, cooperative, good eye contact Weight Dosing Weight: 111.4 kg (12/28/24) Medications Medications (19) Active Scheduled: (10) ammonium lactate Lotion 12% 1 ayad, Topical, qDay apixaban 5 mg tablet 5 mg 1 tab(s), Oral, BID cefTRIAXone IVP syringe 2 gram(s) 20 mL, IV Push (INT), qDay doxycycline 100 mg 10 mL, IV Piggyback, BID furosemide 40 mg/4 mL vial 40 mg 4 mL, IV Push, BID insulin glargine 20 unit(s) 0.2 mL, Subcutaneous (INT), qHS insulin lispro 100 units/mL Soln (3 mL) Give 0-5 units/dose, Subcutaneous, TIDAC menthol-zinc oxide topical ointment 4oz 1 ayad, Topical, amhs metoprolol succinate 25 mg ER tablet 25 mg 1 tab(s), Oral, qDayM rosuvastatin 10 mg tablet 10 mg 1 tab(s), Oral, qHS Continuous: (0) PRN: (9) acetaminophen 325 mg Tablet 650 mg 2 tab(s), Oral, q4h acetaminophen-OXYcodone 325 mg-5 mg Tablet 1 tab(s), Oral, q4h acetaminophen-OXYcodone 325 mg-5 mg Tablet 2 tab(s), Oral, q4h albuterol - ipratropium 2.5 mg-0.5 mg/3 mL Inhal Kristen UD 3 mL, Inhalation, q4hRT dextrose 50% Solution Disp syringe 50 mL 25 gram(s) 50 mL, IV Push, AsDirected melatonin 3 mg tablet 3 mg 1 tab(s), Oral, qHS melatonin 3 mg tablet 3 mg 1 tab(s), Oral, qHS menthol-zinc oxide topical ointment 4oz 1 ayad, Topical, AsDirected polyethylene glycol 3350 - UD packet 17 gram(s) 15 mL, Oral, qDay Lab Results 01/01 05:33 WBC: 5.1 Hgb: 12.9 L Hct: 38.4 L Platelet: 182 Neutrophil %: 60.2 Glucose Level: 139 H Sodium Level: 137 Potassium Level: 4.0 BUN: 26.0 H Creatinine Lvl (s): 1.41 H 12/31 03:17 WBC: 5.1 Hgb: 13.1 Hct: 39.0 L Platelet: 173 Neutrophil %: 57.6 Glucose Level: 145 H Sodium Level: 134 L Potassium Level: 3.8 BUN: 23.0 H Creatinine Lvl (s): 1.51 H EKG No qualifying data available. Assessment/Plan acute exacerbation of chronic heart failure Atrial fibrillation Shortness of breath Coronary artery disease Scrotal cellulitis and edema Cellulitis of right lower extremity Diabetes mellitus Hypoalbuminemia History of left BKA Nonadherence to medical regimen CT pelvis with no drainable fluid collection noted. Urology was consulted and has since signed off, recommend continuing antibiotics and follow up outpatient. No noted urinary retention on bladder scan. Continue doxycycline and ceftriaxone day 4. A fib-Currently rate controlled, Continue metoprolol and eliquis. Cardiology following CHF-remains overloaded but continues to improve. Continu IV diuresis as creatinine remains stable. Cardiology following, appreciate input. Avoid nephrotoxins. Potassium and magnesium stable, continue to monitor Blood glucose stable-hgb A1c 15.3 intially , continue current regimen. Discussed with collaborative physician Dr. Otero. Level of Care Indication SD monitor (CHF exacerbation) DVT Prophylaxis Full anticoagulation Maintenance IVF Indication NA / No maintenance IVF Indwelling Urinary Catheter Indication NA No indwelling catheter Anticipated Timeline of Discharge Possible discharge Friday Anticipated DC Disposition Home without services Time Spent Total time spent reviewing labs, diagnostics, evaluating the patient, and medical decision makin minutes [1] Progress Note; STEVEN SNYDER 12/31/2024 13:12 EDT Digitally Signed by STEVEN SNYDER on 01/01/2025 02:35 PM [facility] 01-01-2025 Cardiology Progress note Date of Service January 01, 2025 Chief Complaint Congestive heart failure ESTELA is a 64-year-old male with a past medical history of CAD status post stent placed in unknown artery of his heart in [place] unknown years ago, atrial fibrillation status post cardioversion in 2011 with recurrence and noncompliance, diabetes mellitus type 2 status 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 He presented to the emergency room yesterday with a chief complaint of scrotal edema. Subjective Breathing is better. Leg swelling and scrotal swelling are lesser Objective Vitals and Measurements T: 36.5 C (Oral) TMIN: 36.3 C (Oral) TMAX: 36.8 C (Oral) HR: 64 (Apical) RR: 18 BP: 142/93 SpO2: 94% Intake and Output 7AM Yesterday to 7AM Today Intake and Output (Last 24 hours) Intake Oral Intake 700.00 Output Urine Voided 3450.00 Stool Count 0.00 Total Summary Total Intake 700.00 Total Output 3450.00 Fluid Balance -2750.00 Physical Exam No jugular venous distention. Lungs are clear to auscultation. Heart is normal S1-S2 1/6 systolic murmur. Abdomen soft nontender. No lower extremity edema. Weight Dosing Weight: 111.4 kg (12/28/24) Medications Medications (19) Active Scheduled: (10) ammonium lactate Lotion 12% 1 ayad, Topical, qDay apixaban 5 mg tablet 5 mg 1 tab(s), Oral, BID cefTRIAXone IVP syringe 2 gram(s) 20 mL, IV Push (INT), qDay doxycycline 100 mg 10 mL, IV Piggyback, BID furosemide 40 mg/4 mL vial 40 mg 4 mL, IV Push, BID insulin glargine 20 unit(s) 0.2 mL, Subcutaneous (INT), qHS insulin lispro 100 units/mL Soln (3 mL) Give 0-5 units/dose, Subcutaneous, TIDAC menthol-zinc oxide topical ointment 4oz 1 ayad, Topical, amhs metoprolol succinate 25 mg ER tablet 25 mg 1 tab(s), Oral, qDayM rosuvastatin 10 mg tablet 10 mg 1 tab(s), Oral, qHS Continuous: (0) PRN: (9) acetaminophen 325 mg Tablet 650 mg 2 tab(s), Oral, q4h acetaminophen-OXYcodone 325 mg-5 mg Tablet 1 tab(s), Oral, q4h acetaminophen-OXYcodone 325 mg-5 mg Tablet 2 tab(s), Oral, q4h albuterol - ipratropium 2.5 mg-0.5 mg/3 mL Inhal Kristen UD 3 mL, Inhalation, q4hRT dextrose 50% Solution Disp syringe 50 mL 25 gram(s) 50 mL, IV Push, AsDirected melatonin 3 mg tablet 3 mg 1 tab(s), Oral, qHS melatonin 3 mg tablet 3 mg 1 tab(s), Oral, qHS menthol-zinc oxide topical ointment 4oz 1 ayad, Topical, AsDirected polyethylene glycol 3350 - UD packet 17 gram(s) 15 mL, Oral, qDay Lab Results 01/01 05:33 WBC: 5.1 Hgb: 12.9 L Hct: 38.4 L Platelet: 182 Neutrophil %: 60.2 Glucose Level: 139 H Sodium Level: 137 Potassium Level: 4.0 BUN: 26.0 H Creatinine Lvl (s): 1.41 H 12/31 03:17 WBC: 5.1 Hgb: 13.1 Hct: 39.0 L Platelet: 173 Neutrophil %: 57.6 Glucose Level: 145 H Sodium Level: 134 L Potassium Level: 3.8 BUN: 23.0 H Creatinine Lvl (s): 1.51 H Imaging Results and Diagnostics Summary: 1. Left ventricle: The cavity size is at the upper limits of normal. Wall thickness is mildly increased. Systolic function is mildly to moderately reduced. The estimated ejection fraction is 45 +/- 5 %. Grade I diastolic dysfunction. 2. Mitral valve: Leaflet separation is mildly reduced. Transvalvular velocity is minimally increased. The findings are consistent with trivial stenosis. 3. Right ventricle: The cavity size is mildly increased. Wall thickness is normal. 4. Right atrium: The atrium is moderately dilated. The estimated right atrial pressure is 8 mm Hg. [1] EKG No qualifying data available. Assessment/Plan Acute congestive heart failure with midrange left ventricle ejection fraction Coronary artery disease History of coronary stent, details unknown Persistent atrial fibrillation. History of cardioversion in 2011 Fluid status is much better. Fortunately creatinine has down trended. He is urinating a lot. Although my plan was to give him a diuretic holiday today, due to changing circumstances, I will continue IV diuretic. Will recheck his renal function tomorrow. Based on his creatinine tomorrow and his blood pressure we will decide if we can introduce a RAAS medication to his regimen. He is persisting in atrial fibrillation. Heart rate is okay. Eliquis will be continued for stroke risk reduction. 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 Of note patient was living out of state, returned to the [facility] about 3 years ago and since then member reestablish care until about a week ago so was missing anticoagulation, cardiac meds etc. In the emergency department he was noted to have mild pulmonary edema, elevated BNP at 996, high-sensitivity troponin is 17. He was initially started on vancomycin and Zosyn by the emergency department physician. He was noted to have significant scrotal edema, bilateral scrotal wall thickening and a possible small fluid collection in the inferior to right testicle. Admitted for further management. Has been seen by cardiology and Urology. Cardiology Started on IV diuresis. CT pelvis with no evidence of abscess. or drainable fluid. Pt continues to endorse improvement in scrotal edema and lower leg edema. Redness and pain improving to RLE. No other complaints. Objective Vitals and Measurements T: 36.4 C (Oral) TMIN: 36.3 C (Oral) TMAX: 36.7 C (Oral) HR: 85 (Apical) RR: 18 BP: 148/80 SpO2: 95% Intake and Output 7AM Yesterday to 7AM Today Intake and Output (Last 24 hours) Intake Oral Intake 960.00 Output Urine Voided 5050.00 Stool Count 0.00 Total Summary Total Intake 960.00 Total Output 5050.00 Fluid Balance -4090.00 Physical Exam General: Alert and oriented x 3, NAD Head: Normocephalic, mmm, sclera nonicteric Cardiovascular: Normal rate and rhythm, no murmur, BLE edema Respiratory: Lungs clear to auscultation bilaterally, easy Abdomen: soft and non-distended, bowel sounds active all 4 quadrants Neurological: Moving all 4 extremities, speech clear Psychological: normal affect, cooperative, good eye contact Weight Dosing Weight: 111.4 kg (12/28/24) Medications Medications (19) Active Scheduled: (10) ammonium lactate Lotion 12% 1 ayad, Topical, qDay apixaban 5 mg tablet 5 mg 1 tab(s), Oral, BID cefTRIAXone IVP syringe 2 gram(s) 20 mL, IV Push (INT), qDay doxycycline 100 mg 10 mL, IV Piggyback, BID furosemide 40 mg/4 mL vial 40 mg 4 mL, IV Push, BID insulin glargine 20 unit(s) 0.2 mL, Subcutaneous (INT), qHS insulin lispro 100 units/mL Soln (3 mL) Give 0-5 units/dose, Subcutaneous, TIDAC menthol-zinc oxide topical ointment 4oz 1 ayad, Topical, amhs metoprolol succinate 25 mg ER tablet 25 mg 1 tab(s), Oral, qDayM rosuvastatin 10 mg tablet 10 mg 1 tab(s), Oral, qHS Continuous: (0) PRN: (9) acetaminophen 325 mg Tablet 650 mg 2 tab(s), Oral, q4h acetaminophen-OXYcodone 325 mg-5 mg Tablet 1 tab(s), Oral, q4h acetaminophen-OXYcodone 325 mg-5 mg Tablet 2 tab(s), Oral, q4h albuterol - ipratropium 2.5 mg-0.5 mg/3 mL Inhal Kristen UD 3 mL, Inhalation, q4hRT dextrose 50% Solution Disp syringe 50 mL 25 gram(s) 50 mL, IV Push, AsDirected melatonin 3 mg tablet 3 mg 1 tab(s), Oral, qHS melatonin 3 mg tablet 3 mg 1 tab(s), Oral, qHS menthol-zinc oxide topical ointment 4oz 1 ayad, Topical, AsDirected polyethylene glycol 3350 - UD packet 17 gram(s) 15 mL, Oral, qDay Lab Results 12/31 03:17 WBC: 5.1 Hgb: 13.1 Hct: 39.0 L Platelet: 173 Neutrophil %: 57.6 Glucose Level: 145 H Sodium Level: 134 L Potassium Level: 3.8 BUN: 23.0 H Creatinine Lvl (s): 1.51 H 12/30 04:48 WBC: 4.2 L Hgb: 12.1 L Hct: 36.0 L Platelet: 158 Neutrophil %: 61.0 Glucose Level: 194 H Sodium Level: 136 Potassium Level: 4.3 BUN: 19.0 Creatinine Lvl (s): 1.47 H EKG No qualifying data available. Assessment/Plan acute exacerbation of chronic heart failure Atrial fibrillation Shortness of breath Coronary artery disease Scrotal cellulitis and edema Cellulitis of right lower extremity Diabetes mellitus Hypoalbuminemia History of left BKA Nonadherence to medical regimen CT pelvis with no drainable fluid collection noted. Urology was consulted and has since signed off, recommend continuing antibiotics and follow up outpatient. No noted urinary retention on bladder scan. Continue doxycycline and ceftriaxone. Gonorrhea and chlamydia PCR negative. A fib-Currently rate controlled, Continue metoprolol and eliquis. CHF-remains overloaded but does endorse improvements. Cardiology following, appreciate input. Currently on 40mg IV BID, continue, possible diuretic holiday tomorrow as creatinine trending upward. Avoid nephrotoxins. Potassium and magnesium replaced, continue to monitor Blood glucose stable-hgb A1c 15.3, continue current regimen. Discussed with collaborative physician Dr. Otero. Level of Care Indication SD monitor (CHF exacerbation) DVT Prophylaxis Full anticoagulation Maintenance IVF Indication NA / No maintenance IVF Indwelling Urinary Catheter Indication NA No indwelling catheter Anticipated Timeline of Discharge 72+ hours Anticipated DC Disposition Home without services Time Spent Total time spent reviewing labs, diagnostics, evaluating the patient, and medical decision makin minutes Digitally Signed by STEVEN SNYDER on 12/31/2024 01:20 PM Digitally Signed by STEVEN SNYDER on 12/31/2024 01:22 PM [facility] 12-31-2024 Note Date of Service 12/31/2024 Chief Complaint Scrotal edema Subjective Patient is 64-year-old male with history of atrial fibrillation, diabetes, 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 Of note patient was living out of state, returned to the [facility] [place] about 3 years ago and since then member reestablish care until about a week ago so was missing anticoagulation, cardiac meds etc. In the emergency department he was noted to have mild pulmonary edema, elevated BNP at 996, high-sensitivity troponin is 17. He was initially started on vancomycin and Zosyn by the emergency department physician. He was noted to have significant scrotal edema, bilateral scrotal wall thickening and a possible small fluid collection in the inferior to right testicle. Admitted for further management. Has been seen by cardiology and Urology. Cardiology Started on IV diuresis. CT pelvis with no evidence of abscess. or drainable fluid. Pt continues to endorse improvement in scrotal edema and lower leg edema. Redness and pain improving to RLE. No other complaints. Objective Vitals and Measurements T: 36.4 C (Oral) TMIN: 36.3 C (Oral) TMAX: 36.7 C (Oral) HR: 85 (Apical) RR: 18 BP: 148/80 SpO2: 95% Intake and Output 7AM Yesterday to 7AM Today Intake and Output (Last 24 hours) Intake Oral Intake 960.00 Output Urine Voided 5050.00 Stool Count 0.00 Total Summary Total Intake 960.00 Total Output 5050.00 Fluid Balance -4090.00 Physical Exam General: Alert and oriented x 3, NAD Head: Normocephalic, mmm, sclera nonicteric Cardiovascular: Normal rate and rhythm, no murmur, BLE edema Respiratory: Lungs clear to auscultation bilaterally, easy Abdomen: soft and non-distended, bowel sounds active all 4 quadrants Neurological: Moving all 4 extremities, speech clear Psychological: normal affect, cooperative, good eye contact Weight Dosing Weight: 111.4 kg (12/28/24) Medications Medications (19) Active Scheduled: (10) ammonium lactate Lotion 12% 1 ayad, Topical, qDay apixaban 5 mg tablet 5 mg 1 tab(s), Oral, BID cefTRIAXone IVP syringe 2 gram(s) 20 mL, IV Push (INT), qDay doxycycline 100 mg 10 mL, IV Piggyback, BID furosemide 40 mg/4 mL vial 40 mg 4 mL, IV Push, BID insulin glargine 20 unit(s) 0.2 mL, Subcutaneous (INT), qHS insulin lispro 100 units/mL Soln (3 mL) Give 0-5 units/dose, Subcutaneous, TIDAC menthol-zinc oxide topical ointment 4oz 1 ayad, Topical, amhs metoprolol succinate 25 mg ER tablet 25 mg 1 tab(s), Oral, qDayM rosuvastatin 10 mg tablet 10 mg 1 tab(s), Oral, qHS Continuous: (0) PRN: (9) acetaminophen 325 mg Tablet 650 mg 2 tab(s), Oral, q4h acetaminophen-OXYcodone 325 mg-5 mg Tablet 1 tab(s), Oral, q4h acetaminophen-OXYcodone 325 mg-5 mg Tablet 2 tab(s), Oral, q4h albuterol - ipratropium 2.5 mg-0.5 mg/3 mL Inhal Kristen UD 3 mL, Inhalation, q4hRT dextrose 50% Solution Disp syringe 50 mL 25 gram(s) 50 mL, IV Push, AsDirected melatonin 3 mg tablet 3 mg 1 tab(s), Oral, qHS melatonin 3 mg tablet 3 mg 1 tab(s), Oral, qHS menthol-zinc oxide topical ointment 4oz 1 ayad, Topical, AsDirected polyethylene glycol 3350 - UD packet 17 gram(s) 15 mL, Oral, qDay Lab Results 12/31 03:17 WBC: 5.1 Hgb: 13.1 Hct: 39.0 L Platelet: 173 Neutrophil %: 57.6 Glucose Level: 145 H Sodium Level: 134 L Potassium Level: 3.8 BUN: 23.0 H Creatinine Lvl (s): 1.51 H 12/30 04:48 WBC: 4.2 L Hgb: 12.1 L Hct: 36.0 L Platelet: 158 Neutrophil %: 61.0 Glucose Level: 194 H Sodium Level: 136 Potassium Level: 4.3 BUN: 19.0 Creatinine Lvl (s): 1.47 H EKG No qualifying data available. Assessment/Plan acute exacerbation of chronic heart failure Atrial fibrillation Shortness of breath Coronary artery disease Scrotal cellulitis and edema Cellulitis of right lower extremity Diabetes mellitus Hypoalbuminemia History of left BKA Nonadherence to medical regimen CT pelvis with no drainable fluid collection noted. Urology was consulted and has since signed off, recommend continuing antibiotics and follow up outpatient. No noted urinary retention on bladder scan. Continue doxycycline and ceftriaxone. Gonorrhea and chlamydia PCR negative. A fib-Currently rate controlled, Continue metoprolol and eliquis. CHF-remains overloaded but does endorse improvements. Cardiology following, appreciate input. Currently on 40mg IV BID, continue, possible diuretic holiday tomorrow as creatinine trending upward. Avoid nephrotoxins. Potassium and magnesium replaced, continue to monitor Blood glucose stable-hgb A1c 15.3, continue current regimen. Discussed with collaborative physician Dr. Otero. Level of Care Indication SD monitor (CHF exacerbation) DVT Prophylaxis Full anticoagulation Maintenance IVF Indication NA / No maintenance IVF Indwelling Urinary Catheter Indication NA No indwelling catheter Anticipated Timeline of Discharge 72+ hours Anticipated DC Disposition Home without services Time Spent Total time spent reviewing labs, diagnostics, evaluating the patient, and medical decision makin minutes Digitally Signed by STEVEN SNYDER on 12/31/2024 01:20 PM Digitally Signed by STEVEN SNYDER on 12/31/2024 01:22 PM [facility] 12-31-2024 Cardiology Progress note Date of Service December 31, 2024 Chief Complaint Congestive heart failure ESTELA is a 64-year-old male with a past medical history of CAD status post stent placed in unknown artery of his heart in [place] unknown years ago, atrial fibrillation status post cardioversion in 2011 with recurrence and noncompliance, diabetes mellitus type 2 status 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 He presented to the emergency room yesterday with a chief complaint of scrotal edema. Subjective Breathing is okay. No chest pain. He feels that subjectively his scrotal edema is less. Objective Vitals and Measurements T: 36.4 C (Oral) TMIN: 36.3 C (Oral) TMAX: 36.7 C (Oral) HR: 85 (Apical) RR: 18 BP: 148/80 SpO2: 95% Intake and Output 7AM Yesterday to 7AM Today Intake and Output (Last 24 hours) Intake Oral Intake 960.00 Output Urine Voided 5050.00 Stool Count 0.00 Total Summary Total Intake 960.00 Total Output 5050.00 Fluid Balance -4090.00 Physical Exam No jugular venous distention. Lungs clear to auscultation. Heart sounds normal S1-S2 1/6 systolic murmur. Abdomen soft nontender. Right leg is wrapped in Reginald wrap. The left leg has amputation. Scrotal swelling seems to be less than yesterday Weight Dosing Weight: 111.4 kg (12/28/24) Medications Medications (19) Active Scheduled: (10) ammonium lactate Lotion 12% 1 ayad, Topical, qDay apixaban 5 mg tablet 5 mg 1 tab(s), Oral, BID cefTRIAXone IVP syringe 2 gram(s) 20 mL, IV Push (INT), qDay doxycycline 100 mg 10 mL, IV Piggyback, BID furosemide 40 mg/4 mL vial 40 mg 4 mL, IV Push, BID insulin glargine 20 unit(s) 0.2 mL, Subcutaneous (INT), qHS insulin lispro 100 units/mL Soln (3 mL) Give 0-5 units/dose, Subcutaneous, TIDAC menthol-zinc oxide topical ointment 4oz 1 ayad, Topical, amhs metoprolol succinate 25 mg ER tablet 25 mg 1 tab(s), Oral, qDayM rosuvastatin 10 mg tablet 10 mg 1 tab(s), Oral, qHS Continuous: (0) PRN: (9) acetaminophen 325 mg Tablet 650 mg 2 tab(s), Oral, q4h acetaminophen-OXYcodone 325 mg-5 mg Tablet 1 tab(s), Oral, q4h acetaminophen-OXYcodone 325 mg-5 mg Tablet 2 tab(s), Oral, q4h albuterol - ipratropium 2.5 mg-0.5 mg/3 mL Inhal Kristen UD 3 mL, Inhalation, q4hRT dextrose 50% Solution Disp syringe 50 mL 25 gram(s) 50 mL, IV Push, AsDirected melatonin 3 mg tablet 3 mg 1 tab(s), Oral, qHS melatonin 3 mg tablet 3 mg 1 tab(s), Oral, qHS menthol-zinc oxide topical ointment 4oz 1 ayad, Topical, AsDirected polyethylene glycol 3350 - UD packet 17 gram(s) 15 mL, Oral, qDay Lab Results 12/31 03:17 WBC: 5.1 Hgb: 13.1 Hct: 39.0 L Platelet: 173 Neutrophil %: 57.6 Glucose Level: 145 H Sodium Level: 134 L Potassium Level: 3.8 BUN: 23.0 H Creatinine Lvl (s): 1.51 H 12/30 04:48 WBC: 4.2 L Hgb: 12.1 L Hct: 36.0 L Platelet: 158 Neutrophil %: 61.0 Glucose Level: 194 H Sodium Level: 136 Potassium Level: 4.3 BUN: 19.0 Creatinine Lvl (s): 1.47 H Imaging Results and Diagnostics Summary: 1. Left ventricle: The cavity size is at the upper limits of normal. Wall thickness is mildly increased. Systolic function is mildly to moderately reduced. The estimated ejection fraction is 45 +/- 5 %. Grade I diastolic dysfunction. 2. Mitral valve: Leaflet separation is mildly reduced. Transvalvular velocity is minimally increased. The findings are consistent with trivial stenosis. 3. Right ventricle: The cavity size is mildly increased. Wall thickness is normal. 4. Right atrium: The atrium is moderately dilated. The estimated right atrial pressure is 8 mm Hg. EKG No qualifying data available. Assessment/Plan Acute congestive heart failure with midrange left ventricle ejection fraction Coronary artery disease History of coronary stent, details unknown Persistent atrial fibrillation. History of cardioversion in 2011 Unfortunately, he remains fluid overloaded. Creatinine is inching up. I think we need to give him IV diuretic for 1 more day and perhaps give a holiday tomorrow. Will monitor renal function. We need to add a RAAS medication because of heart failure and borderline low ejection fraction. However, creatinine is rising and we are aggressively diuresing him. This will not be a good time to introduce 1 of these medicines. We will continue to monitor and introduce 1 of these medications when appropriate. We will follow along. Thank you very much! Digitally Signed by TAVON ARAMBULA MD on 12/31/2024 12:09 PM [facility] 12-30-2024 Note Date of Service 12/30/2024 Chief Complaint scrotal edema Subjective Patient is 64-year-old male with history of atrial fibrillation, diabetes, left BKA secondary to gangrene from uncontrolled diabetes, coronary artery disease who presented to the emergency department for evaluation of worsening shortness of breath, lower extremity edema on the right, concern for cellulitis and scrotal edema. He has reestablished with a primary provider, restarted on insulin and metformin, metoprolol in approximately the last week or so. He has had shortness of breath, tries to exert himself notices significant shortness of breath and has had worsening scrotal edema. Of note patient was living out of state, returned to the [facility] [place] about 3 years ago and since then member reestablish care until about a week ago so was missing anticoagulation, cardiac meds etc. In the emergency department he was noted to have mild pulmonary edema, elevated BNP at 996, high-sensitivity troponin is 17. He was initially started on vancomycin and Zosyn by the emergency department physician. He was noted to have significant scrotal edema, bilateral scrotal wall thickening and a possible small fluid collection in the inferior to right testicle. Admitted for further management. Has been seen by cardiology and Urology. Cardiology Started on IV diuresis. CT pelvis with no evidence of abscess. Pt laying in bed. Feels SOB is improving. Also feels like R leg edema and scrotal edema is improving although only minimally. Objective Vitals and Measurements T: 36.7 C (Oral) TMIN: 36.1 C (Oral) TMAX: 36.8 C (Oral) HR: 82 (Monitored) RR: 18 BP: 134/75 SpO2: 97% Intake and Output 7AM Yesterday to 7AM Today Intake and Output (Last 24 hours) Intake Oral Intake 1080.00 Output Urine Voided 2053.00 Stool Count 0.00 Total Summary Total Intake 1080.00 Total Output 2053.00 Fluid Balance -973.00 Physical Exam General: Alert and oriented x 3, NAD Head: Normocephalic, mmm, sclera nonicteric Cardiovascular: Irregular, no murmur, Ble edema Respiratory: Lungs clear to auscultation bilaterally, easy Abdomen: soft and non-distended, bowel sounds active all 4 quadrants Neurological: Moving all 4 extremities, speech clear Psychological: normal affect, cooperative, good eye contact Weight Dosing Weight: 111.4 kg (12/28/24) Medications Medications (19) Active Scheduled: (10) ammonium lactate Lotion 12% 1 ayad, Topical, qDay apixaban 5 mg tablet 5 mg 1 tab(s), Oral, BID cefTRIAXone IVP syringe 2 gram(s) 20 mL, IV Push (INT), qDay doxycycline 100 mg 10 mL, IV Piggyback, BID furosemide 40 mg/4 mL vial 40 mg 4 mL, IV Push, BID insulin glargine 20 unit(s) 0.2 mL, Subcutaneous (INT), qHS insulin lispro 100 units/mL Soln (3 mL) Give 0-5 units/dose, Subcutaneous, TIDAC menthol-zinc oxide topical ointment 4oz 1 ayad, Topical, amhs metoprolol succinate 25 mg ER tablet 25 mg 1 tab(s), Oral, qDayM rosuvastatin 10 mg tablet 10 mg 1 tab(s), Oral, qHS Continuous: (0) PRN: (9) acetaminophen 325 mg Tablet 650 mg 2 tab(s), Oral, q4h acetaminophen-OXYcodone 325 mg-5 mg Tablet 1 tab(s), Oral, q4h acetaminophen-OXYcodone 325 mg-5 mg Tablet 2 tab(s), Oral, q4h albuterol - ipratropium 2.5 mg-0.5 mg/3 mL Inhal Kristen UD 3 mL, Inhalation, q4hRT dextrose 50% Solution Disp syringe 50 mL 25 gram(s) 50 mL, IV Push, AsDirected melatonin 3 mg tablet 3 mg 1 tab(s), Oral, qHS melatonin 3 mg tablet 3 mg 1 tab(s), Oral, qHS menthol-zinc oxide topical ointment 4oz 1 ayad, Topical, AsDirected polyethylene glycol 3350 - UD packet 17 gram(s) 15 mL, Oral, qDay Lab Results 12/30 04:48 WBC: 4.2 L Hgb: 12.1 L Hct: 36.0 L Platelet: 158 Neutrophil %: 61.0 Glucose Level: 194 H Sodium Level: 136 Potassium Level: 4.3 BUN: 19.0 Creatinine Lvl (s): 1.47 H 12/29 06:52 WBC: 5.6 Hgb: 12.7 L Hct: 37.7 L Platelet: 189 Neutrophil %: 64.8 Glucose Level: 141 H Sodium Level: 138 Potassium Level: 3.5 BUN: 16.0 Creatinine Lvl (s): 1.38 EKG No qualifying data available. Assessment/Plan Concern for acute exacerbation of chronic heart failure Atrial fibrillation Shortness of breath Coronary artery disease Scrotal cellulitis and edema Cellulitis of right lower extremity Diabetes mellitus Hypoalbuminemia History of left BKA Nonadherence to medical regimen CT pelvis with no drainable fluid collection noted. Urology was consulted and has since signed off, recommend continuing antibiotics and follow up outpatient. Given scrotal edema and small bump in creatinine will bladder scan to rule out retention due to edema. Pt does endorse good urine output but If >500cc noted will place joe catheter. Antbiotics de escalated to doxycycline and ceftrixone. Gonorrhea and chlamydia PCR pending. A fib-Currently rate controlled, Continue metoprolol and eliquis. CHF-Echo reviewed. remains overloaded but does endorse improvements. Cardiology following, appreciate input. Currently on 40mg IV BID. Blood glucose stable-hgb A1c 15.3, continue current regimen. Discussed with collaborative physician Dr. Otero. Level of Care Indication SD monitor (CHF exacerbation) DVT Prophylaxis Full anticoagulation Maintenance IVF Indication NA / No maintenance IVF Indwelling Urinary Catheter Indication NA No indwelling catheter Anticipated Timeline of Discharge 72+ hours Anticipated DC Disposition Home without services Time Spent Total time spent reviewing labs, diagnostics, evaluating the patient, and medical decision making: Digitally Signed by STEVEN SNYDER on 12/30/2024 02:37 PM [facility] 12-30-2024 Note Date of Service 12/30/2024 Chief Complaint scrotal edema Subjective Patient is 64-year-old male with history of atrial fibrillation, diabetes, left BKA secondary to gangrene from uncontrolled diabetes, coronary artery disease who presented to the emergency department for evaluation of worsening shortness of breath, lower extremity edema on the right, concern for cellulitis and scrotal edema. He has reestablished with a primary provider, restarted on insulin and metformin, metoprolol in approximately the last week or so. He has had shortness of breath, tries to exert himself notices significant shortness of breath and has had worsening scrotal edema. Of note patient was living out of state, returned to the [facility] about 3 years ago and since then member reestablish care until about a week ago so was missing anticoagulation, cardiac meds etc. In the emergency department he was noted to have mild pulmonary edema, elevated BNP at 996, high-sensitivity troponin is 17. He was initially started on vancomycin and Zosyn by the emergency department physician. He was noted to have significant scrotal edema, bilateral scrotal wall thickening and a possible small fluid collection in the inferior to right testicle. Admitted for further management. Has been seen by cardiology and Urology. Cardiology Started on IV diuresis. CT pelvis with no evidence of abscess. Pt laying in bed. Feels SOB is improving. Also feels like R leg edema and scrotal edema is improving although only minimally. Objective Vitals and Measurements T: 36.7 C (Oral) TMIN: 36.1 C (Oral) TMAX: 36.8 C (Oral) HR: 82 (Monitored) RR: 18 BP: 134/75 SpO2: 97% Intake and Output 7AM Yesterday to 7AM Today Intake and Output (Last 24 hours) Intake Oral Intake 1080.00 Output Urine Voided 2053.00 Stool Count 0.00 Total Summary Total Intake 1080.00 Total Output 2052. Fluid Balance -973.00 Physical Exam General: Alert and oriented x 3, NAD Head: Normocephalic, mmm, sclera nonicteric Cardiovascular: Irregular, no murmur, Ble edema Respiratory: Lungs clear to auscultation bilaterally, easy Abdomen: soft and non-distended, bowel sounds active all 4 quadrants Neurological: Moving all 4 extremities, speech clear Psychological: normal affect, cooperative, good eye contact Weight Dosing Weight: 111.4 kg (12/28/24) Medications Medications (19) Active Scheduled: (10) ammonium lactate Lotion 12% 1 ayad, Topical, qDay apixaban 5 mg tablet 5 mg 1 tab(s), Oral, BID cefTRIAXone IVP syringe 2 gram(s) 20 mL, IV Push (INT), qDay doxycycline 100 mg 10 mL, IV Piggyback, BID furosemide 40 mg/4 mL vial 40 mg 4 mL, IV Push, BID insulin glargine 20 unit(s) 0.2 mL, Subcutaneous (INT), qHS insulin lispro 100 units/mL Soln (3 mL) Give 0-5 units/dose, Subcutaneous, TIDAC menthol-zinc oxide topical ointment 4oz 1 ayad, Topical, amhs metoprolol succinate 25 mg ER tablet 25 mg 1 tab(s), Oral, qDayM rosuvastatin 10 mg tablet 10 mg 1 tab(s), Oral, qHS Continuous: (0) PRN: (9) acetaminophen 325 mg Tablet 650 mg 2 tab(s), Oral, q4h acetaminophen-OXYcodone 325 mg-5 mg Tablet 1 tab(s), Oral, q4h acetaminophen-OXYcodone 325 mg-5 mg Tablet 2 tab(s), Oral, q4h albuterol - ipratropium 2.5 mg-0.5 mg/3 mL Inhal Kristen UD 3 mL, Inhalation, q4hRT dextrose 50% Solution Disp syringe 50 mL 25 gram(s) 50 mL, IV Push, AsDirected melatonin 3 mg tablet 3 mg 1 tab(s), Oral, qHS melatonin 3 mg tablet 3 mg 1 tab(s), Oral, qHS menthol-zinc oxide topical ointment 4oz 1 ayad, Topical, AsDirected polyethylene glycol 3350 - UD packet 17 gram(s) 15 mL, Oral, qDay Lab Results 12/30 04:48 WBC: 4.2 L Hgb: 12.1 L Hct: 36.0 L Platelet: 158 Neutrophil %: 61.0 Glucose Level: 194 H Sodium Level: 136 Potassium Level: 4.3 BUN: 19.0 Creatinine Lvl (s): 1.47 H 12/29 06:52 WBC: 5.6 Hgb: 12.7 L Hct: 37.7 L Platelet: 189 Neutrophil %: 64.8 Glucose Level: 141 H Sodium Level: 138 Potassium Level: 3.5 BUN: 16.0 Creatinine Lvl (s): 1.38 EKG No qualifying data available. Assessment/Plan Concern for acute exacerbation of chronic heart failure Atrial fibrillation Shortness of breath Coronary artery disease Scrotal cellulitis and edema Cellulitis of right lower extremity Diabetes mellitus Hypoalbuminemia History of left BKA Nonadherence to medical regimen CT pelvis with no drainable fluid collection noted. Urology was consulted and has since signed off, recommend continuing antibiotics and follow up outpatient. Given scrotal edema and small bump in creatinine will bladder scan to rule out retention due to edema. Pt does endorse good urine output but If >500cc noted will place joe catheter. Antbiotics de escalated to doxycycline and ceftrixone. Gonorrhea and chlamydia PCR pending. A fib-Currently rate controlled, Continue metoprolol and eliquis. CHF-Echo reviewed. remains overloaded but does endorse improvements. Cardiology following, appreciate input. Currently on 40mg IV BID. Blood glucose stable-hgb A1c 15.3, continue current regimen. Discussed with collaborative physician Dr. Otero. Level of Care Indication SD monitor (CHF exacerbation) DVT Prophylaxis Full anticoagulation Maintenance IVF Indication NA / No maintenance IVF Indwelling Urinary Catheter Indication NA No indwelling catheter Anticipated Timeline of Discharge 72+ hours Anticipated DC Disposition Home without services Time Spent Total time spent reviewing labs, diagnostics, evaluating the patient, and medical decision making: Digitally Signed by STEVEN SNYDER on 12/30/2024 02:37 PM [facility] 12-29-2024 Cardiology Consult note Date of Service 12/29/2024 Reason for Consultation HF and A fib, GDMT Referring Physician Dr. 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 He presented to the emergency room yesterday with a chief complaint of scrotal edema. He states that over the last month he has noticed an increase in his scrotal edema and right lower extremity edema as well. He states that about a week ago he reestablished with a primary care and was initially put on amoxicillin. He states he was on that for almost a week but noticed that the scrotal edema kept getting worse and so he called his new primary care and was placed on a different antibiotic. He is unsure exactly what the antibiotic was that he was switched to but it started with an S. States that he was having difficulty getting around his house due to the pain that he felt when he was walking due to his scrotal edema. When he came into the emergency room chest x-ray showed mild pulmonary edema, BNP was 996, troponin was 17 and EKG showed atrial fibrillation. He was also found to have right lower extremity cellulitis with edema and multiple wounds that some appeared scabbed and starting to heal and others were newly open. Also has been significantly noncompliant with his cardiac medications including his anticoagulant due to his paroxysmal atrial fibrillation. He is to follow-up with HOLLAND Goff on 01/04/2025 in our [place] office to reestablish care. It appears in the past he has been was a former patient of Dr. Arambula which a cardioversion was completed in 2011. This was successful but he was not compliant with follow-up and we have not seen him since then. He denies any chest pain or shortness of breath when he came in. States that his only issue has been the edema in his right lower extremity in the scrotum. We were consulted due to paroxysmal atrial fibrillation and edema. Today he states he is doing well without any new cardiovascular complaints. Abdominal bloating, scrotal edema and right lower extremity edema has improved with doses of IV Lasix 20 mg twice daily. Denies any chest pain, PND, orthopnea, palpitations, dizziness, lightheadedness, presyncope, syncope, claudication, diaphoresis, myalgias, fatigue or headaches. Review of Systems 10 point ROS completed and all negative except for what is in HPI Physical Exam Vitals and Measurements T: 36.8 C (Oral) TMIN: 36.4 C (Oral) TMAX: 37.0 C (Oral) HR: 86 RR: 18 BP: 158/90 SpO2: 96% HT: 182.9 cm WT: 111.4 kg BMI: 33.3 Weight Dosing Weight: 111.4 kg (12/28/24) General: alert, cooperative, pleasant, lying in bed, naked covered in sheets HEENT: Normocephalic, atraumatic, hearing grossly intact, no scleral icterus, mucosal membranes moist, poor dentition Neck: Supple, trachea midline, no carotid bruit Pulm: Clear to auscultation bilaterally, no rhonchi, rales or wheeze, no accessory muscle use Heart: +S1/S2, irregular rate and rhythm, no murmurs, rubs or gallops Abdomen: Soft, nontender, no distention Extremities: Nontender, 1+ pitting edema right lower extremity, clubbing or cyanosis, freely moving all 4 extremities, left below the knee Neurological: Alert awake oriented 3, able to follow commands and answers questions appropriately., CN II-XII grossly intact Skin: Right lower extremity with erythematous areas from ankle to knee, multiple scabbed areas as well as open wounds, minimal drainage from wounds that is clear and nonpurulent, slightly tender to palpitations, skin is slightly warmer on the lower half of his leg compared to the upper thigh area Lab Results 12/29 06:52 WBC: 5.6 Hgb: 12.7 L Hct: 37.7 L Platelet: 189 Neutrophil %: 64.8 Glucose Level: 141 H Sodium Level: 138 Potassium Level: 3.5 BUN: 16.0 Creatinine Lvl (s): 1.38 Imaging Results and Diagnostics Stress test 09/13/2011: No signs of ischemia or infarct, LVEF 46% Cardioversion 01/17/20202011 that was successful Assessment/Plan Scrotal edema Management per primary team and urology. Currently on doxycycline. Increase lasix to 40mg IV BID. Getting CT pelvis today as well. Paroxysmal atrial fibrillation: Patient currently rate controlled not on any AV meghana blocking agents. Will start metoprolol succinate 25 mg daily. Patient was on metoprolol to tartrate 25 mg twice daily in the past. D/C Xarelto, start Eliquis 5mg bid again. At this point, no ischemic workup while inpatient and can discuss doing this as an outpatient. Will make sure potassium greater than 4 and magnesium greater than 2. Recheck EKG today. Right lower extremity cellulitis: IV antibiotics per primary team. Being treated with ceftriaxone IV. Increase lasix to 40mg IV twice a day to help with diuresis of his scrotal edema and right lower extremity edema as well. Acute heart failure: Due to the fact the patient has not had any sort of cardiac workup since 2011 and last EF was 46% would make patient at this time heart failure with partially reduced EF. Increase IV Lasix to 40 mg twice daily. Will check echocardiogram to review LVEF as well as see if there is any wall motion abnormalities. Started Toprol 25 mg daily as well for goal-directed medical therapy. Problem List/Past Medical History Ongoing Afib Amputation of leg Bilateral leg edema Elevated brain natriuretic peptide (BNP) level Encounter to establish care Hypercoagulability due to atrial fibrillation Marijuana smoker Neuropathy, peripheral Pressure ulcer S/P coronary artery stent placement Scrotal edema Type 2 diabetes mellitus with ulcer Procedure/Surgical History Left leg prosthesis, device: 2022 Medications Inpatient cefTRIAXone, 2 gram(s)= 20 mL, IV Push (INT), qDay Dextrose 50% IV Push, 25 gram(s)= 50 mL, IV Push, AsDirected, PRN doxycycline DuoNeb, 3 mL, Inhalation, QIDRT Flagyl IVPB, 500 mg= 100 mL, IV Piggyback, q8hr HumaLOG 100 units/mL subcutaneous solution, Give 0-5 units/dose, Subcutaneous, TIDAC Lantus, 20 unit(s)= 0.2 mL, Subcutaneous (INT), qHS Lasix, 20 mg= 2 mL, IV Push, BID melatonin, 3 mg= 1 tab(s), Oral, qHS, PRN melatonin, 3 mg= 1 tab(s), Oral, qHS, PRN Miralax Powder Packet, 17 gram(s)= 15 mL, Oral, qDay, PRN Percocet 325/5, 1 tab(s), Oral, q4h, PRN Percocet 325/5, 2 tab(s), Oral, q4h, PRN Tylenol, 650 mg= 2 tab(s), Oral, q4h, PRN Xarelto, 20 mg= 1 tab(s), Oral, with supper Home amoxicillin-clavulanate 875 mg-125 mg oral tablet, 1 tab(s), Oral, q12h, Not taking Insulin Syringes (orange cap), See Instructions, 11 refills Lantus 100 units/mL10 ml vial solution, 20 unit(s), Subcutaneous, qHS, 2 refills Lasix 20 mg oral tablet, 20 mg= 1 tab(s), Oral, qDay MetFORMIN (Eqv-Glucophage XR) 500 mg oral tablet, EXTENDED RELEASE, 500 mg= 1 tab(s), Oral, BID, 11 refills metoprolol tartrate 25 mg oral tablet, 25 mg= 1 tab(s), Oral, BID, 5 refills sulfamethoxazole-trimethoprim 800 mg-160 mg oral tablet, 1 tab(s), Oral, BID Allergies lisinopril Coughing Social History Smoking Status - 01/17/2012 Patient is non-smoker Alcohol Use: Never., 12/20/2024 Nutrition/Health Caffeine intake amount: 1 cup of coffee daily., 12/20/2024 Substance Abuse Use: Current. Type: Marijuana. Frequency: Daily., 12/20/2024 Tobacco Nicotine Use: Former smoker, quit more than 30 days ago., 10/23/2021 Family History Cancer: Sister. Diabetes: Father and Brother. High blood pressure: Father, Sister and Brother. Health Status Family Member(s) Immunizations No qualifying data available. Digitally Signed by CAPRI JUNIOR PA-C on 12/29/2024 02:59 PM [facility] 12-29-2024 Urology Progress note Date of Service 12/29/2024 CT pelvis from this morning reviewed- no evidence of gas/air or drainable fluid collection, no intervention recommended at this time. Likely scrotal cellulitis, ?also component of heart failure, cardiology is following and echo pending. Continue abx; will arrange OP follow up in our office in ~6 weeks for skin check. Urology will sign off, please call with questions/concerns Digitally Signed by IMELDA BEAVER on 12/29/2024 04:46 PM [facility] 12-29-2024 Palliative care Progress note Palliative care consulted as part of a positive palliative care screen. Chart reviewed in detail. He is currently being optimized by multidisciplinary team including cardiology. He had moved back to [place] approximately 3 years ago and had not reestablished with a provider until just recently. As when he was started on medications by his new primary care provider. He has no unmet palliative care needs at this time and is receiving goal congruent care. He would not benefit from outpatient palliative care at this time. Please feel free to reconsult if we can be beneficial moving forward. Digitally Signed by TEMITOPE SUE MD on 12/29/2024 03:24 PM [facility] 12-29-2024 Note Exam Date Time Procedure Performing Provider Status 12/29/24 12:59 PM Echocardiogram, Adult - CV PA EATON MD; Auth (Verified) [id number] Note* Exam Date Time Procedure Performing Provider Status 12/29/24 10:[address] Pelvis w/o Contrast KACY LING MD; Auth (Verified) [id number] ORIGINAL EXAMINATION: CT OF THE PELVIS WITHOUT CONTRAST 12/29/2024 10:45 am TECHNIQUE: CT of the pelvis was performed without the administration of intravenous contrast. Multiplanar reformatted images are provided for review. Adjustment of mA and/or kV according to patient size was utilized. Automated exposure control, iterative reconstruction, and/or weight based adjustment of the mA/kV was utilized to reduce the radiation dose to as low as reasonably achievable. COMPARISON: None. 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 surgical hx; vasectomy , scrotal swelling FINDINGS: Minor degenerative changes are present at the lumbosacral junction, the hips and at the SI joints. Mild diffuse anasarca is visible. Very prominent scrotal edema is identified, and this extends to the perineum as well. Assessment is difficult without IV contrast, but there is no gross focal or peripherally enhancing collection to suggest a drainable abscess. I do not identify soft tissue air or gas on this exam. Multiple normal and borderline lymph nodes are identified within the inguinal regions, presumably reactive or hyperplastic. The largest of these is on the right, 11 mm in short axis. More inferiorly, there is a right inguinal lymph node measuring 1.6 cm. Additionally, there is right external iliac adenopathy measuring 1.8 cm. No definite focal urinary bladder abnormality is visible. The prostate is grossly normal. No GI tract abnormality is evident. No additional contributory finding. IMPRESSION: 1. Anasarca. 2. Prominent scrotal and perineal edema suggesting cellulitis. A definite drainable fluid collection is not evident within the constraints of a noncontrast exam. 3. Adenopathy in multiple areas. The findings are likely reactive or hyperplastic. Post treatment follow-up recommended to show resolution, helping to exclude other etiologies. Interpreted by: Kacy Ling MD Preliminary Report By: Kacy Ling MD Electronically signed By Kacy Ling MD Dictated Date: 12/29/2024 10:48:24 AM Prelim Date: 12/29/2024 10:53:37 AM Sign Date: 12/29/2024 10:53:37 AM Ordering Provider: IMELDA BEAVER [id number] Respiratory therapy Hospital Progress note Respiratory Therapy Evaluation Entered On: 12/29/2024 10:33 EDT Performed On: 12/29/2024 10:31 EDT by CECILIA Lynne Respiratory Therapy Evaluation Chest X-Ray : Chronic radiological changes Respiratory Therapy Evaluation Score : 3 RT Evaluation Steps : Chart review completed, Assessment completed: RR, HR, Auscultation, Cough, Patient Interview completed Respiratory Evaluation Triage Score : (0-5) Freq: Q4RT prn RT Assessment [Frequency/Schedule] : Triage score 0-5, modify scheduled medications to Q4hRT PRN CECILIA Lynne - 12/29/2024 10:34 EDT Pulmonary Status : Smoking history, quit >1 year ago Surgical Status : No surgery Respiratory Pattern (RT) : RR 10-20 BPM, Regular pattern Breath Sounds (RT) : Diminished due to poor inspiratory effort Cough (RT) : Strong, non-productive Level of Activity : Ambulatory Mental Status : Alert, oriented and cooperative CECILIA Lynne - 12/29/2024 10:31 EDT Digitally Signed by CECILIA Lynne on 12/29/2024 10:34 AM [id number] Note Reason for Consultation Admission From: Home Consult Skin Team re: Pressure Staging - Ordered -- 12/29/24 3:50:38 EDT Skin Team Findings Vitals and Measurements T: 36.8 C (Oral) TMIN: 36.4 C (Oral) TMAX: 37.0 C (Oral) HR: 86 RR: 18 BP: 158/90 SpO2: 96% HT: 182.9 cm WT: 111.4 kg BMI: 33.3 Pressure Area Details ------Pressure Area------ No pressure injuries present. ------Incision/Wound------ Buttock Bilateral - Incision, Wound Dressing/Activity: Open to Air Buttock Bilateral - Incision, Wound Surrounding Tissue: Erythema Buttock Bilateral - Skin Abnormality Color: [place], Red Buttock Bilateral - Skin Abnormality Pattern: Scattered Buttock Bilateral - Skin Abnormality Type: Moisture associated dermatitis Leg Right - Incision, Wound Dressing: Open to Air Leg Right - Incision, Wound Surrounding Tissue: Dry, Erythema Leg Right - Non-Pressure Ulcer Type: Undiagnosed ulcer Leg Right - Skin Abnormality Color: Brown, [place], Yellow Leg Right - Skin Abnormality Pattern: Scattered, Other: circumferential Leg Right - Skin Abnormality Type: Non-pressure ulcer Leg Right - Wound Bed Description: Crusting, Dermal, Scab Leg Right - Wound Exudate Amount: Scant Leg Right - Wound Exudate Odor: None Leg Right - Wound Exudate Type: Serous Scrotum - Incision, Wound Dressing/Activity: Open to Air Scrotum - Incision, Wound Surrounding Tissue: Erythema Scrotum - Skin Abnormality Color: [place], Red Scrotum - Skin Abnormality Pattern: Scattered Scrotum - Skin Abnormality Type: Erythema Assessments and Recommendations ------Assessments------ Current Skin/Wound Interventions: Hospital bed, Turn and reposition every 2 hours ------Recommendations------ Recommended Skin/Wound Interventions: Seat cushion, Turn and reposition every 2 hours, Proposed orders sent to physician, Other: Calmoseptine to scrotum/bilateral buttocks. Ammonium lactate, Aquacel ag, gauze, and elastic wrap to RLE. Education No qualifying data available. Problem List/Past Medical History Ongoing Afib Amputation of leg Bilateral leg edema Elevated brain natriuretic peptide (BNP) level Encounter to establish care Hypercoagulability due to atrial fibrillation Marijuana smoker Neuropathy, peripheral Pressure ulcer S/P coronary artery stent placement Scrotal edema Type 2 diabetes mellitus with ulcer Digitally Signed by Manjula Caballero RN on 12/29/2024 10:29 AM [id number] Cardiology Consult note Date of Service 12/29/2024 Reason for Consultation HF and A fib, GDMT Referring Physician Dr. 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 He presented to the emergency room yesterday with a chief complaint of scrotal edema. He states that over the last month he has noticed an increase in his scrotal edema and right lower extremity edema as well. He states that about a week ago he reestablished with a primary care and was initially put on amoxicillin. He states he was on that for almost a week but noticed that the scrotal edema kept getting worse and so he called his new primary care and was placed on a different antibiotic. He is unsure exactly what the antibiotic was that he was switched to but it started with an S. States that he was having difficulty getting around his house due to the pain that he felt when he was walking due to his scrotal edema. When he came into the emergency room chest x-ray showed mild pulmonary edema, BNP was 996, troponinwas 17 and EKG showed atrial fibrillation. He was also found to have right lower extremity cellulitis with edema and multiple wounds that some appeared scabbed and starting to heal and others were newly open. Also has been significantly noncompliant with his cardiac medications including his anticoagulant due to his paroxysmal atrial fibrillation. He is to follow-up with HOLLAND Goff on 01/04/2025 in our [place] office to reestablish care. It appears in the past he has been was a former patient of Dr. Arambula which a cardioversion was completed in 2011. This was successful but he was not compliant with follow-up and we have not seen him since then. He denies any chest pain or shortness of breath when he came in. States that his only issue has been the edema in his right lower extremity in the scrotum. We were consulted due to paroxysmal atrial fibrillation and edema. Today he states he is doing well without any new cardiovascular complaints. Abdominal bloating, scrotal edema and right lower extremity edema has improved with doses of IV Lasix 20 mg twice daily. Denies any chest pain, PND, orthopnea, palpitations, dizziness, lightheadedness, presyncope, syncope, claudication, diaphoresis, myalgias, fatigue or headaches. Review of Systems 10 point ROS completed and all negative except for what is in HPI Physical Exam Vitals and Measurements T: 36.8 C (Oral) TMIN: 36.4 C (Oral) TMAX: 37.0 C (Oral) HR: 86 RR: 18 BP: 158/90 SpO2: 96% HT: 182.9 cm WT: 111.4 kg BMI: 33.3 Weight Dosing Weight: 111.4 kg (12/28/24) General: alert, cooperative, pleasant, lying in bed, naked covered in sheets HEENT: Normocephalic, atraumatic, hearing grossly intact, no scleral icterus, mucosal membranes moist, poor dentition Neck: Supple, trachea midline, no carotid bruit Pulm: Clear to auscultation bilaterally, no rhonchi, rales or wheeze, no accessory muscle use Heart: +S1/S2, irregular rate and rhythm, no murmurs, rubs or gallops Abdomen: Soft, nontender, no distention Extremities: Nontender, 1+ pitting edema right lower extremity, clubbing or cyanosis, freely movingall 4 extremities, left below the knee Neurological: Alert awake oriented 3, able to follow commands and answers questions appropriately.,CN II-XII grossly intact Skin: Right lower extremity with erythematous areas from ankle to knee, multiple scabbed areas as well as open wounds, minimal drainage from wounds that is clear and nonpurulent, slightly tender to palpitations, skin is slightly warmer on the lower half of his leg compared to the upper thigh area Lab Results 12/29 06:52 WBC: 5.6 Hgb: 12.7 L Hct: 37.7 L Platelet: 189 Neutrophil %: 64.8 Glucose Level: 141 H Sodium Level: 138 Potassium Level: 3.5 BUN: 16.0 Creatinine Lvl (s): 1.38 Imaging Results and Diagnostics Stress test 09/13/2011: No signs of ischemia or infarct, LVEF 46% Cardioversion 01/17/20202011 that was successful Assessment/Plan Scrotal edema Management per primary team and urology. Currently on doxycycline. Increase lasix to 40mg IV BID. Getting CT pelvis today as well. Paroxysmal atrial fibrillation: Patient currently rate controlled not on any AV meghana blocking agents. Will start metoprolol succinate 25 mg daily. Patient was on metoprolol to tartrate 25 mg twice daily in the past. D/C Xarelto, start Eliquis 5mg bid again. At this point, no ischemic workup while inpatient and can discuss doing this as an outpatient. Will make sure potassium greater than 4 and magnesium greater than 2. RecheckEKG today. Right lower extremity cellulitis: IV antibiotics per primary team. Being treated with ceftriaxone IV. Increase lasix to 40mg IV twicea day to help with diuresis of his scrotal edema and right lower extremity edema as well. Acute heart failure: Due to the fact the patient has not had any sort of cardiac workup since 2011 and last EF was 46% would make patient at this time heart failure with partially reduced EF. Increase IV Lasix to 40 mg twice daily. Will check echocardiogram to review LVEF as well as see if there is any wall motion abnormalities. Started Toprol 25 mg daily as well for goal-directed medical therapy. Problem List/Past Medical History Ongoing Afib Amputation of leg Bilateral leg edema Elevated brain natriuretic peptide (BNP) level Encounter to establish care Hypercoagulability due to atrial fibrillation Marijuana smoker Neuropathy, peripheral Pressure ulcer S/P coronary artery stent placement Scrotal edema Type 2 diabetes mellitus with ulcer Procedure/Surgical History Left leg prosthesis, device: 2022 Medications Inpatient cefTRIAXone, 2 gram(s)= 20 mL, IV Push (INT), qDay Dextrose 50% IV Push, 25 gram(s)= 50 mL, IV Push, AsDirected, PRN doxycycline DuoNeb, 3 mL, Inhalation, QIDRT Flagyl IVPB, 500 mg= 100 mL, IV Piggyback, q8hr HumaLOG 100 units/mL subcutaneous solution, Give 0-5 units/dose, Subcutaneous, TIDAC Lantus, 20 unit(s)= 0.2 mL, Subcutaneous (INT), qHS Lasix, 20 mg= 2 mL, IV Push, BID melatonin, 3 mg= 1 tab(s), Oral, qHS, PRN melatonin, 3 mg= 1 tab(s), Oral, qHS, PRN Miralax Powder Packet, 17 gram(s)= 15 mL, Oral, qDay, PRN Percocet 325/5, 1 tab(s), Oral, q4h, PRN Percocet 325/5, 2 tab(s), Oral, q4h, PRN Tylenol, 650 mg= 2 tab(s), Oral, q4h, PRN Xarelto, 20 mg= 1 tab(s), Oral, with supper Home amoxicillin-clavulanate 875 mg-125 mg oral tablet, 1 tab(s), Oral, q12h, Not taking Insulin Syringes (orange cap), See Instructions, 11 refills Lantus 100 units/mL10 ml vial solution, 20 unit(s), Subcutaneous, qHS, 2 refills Lasix 20 mg oral tablet, 20 mg= 1 tab(s), Oral, qDay MetFORMIN (Eqv-Glucophage XR) 500 mg oral tablet, EXTENDED RELEASE, 500 mg= 1 tab(s), Oral, BID, 11refills metoprolol tartrate 25 mg oral tablet, 25 mg= 1 tab(s), Oral, BID, 5 refills sulfamethoxazole-trimethoprim 800 mg-160 mg oral tablet, 1 tab(s), Oral, BID Allergies lisinopril Coughing Social History Smoking Status - 01/17/2012 Patient is non-smoker Alcohol Use: Never., 12/20/2024 Nutrition/Health Caffeine intake amount: 1 cup of coffee daily., 12/20/2024 Substance Abuse Use: Current. Type: Marijuana. Frequency: Daily., 12/20/2024 Tobacco Nicotine Use: Former smoker, quit more than 30 days ago., 10/23/2021 Family History Cancer: Sister. Diabetes: Father and Brother. High blood pressure: Father, Sister and Brother. Health Status Family Member(s) Immunizations No qualifying data available. Digitally Signed by CAPRI JUNIOR PA-C on 12/29/2024 02:59 PM [id number] Consult note Date of Service 12/29/2024 Reason for Consultation scrotal edema Referring Physician Dr Schaefer History of Present Illness 64 year old male who is unknown to [facility], he does not currently have a urologist, says hedid have a vasectomy in the 90s. Other PMH is significant for A-fib (takes Eliquis but apparently has been off of this due to running out of his meds), T2DM s/p L BKA 2/2 gangrene from uncontrolled diabetes, CAD. Patient presented to the [place] ER yesterday with c/o shortness of breath as well as scrotal edema and redness. ER work up significant for: Normal WBC, BUN 19, Cr 1.36 UA with small blood Scrotal ultrasound showed bilateral scrotal wall thickening, measuring up to 1.9 cm on the left. Possible small fluid collection also seen inferior to the right testicle. No evidence for testicular mass or torsion. He is admitted with concern for heart failure, cardiology consulted, as well as the scrotal edema Patient seen this AM, he tells me he has been having scrotal swelling, pain and redness for about 3weeks. He feels like it is getting better now. Denies fevers/chills. No dysuria or gross hematuria. Review of Systems complete ROS performed, pertinent positives and negatives are noted in HPI Physical Exam Vitals and Measurements T: 36.8 C (Oral) TMIN: 36.4 C (Oral) TMAX: 37.0 C (Oral) HR: 86 RR: 18 BP: 158/90 SpO2: 96% HT: 182.9 cm WT: 111.4 kg BMI: 33.3 Weight Dosing Weight: 111.4 kg (12/28/24) GENERAL:Appears to be in no acute distress. SKIN: warm and dry. No rashes noted. HEENT: mucous membranes moist. LUNGS: no use of accessory muscles, no wheezes or cough. ABDOMEN: Soft, non distended, non tender. . GENITOURINARY: _ Deferred MUSCULOSKELETAL: Moves all extremities x 4. VASCULAR: Bilateral pedal pulses are palpable +2. No edema. NEUROLOGICAL: A&O x3. No focal deficits. Lab Results 12/29 06:52 WBC: 5.6 Hgb: 12.7 L Hct: 37.7 L Platelet: 189 Neutrophil %: 64.8 Assessment/Plan 1. Scrotal edema - on my exam scrotum is swollen/edematous and erythematous, relatively soft with no induration felt, somewhat tender on exam - scrotal US reviewed, would like to get a CT pelvis to better visualize if there are any fluid collections that would need drained surgically - WBC is normal and he is afebrile and HD stable, no urgent need for intervention - patient agreeable with plan, all questions answered at this time, urology will follow Orders: CT Pelvis w/o Contrast, 12/29/24 8:08:00 EDT, 12/29/24 8:08:00 EDT, Routine, scrotal swelling, Wt k.4, [facility], [facility] – [place] Problem List/Past Medical History Ongoing Afib Amputation of leg Bilateral leg edema Elevated brain natriuretic peptide (BNP) level Encounter to establish care Hypercoagulability due to atrial fibrillation Marijuana smoker Neuropathy, peripheral Pressure ulcer S/P coronary artery stent placement Scrotal edema Type 2 diabetes mellitus with ulcer Procedure/Surgical History Left leg prosthesis, device: 2022 Medications Inpatient cefTRIAXone, 2 gram(s)= 20 mL, IV Push (INT), qDay Dextrose 50% IV Push, 25 gram(s)= 50 mL, IV Push, AsDirected, PRN doxycycline DuoNeb, 3 mL, Inhalation, QIDRT HumaLOG 100 units/mL subcutaneous solution, Give 0-5 units/dose, Subcutaneous, TIDAC Lantus, 20 unit(s)= 0.2 mL, Subcutaneous (INT), qHS Lasix, 20 mg= 2 mL, IV Push, BID melatonin, 3 mg= 1 tab(s), Oral, qHS, PRN melatonin, 3 mg= 1 tab(s), Oral, qHS, PRN Miralax Powder Packet, 17 gram(s)= 15 mL, Oral, qDay, PRN Percocet 325/5, 1 tab(s), Oral, q4h, PRN Percocet 325/5, 2 tab(s), Oral, q4h, PRN Tylenol, 650 mg= 2 tab(s), Oral, q4h, PRN Xarelto, 20 mg= 1 tab(s), Oral, with supper Home amoxicillin-clavulanate 875 mg-125 mg oral tablet, 1 tab(s), Oral, q12h, Not taking Insulin Syringes (orange cap), See Instructions, 11 refills Lantus 100 units/mL10 ml vial solution, 20 unit(s), Subcutaneous, qHS, 2 refills Lasix 20 mg oral tablet, 20 mg= 1 tab(s), Oral, qDay MetFORMIN (Eqv-Glucophage XR) 500 mg oral tablet, EXTENDED RELEASE, 500 mg= 1 tab(s), Oral, BID, 11refills metoprolol tartrate 25 mg oral tablet, 25 mg= 1 tab(s), Oral, BID, 5 refills sulfamethoxazole-trimethoprim 800 mg-160 mg oral tablet, 1 tab(s), Oral, BID Allergies lisinopril Coughing Social History Smoking Status - 01/17/2012 Patient is non-smoker Alcohol Use: Never., 12/20/2024 Nutrition/Health Caffeine intake amount: 1 cup of coffee daily., 12/20/2024 Substance Abuse Use: Current. Type: Marijuana. Frequency: Daily., 12/20/2024 Tobacco Nicotine Use: Former smoker, quit more than 30 days ago., 10/23/2021 Family History Cancer: Sister. Diabetes: Father and Brother. High blood pressure: Father, Sister and Brother. Health Status Family Member(s) Immunizations No qualifying data available. 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 Patient states that he has shortness of breath when he tries to exert himself has noticed significant scrotal edema in the last several days as well as redness over his scrotum and right lower extremity so he went to the emergency department at [facility] In the emergency department Vital signs were unremarkable Ultrasound of both lower extremities prelim read no DVT Scrotal ultrasound Bilateral scrotal wall thickening, measuring up to 1.9 cm on the left. Possible small fluid collection also seen inferior to the right testicle. No evidence for testicular mass or torsion. Chest x-ray Mild pulmonary edema. CBC WBC 4.6 H&H 12/38 platelets 176 BMP glucose 355 sodium 132 potassium 4.3 chloride 100 CO2 24 creatinine 1.36 BUN 19 LFTs hypoalbuminemic at 1.9 lactic acid 2.0 repeat 1.5 BNP mildly elevated 996 UA no nitrites no leuk esterase Blood cultures drawn high-sensitivity troponin 17 EKG which I personally reviewed interpreted showed atrial fibrillation Started on Vanco Zosyn by the ED physician Report taken by my colleague [facility] physician Dr. Alvarez Regarding the patient's presentation Patient seen and examined upon arrival to the floor Review of Systems All pertinent positive and negative review of systems as per HPI, all other review of systems reviewed and negative Physical Exam Vitals and Measurements T: 36.4 C (Oral) HR: 92 RR: 16 BP: 174/92 SpO2: 95% HT: 182.9 cm WT: 111.4 kg BMI: 33.3 Weight Dosing Weight: 111.4 kg (12/28/24) GENERAL:Well nourished ; no acute distress. ASSISTIVE DEVICES: None PSYCHIATRIC: appropriate HEENT moist mucous membranes extraocular muscles intact CARDIOVASCULAR irregularly irregular RESPIRATORY: Crackles at the bases bilaterally ABDOMEN soft, no guarding, nontender, nondistended, positive bowel sounds, NEURO: No focal deficits Significant scrotal edema mild erythema DERM: Erythema over the right villagran with trace edema Left BKA stable Lab Results No 36 Hour Lab Data Assessment/Plan Concern for heart failure will get an echo, diurese with Lasix 20 IV twice daily, appreciate cardiology regarding input for goal-directed medical treatment will hold off on metoprolol until he diurese keep K above 4 mag above 2 Atrial fibrillation patient has been off of Eliquis due to noncompliance he recently established with a nurse practitioner prior to that he had not seen a doctor in 3 years he was on Eliquis twice a day we will start him on Xarelto 20 mg daily to improve compliance may also be cheaper. Appreciate cardiology input CAD appreciate cardiology input regarding medication optimization Scrotal cellulitis and edema will treat with doxycycline appreciate urology input Cellulitis of the right lower extremity will treat with ceftriaxone Diabetes sliding scale insulin as needed continue home Lantus Hypoalbuminemia may have a component of third spacing diuresing gently with 20 IV twice daily caution not to intravascularly deplete Noncompliance counseled history of left BKA stable DVT prophylaxis starting Xarelto Full code Patient was admitted for the above Patient is expected to require at least 2 midnights of hospitalization including care already readyemerged part for scrotal edema and scrotal cellulitis cellulitis of his right lower extremity acuteheart failure requiring goal- directed medical therapy Problem List/Past Medical History Ongoing Afib Amputation of leg Bilateral leg edema Elevated brain natriuretic peptide (BNP) level Encounter to establish care Hypercoagulability due to atrial fibrillation Marijuana smoker Neuropathy, peripheral Pressure ulcer S/P coronary artery stent placement Scrotal edema Type 2 diabetes mellitus with ulcer Procedure/Surgical History Left leg prosthesis, device: 2022 Medications Home Medications (7) Active amoxicillin-clavulanate 875 mg-125 mg oral tablet 1 tab(s), Oral, q12h Insulin Syringes (orange cap) See Instructions Lantus 100 units/mL10 ml vial solution 20 unit(s), Subcutaneous, qHS Lasix 20 mg oral tablet 20 mg = 1 tab(s), Oral, qDay MetFORMIN (Eqv-Glucophage XR) 500 mg oral tablet, EXTENDED RELEASE 500 mg = 1 tab(s), Oral, BID metoprolol tartrate 25 mg oral tablet 25 mg = 1 tab(s), Oral, BID sulfamethoxazole-trimethoprim 800 mg-160 mg oral tablet 1 tab(s), Oral, BID Allergies lisinopril Coughing Social History Smoking Status - 01/17/2012 Patient is non-smoker Alcohol Use: Never., 12/20/2024 Nutrition/Health Caffeine intake amount: 1 cup of coffee daily., 12/20/2024 Substance Abuse Use: Current. Type: Marijuana. Frequency: Daily., 12/20/2024 Tobacco Nicotine Use: Former smoker, quit more than 30 days ago., 10/23/2021 Family History Cancer: Sister. Diabetes: Father and Brother. High blood pressure: Father, Sister and Brother. Health Status Family Member(s) Immunizations No qualifying data available. Code Status Code Status - Ordered -- 12/28/24 22:16:00 EDT, Full Code, Constant Order Digitally Signed by JACKELINE SCHAEFER MD on 12/29/2024 01:00 AM Digitally Signed by JACKELINE SCHAEFER MD on 12/29/2024 01:01 AM Digitally Signed by JACKELINE SCHAEFER MD on 12/29/2024 01:03 AM [id number] Evaluation + Plan noteExtracted from: Title:History and Physical Author:JACKELINE SCHAEFER Date:12/28/24 Concern for heart failure will get an echo, diurese with Lasix 20 IV twice daily, appreciate cardiology regarding input for goal-directed medical treatment will hold off on metoprolol until he diurese keep K above 4 mag above 2 Atrial fibrillation patient has been off of Eliquis due to noncompliance he recently established with a nurse practitioner prior to that he had not seen a doctor in 3 years he was on Eliquis twice a day we will start him on Xarelto 20 mg daily to improve compliance may also be cheaper. Appreciate cardiology input CAD appreciate cardiology input regarding medication optimization Scrotal cellulitis and edema will treat with doxycycline appreciate urology input Cellulitis of the right lower extremity will treat with ceftriaxone Diabetes sliding scale insulin as needed continue home Lantus Hypoalbuminemia may have a component of third spacing diuresing gently with 20 IV twice daily caution not to intravascularly deplete Noncompliance counseled history of left BKA stable DVT prophylaxis starting Xarelto Full code Patient was admitted for the above Patient is expected to require at least 2 midnights of hospitalization including care already ready emerged part for scrotal edema and scrotal cellulitis cellulitis of his right lower extremity acute heart failure requiring goal-directed medical therapy Future Appointments Appointment Date:01/17/2025 11:00:00 AM Scheduled Provider: Location:[facility] Appointment Type:Echo - Echocardiogram Adult [facility] 05-13-2025 Note* Exam Date Time Procedure Performing Provider Status 12/28/24 1:45 PM EKG [ED AOH] - CV FRIDA CARDENAS DO ; Auth (Verified) ECG Final Report Atrial fibrillation Borderline low voltage, extremity leads Borderline prolonged QT interval BORDERLINE ECG Electronic Signature: FRIDA CARDENAS DO 12/28/2024 13:50:57 [facility]05-13-2025 Note* Exam Date Time Procedure Performing Provider Status 12/28/24 1:34 PM XR Chest 1 View FAVIOLA CHAUDHARI MD; Aut h (Verified) [id number] ORIGINAL EXAMINATION: ONE XRAY VIEW OF THE CHEST 12/28/2024 1:36 pm COMPARISON: None. HISTORY: ORDERING SYSTEM PROVIDED HISTORY: Reason for Exam: CHF FINDINGS: Cardiomediastinal silhouette is within normal limits. Mild interstitial pattern reflecting mild edema. No pleural effusion or pneumothorax. No focal consolidation. Left AC joint degenerative change. IMPRESSION: Mild pulmonary edema. Interpreted by: Faviola Chaudhari Preliminary Report By: Faviola Chaudhari Electronically signed By Faviola Chaudhari Dictated Date: 12/28/2024 1:39:20 PM Prelim Date: 12/28/2024 1:40:05 PM Sign Date: 12/28/2024 1:40:05 PM Ordering Provider: [facility]05-13-2025 Note* Exam Date Time Procedure Performing Provider Status 12/28/24 12:51 PM US Scrotum Contents DUC SAHNI O; Auth (Verified) [id number] ORIGINAL EXAMINATION: ULTRASOUND OF THE SCROTUM/TESTICLES WITH COLOR DOPPLER FLOW EVALUATION12/28/2024 12:56 pm Scrotal Ultrasound with Duplex Doppler evaluation TECHNIQUE: Duplex ultrasound using B-mode/weaver scaled imaging, Doppler spectral analysis and color flow Doppler was obtained of the testicles. Grayscale, color Doppler and spectral waveform evaluation This report is based on interpretation of permanently recorded ultrasound images. COMPARISON: None HISTORY: ORDERING SYSTEM PROVIDED HISTORY: Reason for Exam: testicular pain, swelling or torsion, FINDINGS: Right testicle: 4.2 x 3.7 x 2.9 cm. There is scrotal wall thickening surrounding the right testicle measuring up to 1.8 cm. The right epididymis measures 4.2 x 2.5 x 4.3 cm. There may be a small fluid collection inferior to the right testicle measuring 2.2 x 2.5 x 4.0 cm. Left testicle: 4.0 x 2.8 x 2.9 cm. There is scrotal wall thickening surrounding the left testicle measuring up to 1.9 cm. The left epididymis measures 2.5 x 1.8 x 3.4 cm. A tiny fluid collection is seen surrounding left testicle. No suspicious focal nor diffuse abnormalities are seen. Color Doppler flow is seen in both testicles in a symmetric fashion. Spectral waveform analysis of the testicles shows arterial and venous waveforms in both testicles. IMPRESSION: Bilateral scrotal wall thickening, measuring up to 1.9 cm on the left. Possible small fluid collection also seen inferior to the right testicle. No evidence for testicular mass or torsion. I have personally reviewed the images of this examination and agree with the resident's findings and interpretation. Interpreted by: Duc Sahni DO Preliminary Report By: Nu Perez Electronically signed By Duc Sahni DO Dictated Date: 12/28/2024 1:14:11 PM Prelim Date: 12/28/2024 1:34:39 PM Sign Date: 12/28/2024 1:34:39 PM Ordering Provider: MARNI MELCHOR [facility]08-22-2024 NoteHNO ID: [id number] Author: ANNIE FERNANDEZ DPM Service: ? Author Type: Physician Type: Progress Notes Filed: 04/08/2024 10:32 Note Text: PODIATRY OFFICE NOTE Chief Complaint: Diabetic foot evaluation HPI: This is a 63 year old male with PMH indicated below who presents for diabetic foot evaluation. He never followed up after his last appointment. 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 States his blood sugars have been more normal. States it can still get up into the 200s, but usually under 150. He did get his diabetic shoe. No other pedal complaints. 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 prn apixaban (ELIQUIS) 5 mg tab(s) Take 5 mg by mouth two times a day. cholecalciferol (VITAMIN D-3) 5,000 unit tab Take 5,000 Units by mouth once daily. furosemide (LASIX) 20 mg tablet Take 20 mg by mouth once daily. insulin glargine,hum.rec.anlog (LANTUS U-100 INSULIN SUBCUTANEOUS) Inject subcutaneously. mag hydrox/aluminum hyd/simeth (MAALOX ORAL) Take by mouth. Melatonin 5 mg cap Take by mouth. oxyCODONE-acetaminophen 5-325 mg (PERCOCET) 1 tablet two times a day. Prn ZINC ACETATE ORAL Take by mouth. acetaminophen (TYLENOL) 325 mg cap Take 2 capsules by mouth every 4 hours. prn ammonium lactate (LAC-HYDRIN) 12 % cream Apply to affected area as needed. aspirin 81 mg chewable tablet Take 1 tablet by mouth once daily. losartan (COZAAR) 25 mg tablet Take by mouth once daily. indapamide (LOZOL) 1.25 mg tablet Take 1.25 mg by mouth once daily. insulin detemir U-100 (LEVEMIR FLEXPEN) 100 unit/mL (3 mL) injection pen Inject 51 Units subcutaneously daily at bedtime. No current facility-administered medications for this visit. : ALLERGIES Allergen Reactions Lisinopril Cough Atorvastatin Cough : PAST SURGICAL HISTORY 2023: AMPUTATION TOE,MT-P JT; Left No date: LEFT HEART CATH,PERCUTANEOUS; N/A No date: PAST SURGICAL HISTORY OF; N/A Comment: cardiac stent placement No date: VASECTOMY; N/A FAMILY HISTORY Problem Relation Age of Onset No Known Problems Mother Diabetes Father Heart Attack Father Cancer Sister Diabetes Brother : Social History Tobacco Use Smoking status: Former Current packs/day: 0.00 Average packs/day: 1 pack/day for 31.0 years (31.0 ttl pk-yrs) Types: Cigarettes Start date: 1977 Quit date: 2008 Years since quittin.6 Smokeless tobacco: Former Types: Chew Quit date: 2008 Substance Use Topics Alcohol use: Not Currently Drug use: Yes Types: Marijuana Comment: edibles, occassional smokes Physical Exam: On General Observation: Patient is a pleasant, cooperative, well developed 63 year old adult male. The patient is alert and oriented to time, place and person. Patient has normal affect and mood. Right Focused Exam Vascular: DP and PT pulses are non palpable. CFT less than 3 seconds to all digits. Skin temperature is warm to warm from proximal to distal bilateral. Hair growth is absent. Mild pitting edema noted. Neuro: Light touch intact. Protective sensation diminished to the level of the midfoot at all pedal sites via [place] Sergio 5.07 monofilament. Dermatological: Skin thin and shiny. Toenails 2,4,5 are discolored, elongated, thickened with subungual debris. Absent nails to the hallux and third toe. No open wounds noted. Musculoskeletal/Orthopaedic: Left BKA +5/5 muscle strength Dorsiflexion, Plantarflexion, Inversion, Eversion 1st MTPJ ROM is limited without pain or crepitus. Subtalar joint ROM is limited without pain or crepitus. Ankle joint ROM is limited without pain or crepitus. ASSESSMENT: This 63 year old male diabetic patient presents with onychomycosis. He has neuropathy and prior left BKA. Plan: A history and physical examination were preformed. The patient was educated on clinical findings, diagnosis and treatment plans. Patient state that he understands all that has been explained and all questions were answered to his apparent satisfaction. - Patient was educated on the complications related to diabetes particularly ocular, renal and neurological and the effects of neuropathy on pedal health - Discussed guidelines for home preventative foot care and signs and symptoms to watch for. - Advised patient on avoidance of barefoo (more content not included)...[facility]05-23-2024 NoteHNO ID: [id number] Author: ANNIE FERNANDEZ DPM Service: ? Author Type: Physician Type: Progress Notes Filed: 01/12/2024 16:38 Note Text: PODIATRY OFFICE NOTE Chief Complaint: Diabetic foot evaluation HPI: This is a 63 year old male with PMH indicated below who presents for diabetic foot evaluation. He never followed up after his last appointment. 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 He never obtained PVRs nor x-rays ordered last visit. No other pedal complaints. 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 prn apixaban (ELIQUIS) 5 mg tab(s) Take 5 mg by mouth two times a day. cholecalciferol (VITAMIN D-3) 5,000 unit tab Take 5,000 Units by mouth once daily. furosemide (LASIX) 20 mg tablet Take 20 mg by mouth once daily. cephALEXin (KEFLEX) 250 mg capsule Take 500 mg by mouth four times daily. insulin glargine,hum.rec.anlog (LANTUS U-100 INSULIN SUBCUTANEOUS) Inject subcutaneously. mag hydrox/aluminum hyd/simeth (MAALOX ORAL) Take by mouth. Melatonin 5 mg cap Take by mouth. oxyCODONE-acetaminophen 5-325 mg (PERCOCET) 1 tablet two times a day. Prn ZINC ACETATE ORAL Take by mouth. acetaminophen (TYLENOL) 325 mg cap Take 2 capsules by mouth every 4 hours. prn ammonium lactate (LAC-HYDRIN) 12 % cream Apply to affected area as needed. aspirin 81 mg chewable tablet Take 1 tablet by mouth once daily. gabapentin (NEURONTIN) 300 mg capsule Take 1 capsule by mouth every 12 hours for 7 days. losartan (COZAAR) 25 mg tablet Take by mouth once daily. indapamide (LOZOL) 1.25 mg tablet Take 1.25 mg by mouth once daily. insulin detemir U-100 (LEVEMIR FLEXPEN) 100 unit/mL (3 mL) injection pen Inject 51 Units subcutaneously daily at bedtime. No current facility-administered medications for this visit. : ALLERGIES Allergen Reactions Lisinopril Cough : PAST SURGICAL HISTORY Procedure Laterality Date AMPUTATION TOE,MT-P JT Left 2023 LEFT HEART CATH,PERCUTANEOUS N/A PAST SURGICAL HISTORY OF N/A cardiac stent placement VASECTOMY N/A FAMILY HISTORY Problem Relation Age of Onset No Known Problems Mother Diabetes Father Heart Attack Father Cancer Sister Diabetes Brother : Social History Tobacco Use Smoking status: Former Packs/day: 1 Types: Cigarettes Start date: 1977 Quit date: 2008 Years since quittin.4 Smokeless tobacco: Former Types: Chew Quit date: 2008 Substance Use Topics Alcohol use: Not Currently Drug use: Yes Types: Marijuana Comment: edibles, occassional smokes Physical Exam: On General Observation: Patient is a pleasant, cooperative, well developed 63 year old adult male. The patient is alert and oriented to time, place and person. Patient has normal affect and mood. Right Focused Exam Vascular: DP and PT pulses are non palpable. CFT less than 3 seconds to all digits. Skin temperature is warm to warm from proximal to distal bilateral. Hair growth is absent. Mild pitting edema noted. Neuro: Light touch intact. Protective sensation diminished to the level of the midfoot at all pedal sites via [place] Sergio 5.07 monofilament. Dermatological: Skin appears well diffusely xerotic in nature. Toenails 1,2,3,4,5 are discolored, elongated, thickened with subungual debris. No open wounds noted. Musculoskeletal/Orthopaedic: Left BKA +5/5 muscle strength Dorsiflexion, Plantarflexion, Inversion, Eversion 1st MTPJ ROM is limited without pain or crepitus. Subtalar joint ROM is limited without pain or crepitus. Ankle joint ROM is limited without pain or crepitus. ASSESSMENT: This 63 year old male diabetic patient presents with onychomycosis. He has neuropathy and prior left BKA. Plan: A history and physical examination were preformed. The patient was educated on clinical findings, diagnosis and treatment plans. Patient state that he understands all that has been explained and all questions were answered to his apparent satisfaction. - Patient was educated on the complications related to diabetes particularly ocular, renal and neurological and the effects of neuropathy on pedal health - Discussed guidelines for home preventative foot care and signs and symptoms to watch for. - Advised patient on avoidance of barefoot walking and monitoring feet daily. - Toenails 1-5 on the right were debrided in length and thickness without incident. - Prescription for diabetic (more content not included)...[facility] [facility] 12-04-2023 NoteHNO ID: [id number] Author: ALEXEI MARIO MD Service: General Internal Medicine Author Type: Physician Type: Progress Notes Filed: 12/04/2023 14:03 Note Text: INPATIENT PROGRESS NOTE SERVICE DATE: 12/04/2023 SERVICE TIME: 2:01 PM SUBJECTIVE: He denies any complaints this am. Pain is controlled. Participating in PT/OT OBJECTIVE: VITAL SIGNS: BP 97/58 Pulse 91 Temp (Src) 98.6 (Oral) Resp 16 Ht 6' 0 (1.83m) Wt 211 lb (95.7kg) SpO2 96% BMI 28.61 kg/(m2). O2 Therapy: Room Air PHYSICAL EXAM: General: Not in acute distress CVS: S1-S2 normal, no murmur, No JVD RS: Clear to auscultation bilaterally Abdomen: Soft, nontender, no organomegaly Musculoskeletal: No LE edema, left BKA, wound vac Neuro: AO x3, No focal deficits Psy: Cooperative, No anxiety/depression DATA: Diagnostic tests reviewed for today's visit: Recent Results (from the past 24 hour(s)) GLUCOSE, BLOOD (POC) Collection Time: 12/03/23 4:58 PM Result Value Ref Range Glucose, Point of Care 115 (A) 74 - 99 mg/dL GLUCOSE, BLOOD (POC) Collection Time: 12/03/23 9:03 PM Result Value Ref Range Glucose, Point of Care 122 (A) 74 - 99 mg/dL GLUCOSE, BLOOD (POC) Collection Time: 12/04/23 3:57 AM Result Value Ref Range Glucose, Point of Care 73 74 - 99 mg/dL BASIC METABOLIC PANEL Collection Time: 12/04/23 4:39 AM Result Value Ref Range Glucose 81 70 - 100 mg/dL BUN 37 (H) 7 - 26 mg/dL Creatinine 1.08 0.50 - 1.40 mg/dL Sodium 138 136 - 145 mmol/L Potassium 3.8 3.5 - 5.1 mmol/L Chloride 104 98 - 107 mmol/L CO2 26 21 - 32 mmol/L Anion Gap 8 5 - 16 mmol/L Calcium, Total 9.3 8.5 - 10.5 mg/dL Estimated Glomerular Filtration Rate 78 >=60 mL/min/1.73m? COMPLETE BLOOD COUNT Collection Time: 12/04/23 4:39 AM Result Value Ref Range WBC 6.78 3.70 - 11.00 k/uL RBC 3.66 (L) 4.20 - 6.00 m/uL Hemoglobin 10.2 (L) 13.0 - 17.0 g/dL Hematocrit 30.3 (L) 39.0 - 51.0 % MCV 82.8 80.0 - 100.0 fL MCH 27.9 26.0 - 34.0 pg MCHC 33.7 30.5 - 36.0 g/dL RDW-CV 14.0 11.5 - 15.0 % Platelet Count 214 150 - 400 k/uL MPV 10.1 9.0 - 12.7 fL Absolute nRBC <0.01 <0.01 k/uL VANCOMYCIN Collection Time: 12/04/23 4:39 AM Result Value Ref Range Vancomycin 29.3 (H) 10.0 - 25.0 ug/mL GLUCOSE, BLOOD (POC) Collection Time: 12/04/23 6:22 AM Result Value Ref Range Glucose, Point of Care 156 (A) 74 - 99 mg/dL GLUCOSE, BLOOD (POC) Collection Time: 12/04/23 10:42 AM Result Value Ref Range Glucose, Point of Care 193 (A) 74 - 99 mg/dL GLUCOSE, BLOOD (POC) Collection Time: 12/04/23 1:06 PM Result Value Ref Range Glucose, Point of Care 213 (A) 74 - 99 mg/dL INPATIENT MEDICATIONS: Current Facility-Administered Medications Medication Dose Route Frequency NaCl 0.9% iv flush bag 20 mL INTRAVENOUS PRN lactated ringers iv infusion 75 mL/hr INTRAVENOUS CONTINUOUS traMADol 50 mg tab(s) (ULTRAM) 50 mg ORAL q 6 H PRN oxyCODONE IR 5-10 mg tab(s) (ROXICODONE) 5-10 mg ORAL q 4 H PRN morphine 2 mg injection 2 mg INTRAVENOUS q 2 H PRN ondansetron 4 mg tab(s) (ZOFRAN) 4 mg ORAL q 6 H PRN Or ondansetron (PF) 4 mg injection (ZOFRAN) 4 mg INTRAVENOUS q 6 H PRN dextrose 40 % 15 g 15 g ORAL PRN Or glucagon 1 mg injection 1 mg INTRAMUSCULAR PRN Or dextrose 10% iv bolus 12.5 g INTRAVENOUS PRN aspirin 81 mg chewable tab(s) 81 mg ORAL DAILY furosemide 20 mg tab(s) (LASIX) 20 mg ORAL DAILY indapamide 1.25 mg tab(s) (LOZOL) 1.25 mg ORAL DAILY insulin glargine 50 Units pen (long acting) 50 Units SUBCUTANEOUS DAILY (8 AM) losartan 25 mg tab(s) (COZAAR) 25 mg ORAL DAILY apixaban 5 mg tab(s) (ELIQUIS) 5 mg ORAL BID insulin lispro injection (rapid acting) (ADMElog) SUBCUTANEOUS w MEALS insulin lispro injection (rapid acting) (ADMElog) SUBCUTANEOUS AT BEDTIME melatonin 9 mg tab(s) 9 mg ORAL DAILY (8 PM) amoxicillin-clavulanate potassium 875 mg tab(s) (AUGMENTIN) 875 mg ORAL q 12 H ASSESSMENT AND PLAN: 63-year-old male with past medical history of CAD, type II DM insulin-dependent, atrial fibrillation, CHF, CKD, who is s/p debridement of left BKA, sound consulted for management of his medical problems while admitted at the hospital Coronary artery disease. Continue home meds aspirin 81 mg p.o. daily, losartan 25 mg p.o. daily, Lozol 1.25 mg p.o. daily Type II DM insulin-dependent Continue Lantus 50 units with breakfast, and increase sliding scale to high dose before meals and increase sliding scale insulin at bedtime to medium dose. Closely monitor for episodes of hypoglycemia Continue Accu-Cheks before meals and at bedtime Atrial fibrillation Continue apixaban 5 mg p.o. days daily CHF Patient does not look volume overloaded, continue home dose of Lasix 20 mg p.o. daily CKD Monitor renal function and urine output daily, avoid nephrotoxic agents Scr 1.39 Left lower leg wound S/p debridement of left BKA Per orthopedic surgeon Continue PT and OT evaluation and treatment ID followi (more content not included)...[facility]04-18-[facility]24 NoteHNO ID: [id number] Author: CONCHITA RIZO RN Service: Care Management Author Type: Registered Nurse Type: Care Mgt Progress Note Filed: 12/04/2023 13:59 Note Text: CARE MANAGEMENT DISCHARGE NOTE SERVICE DATE: December 04, 2023 SERVICE TIME: 1:38 PM Admission Date: 12/01/2023 LOS: 0 days Discharge Arrangement D/C to SNF [facility] with wound vac. Services Arranged SNF stay at [facility] transportation Provider Name: Sugar Wilhelm MD Caregiver Assessment Transportation Arrangements Transportation Arrangements: [employer] Agency and Phone #:: [place] [phone] Date of Trip: 12/04/23 Time of Trip: [id number] Type of Service: Wheelchair (patient has wheelchair with him) Is Patient Medicaid Pending?: No Was transportation financial coverage discussed with family?: Patient [employer] Applier Location: [facility] Destination: [facility] (Room 124) Handoff Communication: Bedside Rn to call nurse to nurse report to [phone] Additional Information: Discharge Information Row Name Admission (Current) from 12/01/2023 in [id number] Facility Agency [facility] D/C to [facility] with wound vac. Wound Vac order, MAR, PT/OT notes, Op and ortho notes, facesheet, CM Snapshot, and HANDP uploaded and sent to facility via [employer]. Precert auth was approved SNF admission to [facility] for 3 days starting 12/02. NRD is 12/04. [facility] plan auth #[id number] for billing. Auth ID #[id number]. Transportation via [facility] arranged for 12/03 at 1630. Patient has his own wheelchair with him. Post acute transfer form, [facility] form, HANDP, and facesheet on chart. Spoke with Izzy at [facility] to confirm wound vac orders and care. They have received and will manage the wound vac. Pt, Rn, Physician, and [facility] notified of above. Case Closed. SIGNATURE: Conchita Rizo RN PATIENT NAME: Ismael Plunkett DATE: December 04, 2023 TIME: 1:38 PM CONTACT #: [phone] [facility]04-[facility]24 NoteHNO ID: [id number] Author: MARIAJOSE ZURITA RN Service: Nursing Author Type: Registered Nurse Type: Progress Notes Filed: 12/04/2023 09:37 Note Text: Pt complaints of pain at this time, medicated per [facility] 12-04-2023 NoteHNO ID: [id number] Author: SUGAR WILHELM MD Service: Orthopaedic Surgery Author Type: Physician Type: Progress Notes Filed: 12/04/2023 07:17 Note Text: Orthopaedic INPATIENT PROGRESS NOTE PRIMARY SERVICE: Orthopaedic INTERVAL HPI: Patient is comfortable. Wound VAC was changed again last night and is beeping. MEDICATIONS: Current Facility-Administered Medications Medication Dose Route Frequency NaCl 0.9% iv flush bag 20 mL INTRAVENOUS PRN lactated ringers iv infusion 75 mL/hr INTRAVENOUS CONTINUOUS traMADol 50 mg tab(s) (ULTRAM) 50 mg ORAL q 6 H PRN oxyCODONE IR 5-10 mg tab(s) (ROXICODONE) 5-10 mg ORAL q 4 H PRN morphine 2 mg injection 2 mg INTRAVENOUS q 2 H PRN ondansetron 4 mg tab(s) (ZOFRAN) 4 mg ORAL q 6 H PRN Or ondansetron (PF) 4 mg injection (ZOFRAN) 4 mg INTRAVENOUS q 6 H PRN dextrose 40 % 15 g 15 g ORAL PRN Or glucagon 1 mg injection 1 mg INTRAMUSCULAR PRN Or dextrose 10% iv bolus 12.5 g INTRAVENOUS PRN aspirin 81 mg chewable tab(s) 81 mg ORAL DAILY furosemide 20 mg tab(s) (LASIX) 20 mg ORAL DAILY indapamide 1.25 mg tab(s) (LOZOL) 1.25 mg ORAL DAILY insulin glargine 50 Units pen (long acting) 50 Units SUBCUTANEOUS DAILY (8 AM) losartan 25 mg tab(s) (COZAAR) 25 mg ORAL DAILY apixaban 5 mg tab(s) (ELIQUIS) 5 mg ORAL BID vancomycin dosing and monitoring per pharmacy OTHER As Directed vancomycin 1.5 g in NaCl 0.9% 250 mL (VANCOCIN) 1.5 g INTRAVENOUS q 12 HR insulin lispro injection (rapid acting) (ADMElog) SUBCUTANEOUS w MEALS insulin lispro injection (rapid acting) (ADMElog) SUBCUTANEOUS AT BEDTIME melatonin 9 mg tab(s) 9 mg ORAL DAILY (8 PM) LABS: Recent Labs 12/04/23 0439 12/03/23 0436 12/02/23 0448 WBC 6.78 6.12 8.46 HB 10.2* 10.2* 10.6* HCT 30.3* 31.1* 31.3* PLT 214 203 229 NA 138 139 135* K 3.8 4.3 4.4 CHLOR 104 106 104 CO2 26 29 26 BUN 37* 43* 50* CREAT 1.08 1.09 1.39 GLUC 81 73 181* CA 9.3 9.7 9.6 PHYSICAL EXAM: BP 97/50 Pulse 92 Temp 36.8 ?C (98.3 ?F) (Oral) Resp 18 Ht 182.9 cm (6') Wt 95.7 kg (211 lb) SpO2 99% BMI 28.62 kg/m? Body mass index is 28.62 kg/m?. General appearance: well appearing, alert, and in no acute distress Extremities: Wound VAC is on. There is no gross drainage outside of the dressing. Stump is soft ASSESSMENT AND PLAN: I have seen and examined the patient and are managing the following conditions: Status post irrigation debridement with VAC placement. We will have wound care look at the wound VAC since it is beeping. Appreciate ID recommendations. Patient can be discharged when okay with ID service. Patient is on Eliquis. ERG. SIGNATURE: Sugar Wilhelm MD DATE of SERVICE: 12/04/2023 TIME of SERVICE: 7:16 [facility]04-17-2024 NoteHNO ID: [id number] Author: ALEXEI MARIO MD Service: General Internal Medicine Author Type: Physician Type: Progress Notes Filed: 12/03/2023 13:51 Note Text: INPATIENT PROGRESS NOTE SERVICE DATE: 12/03/2023 SERVICE TIME: 1:43 PM SUBJECTIVE: Patient seen at bedside earlier this morning. He denies any complaints. Pain is controlled. Participating in PT/OT OBJECTIVE: VITAL SIGNS: BP 116/70 Pulse 87 Temp (Src) 97.8 (Oral) Resp 17 Ht 6' 0 (1.83m) Wt 211 lb (95.7kg) SpO2 97% BMI 28.61 kg/(m2). O2 Therapy: Room Air PHYSICAL EXAM: General: Not in acute distress CVS: S1-S2 normal, no murmur, No JVD RS: Clear to auscultation bilaterally Abdomen: Soft, nontender, no organomegaly Musculoskeletal: No LE edema, left BKA, wound vac Neuro: AO x3, No focal deficits Psy: Cooperative, No anxiety/depression DATA: Diagnostic tests reviewed for today's visit: Recent Results (from the past 24 hour(s)) GLUCOSE, BLOOD (POC) Collection Time: 12/02/23 4:04 PM Result Value Ref Range Glucose, Point of Care 127 (A) 74 - 99 mg/dL GLUCOSE, BLOOD (POC) Collection Time: 12/02/23 9:32 PM Result Value Ref Range Glucose, Point of Care 151 (A) 74 - 99 mg/dL BASIC METABOLIC PANEL Collection Time: 12/03/23 4:36 AM Result Value Ref Range Glucose 73 70 - 100 mg/dL BUN 43 (H) 7 - 26 mg/dL Creatinine 1.09 0.50 - 1.40 mg/dL Sodium 139 136 - 145 mmol/L Potassium 4.3 3.5 - 5.1 mmol/L Chloride 106 98 - 107 mmol/L CO2 29 21 - 32 mmol/L Anion Gap 4 (L) 5 - 16 mmol/L Calcium, Total 9.7 8.5 - 10.5 mg/dL Estimated Glomerular Filtration Rate 77 >=60 mL/min/1.73m? COMPLETE BLOOD COUNT Collection Time: 12/03/23 4:36 AM Result Value Ref Range WBC 6.12 3.70 - 11.00 k/uL RBC 3.71 (L) 4.20 - 6.00 m/uL Hemoglobin 10.2 (L) 13.0 - 17.0 g/dL Hematocrit 31.1 (L) 39.0 - 51.0 % MCV 83.8 80.0 - 100.0 fL MCH 27.5 26.0 - 34.0 pg MCHC 32.8 30.5 - 36.0 g/dL RDW-CV 14.2 11.5 - 15.0 % Platelet Count 203 150 - 400 k/uL MPV 10.0 9.0 - 12.7 fL Absolute nRBC <0.01 <0.01 k/uL GLUCOSE, BLOOD (POC) Collection Time: 12/03/23 6:00 AM Result Value Ref Range Glucose, Point of Care 85 74 - 99 mg/dL GLUCOSE, BLOOD (POC) Collection Time: 12/03/23 11:13 AM Result Value Ref Range Glucose, Point of Care 243 (A) 74 - 99 mg/dL INPATIENT MEDICATIONS: Current Facility-Administered Medications Medication Dose Route Frequency NaCl 0.9% iv flush bag 20 mL INTRAVENOUS PRN lactated ringers iv infusion 75 mL/hr INTRAVENOUS CONTINUOUS traMADol 50 mg tab(s) (ULTRAM) 50 mg ORAL q 6 H PRN oxyCODONE IR 5-10 mg tab(s) (ROXICODONE) 5-10 mg ORAL q 4 H PRN morphine 2 mg injection 2 mg INTRAVENOUS q 2 H PRN ondansetron 4 mg tab(s) (ZOFRAN) 4 mg ORAL q 6 H PRN Or ondansetron (PF) 4 mg injection (ZOFRAN) 4 mg INTRAVENOUS q 6 H PRN dextrose 40 % 15 g 15 g ORAL PRN Or glucagon 1 mg injection 1 mg INTRAMUSCULAR PRN Or dextrose 10% iv bolus 12.5 g INTRAVENOUS PRN aspirin 81 mg chewable tab(s) 81 mg ORAL DAILY furosemide 20 mg tab(s) (LASIX) 20 mg ORAL DAILY indapamide 1.25 mg tab(s) (LOZOL) 1.25 mg ORAL DAILY insulin glargine 50 Units pen (long acting) 50 Units SUBCUTANEOUS DAILY (8 AM) losartan 25 mg tab(s) (COZAAR) 25 mg ORAL DAILY apixaban 5 mg tab(s) (ELIQUIS) 5 mg ORAL BID vancomycin dosing and monitoring per pharmacy OTHER As Directed vancomycin 1.5 g in NaCl 0.9% 250 mL (VANCOCIN) 1.5 g INTRAVENOUS q 12 HR insulin lispro injection (rapid acting) (ADMElog) SUBCUTANEOUS w MEALS insulin lispro injection (rapid acting) (ADMElog) SUBCUTANEOUS AT BEDTIME melatonin 9 mg tab(s) 9 mg ORAL DAILY (8 PM) ASSESSMENT AND PLAN: 63-year-old male with past medical history of CAD, type II DM insulin-dependent, atrial fibrillation, CHF, CKD, who is s/p debridement of left BKA, sound consulted for management of his medical problems while admitted at the hospital Coronary artery disease. Continue home meds aspirin 81 mg p.o. daily, losartan 25 mg p.o. daily, Lozol 1.25 mg p.o. daily Type II DM insulin-dependent Continue Lantus 50 units with breakfast, and increase sliding scale to high dose before meals and increase sliding scale insulin at bedtime to medium dose. Closely monitor for episodes of hypoglycemia Continue Accu-Cheks before meals and at bedtime Atrial fibrillation Continue apixaban 5 mg p.o. days daily CHF Patient does not look volume overloaded, continue home dose of Lasix 20 mg p.o. daily CKD Monitor renal function and urine output daily, avoid nephrotoxic agents Scr 1.39 Left lower leg wound S/p debridement of left BKA Per orthopedic surgeon Continue PT and OT evaluation and treatment ID following, continue antibiotics as per ID-currently on vancomycin, monitor for renal toxicity with daily BMP DVT prophylaxis: Apixaban CODE STATUS: Full code SIGNATURE: Alexei Mario MD PATIENT NAME: Ismael Plunkett DATE: 12/03/2023 TIME: 1:43 PM[facility] NoteHNO ID: [id number] Author: FRANKLIN MARTINEZ RN Service: Nursing Author Type: Registered Nurse Type: Progress Notes Filed: 12/03/2023 13:43 Note Text: Wound vac dressing changed per protocol. Pt tolerated well. No complaints of painVeterans Affairs [facility]04-17-2024 NoteHNO ID: [id number] Author: ?, ?, ? Service: Care Management Author Type: ? Type: Care Mgt Progress Note Filed: 12/03/2023 12:45 Note Text: [facility] ([facility]) PRECERT NOTE [employer] MEDICARE HMO approved Jail Facility for [facility]. Precert approved 12/03/2023 - 12/05/2023. For any additional questions regarding approvals, transport or care management needs, please contact the CM assigned to this patient in the Treatment Team. SIGNATURE: Ritu Alberto Page DATE: December 03, 2023 TIME: 12:44 [facility]04-17-2024 NoteHNO ID: [id number] Author: CONCHITA RIZO RN Service: Care Management Author Type: Registered Nurse Type: Care Mgt Progress Note Filed: 12/03/2023 13:00 Note Text: CARE MANAGEMENT PROGRESS NOTE SERVICE DATE: 12/03/2023 SERVICE TIME: 8:48 AM LOS: 0 days Chart reviewed. Patient presented to the ER with a left hip abscess and drainage. Per Ortho Surgery Dr. Wilhelm patient is POD #2 status post irrigation Premal wound VAC placement right stump. ID consulted and cultures pending. At baseline the patient is Is A/O x4 and independent in his ADL's. He lives with a room mate (Shu Myers -patient unsure of phone number) but currently has been staying at [facility] awaiting a prosthetic. He has medical and Rx coverage. Patient does not have a PCP. CM attempted to assist in establishing patient with PCP. Patient has a wheelchair and a walker. He denies the use of any other DME. PT/OT recommendation is Acute Rehab. FOC given. Patient wishes to return to [facility] SNF ([phone]). Referral sent in [facility] and they have accepted. HANDP, recent consult notes, facesheet, and lab provided. Post acture transfer form and [facility] transfer form completed and on chart. Wound VAC change planned for today. D/C plan is pending final antibiotic recommendation from ID. is [facility]. Precert obtained and valid from 12/02-12/04. Transportation will be [facility]. PATIENT HAS HIS WHEELCHAIR WITH HIM. Disclaimer given to patient regarding possible out of pocket cost for [facility] services. Post acture transfer form, [facility] form, HANDP, and facesheet completed and on chart. [facility] transport referral pended. No PASRR needed. Wound Vac-. SNF notified. Will need upon discharge. CM will continue to follow and assist with safe d/c planning. SIGNATURE: Conchita Rizo RN PATIENT NAME: Ismael Plunkett DATE: December 03, 2023 TIME: 8:48 AM PAGER/CONTACT #: [phone] Affairs [facility]04-17-2024 Note HNO ID: [id number] Author: SUGAR WILHELM MD Service: Orthopaedic Surgery Author Type: Physician Type: Progress Notes Filed: 12/03/2023 07:45 Note Text: Orthopaedic INPATIENT PROGRESS NOTE PRIMARY SERVICE: Orthopaedic INTERVAL HPI: Patient is sitting up in a chair. He is comfortable. No new complaints MEDICATIONS: Current Facility-Administered Medications Medication Dose Route Frequency NaCl 0.9% iv flush bag 20 mL INTRAVENOUS PRN lactated ringers iv infusion 75 mL/hr INTRAVENOUS CONTINUOUS traMADol 50 mg tab(s) (ULTRAM) 50 mg ORAL q 6 H PRN oxyCODONE IR 5-10 mg tab(s) (ROXICODONE) 5-10 mg ORAL q 4 H PRN morphine 2 mg injection 2 mg INTRAVENOUS q 2 H PRN ondansetron 4 mg tab(s) (ZOFRAN) 4 mg ORAL q 6 H PRN Or ondansetron (PF) 4 mg injection (ZOFRAN) 4 mg INTRAVENOUS q 6 H PRN dextrose 40 % 15 g 15 g ORAL PRN Or glucagon 1 mg injection 1 mg INTRAMUSCULAR PRN Or dextrose 10% iv bolus 12.5 g INTRAVENOUS PRN aspirin 81 mg chewable tab(s) 81 mg ORAL DAILY furosemide 20 mg tab(s) (LASIX) 20 mg ORAL DAILY indapamide 1.25 mg tab(s) (LOZOL) 1.25 mg ORAL DAILY insulin glargine 50 Units pen (long acting) 50 Units SUBCUTANEOUS DAILY (8 AM) losartan 25 mg tab(s) (COZAAR) 25 mg ORAL DAILY apixaban 5 mg tab(s) (ELIQUIS) 5 mg ORAL BID vancomycin dosing and monitoring per pharmacy OTHER As Directed vancomycin 1.5 g in NaCl 0.9% 250 mL (VANCOCIN) 1.5 g INTRAVENOUS q 12 HR insulin lispro injection (rapid acting) (ADMElog) SUBCUTANEOUS w MEALS insulin lispro injection (rapid acting) (ADMElog) SUBCUTANEOUS AT BEDTIME melatonin 9 mg tab(s) 9 mg ORAL DAILY (8 PM) LABS: Recent Labs 12/03/23 0436 12/02/23 0448 12/01/23 0807 WBC 6.12 8.46 -- HB 10.2* 10.6* 11.1* HCT 31.1* 31.3* 34.5* PLT 203 229 -- NA 139 135* 136 K 4.3 4.4 4.9 CHLOR 106 104 103 CO2 29 26 28 BUN 43* 50* 68* CREAT 1.09 1.39 1.39 GLUC 73 181* 109* CA 9.7 9.6 10.0 PHYSICAL EXAM: BP 104/61 Pulse 84 Temp 36.5 ?C (97.7 ?F) (Oral) Resp 17 Ht 182.9 cm (6') Wt 95.7 kg (211 lb) SpO2 97% BMI 28.62 kg/m? Body mass index is 28.62 kg/m?. General appearance: well appearing, alert, and in no acute distress Extremities: Patient's wound VAC is working well. Stump is soft ASSESSMENT AND PLAN: I have seen and examined the patient and are managing the following conditions: #2 status post irrigation Premal wound VAC placement right stump. Appreciate ID recommendation for antibiotics. Wound VAC changes planned for today. Patient to be discharged when final antibiotics requested by the ID service. ERG. Continue Eliquis. ERG. SIGNATURE: Sugar Wilhelm MD DATE of SERVICE: 12/03/2023 TIME of SERVICE: 7:41 [facility]04-16-2024 NoteHNO ID: [id number] Author: CONCHITA RIZO RN Service: Care Management Author Type: Registered Nurse Type: Care Mgt Initial Assessment Filed: 12/02/2023 17:15 Note Text: CARE MANAGEMENT: ASSESSMENT AND DISCHARGE PLAN SERVICE DATE: December 02, 2023 SERVICE TIME: 5:01 PM PCP: No primary care provider on file. Primary Contact: No emergency contact information on file. Admission Status: Observation Insurance Provider: [employer] AARP MEDICARE HMO Discharge Planning requested by: Potential Transition Plans Advance Directives Current Advance Directive: None Supervisor Packing Room Attempted to Assist with AD Completion: Yes Action: Patient Unwilling Current Living Arrangements and Support Lives with: Other person(s) (when at home, he lives with a room mate. Pt states he came from [facility]) room mate Shu Myers Type of Residence: Jail Facility ([facility]) Care Facility Name: [facility] Support: Family members Current Services/Equipment Discharge Planning Patient Goal(s): Heal wounds, Less pain Plush of Choice Explained: Plush of Choice Given: Yes Level of Care Discussed: Jail Facility Are you interested in bedside delivery of your medications? No Discharge Planning Participant(s): Patient Patient/Family Comments: Caregiver Assessment: Transport at Discharge: Transportation Arrangements: [facility] Transportation Agency and Phone #:: [place] [phone] Type of Service: Wheelchair (patient has wheelchair with him) Was transportation financial coverage discussed with family?: Patient [employer]amel Applier Location: [facility] Destination: [facility] Needs Prior to Discharge: Needs Prior to Discharge: Discharge Transportation;Insurance Authorization Post-Acute Discharge Plan: Chart reviewed. Patient presented to the ER with a left hip abscess and drainage. Per Ortho Surgeon Dr. Wilhelm the patient is POD #1 from [facility] of left leg stump. Wound vac in place and plan is to continue changes Friday, Friday, and Friday.ID consulted. At baseline the patient is Is A/O x4 and independent in his ADL's. He lives with a room mate (Shu Myers -patient unsure of phone number) but currently has been staying at [facility] awaiting a prosthetic. He has medical and Rx coverage. Patient does not have a PCP. CM attempted to assist in establishing patient with PCP. Patient has a wheelchair and a walker. He denies the use of any other DME. PT/OT recommendation is Acute Rehab. FOC given. Patient wishes to return to [facility] SNF ([phone]). Referral sent in [facility] and they have accepted. HANDP, recent consult notes, facesheet, and lab provided. Post acture transfer form and ambulette transfer form completed and on chart. [facility] wound vac process initiated. Faxed scripts and supporting documentation to Linda at [facility] ( ). D/C plan is [place]. Will need precert. Transportation will be [facility]. PATIENT HAS HIS WHEELCHAIR WITH HIM. Disclaimer given to patient regarding possible out of pocket cost for ambulette services. Post acture transfer form, ambulette form, HANDP, and facesheet completed and on chart. [facility] transport referral pended. CM will continue to follow and assist with safe d/c planning. SIGNATURE: Conchita Rizo RN PATIENT NAME: Ismael Plunkett DATE: December 02, 2023 TIME: 5:00 PM CONTACT #: [phone] Affairs [facility]04-16-2024 NoteHNO ID: [id number] Author: SUGAR WILHELM MD Service: Orthopaedic Surgery Author Type: Physician Type: Progress Notes Filed: 12/02/2023 16:03 Note Text: Orthopaedic INPATIENT PROGRESS NOTE PRIMARY SERVICE: Orthopaedic INTERVAL HPI:Patient is sitting in chair. He is comfortable at this time. Wound VAC is working well. MEDICATIONS: Current Facility-Administered Medications Medication Dose Route Frequency NaCl 0.9% iv flush bag 20 mL INTRAVENOUS PRN lactated ringers iv infusion 75 mL/hr INTRAVENOUS CONTINUOUS traMADol 50 mg tab(s) (ULTRAM) 50 mg ORAL q 6 H PRN oxyCODONE IR 5-10 mg tab(s) (ROXICODONE) 5-10 mg ORAL q 4 H PRN morphine 2 mg injection 2 mg INTRAVENOUS q 2 H PRN ondansetron 4 mg tab(s) (ZOFRAN) 4 mg ORAL q 6 H PRN Or ondansetron (PF) 4 mg injection (ZOFRAN) 4 mg INTRAVENOUS q 6 H PRN dextrose 40 % 15 g 15 g ORAL PRN Or glucagon 1 mg injection 1 mg INTRAMUSCULAR PRN Or dextrose 10% iv bolus 12.5 g INTRAVENOUS PRN aspirin 81 mg chewable tab(s) 81 mg ORAL DAILY furosemide 20 mg tab(s) (LASIX) 20 mg ORAL DAILY indapamide 1.25 mg tab(s) (LOZOL) 1.25 mg ORAL DAILY insulin glargine 50 Units pen (long acting) 50 Units SUBCUTANEOUS DAILY (8 AM) losartan 25 mg tab(s) (COZAAR) 25 mg ORAL DAILY apixaban 5 mg tab(s) (ELIQUIS) 5 mg ORAL BID vancomycin dosing and monitoring per pharmacy OTHER As Directed vancomycin 1.5 g in NaCl 0.9% 250 mL (VANCOCIN) 1.5 g INTRAVENOUS q 12 HR insulin lispro injection (rapid acting) (ADMElog) SUBCUTANEOUS w MEALS insulin lispro injection (rapid acting) (ADMElog) SUBCUTANEOUS AT BEDTIME LABS: Recent Labs 12/02/23 0448 12/01/23 0807 WBC 8.46 -- HB 10.6* 11.1* HCT 31.3* 34.5* PLT 229 -- NA 135* 136 K 4.4 4.9 CHLOR 104 103 CO2 26 28 BUN 50* 68* CREAT 1.39 1.39 GLUC 181* 109* CA 9.6 10.0 PHYSICAL EXAM: BP 100/60 Pulse 85 Temp 36.8 ?C (98.2 ?F) (Oral) Resp 18 Ht 182.9 cm (6') Wt 95.7 kg (211 lb) SpO2 97% BMI 28.62 kg/m? Body mass index is 28.62 kg/m?. General appearance: well appearing, alert, and in no acute distress Extremities: VAC is on and working well. Stump is soft ASSESSMENT AND PLAN: I have seen and examined the patient and are managing the following conditions: Postop day #1 status post IANDD left leg stump. Continue wound VAC changes Friday. Appreciate ID recommendations and vancomycin for positive operative cultures. Will await final ID recommendations prior to discharge. ERG. SIGNATURE: Sugar Wilhelm MD DATE of SERVICE: 12/02/2023 TIME of SERVICE: 4:01 [facility]04-15-2024 NoteHNO ID: [id number] Author: KACY WRIGHT APRN.MARBLE SETTER HELPER Service: Anesthesiology Author Type: Nurse Home Stereo Equipment Installer Type: Anesthesia Procedure Notes Filed: 12/01/2023 09:35 Note Text: ANESTHESIOLOGY PROCEDURE NOTE Airway General Information Procedure Start Time/Medication Administration: 12/01/2023 9:27 AM Procedure End Time: 12/01/2023 9:28 AM Patient location during procedure: OR Timeout Performed Pre-procedure: timeout performed Consent Obtained: Yes Patient identity confirmed: arm band Staffing Anesthesiologist: Duc Flores DO MARBLE SETTER HELPER: Kacy Wright APRN.MARBLE SETTER HELPER Performed by: anesthesiologist Indications and Patient Condition Indications for airway management: anesthesia Preoxygenated: yes anesthesia circuit Patient position: sniffing Method: asleep Cricoid Pressure: No Manual In-Line Stabilization: No Difficult Mask: No Final Airway Details Final airway type: supraglottic airway Number of attempts at approach: 1 Final Supraglottic Airway: LMA Classic Size 5 Seal Adequate: yes Failed airway: no Unrecognized esophageal intubation: no Airway not difficult SIGNATURE: Kacy Wright APRN.MARBLE SETTER HELPER PATIENT NAME: Ismael Plunkett DATE: December 01, 2023 TIME: 9:34 AM CSN: [id number] NoteHNO ID: [id number] Author: SUGAR WILHELM MD Service: Orthopaedic Surgery Author Type: Physician Type: Progress Notes Filed: 12/01/2023 07:43 Note Text: There are no changes to surgical HANDP. Plan is to proceed with consented procedure. Plan was discussed with patient once again. [facility] 11-28-2023 NoteHNO ID: [id number] Author: SABINE JAMES RN Service: ? Author Type: Registered Nurse Type: Progress Notes Filed: 11/28/2023 13:16 Note Text: PATIENT MEDICATION INSTRUCTIONS Please read below carefully for your personalized instructions. Medications: If you are on blood thinner or anticoagulants including aspirin, please confirm with your surgical team on when to stop these medications. Unless instructed differently by your surgical team, stay on all of your medications until your surgery. Pre-Surgery Med Instructions Medication Instructions aspirin 81 mg chewable tablet Take morning of surgery with a sip of water, no other fluids doxycycline hyclate (VIBRAMYCIN) 100 mg capsule DO NOT TAKE MORNING OF SURGERY carbamide peroxide (DEBROX) 6.5 % otic solution DO NOT TAKE MORNING OF SURGERY DULCOLAX, BISACODYL, ORAL DO NOT TAKE MORNING OF SURGERY apixaban (ELIQUIS) 5 mg tab(s) Follow Prescribers Instructions ergocalciferol 50,000 unit capsule (VITAMIN D2, DRISDOL) DO NOT TAKE MORNING OF SURGERY furosemide (LASIX) 20 mg tablet DO NOT TAKE MORNING OF SURGERY indapamide (LOZOL) 1.25 mg tablet DO NOT TAKE MORNING OF SURGERY insulin glargine (LANTUS SOLOSTAR U-100 INSULIN) 100 unit/mL (3 mL) Only take 25 units morning of surgery losartan (COZAAR) 25 mg tablet DO NOT TAKE MORNING OF SURGERY acetaminophen (TYLENOL) 325 mg cap PRN if needed vitamin B complex with C-FA-CU-ZN renal vitamins (DIATX ZN) 5-1.5-25 mg tab DO NOT TAKE MORNING OF SURGERY Lactobacillus acidophilus (PROBIOTIC) 10 billion cell cap DO NOT TAKE MORNING OF SURGERY - Accucheck day of surgery. - Take half dose of long acting insulin (Lantus, NPH) the day of surgery. If you take any medications for erectile dysfunction-Cialis (Tadalafil), Levitra, Staxyn (Vardenafil) Viagra (Sildenenafil please do not take these for 48 hours before surgery. If you have any medication changes between receiving these instructions and your surgery date, please provide this updated information with the nurse who calls you the week day prior to your surgical procedure so we can update your list and provide you with updated instructions for the morning of your procedure. PRE-PROCEDURE INSTRUCTIONS TO PREPARE FOR YOUR PROCEDURE: Your arrival time for your procedure is 0715. Do NOT eat any solid foods after MIDNIGHT the night prior to your procedure - this includes gum or mints. You can drink clear liquids* up until 0515, which is 2 hours before your arrival time. *Clear liquids = water, carbohydrate drink (sports drink that is clear or yellow in color), Ensure Pre-Surgery (given by BRANDON or your ), fruit juice without pulp (apple/cranberry), clear tea, black coffee (no cream). NO CARBONATED BEVERAGES AND NO ALCOHOL. Shower the morning of the procedure, put on clean clothes, and have clean sheets for your bed to help prevent infection after your procedure. Leave all valuables such as jewelry including rings, piercings, wallets, and purses at home. Wear comfortable, loose-fitting clothing. If you wear glasses or contacts, please bring a case. SPECIAL INSTRUCTIONS: If instructed, bring your first voided urine specimen with you. If you were provided skin preparation to use prior to your procedure, complete this as directed. If you were provided Ensure Pre-Surgery drink, you need to drink this at 0515. This should be consumed quickly (in less than 5 minutes, rather than sipped over time) If a bowel preparation has been ordered by your physician, it is very important to follow the bowel prep instructions or your procedure may need to be rescheduled. If you use crutches or a walker, bring them with you. If you have a home CPAP/BIPAP machine, bring it with you. If you were instructed to complete a fleets enema or bowel prep, complete as directed. Bring copy of Living Will/Power of Business And Services Instructor. Do not smoke or chew. If you use tobacco, quit or at least cut down before surgery. Do not smoke or chew after midnight the day before your surgery. This effects bleeding, infection, healing, and so much more. Do not take any Diet or Herbal Supplements 2 weeks prior to your surgery date. Please notify your physician if there is any change in your physical condition such as a cold, cough, fever, sore throat, or skin irritation near the surgical site. Visitors under the age of 14 are restricted in the Surgery Center. UPON ARRIVAL: Access to [facility] is located on [address] Staff Pharmacist Hospital parking is available for your convenience from 5am-5pm- there is a $5.00 charge for this service. Take the elevators directly inside the entrance to the 1st Floor Surgery Lobby. Sign in at the podium located to the left when you get off the elevators. A payment may be expected at the time of service. One visitor may come back to the preoperative area with you. The preoperative staff will b (more content not included)...[facility]04-12-2024 Note HNO ID: [id number] Author: BRANDON WATT APRN.CNP Service: Anesthesiology Author Type: Nurse Practitioner Type: Progress Notes Filed: 11/28/2023 11:07 Note Text: Summary: dos meds PATIENT MEDICATION INSTRUCTIONS Please read below carefully for your personalized instructions. Medications: If you are on blood thinner or anticoagulants including aspirin, please confirm with your surgical team on when to stop these medications. Unless instructed differently by your surgical team, stay on all of your medications until your surgery. Pre-Surgery Med Instructions Medication Instructions aspirin 81 mg chewable tablet Take morning of surgery with a sip of water, no other fluids doxycycline hyclate (VIBRAMYCIN) 100 mg capsule DO NOT TAKE MORNING OF SURGERY carbamide peroxide (DEBROX) 6.5 % otic solution DO NOT TAKE MORNING OF SURGERY DULCOLAX, BISACODYL, ORAL DO NOT TAKE MORNING OF SURGERY apixaban (ELIQUIS) 5 mg tab(s) Follow Prescribers Instructions ergocalciferol 50,000 unit capsule (VITAMIN D2, DRISDOL) DO NOT TAKE MORNING OF SURGERY furosemide (LASIX) 20 mg tablet DO NOT TAKE MORNING OF SURGERY indapamide (LOZOL) 1.25 mg tablet DO NOT TAKE MORNING OF SURGERY insulin glargine (LANTUS SOLOSTAR U-100 INSULIN) 100 unit/mL (3 mL) Only take 25 units morning of surgery losartan (COZAAR) 25 mg tablet DO NOT TAKE MORNING OF SURGERY acetaminophen (TYLENOL) 325 mg cap PRN if needed vitamin B complex with C-FA-CU-ZN renal vitamins (DIATX ZN) 5-1.5-25 mg tab DO NOT TAKE MORNING OF SURGERY Lactobacillus acidophilus (PROBIOTIC) 10 billion cell cap DO NOT TAKE MORNING OF SURGERY - Accucheck day of surgery. - Take half dose of long acting insulin (Lantus, NPH) the day of surgery. If you take any medications for erectile dysfunction-Cialis (Tadalafil), Levitra, Staxyn (Vardenafil) Viagra (Sildenenafil please do not take these for 48 hours before surgery. If you have any medication changes between receiving these instructions and your surgery date, please provide this updated information with the nurse who calls you the week day prior to your surgical procedure so we can update your list and provide you with updated instructions for the morning of your procedure.[facility]01-16-[facility] NoteHNO ID: [id number] Author: SOCO LOPEZ RT(R) Service: Radiology Author Type: Technologist Type: Progress Notes Filed: 09/02/2023 18:57 Note Text: Radiology Service Progress Note PATIENT NAME: Estrada Plunkett DATE OF SERVICE: September 02, 2023 TIME: 6:57 PM PATIENT IDENTITY VERIFICATION COMPLETED USING TWO (2) IDENTIFIERS: Name and Date of confirmed by patient verbally and Name and Date of confirmed by identification band. FALL SCREENING: Has the patient had 2 falls in the last year or 1 fall with injury or currently using an Ambulatory Assistive Device (Walker, Cane, Wheelchair, Crutches, etc.)? Emergency Room Patient: Screened in ED PATIENT GENDER DATA: Male PATIENT RELEVANT IMPLANT DATA REVIEWED: Not Applicable RADIOLOGY DEPARTMENT: General X-ray: Exam(s) Completed: Lower Extremity X-Ray(s): Foot, Left PERIPHERAL IV DATA: Not applicable SIGNED BY: RT Oz(R) September 02, 2023 6:57 [facility] Future Appointments Appointment Date:01/03/2025 02:30:00 PM Scheduled Provider:MILI CERVANTES Location:[facility] Appointment Type:PC OV Appointment Date:01/04/2025 09:15:00 AM Scheduled Provider:CALEB PLASENCIA Location:[facility] Appointment Type:CV PRODUCTION COOK Appointment Date:01/17/2025 11:00:00 AM Scheduled Provider: Location:RAD Appointment Type:Echo - Echocardiogram Adult Future Scheduled Tests Laboratory* Basic Metabolic Panel 12/21/24 [facility] Evaluation + Plan note Future Appointments Appointment Date:01/03/2025 02:30:00 PM Scheduled Provider:MILI CERVANTES Location:[facility] Appointment Type:PC OV Appointment Date:01/04/2025 09:15:00 AM Scheduled Provider:CALEB PLASENCIA Location:[facility] Appointment Type:CV PRODUCTION COOK Appointment Date:01/17/2025 11:00:00 AM Scheduled Provider: Location:[facility] Appointment Type:Echo - Echocardiogram Adult [facility] Evaluation + Plan note Future Appointments Appointment Date:03/22/2025 09:00:00 AM Scheduled Provider:GLENDA KUMAR Location:UROLOGY Appointment Type:URO OV Appointment Date:04/06/2025 01:00:00 PM Scheduled Provider:MILI CERVANTES Location:[facility] Appointment Type:PC OV Appointment Date:04/11/2025 09:15:00 AM Scheduled Provider:CALEB PLASENCIA Location:[facility] Appointment Type:CV OV Appointment Date:07/29/2025 10:30:00 AM Scheduled Provider:MILI CERVANTES Location:[facility] Appointment Type:PC Wellness Annual Future Scheduled Tests Laboratory* PSA Total+% Free 02/28/25 * Basic Metabolic Panel 03/16/25 * Urinalysis w/ C&S if Indicated 03/16/25 * Complete Blood Count 03/16/25 Radiology* NM Myocardial Spect Rest/Stress 03/09/25 [facility] Evaluation + Plan note Future Appointments Appointment Date:04/06/2025 01:00:00 PM Scheduled Provider:MILI CERVANTES Location:[facility] Appointment Type:PC OV Appointment Date:04/08/2025 09:00:00 AM Scheduled Provider:GLENDA KUMAR Location:UROLOGY Appointment Type:URO OV Appointment Date:04/11/2025 09:15:00 AM Scheduled Provider:CALEB PLASENCIA Location:[facility] Appointment Type:CV OV Appointment Date:07/29/2025 10:30:00 AM Scheduled Provider:MILI CERVANTES Location:[facility] Appointment Type:PC Wellness Annual Diagnostic Tests Pending * PSA Total+% Free 03/21/25 Future Scheduled Tests Laboratory* Urinalysis w/ C&S if Indicated 03/16/25 Radiology* NM Myocardial Spect Rest/Stress 03/09/25 [facility] Evaluation + Plan note Future Appointments Appointment Date:04/06/2025 01:00:00 PM Scheduled Provider:MILI CERVANTES Location:[facility] Appointment Type:PC OV Appointment Date:04/08/2025 09:00:00 AM Scheduled Provider:GLENDA KUMAR AUTOMATIC FOLDER SEAMER-SAS PROGRAMMER ANALYST Location:UROLOGY Appointment Type:URO OV Appointment Date:04/11/2025 09:15:00 AM Scheduled Provider:CALEB PLASENCIA APRN-NATHANIEL Location:[facility] Appointment Type:CV OV Appointment Date:07/29/2025 10:30:00 AM Scheduled Provider:MILI CERVANTES Location:[facility] Appointment Type:PC Wellness Annual Future Scheduled Tests Laboratory* Urinalysis w/ C&S if Indicated 03/16/25 Radiology* NM Myocardial Spect Rest/Stress 03/09/25 [facility] Hospital course Narrative No data available for this section [facility] Hospital Discharge instructions No data available for this section [facility] Progress note No data available for this section [facility] Summary Purpose Family History No Family History Records FoundNo Family History Records FoundNo Family History Records FoundNo Family History Records Found No data available for this section No Family History Records Found No data available for this section No data available for this section No data available for this section No Family History Records Found No data available for this section No data available for this section No data available for this section No data available for this section No Family History Records FoundNo Family History Records Found Advance Directives No Advanced Directives Records FoundNo Advanced Directives Records FoundNo Advanced Directives Records FoundNo Advanced Directives Records FoundNo Advanced Directives Records FoundNo Advanced Directives Records FoundNo Advanced Directives Records FoundNo Advanced Directives Records Found Additional Source Comments (unrecognized sect ion and content) No Status Records FoundNo Status Records FoundNo Status Records FoundNo Status Records FoundNo Status Records FoundNo Status Records FoundNo Status Records FoundNo Status Records Found INFORMATION SOURCE (unrecogn ized section and content) DATE CREATED AUTHOR 11/08/2021 [facility] ([place]) DATE CREATED AUTHOR AUTHOR'S ORGANIZ ATION 09/10/2023 [facility] DATE CREATED AUTHOR AUTHOR'S ORGANIZ ATION [facility] DATE CREATED AUTHOR AUTHOR'S ORGANIZ ATION 12/18/2023 [facility] DATE CREATED AUTHOR AUTHOR'S ORGANIZ ATION 12/26/2024 [facility] DATE CREATED AUTHOR AUTHOR'S ORGANIZ ATION 01/15/2025 [facility] DATE CREATED AUTHOR AUTHOR'S ORGANIZ ATION 03/22/2025 [facility] DATE CREATED AUTHOR AUTHOR'S ORGANIZ ATION 04/05/[address] [facility] Source Comments (unrecognize d section and content) In the event this informatio n is protected by the Federal Confidentiality of Alcohol and Drug Abuse Patient Records regulations: The Federal rules restrict any use of the information to criminally investigate or prosecute any alcohol or drug abuse patient.[facility] Patient Care team informatio n (unrecognized section and content) Care Team Personnel Name: MILI CERVANTES Position: P4 [employer] Member Role: Primary Care Physician Address: [address] [place] [id number] Telecom: Care Team Related Persons Name: SHU MYERS Care Team Personnel Name: MILI CERVANTES Position: P4 [employer] Member Role: Primary Care Physician Address: [address] [place] [id number] Telecom: Care Team Related Persons Name: GREGOR SHU Care Team Personnel Name: Florencio Amber Dione FOWLER Position: Bed Management Member Role: Other Name: MILI CERVANTES Position: P4 [employer] Member Role: Primary Care Physician Address: [address] [place] [address] Telecom: Care Team Related Persons Name: SHU MYERS Care Team Personnel Name: Amber Matias Position: Bed Management Member Role: Other Name: MILI CERVANTES Position: P4 [employer] Member Role: Primary Care Physician Address: [address] [place] [address] Telecom: Care Team Related Persons Name: MYERS SHU Care Team Personnel Name: Amber Matias Position: Bed Management Member Role: Other Name: Mojgan Fam Position: Quality Review Member Role: Pearl Digger Name: MILI CERVANTES Position: P4 [employer] Member Role: Primary Care Physician Address: [address] [place] [address] Telecom: Care Team Related Persons Name: MYERS SHU Care Team Personnel Name: Amber Matias Position: Bed Management Member Role: Other Name: Mojgan Fam Position: Quality Review Member Role: Pearl Digger Name: MILI CERVANTES Position: P4 [employer] Member Role: Primary Care Physician Address: [address] [place] [address] Telecom: Care Team Related Persons Name: GREGOR SHU Care Team Personnel Name: Amber Matias Position: Bed Management Member Role: Other Name: Mojgan Fam Position: Quality Review Member Role: Pearl Digger Name: MILI CERVANTES APRN-NATHANIEL Position: P4 [employer] Member Role: Primary Care Physician Address: [address] [place] [address] Telecom: Care Team Related Persons Name: SHU MYERS Care Team Personnel Name: Amber Matias MALCOLM Position: Bed Management Member Role: Other Name: Mojgan Fam Position: Quality Review Member Role: Pearl Digger Name: MILI CERVANTES Position: P4 [employer] Member Role: Primary Care Physician Address: [address] [place] [phone]- [place] Telecom: Care Team Related Persons Name: SHU MYERS FOR RECORDS PERTAINING TO PATIENTS WHO ARE OR HAVE BEEN ENROLLED IN A CHEMICAL DEPENDENCY/SUBSTANCEABUSE PROGRAM, SOME INFORMATION MAY BE OMITTED. This clinical summary was aggregated from multiple sources. Caution should be exercised in using it in the provision of clinical care. This summary normalizes information from multiple sources, and as a consequence, information in this document may materially change the coding, format and clinical context of patient data. In addition, data may be omitted in some cases. CLINICAL DECISIONS SHOULD BE BASED ON THE PRIMARY CLINICAL RECORDS. [facility] [employer] provides no warranty or guarantee of the accuracy or completeness of information in this document.
--- NOTE | 2025-04-06 18:36 | STRESSREP ---
Stress Test Report Pharmacologic myocardial perfusion stress test. 64-year-old man with a history of chest pain. Resting EKG demonstrates atrial fibrillation with a rate of 82 bpm. Resting blood pressure is 118/60 mmHg. 0.4 mg of regadenoson was infused per usual protocol followed by rapid intravenous saline flush injection. Continuous EKG monitoring was performed. The maximum heart rate was 96 bpm which was 60% of max impacted heart rate the maximum workload was 1 metabolic equivalent. At rest there were no ST or T wave changes noted to suggest ischemia and at peak infusion nonspecific ST changes were noted which did not meet the criteria for ischemia. No clinical angina is noted. The final blood pressure was 104/58 mmHg. Myocardial perfusion protocol. 14.2 mCi of technetium 99m sestamibi was injected at rest. 0.4 mg of regadenoson was infused per usual protocol. At peak infusion 44 point mCi of technetium 99m sestamibi was injected stress images were obtained stress and rest images were reconstructed and compared in the short axis vertical long and horizontal long axis. Gated images were also obtained. Perfusion SPECT analysis: Review of the stress images demonstrate normal uptake of tracer noted in all areas of the myocardium. The resting images similar demonstrated normal uptake of tracer noted in all areas of the myocardium. No areas of reversibility are noted to suggest ischemia and no previous infarct is noted. Gated SPECT analysis: The gated ejection fraction is 52%. Conclusion: Normal pharmacologic myocardial perfusion stress test. Preserved ejection fraction.
== END | disposition home or self-care (01) ==
PROVIDERS: PCP Nurse Practitioner Adult Health; Referring Provider Nurse Practitioner Family; Visit Provider Nurse Practitioner Family
DX: R06.02 Shortness of breath (principal); I50.20 Unspecified systolic (congestive) heart failure; I48.91 Unspecified atrial fibrillation; I42.9 Cardiomyopathy, unspecified; I25.10 Atherosclerotic heart disease of native coronary artery without angina pectoris
CPT/HCPCS: 78452; 93017; A9500; A4216; J2785